=== PATIENT | female | born 1955 | race Caucasian/White ===

== ENCOUNTER 2017-08-02 16:38 | Inpatient (IN) | payer BC ==
[~2017-08-02] VITALS: Ht 162.6 cm; Wt 92.1 kg
[~2017-08-02 16:38] MED LIST: ATOR-24 PO; DOXY100C2 PO; EXEN1INJ4 SQ; HYDR25TA4 PO; METF850T PO; PIPERACILL/TAZOBAC IV 4.5 GM in DEXTROSE 5% 100ML IV SCH; RIVA1TAB4 PO; TRAM-10 PO
[2017-08-02] MEDS ORDERED: SODIUM CHLORIDE 0.9% 1000ML 1,000 ML IV STA (17:14)
[2017-08-02] MEDS ORDERED: ACETAMINOPHEN 500 MG TAB PO STA (17:14)
[2017-08-02] MEDS ORDERED: DIPHTHERIA/TETANUS/PERTUSSIS 0.5 ML SYR/VIAL IM. ONE (17:15)
[2017-08-02 18:08] LABS: BASO % 0.1 %; BASO ABS # 0.02 K/uL (0-0.2); COMPLETE YES; EOS % 0.1 %; IG% 0.3 %; LYMPH % 5.3 %; MEAN CELL VOLUME 83.3 fL (80-100); MEAN CORPUSCULAR HEMOGLOBIN 28.6 pg (25-34); MEAN CORPUSCULAR HGB CONC 34.4 g/dl (32-36); MEAN PLATELET VOLUME 11.2 fL (7.4-10.4); MONO % 5.3 %; NEUT % 88.9 %; PLATELET COUNT 218 K/uL (130-400); RED BLOOD COUNT 4.68 M/uL (4.2-5.4); WHITE BLOOD COUNT 18.84 K/uL (4.8-10.8)
[2017-08-02] MEDS ORDERED: VANCOMYCIN INJ 2,000 MG in SODIUM CHLORIDE 0.9% 500ML 500 ML IV STA (18:11)
[2017-08-02 18:17] LABS: PARTIAL THROMBOPLASTIN RATIO 1.2; PROTHROMBIN TIME (PATIENT) 11.2 SECONDS (9.0-12.0)
[2017-08-02 18:24] LABS: BUN/CREATININE RATIO 22.6 (10-20); CALCIUM 8.9 mg/dl (8.5-10.1); CREATININE 1.1 mg/dl (0.60-1.20); POTASSIUM 3.1 mmol/L (3.5-5.1)
[2017-08-02 18:27] LABS: ALB/GLOB RATIO 0.7 (0.9-2)
[2017-08-02 18:34] LABS: BETA-HYDROXYBUTYRATE 1.75 mg/dL (0.2-2.81)
--- NOTE | 2017-08-02 18:50 | DIAGNOSTIC IMAGING REPORT ---
R FOOT MIN 3 VIEWS ROUTINE HISTORY: 62 years-old Female right foot redness, swelling acute redness and swelling of the right foot without reported trauma. COMPARISON: None available. TECHNIQUE: 3 views of the right foot FINDINGS: Bones are mildly osteopenic. There is a subacute to chronic appearing fracture involving the proximal metaphysis fifth proximal phalanx. No acute fracture, dislocation identified. Mild first MTP joint osteoarthritis. There is spurring of the calcaneus. Moderate soft tissue swelling is noted about the foot, greatest at the level the forefoot. No definite erosive changes to suggest osteomyelitis. IMPRESSION: 1. Moderate soft tissue swelling about the foot, greatest within the forefoot. No acute bony abnormality identified. 2. Subacute to chronic nondisplaced fracture of the fifth proximal phalanx. 3. Degenerative changes as above. The above report was generated using voice recognition software. It may contain grammatical, syntax or spelling errors. Electronically signed by: Giles Lane M.D. 08/02/2017 6:49 PM Dictated Date/Time: 08/02/2017 6:47 PM
--- NOTE | 2017-08-02 19:11 | DIAGNOSTIC IMAGING REPORT ---
BILATERAL LOWER EXTREMITY VENOUS DOPPLER HISTORY: Acute right lower extremity swelling right foot redness, swelling COMPARISON STUDY: None. FINDINGS: There is normal compressibility, flow, and augmentation within the right lower extremity deep venous system. IMPRESSION: No sonographic evidence of deep venous thrombosis within the right lower extremity. Electronically signed by: Giles Lane M.D. 08/02/2017 7:09 PM Dictated Date/Time: 08/02/2017 7:08 PM
[2017-08-02] MEDS ORDERED: POTASSIUM CHLORIDE 10 MEQ TABCR PO STA (19:32)
[2017-08-02] MEDS ORDERED: GLUCOSE 10 TABS/TUBE PO PRN (20:30)
[2017-08-02] MEDS ORDERED: KETOROLAC TROMETHAMINE 30 MG/ML VIAL IV PRN (20:30)
[2017-08-02] MEDS ORDERED: GLUCOSE 40% GEL 15 GM TUBE PO PRN (20:30)
[2017-08-02] MEDS ORDERED: LANTUS PER UNIT CHARGE SC ONE (20:30)
[2017-08-02] MEDS ORDERED: DEXTROSE 50% 50 ML SYR IV PRN (20:30)
[2017-08-02] MEDS ORDERED: GLUCAGON FOR INJ 1 MG VIAL SQ PRN (20:30)
[2017-08-02] MEDS ORDERED: LORAZEPAM 0.5 MG TAB PO PRN (20:30)
[2017-08-02 20:34] LABS: MAGNESIUM 1.6 mg/dl (1.8-2.4); THYROID STIMULATING HORMONE 1.16 uIu/ml (0.300-4.500)
[2017-08-02] MEDS ORDERED: PIPERACILLIN/TAZOBACTAM 4.5 GM/100ML D5W IV STA (20:42)
[2017-08-02] MEDS ORDERED: VANCOMYCIN CONSULT ACTIVE PRN (21:00)
[2017-08-02] MEDS ORDERED: PIPERACILL/TAZOBAC CONSULT ACTIVE PRN (21:00)
--- NOTE | 2017-08-02 21:22 | EMERGENCY ROOM VISIT NOTE ---
History First contact with patient: 16:59 Chief Complaint: FOOT PAIN Stated Complaint: SWELLING - RED IN RIGHT FOOT History of Present Illness The patient is a 62 year old female who presents to the Emergency Room with complaints of right foot redness, swelling and pain. The patient states that she first noticed redness and swelling of the right foot 2 days ago when she woke up. She denies any recent injury to the foot. She was seen at her primary care's walk in clinic that day and had an injection of Rocephin and was placed on doxycycline for cellulitis. She returned yesterday for a recheck and was given an additional dose of Rocephin. She states that she felt better, but was told that she had increasing redness of the foot. She returned today for a third visit and was told to come here because her symptoms were worsening despite antibiotics. The patient has not noticed any fevers at home, but has been told that she had a fever at the clinic. She reports she had a "blood blister" on the great toe this morning which she popped with a sterile pin and cleaned with peroxide. The patient is a diabetic. She denies any history of infections. She denies any numbness or weakness of the leg or foot. Review of Systems A complete 10 point review of systems was reviewed with the patient with pertinent positives and negatives as per history of present illness. All else were negative. Past Medical/Surgical History Medical Problems: (1) Depression (2) Diabetes mellitus (3) DVT (deep venous thrombosis) (4) Dyslipidemia (5) HTN (hypertension) (6) Sepsis Surgical Problems: (1) S/P cholecystectomy (2) S/P tubal ligation Family History Depression Social History Smoking Status: Former Smoker Marital Status: Housing Status: lives with family Occupation Status: employed Current/Historical Medications Scheduled Atorvastatin (Lipitor), 1 TAB PO DAILY Doxycycline Hyclate (Vibramycin), 1 CAP PO BID Hydrochlorothiazide (Hctz), 25 MG PO DAILY Metformin Hcl (Glucophage), 850 MG PO BID Scheduled PRN Tramadol (Ultram), 25 MG PO Q4H PRN for Pain Physical Exam Vital Signs Date Time Temp Pulse Resp B/P (MAP) Pulse Ox O2 Delivery O2 Flow Rate FiO2 08/02/17 19:23 76 08/02/17 19:15 82 20 132/65 97 Room Air 08/02/17 16:49 38.9 101 17 143/83 100 Room Air Physical Exam VITALS: Vitals are noted on the nurse's note and reviewed by myself. Vital signs stable. GENERAL: This is a 62-year-old female, in no acute distress, nondiaphoretic, well-developed well-nourished. SKIN: Capillary reflex less than 2 seconds. HEART: Regular rate and rhythm without murmurs gallops or rubs. LUNGS: Clear to auscultation bilaterally without wheezes, rales or rhonchi. EXTREMITY: There is erythema and soft tissue swelling of the right foot which extends from the toes just past the ankle. There are no abrasions or lacerations. Pedal pulses intact. NEURO: Patient was alert and oriented to person place and time. Normal sensation to light and sharp touch. Medical Decision & Procedures ER Provider Diagnostic Interpretation: R FOOT MIN 3 VIEWS ROUTINE FINDINGS: Bones are mildly osteopenic. There is a subacute to chronic appearing fracture involving the proximal metaphysis fifth proximal phalanx. No acute fracture, dislocation identified. Mild first MTP joint osteoarthritis. There is spurring of the calcaneus. Moderate soft tissue swelling is noted about the foot, greatest at the level the forefoot. No definite erosive changes to suggest osteomyelitis. IMPRESSION: 1. Moderate soft tissue swelling about the foot, greatest within the forefoot. No acute bony abnormality identified. 2. Subacute to chronic nondisplaced fracture of the fifth proximal phalanx. 3. Degenerative changes as above. UNILATERAL LOWER EXTREMITY VENOUS DOPPLER HISTORY: Acute right lower extremity swelling right foot redness, swelling COMPARISON STUDY: None. FINDINGS: There is normal compressibility, flow, and augmentation within the right lower extremity deep venous system. IMPRESSION: No sonographic evidence of deep venous thrombosis within the right lower extremity. Laboratory Results 08/02/17 17:50 Red Blood Count 4.68, Mean Corpuscular Volume 83.3, Mean Corpuscular Hemoglobin 28.6, Mean Corpuscular Hemoglobin Concent 34.4, Mean Platelet Volume 11.2, Neutrophils (%) (Auto) 88.9, Lymphocytes (%) (Auto) 5.3, Monocytes (%) (Auto) 5.3, Eosinophils (%) (Auto) 0.1, Basophils (%) (Auto) 0.1, Neutrophils # (Auto) 16.76, Lymphocytes # (Auto) 1.00, Monocytes # (Auto) 1.00, Eosinophils # (Auto) 0.01, Basophils # (Auto) 0.02 08/02/17 17:50 Test 08/02/17 17:50 White Blood Count 18.84 K/uL (4.8-10.8) Red Blood Count 4.68 M/uL (4.2-5.4) Hemoglobin 13.4 g/dL (12.0-16.0) Hematocrit 39.0 % (37-47) Mean Corpuscular Volume 83.3 fL (80-100) Mean Corpuscular Hemoglobin 28.6 pg (25-34) Mean Corpuscular Hemoglobin Concent 34.4 g/dl (32-36) Platelet Count 218 K/uL (130-400) Mean Platelet Volume 11.2 fL (7.4-10.4) Neutrophils (%) (Auto) 88.9 % Lymphocytes (%) (Auto) 5.3 % Monocytes (%) (Auto) 5.3 % Eosinophils (%) (Auto) 0.1 % Basophils (%) (Auto) 0.1 % Neutrophils # (Auto) 16.76 K/uL (1.4-6.5) Lymphocytes # (Auto) 1.00 K/uL (1.2-3.4) Monocytes # (Auto) 1.00 K/uL (0.11-0.59) Eosinophils # (Auto) 0.01 K/uL (0-0.5) Basophils # (Auto) 0.02 K/uL (0-0.2) RDW Standard Deviation 36.6 fL (36.4-46.3) RDW Coefficient of Variation 12.1 % (11.5-14.5) Immature Granulocyte % (Auto) 0.3 % Immature Granulocyte # (Auto) 0.05 K/uL (0.00-0.02) Prothrombin Time 11.2 SECONDS (9.0-12.0) Prothromb Time International Ratio 1.0 (0.9-1.1) Activated Partial Thromboplast Time 30.9 SECONDS (21.0-31.0) Partial Thromboplastin Ratio 1.2 Anion Gap 8.0 mmol/L (3-11) Est Creatinine Clear Calc Drug Dose 59.1 ml/min Estimated GFR () 62.8 Estimated GFR (Non- 54.1 BUN/Creatinine Ratio 22.6 (10-20) Lactic Acid Level 1.7 mmol/L (0.4-2.0) Calcium Level 8.9 mg/dl (8.5-10.1) Magnesium Level 1.6 mg/dl (1.8-2.4) Total Bilirubin 0.7 mg/dl (0.2-1) Aspartate Amino Transf (AST/SGOT) 5 U/L (15-37) Alanine Aminotransferase (ALT/SGPT) 10 U/L (12-78) Alkaline Phosphatase 136 U/L (45-117) Total Creatine Kinase 39 U/L (26-192) Total Protein 7.1 gm/dl (6.4-8.2) Albumin 2.9 gm/dl (3.4-5.0) Globulin 4.2 gm/dl (2.5-4.0) Albumin/Globulin Ratio 0.7 (0.9-2) Beta-Hydroxybutyric Acid 1.75 mg/dL (0.2-2.81) Thyroid Stimulating Hormone (TSH) 1.160 uIu/ml (0.300-4.500) Medications Administered Medications (Trade) Dose Ordered Sig/Donald Route Start Time Stop Time Status Last Admin Dose Admin Diphtheria/ Pertussis/Tetanus Vacc (Adacel Inj) 0.5 ml ONCE ONCE IM. 08/02/17 17:15 08/02/17 17:17 DC 08/02/17 17:46 0.5 ML Sodium Chloride 1,000 ml @ 999 mls/hr Q1H1M STAT IV 08/02/17 17:14 08/02/17 18:14 DC 08/02/17 19:12 999 MLS/HR Acetaminophen (Tylenol Tab) 1,000 mg NOW STAT PO 08/02/17 17:14 08/02/17 17:17 DC 08/02/17 17:45 1,000 MG Vancomycin HCl 2000 mg/Sodium Chloride 540 ml @ 200 mls/hr ONE STAT IV 08/02/17 18:11 08/02/17 20:52 DC 08/02/17 19:12 200 MLS/HR Potassium Chloride (Klor-Con M10) 40 meq NOW STAT PO 08/02/17 19:32 08/02/17 19:35 DC 08/02/17 20:56 40 MEQ ED Course The patient was evaluated as above. Labs were drawn and IV access was obtained. Patient was medicated with 1 L normal saline solution and a dose of vancomycin. Ultrasound and x-ray were performed and read by radiology as above. Patient was reevaluated and findings were discussed. She is agreeable to admission. [facility] They agreed to evaluate the patient for admission. Medical Decision Differential diagnosis includes cellulitis, abscess, DVT, superficial thrombosis , sepsis, among others. The patient is a 62-year-old female who presents today complaining of right foot cellulitis. Labs revealed leukocytosis of 18,000. Patient was febrile on presentation. Blood cultures were drawn and are pending. Labs were otherwise unremarkable. Lactic acid is not elevated. Ultrasound and x-ray showed no acute findings. Patient has a significant cellulitis of the right foot with no improvement after 48 hours of outpatient therapy. She has a fever. I feel she will need admission for IV antibiotics. She was given an initial dose of vancomycin and admitted to the [facility] service for further evaluation and treatment. Medication Reconcilliation Current Medication List: was personally reviewed by me Blood Pressure Screening Patient's blood pressure: Elevated blood pressure Blood pressure disposition: Elevated BP felt to be situational Impression Primary Impression: Cellulitis of right foot Additional Impression: Failure of outpatient treatment Departure Information Referrals Winston Awad M.D. (PCP) Patient Instructions My [facility] Problem Qualifiers
[2017-08-02 21:45] VITALS: BP 113/80; PULSE 81; TEMP 36.7; O2SAT 97
[2017-08-02 22:30] VITALS: BP 113/80; PULSE 81; TEMP 36.7; O2SAT 97; BMI 34.9
[2017-08-02] MEDS ORDERED: NSS + 20MEQ KCL 1000ML 1,000 ML IV ONE (22:45)
[2017-08-02] MEDS ORDERED: MAGNESIUM SULFATE 1GM / D5W 1 GM in PREMIXED IN D5W 100 ML IV ONE (22:45)
[2017-08-02] MEDS: INSULIN ASPART 100 UNITS/ML 3 ML PEN SC SCH (23:02)
[2017-08-03 00:23] VITALS: BP 103/69; PULSE 84; TEMP 37.2; O2SAT 100
[2017-08-03] MEDS: ACETAMINOPHEN 325 MG TAB PO PRN ×3 (00:38→23:21)
--- NOTE | 2017-08-03 00:45 | HISTORY & PHYSICAL EXAMINATION ---
DATE OF ADMISSION: 08/02/2017 PRIMARY CARE DOCTOR: Dr. Awad. CHIEF COMPLAINT: Right foot swelling worsening. HISTORY OF PRESENT ILLNESS: History obtained from patient and records. Medical history significant for hypertension, diabetes type 2, on oral meds, history of embolic CVA, DVT sp anticoagulation status post IVC filter placement/removal , past tobacco abuse. Recent confinement 01/2016 for cerebellar infarct. Transferred to [facility] for further evaluation. Few nights ago, the patient noted chills, felt cold. She noted swelling on the left big toe spreading to the other toes, progressive foot swelling fever and chills morning after. She was seen at an urgent care center on 07/31/2017, noted to be febrile at 38.9. Px given IM Ceftriaxone at the facility and prescribed doxycycline for R foot infection. Fever and chills improved. R foot swelling worsening on followup visit at urgent care center yesterday. Patient given additional IM ceftriaxone. This morning the patient noted a blister on left great toe, which she burst yielding serosanguineous fluid. Upon return for recheck at facility, progressive right right foot swelling noted with some pain. Patient is compliant with medications over the last few days. She was told to go to the Emergency Room. At the Emergency Room, the patient received IV vancomycin for R foot infection. Patient upset that contemplated right shoulder surgery for next week canceled because of issues. MEDICAL HISTORY: As above. SURGICAL HISTORY: She has had cholecystectomy, tubal ligation, IVC filter placement and removal. HOME MEDICATIONS: Include atorvastatin, tramadol, metformin, HCTZ, aspirin. ALLERGIES: TO SULFA, BACTRIM. FAMILY HISTORY: Diabetes. PERSONAL AND SOCIAL HISTORY: Past tobacco use. No chronic intake of alcoholic beverages. [employer] graduate school employee. REVIEW OF SYSTEMS: As per HPI, all other ROS negative. PHYSICAL EXAMINATION: VITAL SIGNS: Blood pressure noted to be 140/80, later 130/65; pulse rate 101, later 82; RR 17; temperature 38.9; sats 100 on room air. GENERAL: Noted to be comfortable, obese, in no respiratory distress. Looks younger for stated age. SKIN: Normal color, warm. HEENT: [place] palpebral conjunctivae, dry mucosa. NECK: Short, midline trachea, nontender. CHEST: Clear to auscultation. No chest wall tenderness. CV: Regular rate and rhythm. Lower extremity pulses palpable. ABDOMEN: Soft, no distention EXTREMITIES: Swelling in the right foot, tender (left great toe markedly swollen with crusty wound) NEUROLOGIC: No gross focality, coherent. LABORATORY DATA: Hemoglobin was noted to be 13.4, hematocrit 39, white cell count 18.8, platelets noted to be 218. Sodium 133, potassium 3.1, chloride 108, CO2 of 24, BUN 25, creatinine 1, glucose 340. Foot x-ray, soft tissue swelling on the left forefoot, subacute to chronic nondisplaced fracture, fifth digit R Lower extremity ultrasound, no DVT of lower extremity. Hemoglobin A1c from 05/2017 was 9.7. ASSESSMENT AND PLAN: 1. Sepsis secondary to diabetic foot infection, right failed outpatient treatment. 2. Diabetes mellitus type 2, on oral medications suboptimal control as of recent outpatient hemoglobin A1c. 3. Hypertension, stable. 4. History of cerebrovascular accident. 5. hx DVT sp anticoagulation status post IVC filter placement/removal 6. Past tobacco abuse. 7. Hypokalemia secondary to diuretic therapy GMF CS. Vancomycin and Zosyn for now. Offload right lower extremity. Podiatry consult. Diabetic foot infection right May need ID consult pending CS results availability Replace potassium. Hold home diuretics for now. Check magnesium. Basal insulin ISS BG goal 140-180. Carb count indicated for suboptimal blood sugar control. Recheck hemoglobin A1c. May need diabetic education. DVT prophylaxis, Lovenox subcu. Full code. MTDD
[2017-08-03] MEDS: PIPERACILL/TAZOBAC IV 4.5 GM in DEXTROSE 5% 100ML IV SCH ×3 (02:13→17:27)
[2017-08-03 06:10] LABS: BASO % 0.1 %; BASO ABS # 0.02 K/uL (0-0.2); COMPLETE YES; EOS % 0.4 %; HEMATOCRIT 37.4 % (37-47); IG% 0.4 %; LYMPH % 12.8 %; LYMPH ABS # 1.98 K/uL (1.2-3.4); MEAN CELL VOLUME 83.3 fL (80-100); MEAN CORPUSCULAR HEMOGLOBIN 28.7 pg (25-34); MEAN CORPUSCULAR HGB CONC 34.5 g/dl (32-36); MEAN PLATELET VOLUME 11.2 fL (7.4-10.4); MONO % 4.6 %; NEUT % 81.7 %; PLATELET COUNT 205 K/uL (130-400); RED BLOOD COUNT 4.49 M/uL (4.2-5.4); WHITE BLOOD COUNT 15.46 K/uL (4.8-10.8)
[2017-08-03 06:43] LABS: BUN/CREATININE RATIO 20.5 (10-20); CALCIUM 8.9 mg/dl (8.5-10.1); POTASSIUM 3.3 mmol/L (3.5-5.1)
[2017-08-03 07:20] LABS: ESTIMATED AVERAGE GLUCOSE 275 mg/dl; HA1C FLAG Normal (Normal)
[2017-08-03] MEDS ORDERED: INSULIN GLARGINE SOLOSTAR 100 UNITS/ML 3 ML PEN SC SCH (08:00)
[2017-08-03] MEDS ORDERED: CONSULT PHARMACY SCH (08:00)
[2017-08-03] MEDS: ASPIRIN 81 MG ECTAB PO SCH (08:24)
[2017-08-03] MEDS: ATORVASTATIN 40 MG TAB PO SCH (08:24)
[2017-08-03] MEDS: TRAMADOL HCL 50 MG TAB PO PRN (08:25)
[2017-08-03] MEDS: ENOXAPARIN 40 MG/0.4 ML SYR SQ SCH (08:26)
[2017-08-03] MEDS: INSULIN ASPART 100 UNITS/ML 3 ML PEN SC SCH ×4 (08:30→21:05)
[2017-08-03 09:00] VITALS: BP 122/80; PULSE 84; TEMP 38; O2SAT 94
[2017-08-03] MEDS: INSULIN GLARGINE SOLOSTAR 100 UNITS/ML 3 ML PEN SC SCH ×2 (09:09→21:04)
[2017-08-03 10:57] VITALS: TEMP 39.4
[2017-08-03] MEDS: IBUPROFEN 200 MG TAB PO PRN (11:23)
[2017-08-03] MEDS: VANCOMYCIN INJ 1,250 MG in SODIUM CHLORIDE 0.9% 250ML 250 ML IV SCH (11:52)
[2017-08-03 12:00] VITALS: TEMP 36.9
[2017-08-03] MEDS ORDERED: POTASSIUM CHLORIDE 10 MEQ TABCR PO STA (12:04)
[2017-08-03 17:32] VITALS: BP 117/75; PULSE 62; TEMP 36.3; O2SAT 100
--- NOTE | 2017-08-03 18:04 | Progress Note ---
Internal Med Progress Note Date of Service: Aug 03, 2017. Provider Documentation: SUBJECTIVE: had episodes of fever intermittently no complain of SOB or cough OBJECTIVE: Vital Signs-as noted below Exam: General-no sign of distress, very pleasant Eyes-sclera non icteric ENT-NAD Neck-no JVD Lungs-CTA , no wheeze or rales Heart-regular S1/s2 Abdomen-soft, non tender Extremities-rt foot + erythema and swelling on dorsum area , significant swelling of rt great toe , purulent area with serosanguineous drainage from inter digit space between ist and 2nd toe , small area of purulent lesion with drainage on dorsum of the rt foot Neuro-no focal deficit , AAO x3 Lab data as noted below. ASSESSMENT & PLAN: SEPSIS DUE TO DIABETIC FOOT INFECTION ON RT SIDE presented with fever , chills , leukocytosis source of infection -infected rt great toe with extension to 5 toes as well started empirically with IV Zosyn and Vancomycin blood and wound culture ordered TYPE 2 DM : insulin SSI and Lantus ordered hold oral hypoglycemic while in hospital with acute illness and ongoing infection HTN : BP stable HX OF CVA : hx of occipital CVA uses walker occasionally at home cont Aspirin , statin fall precaution HX OF PRIOR LEFT LOWER EXT DVT S/P IVC FILTER PLACEMENT was on Xarelto ,which was discontinued after acute CVA had retrievable IVC filter placed , was removed after 7-8 months of anticoagulation lower ext Doppler negative for DVT HYPOKALEMIA /LOW MG : corrected follow labs DVT PROPHYLAXIS moderate risk lower ext Doppler negative for DVT sub q Lovenox DISPOSITION expected to be discharged home when medically stable may need [facility] antibiotics Vital Signs: Date Time Temp Pulse Resp B/P (MAP) Pulse Ox O2 Delivery O2 Flow Rate FiO2 08/04/17 16:33 39.1 70 18 112/67 (82) 98 Room Air 08/04/17 15:09 Room Air 08/04/17 08:40 Room Air 08/04/17 08:29 37.1 67 18 135/77 (96) 99 Room Air 08/04/17 00:58 36.7 08/04/17 00:00 Room Air 08/03/17 23:41 38.2 75 18 110/70 (83) 96 Room Air 08/03/17 20:00 Room Air Lab Results: Results Past 24 Hours Test 08/03/17 20:28 08/04/17 07:58 08/04/17 09:37 08/04/17 12:03 Range/Units Bedside Glucose 217 116 139 70-90 mg/dl Sodium Level 137 136-145 mmol/L Potassium Level 3.6 3.5-5.1 mmol/L Chloride Level 104 98-107 mmol/L Carbon Dioxide Level 23 21-32 mmol/L Anion Gap 10.0 3-11 mmol/L Blood Urea Nitrogen 14 7-18 mg/dl Creatinine 0.97 0.60-1.20 mg/dl Est Creatinine Clear Calc Drug Dose 67.0 ml/min Estimated GFR () 73.1 Estimated GFR (Non- 63.0 BUN/Creatinine Ratio 14.7 10-20 Random Glucose 143 70-99 mg/dl Calcium Level 8.8 8.5-10.1 mg/dl Magnesium Level 1.6 1.8-2.4 mg/dl Test 08/04/17 16:54 Range/Units Bedside Glucose 162 70-90 mg/dl
[2017-08-03 23:41] VITALS: BP 110/70; PULSE 75; TEMP 38.2; O2SAT 96
[2017-08-04 00:58] VITALS: TEMP 36.7
[2017-08-04] MEDS: PIPERACILL/TAZOBAC IV 4.5 GM in DEXTROSE 5% 100ML IV SCH ×2 (02:13→08:41)
[2017-08-04] MEDS: VANCOMYCIN INJ 1,250 MG in SODIUM CHLORIDE 0.9% 250ML 250 ML IV SCH ×2 (06:02→23:56)
[2017-08-04] MEDS: TRAMADOL HCL 50 MG TAB PO PRN ×2 (07:49→22:00)
[2017-08-04] MEDS: ASPIRIN 81 MG ECTAB PO SCH (07:49)
[2017-08-04] MEDS: ATORVASTATIN 40 MG TAB PO SCH (07:50)
[2017-08-04] MEDS: ENOXAPARIN 40 MG/0.4 ML SYR SQ SCH (07:51)
[2017-08-04 08:29] VITALS: BP 135/77; PULSE 67; TEMP 37.1; O2SAT 99
[2017-08-04] MEDS: INSULIN ASPART 100 UNITS/ML 3 ML PEN SC SCH ×4 (08:36→20:33)
[2017-08-04] MEDS: INSULIN GLARGINE SOLOSTAR 100 UNITS/ML 3 ML PEN SC SCH ×2 (08:37→21:36)
--- NOTE | 2017-08-04 09:51 | Progress Note ---
Progress Note Date of Service Aug 04, 2017. Progress Note ID Consult Dictated #[id number] A/P: 1. Diabetic foot wound - MRSA -Continue vanco, stop zosyn -follow blood cultures -consider wound vs surgery consults -Will follow, thank you
[2017-08-04 10:39] LABS: BUN/CREATININE RATIO 14.7 (10-20); CALCIUM 8.8 mg/dl (8.5-10.1); CREATININE 0.97 mg/dl (0.60-1.20); MAGNESIUM 1.6 mg/dl (1.8-2.4); POTASSIUM 3.6 mmol/L (3.5-5.1)
[2017-08-04] MEDS ORDERED: PHARMACY GLYCEMIC MGMT CONSULT SCH (10:41)
--- NOTE | 2017-08-04 12:02 | Pharmacy Progress Note ---
Glycemic Control Intl Consult Date of Service Aug 04, 2017. Scope Glycemic Pharmacist consulted by Dr Haddad on 08/04/17 for glycemic control and to write orders per [facility] inpatient glycemic control protocol Objective Weight (Kilograms): 92.100 Accuchecks BSG (last 24hrs): Test 08/03/17 17:16 08/03/17 20:28 08/04/17 07:58 08/04/17 09:37 Bedside Glucose 97 mg/dl (70-90) 217 mg/dl (70-90) 116 mg/dl (70-90) Random Glucose 143 mg/dl (70-99) Laboratory Data (last 24hrs) Test 08/04/17 09:37 Anion Gap 10.0 mmol/L BUN/Creatinine Ratio 14.7 Blood Urea Nitrogen 14 mg/dl Creatinine 0.97 mg/dl Potassium Level 3.6 mmol/L Sodium Level 137 mmol/L HbA1c Test 08/02/17 17:50 Hemoglobin A1c 11.2 % (4.5-5.6) H Recent Pertinent Medications Outpatient Anti-diabetic Regimen: * Metformin 850mg PO BID * A1c = 11.2 % 08/02/17 The patient is currently receiving: * Basal insulin: Lantus 20 units every 12 hours * Correctional Insulin: Novolog Correction per scale ACHS Goal Range: Low 140 mg/dL - High 180 mg/dL Correction Factor: 25 mg/dL/unit * Prandial insulin: Per carb ratio of 1 unit per 15 grams CHO consumed * Oral Agents: None currently Risk Factors for Insulin Resistance: * Infection: sepsis felt to be secondary to diabetic foot wound; receiving vancomycin IV * Diet: ordered T2DM diet and tolerating per carb counts Assessment & Plan ASSESSMENT: 08/04/17 * Type 2 diabetic admitted on 08/02 for sepsis secondary to diabetic foot wound * Patient appears to be poorly controlled with metformin monotherapy as an outpatient given recent A1c result of 11.2%. She will likely need the addition of insulin or possibly 2 more antidiabetic agents on discharge. * Over the last 24 hrs, glycemic control has been acceptable. BSGs have ranged 97-217, only 1 of which was above 180. * Fasting BSG 116 this AM w/ 40 units of basal insulin on board. I will reduce the basal insulin dose a the current regimen is weighted heavily in favor of basal (80% of total daily dose is basal insulin). * Will adjust the Novolog dosing parameters as well to allow for more Novolog w / meals given reduced basal dose * New regimen will be based upon anticipated total daily insulin requirement of 50-60 units/day when tolerating a diet (~0.6 units/kg/day) PLAN FOR INPATIENT GLYCEMIC CONTROL: * Decreasing Lantus to 14 units SQ BID * Continuing correction factor of 25 mg/dl/unit * Changing carb ratio to 1 unit per 9 grams CHO consumed * Changing goal range to Low 120 mg/dL - High 150 mg/dL * Please note that the plan above was derived based on current level of insulin resistance and hospital stress. These recommendations are appropriate for inpatient admission only. Plan of care upon discharge will need to be reassessed to avoid potential outpatient hypo/hyperglycemia. Thank you.
[2017-08-04] MEDS ORDERED: LORAZEPAM 0.5 MG TAB PO PRN (12:30)
[2017-08-04] MEDS ORDERED: MAGNESIUM SULFATE 1GM / D5W 1 GM in PREMIXED IN D5W 100 ML IV ONE (12:30)
[2017-08-04 16:33] VITALS: BP 112/67; PULSE 70; TEMP 39.1; O2SAT 98
[2017-08-04] MEDS ORDERED: GADAVIST IV PRN (16:45)
--- NOTE | 2017-08-04 17:40 | Progress Note ---
Internal Med Progress Note Date of Service: Aug 04, 2017. Provider Documentation: SUBJECTIVE: was afebrile this AM rt foot continues to have swelling and drainage has minimum pain OBJECTIVE: Vital Signs-as noted below Exam: General-no sign of distress, very pleasant Eyes-sclera non icteric ENT-NAD Neck-no JVD Lungs-CTA , no wheeze or rales Heart-regular S1/s2 Abdomen-soft, non tender Extremities-rt foot + erythema and swelling on dorsum area , significant swelling of rt great toe , purulent area with serosanguineous drainage from inter digit space between ist and 2nd toe , small area of purulent lesion with drainage on dorsum of the rt foot Neuro-no focal deficit , AAO x3 Lab data as noted below. ASSESSMENT & PLAN: SEPSIS DUE TO DIABETIC FOOT INFECTION ON RT SIDE presented with fever , chills , leukocytosis WBC improving 18K --> 15 K source of infection -infected rt great toe with extension to 5 toes as well started empirically with IV Zosyn and Vancomycin wound culture -MRSA appreciate input form ID D/c Zosyn Cont on Vancomycin Ortho consulted for further eval MRI of rt foot ordered to R/O osteomyelitis TYPE 2 DM : insulin SSI and Lantus ordered HB A1c 11.2 ( poorly controlled ) certified lactation educator consulted hold oral hypoglycemic ( was on Metformin 850 mg BID ) while in hospital with acute illness and ongoing infection pharmacy consulted for glycemic management HTN : BP stable HX OF CVA : hx of occipital CVA uses walker occasionally at home cont Aspirin , statin fall precaution HX OF PRIOR LEFT LOWER EXT DVT S/P IVC FILTER PLACEMENT was on Xarelto ,which was discontinued after acute CVA had retrievable IVC filter placed , was removed after 7-8 months of anticoagulation lower ext Doppler negative for DVT HYPOKALEMIA /LOW MG : corrected follow labs DVT PROPHYLAXIS moderate risk lower ext Doppler negative for DVT sub q Lovenox DISPOSITION expected to be discharged home when medically stable may need long term care social worker antibiotics Vital Signs: Date Time Temp Pulse Resp B/P (MAP) Pulse Ox O2 Delivery O2 Flow Rate FiO2 08/04/17 16:33 39.1 70 18 112/67 (82) 98 Room Air 08/04/17 15:09 Room Air 08/04/17 08:40 Room Air 08/04/17 08:29 37.1 67 18 135/77 (96) 99 Room Air 08/04/17 00:58 36.7 08/04/17 00:00 Room Air 08/03/17 23:41 38.2 75 18 110/70 (83) 96 Room Air 08/03/17 20:00 Room Air Lab Results: Results Past 24 Hours Test 08/03/17 20:28 08/04/17 07:58 08/04/17 09:37 08/04/17 12:03 Range/Units Bedside Glucose 217 116 139 70-90 mg/dl Sodium Level 137 136-145 mmol/L Potassium Level 3.6 3.5-5.1 mmol/L Chloride Level 104 98-107 mmol/L Carbon Dioxide Level 23 21-32 mmol/L Anion Gap 10.0 3-11 mmol/L Blood Urea Nitrogen 14 7-18 mg/dl Creatinine 0.97 0.60-1.20 mg/dl Est Creatinine Clear Calc Drug Dose 67.0 ml/min Estimated GFR () 73.1 Estimated GFR (Non- 63.0 BUN/Creatinine Ratio 14.7 10-20 Random Glucose 143 70-99 mg/dl Calcium Level 8.8 8.5-10.1 mg/dl Magnesium Level 1.6 1.8-2.4 mg/dl Test 08/04/17 16:54 Range/Units Bedside Glucose 162 70-90 mg/dl
[2017-08-04] MEDS: ACETAMINOPHEN 325 MG TAB PO PRN (17:50)
--- NOTE | 2017-08-04 20:28 | Progress Note ---
Progress Note Date of Service Aug 04, 2017. Progress Note pt is ordered NPO past midnight for possible I&D of rt foot /interdigital cleft of rt foot tomorrow by Ortho hold Sub lei Tsex
--- NOTE | 2017-08-04 20:38 | INFECT. DISEASE CONSULTATION ---
DATE OF CONSULTATION: 08/04/2017 REQUESTING PHYSICIAN: Dr. Haddad. HISTORY OF PRESENT ILLNESS: This is a 62-year-old female who was admitted for infection of her right toe. She was recently seen at an urgent care center on the . At that time she did have fever, she was given a 1 time dose of IM Rocephin and then she was given doxycycline prescription. She did have improvement with her fevers and chills but continued to have pain in the foot and a blister of her great toe on the left side. She returned back to the urgent care center and then was subsequently told to go to the Emergency Room. In the ER, she was started on IV vancomycin and appeared to be tolerating that well. She did have a culture of the foot which is growing MRSA. She remains on intravenous antibiotics. She is currently on vancomycin and Zosyn. Infectious disease is consulted for a toe infection. She did have a foot x-ray done in the ER which shows a soft tissue swelling, degenerative disease but no definitive changes to suggest osteomyelitis. She is tolerating antibiotics well. She states her pain is better. Her fevers have resolved. She has not been seen by the wound care center or surgical team as of yet. She denies chest pain, cough, shortness of breath, nausea, vomiting or diarrhea. All remaining review of systems is reviewed and unremarkable. 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 PAST SURGICAL HISTORY: Significant for IVC filter, cholecystectomy, tubal ligation and IVC filter removal. ALLERGIES: SHE HAS ALLERGIES TO BACTRIM. FAMILY HISTORY: Noncontributory. SOCIAL HISTORY: Significant for history of tobacco use. She denies alcohol or drug use. CURRENT MEDICATIONS: Include vancomycin, Lovenox aspirin, Lantus, Zosyn, Tylenol, tramadol, Advil, Toradol, morphine and Ativan. PHYSICAL EXAMINATION: VITAL SIGNS: Her T-max is 38.2, current temperature is 37.1, pulse 67, respiratory rate 18, blood pressure 135/77, and oxygen saturation is 99% on room air. GENERAL: She is awake, alert and oriented x3. She is in no acute distress. HEENT: Mucous membranes are moist. Extraocular muscles are intact. HEART: Regular. LUNGS: Clear. ABDOMEN: Soft, nontender, and nondistended. Lower extremities: There is trace left and right lower extremity edema. Examination of the reveals significant warmth, tenderness or erythema into the mid foot to ankle area. She states this has improved. There is no purulent drainage on the dressing. She is undergoing phlebotomy and dressing was not removed. LABORATORY STUDIES: CBC today reveals a white blood cell count of 15.4, hemoglobin 12.9 and platelets of 205. Chemistry panel for today is pending. Creatinine yesterday was 1 and a urinalysis has been obtained. Blood cultures from the are no growth to date x2 sets and a surface wound culture of the right great foot shows MRSA with resistance to erythromycin. IMAGING DATA: X-ray again is without osteomyelitis. ASSESSMENT AND PLAN: Diabetic foot ulceration with methicillin-resistant staphylococcus aureus. I would suggest either surgical or wound care evaluation. She will remain on vancomycin and her Zosyn can be discontinued. Blood cultures are negative. She will likely need outpatient wound center management post discharge from the hospital. AMANDA
[2017-08-04] MEDS ORDERED: VANCOMYCIN TROUGH SCH (23:30)
--- NOTE | 2017-08-04 23:59 | DIAGNOSTIC IMAGING REPORT ---
R LOWER EXT NONJOINT COMBO HISTORY: 62 years-old Female rt diabetic foot infection chronic diabetic right foot infection with concern for osteomyelitis COMPARISON: Right foot radiographs 08/02/2017 TECHNIQUE: Multiplanar multisequence MRI of the right foot were obtained both with and without the use of 9 mL Gadavist FINDINGS: Study is mildly limited secondary to patient motion. No significant focal bone marrow edema identified. No focal significant loss of T1 signal identified to suggest focal osteomyelitis. Subacute appearing nondisplaced fracture involves the base of the fifth proximal phalanx with mild sclerosis and minimal edema within this distribution as seen on image 8 of series 13 and image 8 of series 6. Mild first metatarsal phalangeal and mid foot osteoarthritis is noted. 5 mm subcortical cyst is noted within the calcaneus near the angle of gissane. With additional subcortical cystic changes noted at the talonavicular joint with mild to moderate chondral thinning. There is extensive soft tissue swelling and subcutaneous edema about the forefoot and to a lesser extent within the midfoot and hindfoot. Moderate atrophy of the intrinsic musculature of the foot is seen. There is a loculated peripherally enhancing collection of the dorsal forefoot and midfoot measuring up to 3.2 x 1.2 x 5.3 cm as seen on image 26 of series 11 and image 12 of series 13. The collection extends and surrounds the first digit as seen on image 12 of series 11. There is a small fluid filled tract extending along the dorsal surface of this collection to the skin surface, 0.5 x 2.0 cm as seen on image 25 series 11. Moderate skin thickening seen within this distribution as well. Additional moderate fluid tracks along the extensor tendons of the first through third digits suggesting associated tenosynovitis. IMPRESSION: 1. Extensive soft tissue swelling and subcutaneous edema about the foot suggests cellulitis with loculated peripherally enhancing collection of the dorsal forefoot measuring 3.2 x 1.2 x 5.3 cm with associated small fluid filled tract extending to the skin surface as above suggesting draining abscess. 2. No evidence of osteomyelitis or acute fracture. 3. Fluid tracking along the extensor tendons of the first through third digits suggests associated tenosynovitis, likely reactive or infectious. 4. Mild degenerative changes as above. Subacute to chronic nondisplaced fracture involves the base of the fifth metatarsal. 5. Moderate atrophy of the intrinsic musculature of the foot likely secondary to long-standing denervation changes with diabetes mellitus. The above report was generated using voice recognition software. It may contain grammatical, syntax or spelling errors. Electronically signed by: Giles Lane M.D. 08/04/2017 11:57 PM Dictated Date/Time: 08/04/2017 11:16 PM
[2017-08-05] VITALS (10 sets, daily range): BP systolic 79–142; BP diastolic 66–81; PULSE 59–78; TEMP 36.2–36.9; O2SAT 93–97; BMI 34.9
--- NOTE | 2017-08-05 00:55 | ORTHOPEDIC CONSULTATION ---
DATE OF CONSULTATION: 08/04/2017 HISTORY OF PRESENT ILLNESS: This is a 62-year-old female seen at the request of Dr. Arana and Dr. Haddad for right foot pain and swelling. The patient is patient of Dr. Awad and a few nights ago, the patient noted chills and felt cold. She noted swelling of the left great toe, which spread to her other toes and progressive foot swelling and fevers and chills the day after. She was seen in urgent care center on July 31 and noted to be slightly febrile at 38.9 degrees Celsius. The patient was given intramuscular ceftriaxone at the facility and prescribed doxycycline for right foot infection. Her fever and chills improved; however, right foot pain and swelling worsened. She was seen at urgent care center on August 01 and given additional intermuscular ceftriaxone. Earlier in the morning on August 02, the patient began having blistering on the dorsum of her right foot and right great toe. She burst the blister on her right great toe with a pin which is sterilized and had some serosanguineous fluid. She was then rechecked at the facility, had progressive right pain and swelling and was then instructed to follow up at [facility]. In the ER at [facility], she was given IV vancomycin and she was then admitted to the hospital for further care and management. PAST MEDICAL HISTORY: Hypertension, type 2 diabetes mellitus, on diet and medication control, embolic CVA affecting the cerebellum, DVT with anticoagulation and recent inferior vena cava filter placement and removal, tobacco abuse. PAST SURGICAL HISTORY: IVC filter placement and removal, cholecystectomy, tubal ligation. ALLERGIES: SULFA AND BACTRIM. MEDICATIONS: Atorvastatin, tramadol, metformin, hydrochlorothiazide and aspirin. SOCIAL HISTORY: Intermittent past tobacco use, occasional alcoholic beverages. No drug use. 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 PHYSICAL EXAMINATION: GENERAL: This is a 62-year-old female who is lying supine in her hospital room bed. She is alert and oriented x3. Speech clear and fluent. Affect is appropriate. LOWER EXTREMITIES: Examination of the right foot demonstrates dorsalis pedis pulses are difficult to palpate due to swelling of the dorsum of foot, posterior tibial pulses are 2/4. She has obvious skin abnormality in dorsum of the foot with fluctuance as well as fluctuance in the first interdigital space, dorsal aspect of the right foot. There is skin slough noted both in the dorsum of the foot and the first interdigital space with foul odor and serosanguineous discharge. Upon palpation, there is some extruded serosanguineous fluid from the 1st interdigital space with palpation. She has tenderness to palpation. She has erythema and dorsal cellulitis of the foot. Foot is swollen in a fusiform fashion as well as fusiform swelling of the first, second and third toes. She has normal motion at the ankle, limited motion to the hindfoot, midfoot and forefoot due to pain and swelling. IMAGING DATA: Radiographs review demonstrating soft tissue swelling and an age indeterminate fracture of the proximal phalanx of her fifth toe with apparent nonunion. No obvious appearance of osteomyelitis. MRI ordered and unofficial image review was performed noting obvious fluid collection in the distal forefoot between the first and second toes extending into the dorsum of the foot and extending to the mid foot with abscess formation. No obvious involvement of the bones. No obvious osteomyelitis. LABORATORY DATA: Review demonstrating a white cell count 18.8. Ultrasound reviewed demonstrating no obvious DVT. Hemoglobin A1c from May 2017 was 9.7. IMPRESSION: 1. Right great toe abscess. 2. Dorsal forefoot and mid foot abscess. 3. Cellulitis of the right foot. RECOMMENDATIONS: The patient should be made n.p.o. after midnight and I will schedule with my partner to perform I&D abscess of the foot and then continue IV antibiotics. AMANDA
[2017-08-05 07:10] LABS: HEMATOCRIT 32.8 % (37-47); MEAN CORPUSCULAR HEMOGLOBIN 28.8 pg (25-34); MEAN CORPUSCULAR HGB CONC 33.8 g/dl (32-36); MEAN PLATELET VOLUME 11.1 fL (7.4-10.4); PLATELET COUNT 221 K/uL (130-400); RED BLOOD COUNT 3.86 M/uL (4.2-5.4); WHITE BLOOD COUNT 10.87 K/uL (4.8-10.8)
[2017-08-05 07:42] LABS: BUN/CREATININE RATIO 15.5 (10-20); CALCIUM 8.3 mg/dl (8.5-10.1); CREATININE 0.71 mg/dl (0.60-1.20); MAGNESIUM 1.9 mg/dl (1.8-2.4); POTASSIUM 3.4 mmol/L (3.5-5.1)
[2017-08-05] MEDS: INSULIN ASPART 100 UNITS/ML 3 ML PEN SC SCH ×4 (08:13→20:58)
[2017-08-05] MEDS ORDERED: NURSING VERBAL MED ORDER ONE ×2 (08:15→11:45)
--- NOTE | 2017-08-05 08:27 | Pharmacy Progress Note ---
Pharmacy Abx Dose Progress Nt Date of Service Aug 05, 2017. Pharmacy Dosing Scope The patient is currently receiving the following antimicrobial agents per Pharmacy consult: vancomycin mg IV every 18 hours Objective Height (Feet): 5 Height (Inches): 4.00 Weight (Kilograms): 92.100 Vital Signs (Past 12Hrs) Vital Signs Past 12 Hours Date Time Temp Pulse Resp B/P (MAP) Pulse Ox O2 Delivery O2 Flow Rate FiO2 08/05/17 08:17 36.9 69 18 126/76 (93) 96 Room Air 08/05/17 00:50 Room Air 08/05/17 00:04 36.7 59 18 102/66 (78) 97 Room Air 08/04/17 22:00 Room Air Lab Results (24Hrs) Laboratory Tests (24 Hours) Test 08/05/17 06:23 White Blood Count 10.87 K/uL (4.8-10.8) H Micro Results Date/Time Source Procedure Growth Status 08/02/17 18:51 Blood Blood Culture - Preliminary NO GROWTH TO DATE. Resulted 08/02/17 17:50 Blood Blood Culture - Preliminary NO GROWTH TO DATE. Resulted 08/02/17 00:00 Drainage - Surface Foot Right Gram Stain - Final Resulted 08/02/17 00:00 Wound Culture - Preliminary Staphylococcus Aureus Resulted Risk Factors for Resistance * History of infection with a multidrug-resistant organism: MRSA Assessment & Plan Assessment 62 year old female receiving vancomycin for treatment of diabetic foot infection with MRSA Day # 4 of antimicrobial therapy Plan Vancomycin IV * Trough level of 13.1 mcg/mL is subtherapeutic * Change to 1000 mg IV every 12 hours * More frequent dosing interval, SCr has decreased from 1.1 on admission to 0.71 * Goal trough level for diabetic foot infection : 15 to 20 mcg/mL * Trough ordered for 08/06@ 2330 * Less than traditional dose selected due to likelihood of drug accumulation in obese patient/CKD. Pharmacy will continue to follow and will adjust dose/frequency as necessary. Thank you.
[2017-08-05] MEDS: INSULIN GLARGINE SOLOSTAR 100 UNITS/ML 3 ML PEN SC SCH ×2 (08:36→21:15)
[2017-08-05] MEDS ORDERED: INSULIN GLARGINE SOLOSTAR 100 UNITS/ML 3 ML PEN SQ ONE (09:00)
--- NOTE | 2017-08-05 10:39 | Progress Note ---
Subjective Date of Service: Aug 05, 2017. Subjective Pt evaluation today including: conversation w/ patient, physical exam, chart review, lab review for OR today, mri with abscess foot - cultures growing mrsa. remains on abx, tolerating well. had fever overnight, txam 39.1, foot now open and draining pus. blood cultures remain negative. still with pain in foot, less erythema. all remaining ros reviewed and are negative. Problem List Medical Problems: (1) Abnormal brain CT Status: Acute (2) Cellulitis of right foot Status: Acute (3) Dizziness Status: Acute (4) Failure of outpatient treatment Status: Acute (5) Vomiting Status: Acute Objective Vital Signs Date Time Temp Pulse Resp B/P (MAP) Pulse Ox O2 Delivery O2 Flow Rate FiO2 08/05/17 08:17 36.9 69 18 126/76 (93) 96 Room Air 08/05/17 00:50 Room Air 08/05/17 00:04 36.7 59 18 102/66 (78) 97 Room Air 08/04/17 22:00 Room Air 08/04/17 16:33 39.1 70 18 112/67 (82) 98 Room Air 08/04/17 15:09 Room Air Physical Exam General Appearance: WD/WN, no apparent distress Eyes: normal inspection, PERRL, EOMI Neck: supple Respiratory/Chest: lungs clear, normal breath sounds, no respiratory distress Cardiovascular: regular rate, rhythm, no edema Abdomen: non tender, soft Extremities: no pedal edema Neurologic/Psychiatric: alert, oriented x 3 Skin: normal color, no rash Comments: foot with less erythema and warmth today but significant drainage of purulent fluid from dorsal foot. Laboratory Results Item Value Date Time Blood Culture - Preliminary Resulted 08/02/17 1851 Blood NO GROWTH TO DATE. Blood Culture - Preliminary Resulted 08/02/17 1750 Blood NO GROWTH TO DATE. Gram Stain - Final Resulted 08/02/17 0000 Drainage - Surface Foot Right Last 24 Hours Test 08/04/17 12:03 08/04/17 16:54 08/04/17 20:19 08/04/17 21:25 Bedside Glucose 139 mg/dl 162 mg/dl 83 mg/dl 149 mg/dl Test 08/04/17 23:21 08/05/17 06:23 08/05/17 07:58 Vancomycin Level Trough 13.1 mcg/ml White Blood Count 10.87 K/uL Red Blood Count 3.86 M/uL Hemoglobin 11.1 g/dL Hematocrit 32.8 % Mean Corpuscular Volume 85.0 fL Mean Corpuscular Hemoglobin 28.8 pg Mean Corpuscular Hemoglobin Concent 33.8 g/dl RDW Standard Deviation 38.8 fL RDW Coefficient of Variation 12.6 % Platelet Count 221 K/uL Mean Platelet Volume 11.1 fL Sodium Level 139 mmol/L Potassium Level 3.4 mmol/L Chloride Level 106 mmol/L Carbon Dioxide Level 24 mmol/L Anion Gap 9.0 mmol/L Blood Urea Nitrogen 11 mg/dl Creatinine 0.71 mg/dl Est Creatinine Clear Calc Drug Dose 91.5 ml/min Estimated GFR () 106.5 Estimated GFR (Non- 91.9 BUN/Creatinine Ratio 15.5 Random Glucose 66 mg/dl Calcium Level 8.3 mg/dl Magnesium Level 1.9 mg/dl Bedside Glucose 88 mg/dl Assessment and Plan (1) Cellulitis of right foot Assessment & Plan: continue IV abx, follow OR findings.
[2017-08-05] MEDS ORDERED: FENTANYL CITRATE INJ 50 MCG/1 ML 2 ML VIAL ONE ×2 (10:50→14:02)
[2017-08-05] MEDS ORDERED: MIDAZOLAM HCL 1 MG/ML 2ML VIAL ONE (10:51)
[2017-08-05] MEDS ORDERED: PROPOFOL IV EMULSION 10 MG/ML 20 ML VIAL IV ONE (10:56)
[2017-08-05] MEDS ORDERED: PHENYLEPHRINE 100MCG/ML 5ML SYR ONE (10:56)
[2017-08-05] MEDS ORDERED: EpHEDrine SULFATE 50MG/5ML SYR ONE (10:56)
[2017-08-05] MEDS ORDERED: ONDANSETRON INJ 2 MG/ML 2 ML VIAL ONE (10:56)
[2017-08-05] MEDS ORDERED: LIDOCAINE HCL 2% 2 ML VIAL (20MG/ML) ONE (10:56)
[2017-08-05] MEDS: VANCOMYCIN INJ 1,000 MG in SODIUM CHLORIDE 0.9% 250ML 250 ML IV SCH ×2 (11:33→23:52)
--- NOTE | 2017-08-05 11:35 | History & Physical Bridge Note ---
H&P Re-Evaluation Bridge Note: I have examined the patient, reviewed the History & Physical and in the interval since the performance of the History & Physical I have noted the following changes of clinical significance: No changes noted
--- NOTE | 2017-08-05 11:44 | Pharmacy Progress Note ---
Glycemic Control Progress Note Date of Service Aug 05, 2017. Scope Glycemic Pharmacist consulted for glycemic control to write orders per [facility] inpatient glycemic control protocol. Objective Accuchecks BSG (last 24hrs): Test 08/04/17 12:03 08/04/17 16:54 08/04/17 20:19 08/04/17 21:25 Bedside Glucose 139 mg/dl (70-90) 162 mg/dl (70-90) 83 mg/dl (70-90) 149 mg/dl (70-90) Test 08/05/17 06:23 08/05/17 07:58 Random Glucose 66 mg/dl (70-99) Bedside Glucose 88 mg/dl (70-90) HbA1c: Test 08/02/17 17:50 Hemoglobin A1c 11.2 % (4.5-5.6) H Recent Pertinent Medications The patient is currently receiving: * Basal insulin: Lantus 14 units every 12 hours * Correctional Insulin: Novolog Correction per scale ACHS Goal Range: Low 120 mg/dL - High 150 mg/dL Correction Factor: 25 mg/dL/unit * Prandial insulin: Per carb ratio of 1 unit per 9 grams CHO consumed Outpatient Anti-Diabetic Meds Oral Agents Assessment & Plan ASSESSMENT: * See progress note from 08/05/17 for more background info, in short: Pt receiving SQ basal bolus insulin regimen for hyperglycemia secondary to baseline DM (outpatient regimen on hold) and stress/infection * Changes needed to insulin regimen: * Pt made NPO at midnight for I/D this AM * Reduced dose of Lantus given X 1 * Resume Lantus 14 units BID starting tonight and continue current Novolog as I do not have enough data to make changes at this time * Prior to I/D- pt initiated on D5/LR @ 200 cc/hr - this will effects BSGs into the evening so hopefully this is discontinued when diet advanced PLAN FOR INPATIENT GLYCEMIC CONTROL: * Oral Agents * Continue to hold outpatient oral diabetes medications. * Basal insulin * Lantus 14 units SQ BID * 7 units for NPO status * Bolus insulin * NovoLog per scale ACHS or Q6hrs while NPO * Goal Range: Low 120 mg/dL - High 150 mg/dL * Correction Factor: 25 mg/dL/unit * Nutritional / Prandial insulin per carb ratio of 1 unit per 9 grams CHO consumed * Please note that the plan above was derived based on current level of insulin resistance and hospital stress. These recommendations are appropriate for inpatient admission only. Plan of care upon discharge will need to be reassessed to avoid potential outpatient hypo/hyperglycemia. Thank you.
[2017-08-05] MEDS: D5W AND LACTATED RINGERS 1,000 ML IV SCH ×2 (11:45→16:45)
[2017-08-05] MEDS ORDERED: BACITRACIN 50000 UNIT VIAL ONE (12:23)
[2017-08-05] MEDS ORDERED: PHENYLEPHRINE 100MCG/ML 5ML SYR IV PRN ×2 (12:30→13:30)
[2017-08-05] MEDS ORDERED: ONDANSETRON INJ 2 MG/ML 2 ML VIAL IV PRN ×2 (12:30→13:30)
[2017-08-05] MEDS ORDERED: HYDROmorphone INJ 2 MG/ML SYR/VIAL IV PRN ×2 (12:30→13:30)
[2017-08-05] MEDS ORDERED: EpHEDrine SULFATE INJ 50 MG/ML AMP IV PRN ×2 (12:30→13:30)
[2017-08-05] MEDS ORDERED: ATROPINE SULFATE 0.1 MG/ML 5ML SYR IV PRN ×2 (12:30→13:30)
--- NOTE | 2017-08-05 14:50 | Anesthesiology Progress Note ---
Anesthesia Post Op Note Date & Time Aug 05, 2017 at 14:50 Vital Signs Pain Intensity: 0 Vital Signs Past 12 Hours Date Time Temp Pulse Resp B/P (MAP) Pulse Ox O2 Delivery O2 Flow Rate FiO2 08/05/17 14:45 68 17 124/74 99 Oxymask 10 08/05/17 14:35 66 13 132/69 95 Oxymask 15 08/05/17 14:25 36.8 65 12 128/76 97 Oxymask 15 08/05/17 11:07 Room Air 08/05/17 08:17 36.9 69 18 126/76 (93) 96 Room Air Notes Mental Status: alert / awake / arousable, participated in evaluation Pt Amnestic to Procedure: Yes Nausea / Vomiting: adequately controlled Pain: adequately controlled Airway Patency, RR, SpO2: stable & adequate BP & HR: stable & adequate Hydration State: stable & adequate Anesthetic Complications: no major complications apparent
--- NOTE | 2017-08-05 14:53 | Anesthesiology Progress Note ---
Anesthesia Post Op Note Date & Time Aug 05, 2017 at 14:52 Vital Signs Pain Intensity: 0 Vital Signs Past 12 Hours Date Time Temp Pulse Resp B/P (MAP) Pulse Ox O2 Delivery O2 Flow Rate FiO2 08/05/17 14:45 68 17 124/74 99 Oxymask 10 08/05/17 14:35 66 13 132/69 95 Oxymask 15 08/05/17 14:25 36.8 65 12 128/76 97 Oxymask 15 08/05/17 11:07 Room Air 08/05/17 08:17 36.9 69 18 126/76 (93) 96 Room Air Notes Mental Status: alert / awake / arousable, participated in evaluation Pt Amnestic to Procedure: Yes Nausea / Vomiting: adequately controlled Pain: adequately controlled Airway Patency, RR, SpO2: stable & adequate BP & HR: stable & adequate Hydration State: stable & adequate Anesthetic Complications: no major complications apparent
[2017-08-05] MEDS: ATORVASTATIN 40 MG TAB PO SCH (16:11)
[2017-08-05] MEDS: MoRPHine SULFATE 2 MG/ML CARP IV PRN (17:06)
--- NOTE | 2017-08-05 21:45 | Progress Note ---
Internal Med Progress Note Date of Service: Aug 05, 2017. Provider Documentation: SUBJECTIVE: s/p Incision and drainage and packing of abscess, right foot. tolerated the procedure well no fever or chills OBJECTIVE: Vital Signs-as noted below Exam: General-no sign of distress, very pleasant Eyes-sclera non icteric ENT-NAD Neck-no JVD Lungs-CTA , no wheeze or rales Heart-regular S1/s2 Abdomen-soft, non tender Extremities-rt foot in bandage Neuro-no focal deficit , AAO x3 Lab data as noted below. ASSESSMENT & PLAN: SEPSIS DUE TO DIABETIC FOOT INFECTION ON RT SIDE presented with fever , chills , leukocytosis WBC improving 18K --> 15 K -> 10 K source of infection -infected rt great toe with extension to 5 toes as well started empirically with IV Zosyn and Vancomycin wound culture -MRSA appreciate input form ID D/c Zosyn Cont on Vancomycin Ortho consulted s/p Incision and drainage and packing of abscess, right foot. TYPE 2 DM : insulin SSI and Lantus ordered HB A1c 11.2 ( poorly controlled ) certified adaptive physical educator consulted hold oral hypoglycemic ( was on Metformin 850 mg BID ) while in hospital with acute illness and ongoing infection pharmacy consulted for glycemic management HTN : BP stable HX OF CVA : hx of occipital CVA uses walker occasionally at home cont Aspirin , statin fall precaution HX OF PRIOR LEFT LOWER EXT DVT S/P IVC FILTER PLACEMENT was on Xarelto ,which was discontinued after acute CVA had retrievable IVC filter placed , was removed after 7-8 months of anticoagulation lower ext Doppler negative for DVT HYPOKALEMIA /LOW MG : corrected follow labs DVT PROPHYLAXIS moderate risk lower ext Doppler negative for DVT sub q Lovenox DISPOSITION expected to be discharged home when medically stable may need longterm antibiotics Vital Signs: Date Time Temp Pulse Resp B/P (MAP) Pulse Ox O2 Delivery O2 Flow Rate FiO2 08/06/17 15:29 37.0 60 18 132/74 (93) 98 Room Air 08/06/17 09:12 Room Air 98 08/06/17 09:00 Room Air 08/06/17 08:22 36.5 51 18 108/67 (81) 98 Room Air 08/06/17 00:40 37.6 66 16 136/75 (95) 92 Room Air 08/06/17 00:10 Room Air 08/05/17 20:00 96 Room Air 08/05/17 19:47 73 18 127/77 (94) 96 08/05/17 18:35 36.4 68 18 128/76 (93) 95 Room Air 08/05/17 17:45 36.2 64 20 130/72 (91) 95 Room Air 08/05/17 16:44 36.8 78 16 140/79 (99) 94 Room Air 08/05/17 16:13 36.8 66 18 127/80 (96) 93 Room Air 08/05/17 16:10 36.7 64 20 140/72 (94) 97 Room Air Lab Results: Results Past 24 Hours Test 08/05/17 16:51 08/05/17 20:23 08/06/17 05:31 08/06/17 07:43 Range/Units Bedside Glucose 140 112 73 70-90 mg/dl White Blood Count 9.57 4.8-10.8 K/uL Red Blood Count 3.97 4.2-5.4 M/uL Hemoglobin 11.4 12.0-16.0 g/dL Hematocrit 34.1 37-47 % Mean Corpuscular Volume 85.9 80-100 fL Mean Corpuscular Hemoglobin 28.7 25-34 pg Mean Corpuscular Hemoglobin Concent 33.4 32-36 g/dl Platelet Count 240 130-400 K/uL Mean Platelet Volume 10.9 7.4-10.4 fL Neutrophils (%) (Auto) 61.7 % Lymphocytes (%) (Auto) 25.5 % Monocytes (%) (Auto) 10.4 % Eosinophils (%) (Auto) 1.1 % Basophils (%) (Auto) 0.6 % Neutrophils # (Auto) 5.89 1.4-6.5 K/uL Lymphocytes # (Auto) 2.44 1.2-3.4 K/uL Monocytes # (Auto) 1.00 0.11-0.59 K/uL Eosinophils # (Auto) 0.11 0-0.5 K/uL Basophils # (Auto) 0.06 0-0.2 K/uL RDW Standard Deviation 39.7 36.4-46.3 fL RDW Coefficient of Variation 12.5 11.5-14.5 % Immature Granulocyte % (Auto) 0.7 % Immature Granulocyte # (Auto) 0.07 0.00-0.02 K/uL Sodium Level 139 136-145 mmol/L Potassium Level 3.6 3.5-5.1 mmol/L Chloride Level 106 98-107 mmol/L Carbon Dioxide Level 24 21-32 mmol/L Anion Gap 9.0 3-11 mmol/L Blood Urea Nitrogen 10 7-18 mg/dl Creatinine 0.87 0.60-1.20 mg/dl Est Creatinine Clear Calc Drug Dose 74.7 ml/min Estimated GFR () 83.3 Estimated GFR (Non- 71.9 BUN/Creatinine Ratio 11.4 10-20 Random Glucose 61 70-99 mg/dl Calcium Level 8.7 8.5-10.1 mg/dl Magnesium Level 1.9 1.8-2.4 mg/dl Test 08/06/17 11:39 Range/Units Bedside Glucose 113 70-90 mg/dl
--- NOTE | 2017-08-05 22:56 | OPERATIVE REPORT ---
DATE OF OPERATION: 08/05/2017 PREOPERATIVE DIAGNOSIS: Abscess, right foot. PROCEDURE: Incision and drainage and packing of abscess, right foot. SURGEON: Dr. Plummer. ANESTHESIA: General. COMPLICATIONS: None. DESCRIPTION OF PROCEDURE: Following induction of adequate general anesthesia, the patient's right foot and lower leg were prepped and draped in usual sterile manner. Limb was exsanguinated with elevation only and a tourniquet was inflated to 300 mmHg. An oblique incision was made from proximally laterally to distally medially in line with the first webspace. Blunt dissection exposed gross purulence about the level of the extensor tendons. The cultures were originally taken 2 sets and pulsatile irrigation a total of 6000 mL with bacitracin was carried out. The wound was packed with iodoform gauze. A single 3-0 nylon suture was loosely placed in the mid portion of the wound and a sterile dressing of Xeroform, ____ fluffs, 4 x 4's, and a Kerlix was applied. The patient tolerated the procedure well. I attest to the content of the Intraoperative Record and any orders documented therein. Any exception s are noted below.
[2017-08-06 00:40] VITALS: BP 136/75; PULSE 66; TEMP 37.6; O2SAT 92
[2017-08-06 06:02] LABS: BASO % 0.6 %; BASO ABS # 0.06 K/uL (0-0.2); COMPLETE YES; EOS % 1.1 %; HEMATOCRIT 34.1 % (37-47); IG% 0.7 %; LYMPH % 25.5 %; LYMPH ABS # 2.44 K/uL (1.2-3.4); MEAN CELL VOLUME 85.9 fL (80-100); MEAN CORPUSCULAR HEMOGLOBIN 28.7 pg (25-34); MEAN CORPUSCULAR HGB CONC 33.4 g/dl (32-36); MEAN PLATELET VOLUME 10.9 fL (7.4-10.4); MONO % 10.4 %; NEUT % 61.7 %; PLATELET COUNT 240 K/uL (130-400); RED BLOOD COUNT 3.97 M/uL (4.2-5.4); WHITE BLOOD COUNT 9.57 K/uL (4.8-10.8)
[2017-08-06 06:30] LABS: BUN/CREATININE RATIO 11.4 (10-20); CALCIUM 8.7 mg/dl (8.5-10.1); CREATININE 0.87 mg/dl (0.60-1.20); MAGNESIUM 1.9 mg/dl (1.8-2.4); POTASSIUM 3.6 mmol/L (3.5-5.1)
[2017-08-06] MEDS: INSULIN GLARGINE SOLOSTAR 100 UNITS/ML 3 ML PEN SC SCH ×2 (08:00→21:14)
[2017-08-06 08:22] VITALS: BP 108/67; PULSE 51; TEMP 36.5; O2SAT 98
[2017-08-06] MEDS: ATORVASTATIN 40 MG TAB PO SCH (08:48)
[2017-08-06] MEDS: INSULIN ASPART 100 UNITS/ML 3 ML PEN SC SCH ×4 (08:53→21:15)
--- NOTE | 2017-08-06 11:15 | Pharmacy Progress Note ---
Glycemic Control Progress Note Date of Service Aug 06, 2017. Scope Glycemic Pharmacist consulted for glycemic control to write orders per [facility] inpatient glycemic control protocol. Objective Accuchecks BSG (last 24hrs): Test 08/05/17 11:19 08/05/17 12:05 08/05/17 14:39 08/05/17 16:51 Bedside Glucose 69 mg/dl (70-90) 70 mg/dl (70-90) 190 mg/dl (70-90) 140 mg/dl (70-90) Test 08/05/17 20:23 08/06/17 05:31 08/06/17 07:43 Bedside Glucose 112 mg/dl (70-90) 73 mg/dl (70-90) Random Glucose 61 mg/dl (70-99) HbA1c: Test 08/02/17 17:50 Hemoglobin A1c 11.2 % (4.5-5.6) H Recent Pertinent Medications The patient is currently receiving: * Basal insulin: Lantus 7-14 units every 12 hours * Correctional Insulin: Novolog Correction per scale ACHS Goal Range: Low 120 mg/dL - High 150 mg/dL Correction Factor: 25 mg/dL/unit * Prandial insulin: Per carb ratio of 1 unit per 9 grams CHO consumed Outpatient Anti-Diabetic Meds metformin 850 mg BIDM Assessment & Plan ASSESSMENT: * See progress note from 08/05/17 for more background info, in short: Pt receiving SQ basal bolus insulin regimen for hyperglycemia secondary to baseline DM (outpatient regimen on hold) and stress/infection * Changes needed to insulin regimen: * Fasting BSG 73 mg/dL this AM - below goal range * Hold Lantus this AM and only give Lantus at bedtime if BSG >140 mg/dL * Continue current Novolog coverage as this still seems to be appropriate * Hopefully Fasting BSG will be between 100-140 tomorrow with further reduction PLAN FOR INPATIENT GLYCEMIC CONTROL: * Oral Agents * Continue to hold outpatient oral diabetes medications. * Basal insulin * Lantus 14 units HS only if BSG >140 * Bolus insulin * NovoLog per scale ACHS or Q6hrs while NPO * Goal Range: Low 120 mg/dL - High 150 mg/dL * Correction Factor: 25 mg/dL/unit * Nutritional / Prandial insulin per carb ratio of 1 unit per 9 grams CHO consumed * Please note that the plan above was derived based on current level of insulin resistance and hospital stress. These recommendations are appropriate for inpatient admission only. Plan of care upon discharge will need to be reassessed to avoid potential outpatient hypo/hyperglycemia. Thank you.
[2017-08-06] MEDS: VANCOMYCIN INJ 1,000 MG in SODIUM CHLORIDE 0.9% 250ML 250 ML IV SCH ×3 (12:25→17:18)
[2017-08-06] MEDS: TRAMADOL HCL 50 MG TAB PO PRN (12:44)
--- NOTE | 2017-08-06 12:57 | Orthopedic Progress Note ---
Orthopedic Progress Note Date of Service Aug 06, 2017. Subjective Post OP Day: 1 Reports: feeling well, Denies: chest pain, SOB, nausea / vomiting, light headedness, calf pain Objective calves soft nontender, N/V intact, capillary refill less than 2 sec., dressing C /D/I, A&O x3, toes mobile Date Time Temp Pulse Resp B/P (MAP) Pulse Ox O2 Delivery O2 Flow Rate FiO2 08/06/17 09:12 Room Air 98 08/06/17 09:00 Room Air 08/06/17 08:22 36.5 51 18 108/67 (81) 98 Room Air 08/06/17 00:40 37.6 66 16 136/75 (95) 92 Room Air 08/06/17 00:10 Room Air 08/05/17 20:00 96 Room Air 08/05/17 19:47 73 18 127/77 (94) 96 08/05/17 18:35 36.4 68 18 128/76 (93) 95 Room Air 08/05/17 17:45 36.2 64 20 130/72 (91) 95 Room Air 08/05/17 16:44 36.8 78 16 140/79 (99) 94 Room Air 08/05/17 16:13 36.8 66 18 127/80 (96) 93 Room Air 08/05/17 16:10 36.7 64 20 140/72 (94) 97 Room Air 08/05/17 15:35 97 Room Air 08/05/17 15:35 36.8 64 20 142/81 (101) 97 Room Air 08/05/17 15:15 66 16 138/67 99 Oxymask 3 08/05/17 15:05 69 15 144/68 96 Oxymask 3 08/05/17 14:55 36.1 67 18 135/78 99 Oxymask 3 08/05/17 14:45 68 17 124/74 99 Oxymask 10 08/05/17 14:35 66 13 132/69 95 Oxymask 15 08/05/17 14:25 36.8 65 12 128/76 97 Oxymask 15 Laboratory Results 24 Hours: Test 08/06/17 05:31 White Blood Count 9.57 K/uL Red Blood Count 3.97 M/uL Hemoglobin 11.4 g/dL Hematocrit 34.1 % Mean Corpuscular Volume 85.9 fL Mean Corpuscular Hemoglobin 28.7 pg Mean Corpuscular Hemoglobin Concent 33.4 g/dl Platelet Count 240 K/uL Mean Platelet Volume 10.9 fL Neutrophils (%) (Auto) 61.7 % Lymphocytes (%) (Auto) 25.5 % Monocytes (%) (Auto) 10.4 % Eosinophils (%) (Auto) 1.1 % Basophils (%) (Auto) 0.6 % Neutrophils # (Auto) 5.89 K/uL Lymphocytes # (Auto) 2.44 K/uL Monocytes # (Auto) 1.00 K/uL Eosinophils # (Auto) 0.11 K/uL Basophils # (Auto) 0.06 K/uL Additional Notes: GRAM STAIN Final 08/06/17-15 RESULT MANY WBCs SEEN RARE GRAM POSITIVE COCCI OR AER/LEA CULT Preliminary 08/06/17-1000 Organism 1 STAPHYLOCOCCUS AUREUS QUANITY FEW SENS SENSITIVITY TO FOLLOW Assessment & Plan Assessment: POD#1 SP I&D LEFT TOE/DORSUM FOOT Plan: PT/OT- NWB PAIN MANAGEMENT FOLLOW CULTURES- GROWING STAPH SPECIES, SENS PENDING, CONT IV VANCO DC PLANNING- LIKELY HOME PENDING FINAL CULTURE RESULTS DRESSING CHANGE IN AM.
[2017-08-06 14:41] VITALS: Ht 162.6 cm; Wt 92.1 kg
--- NOTE | 2017-08-06 14:56 | Progress Note ---
Subjective Date of Service: Aug 06, 2017. Subjective Pt evaluation today including: conversation w/ patient, physical exam, chart review, lab review feeling tired today, s/p debridement of foot, all culture with S. aureus, blood cultures negative, for picc line. no f/c. tolerating abx. pain controlled. all remaining ros reviewed and are negative. Problem List Medical Problems: (1) Abnormal brain CT Status: Acute (2) Cellulitis of right foot Status: Acute (3) Dizziness Status: Acute (4) Failure of outpatient treatment Status: Acute (5) Vomiting Status: Acute Objective Vital Signs Date Time Temp Pulse Resp B/P (MAP) Pulse Ox O2 Delivery O2 Flow Rate FiO2 08/06/17 09:12 Room Air 98 08/06/17 09:00 Room Air 08/06/17 08:22 36.5 51 18 108/67 (81) 98 Room Air 08/06/17 00:40 37.6 66 16 136/75 (95) 92 Room Air 08/06/17 00:10 Room Air 08/05/17 20:00 96 Room Air 08/05/17 19:47 73 18 127/77 (94) 96 08/05/17 18:35 36.4 68 18 128/76 (93) 95 Room Air 08/05/17 17:45 36.2 64 20 130/72 (91) 95 Room Air 08/05/17 16:44 36.8 78 16 140/79 (99) 94 Room Air 08/05/17 16:13 36.8 66 18 127/80 (96) 93 Room Air 08/05/17 16:10 36.7 64 20 140/72 (94) 97 Room Air 08/05/17 15:35 97 Room Air 08/05/17 15:35 36.8 64 20 142/81 (101) 97 Room Air 08/05/17 15:15 66 16 138/67 99 Oxymask 3 08/05/17 15:05 69 15 144/68 96 Oxymask 3 08/05/17 14:55 36.1 67 18 135/78 99 Oxymask 3 Laboratory Results Item Value Date Time Gram Stain - Final Complete 08/02/17 0000 Drainage - Surface Foot Right Blood Culture - Preliminary Resulted 08/02/17 1750 Blood NO GROWTH TO DATE. Blood Culture - Preliminary Resulted 08/02/17 1851 Blood NO GROWTH TO DATE. Gram Stain - Final Resulted 08/05/17 1405 Abscess Foot Right Gram Stain - Final Resulted 08/05/17 1405 Abscess Foot Right Last 24 Hours Test 08/05/17 16:51 08/05/17 20:23 08/06/17 05:31 08/06/17 07:43 Bedside Glucose 140 mg/dl 112 mg/dl 73 mg/dl White Blood Count 9.57 K/uL Red Blood Count 3.97 M/uL Hemoglobin 11.4 g/dL Hematocrit 34.1 % Mean Corpuscular Volume 85.9 fL Mean Corpuscular Hemoglobin 28.7 pg Mean Corpuscular Hemoglobin Concent 33.4 g/dl Platelet Count 240 K/uL Mean Platelet Volume 10.9 fL Neutrophils (%) (Auto) 61.7 % Lymphocytes (%) (Auto) 25.5 % Monocytes (%) (Auto) 10.4 % Eosinophils (%) (Auto) 1.1 % Basophils (%) (Auto) 0.6 % Neutrophils # (Auto) 5.89 K/uL Lymphocytes # (Auto) 2.44 K/uL Monocytes # (Auto) 1.00 K/uL Eosinophils # (Auto) 0.11 K/uL Basophils # (Auto) 0.06 K/uL RDW Standard Deviation 39.7 fL RDW Coefficient of Variation 12.5 % Immature Granulocyte % (Auto) 0.7 % Immature Granulocyte # (Auto) 0.07 K/uL Sodium Level 139 mmol/L Potassium Level 3.6 mmol/L Chloride Level 106 mmol/L Carbon Dioxide Level 24 mmol/L Anion Gap 9.0 mmol/L Blood Urea Nitrogen 10 mg/dl Creatinine 0.87 mg/dl Est Creatinine Clear Calc Drug Dose 74.7 ml/min Estimated GFR () 83.3 Estimated GFR (Non- 71.9 BUN/Creatinine Ratio 11.4 Random Glucose 61 mg/dl Calcium Level 8.7 mg/dl Magnesium Level 1.9 mg/dl Test 08/06/17 11:39 Bedside Glucose 113 mg/dl Assessment and Plan (1) Cellulitis of right foot Assessment & Plan: continue IV abx, follow OR findings. will likely require prolonged course of IV abx.
[2017-08-06 15:29] VITALS: BP 132/74; PULSE 60; TEMP 37; O2SAT 98
--- NOTE | 2017-08-06 16:21 | Progress Note ---
Internal Med Progress Note Date of Service: Aug 06, 2017. 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 ASSESSMENT & PLAN: SEPSIS DUE TO DIABETIC FOOT INFECTION ON RT SIDE presented with fever , chills , leukocytosis Ortho consulted s/p Incision and drainage and packing of abscess, right foot. afebrile white count normalized after I&D wound culture -MRSA ; surgical drainage culture + MRSA appreciate input form ID pt will Cont on IV Vancomycin PICC line ordered for termite exterminator IV ABx TYPE 2 DM : insulin SSI and Lantus ordered HB A1c 11.2 ( poorly controlled ) chemical inspector consulted hold oral hypoglycemic ( was on Metformin 850 mg BID ) while in hospital with acute illness and ongoing infection pharmacy consulted for glycemic management HTN : BP stable HX OF CVA : hx of occipital CVA uses walker occasionally at home cont Aspirin , statin fall precaution HX OF PRIOR LEFT LOWER EXT DVT S/P IVC FILTER PLACEMENT was on Xarelto ,which was discontinued after acute CVA had retrievable IVC filter placed , was removed after 7-8 months of anticoagulation lower ext Doppler negative for DVT HYPOKALEMIA /LOW MG : corrected follow labs DVT PROPHYLAXIS moderate risk lower ext Doppler negative for DVT sub q Lovenox DISPOSITION expected to be discharged home when medically stable will need usp antibiotics via pICC and home health nursing social service consulted for discharge planning Vital Signs: Date Time Temp Pulse Resp B/P (MAP) Pulse Ox O2 Delivery O2 Flow Rate FiO2 08/06/17 17:31 Room Air 08/06/17 15:29 37.0 60 18 132/74 (93) 98 Room Air 08/06/17 09:12 Room Air 98 08/06/17 09:00 Room Air 08/06/17 08:22 36.5 51 18 108/67 (81) 98 Room Air 08/06/17 00:40 37.6 66 16 136/75 (95) 92 Room Air 08/06/17 00:10 Room Air 08/05/17 20:00 96 Room Air 08/05/17 19:47 73 18 127/77 (94) 96 08/05/17 18:35 36.4 68 18 128/76 (93) 95 Room Air Lab Results: Results Past 24 Hours Test 08/05/17 20:23 08/06/17 05:31 08/06/17 07:43 08/06/17 11:39 Range/Units Bedside Glucose 112 73 113 70-90 mg/dl White Blood Count 9.57 4.8-10.8 K/uL Red Blood Count 3.97 4.2-5.4 M/uL Hemoglobin 11.4 12.0-16.0 g/dL Hematocrit 34.1 37-47 % Mean Corpuscular Volume 85.9 80-100 fL Mean Corpuscular Hemoglobin 28.7 25-34 pg Mean Corpuscular Hemoglobin Concent 33.4 32-36 g/dl Platelet Count 240 130-400 K/uL Mean Platelet Volume 10.9 7.4-10.4 fL Neutrophils (%) (Auto) 61.7 % Lymphocytes (%) (Auto) 25.5 % Monocytes (%) (Auto) 10.4 % Eosinophils (%) (Auto) 1.1 % Basophils (%) (Auto) 0.6 % Neutrophils # (Auto) 5.89 1.4-6.5 K/uL Lymphocytes # (Auto) 2.44 1.2-3.4 K/uL Monocytes # (Auto) 1.00 0.11-0.59 K/uL Eosinophils # (Auto) 0.11 0-0.5 K/uL Basophils # (Auto) 0.06 0-0.2 K/uL RDW Standard Deviation 39.7 36.4-46.3 fL RDW Coefficient of Variation 12.5 11.5-14.5 % Immature Granulocyte % (Auto) 0.7 % Immature Granulocyte # (Auto) 0.07 0.00-0.02 K/uL Sodium Level 139 136-145 mmol/L Potassium Level 3.6 3.5-5.1 mmol/L Chloride Level 106 98-107 mmol/L Carbon Dioxide Level 24 21-32 mmol/L Anion Gap 9.0 3-11 mmol/L Blood Urea Nitrogen 10 7-18 mg/dl Creatinine 0.87 0.60-1.20 mg/dl Est Creatinine Clear Calc Drug Dose 74.7 ml/min Estimated GFR () 83.3 Estimated GFR (Non- 71.9 BUN/Creatinine Ratio 11.4 10-20 Random Glucose 61 70-99 mg/dl Calcium Level 8.7 8.5-10.1 mg/dl Magnesium Level 1.9 1.8-2.4 mg/dl Test 08/06/17 16:52 Range/Units Bedside Glucose 114 70-90 mg/dl
[2017-08-06] MEDS ORDERED: VANCOMYCIN TROUGH ONE (23:30)
[2017-08-07] MEDS ORDERED: VANCOMYCIN INJ 1,000 MG in SODIUM CHLORIDE 0.9% 250ML 250 ML IV SCH (04:00)
[2017-08-07] MEDS: ATORVASTATIN 40 MG TAB PO SCH (07:38)
[2017-08-07 08:10] VITALS: BP 125/80; PULSE 56; TEMP 36.9; O2SAT 96
[2017-08-07 08:37] LABS: BUN/CREATININE RATIO 14.4 (10-20); CALCIUM 8.9 mg/dl (8.5-10.1); CREATININE 0.94 mg/dl (0.60-1.20); MAGNESIUM 1.9 mg/dl (1.8-2.4); POTASSIUM 4.1 mmol/L (3.5-5.1)
[2017-08-07] MEDS: INSULIN ASPART 100 UNITS/ML 3 ML PEN SC SCH ×4 (09:36→21:28)
[2017-08-07] MEDS: TRAMADOL HCL 50 MG TAB PO PRN ×2 (09:39→13:56)
[2017-08-07] MEDS ORDERED: EMPA1TAB PO (11:47)
[2017-08-07 12:11] VITALS: BP 117/71; PULSE 58; TEMP 37.5; O2SAT 97
[2017-08-07] MEDS ORDERED: VANCOMYCIN IV ×4 (13:19→14:47)
--- NOTE | 2017-08-07 13:22 | Discharge Instructions ---
Discharge Instructions Date of Service Aug 07, 2017. Admission Reason for Admission: Sepsis Discharge Discharge Diagnosis / Problem: INFECTED WOUND IN RT FOOT /MRSA Discharge Goals Goal(s): Decrease discomfort, Improve disease control, Diagnostic testing, Therapeutic intervention Activity Recommendations Activity Limitations: as noted below (NON WT BEARING ON RT FOOT ) Weightbearing Status: Right non-weightbearing . Instructions / Follow-Up Instructions / Follow-Up HOSPITAL FOLLOW UP : 08/13/2017 11:00 AM Winston Awad MD [facility] INFECTIOUS DISEASE FOLLOW UP DR WILKERSON IN 2 WEEKS, PLEASE CALL OFFICE FOR APPOINTMENT ORTHOPEDICS FOLLOW UP DR HENAO IN 1-2 WEEKS LAB : COMPLETE BLOOD COUNT , BASIC METABOLIC PANEL, CPK LEVEL , ESR EVERY WEEK WHILE ON IV DAPTOMYCIN DO NOT TAKE LIPITOR WHILE ON IV DAPTOMYCIN CONTINUE IV DAPTOMYCIN FOR 6 WEEKS PLEASE FAX ALL THE LAB REPORT TO [facility] FAX # [phone] YOUR ARE STARTED ON A NEW DIABETIC MEDICATION : JARDIANCE 10 MG DAILY PLEASE CHECK BLOOD SUGAR DAILY -BEFORE BREAKFAST /FASTING NEED TO HAVE A REPEAT HB A1 CHECK IN NEXT 2-3 MONTHS Current Hospital Diet Patient's current hospital diet: Diabetes Type 2 Diet Discharge Diet Recommended Diet: Diabetes Type 2 Diet Procedures Procedures Performed: Irrigation and debridement of right foot abscesses Pending Studies Studies pending at discharge: yes List of pending studies: LAB : COMPLETE BLOOD COUNT , BASIC METABOLIC PANEL, CPK LEVEL , ESR EVERY WEEK WHILE ON IV DAPTOMYCIN Laboratory Results Hemoglobin A1c Test 08/02/17 17:50 Range/Units Estimated Average Glucose 275 mg/dl Hemoglobin A1c 11.2 H 4.5-5.6 % Medical Emergencies . Who to Call and When: Medical Emergencies: If at any time you feel your situation is an emergency, please call 911 immediately. . Non-Emergent Contact Non-Emergency issues call your: Primary Care Provider . . "Provider Documentation" section prepared by Michelle Haddad. . VTE Core Measure Inpt VTE Proph given/why not?: Unfractionated heparin SQ
--- NOTE | 2017-08-07 14:12 | Progress Note ---
Subjective Date of Service: Aug 07, 2017. Subjective Pt evaluation today including: conversation w/ patient, physical exam, chart review, lab review pt feeling better. pain controlled. denies f/c. no drainage from wound, not changed yet today. tolerating abx. blood cutlures remain negative, s/p picc line. All remaining ros reviewed and are negative. requesting probiotic. Problem List Medical Problems: (1) Abnormal brain CT Status: Acute (2) Cellulitis of right foot Status: Acute (3) Dizziness Status: Acute (4) Failure of outpatient treatment Status: Acute (5) Vomiting Status: Acute Objective Vital Signs Date Time Temp Pulse Resp B/P (MAP) Pulse Ox O2 Delivery O2 Flow Rate FiO2 08/07/17 12:11 37.5 58 18 117/71 (86) 97 Room Air 08/07/17 09:00 Room Air 08/07/17 08:10 36.9 56 18 125/80 (95) 96 Room Air 08/07/17 08:00 Room Air 08/07/17 00:15 Room Air 08/06/17 17:31 Room Air 08/06/17 15:29 37.0 60 18 132/74 (93) 98 Room Air Physical Exam General Appearance: WD/WN, no apparent distress Eyes: normal inspection, EOMI Respiratory/Chest: lungs clear, normal breath sounds, no respiratory distress Cardiovascular: regular rate, rhythm, no edema Abdomen: soft Extremities: non-tender, no pedal edema Neurologic/Psychiatric: alert, oriented x 3 Skin: normal color Comments: dressing c/d/i Laboratory Results Item Value Date Time Gram Stain - Final Resulted 08/05/17 1405 Abscess Foot Right Gram Stain - Final Resulted 08/05/17 1405 Abscess Foot Right Blood Culture - Preliminary Resulted 08/02/17 1851 Blood NO GROWTH TO DATE. Blood Culture - Preliminary Resulted 08/02/17 1750 Blood NO GROWTH TO DATE. Gram Stain - Final Complete 08/02/17 0000 Drainage - Surface Foot Right Last 24 Hours Test 08/06/17 16:52 08/06/17 20:13 08/07/17 07:42 08/07/17 08:11 Bedside Glucose 114 mg/dl 196 mg/dl 124 mg/dl Sodium Level 139 mmol/L Potassium Level 4.1 mmol/L Chloride Level 106 mmol/L Carbon Dioxide Level 25 mmol/L Anion Gap 8.0 mmol/L Blood Urea Nitrogen 14 mg/dl Creatinine 0.94 mg/dl Est Creatinine Clear Calc Drug Dose 69.1 ml/min Estimated GFR () 75.9 Estimated GFR (Non- 65.5 BUN/Creatinine Ratio 14.4 Random Glucose 119 mg/dl Calcium Level 8.9 mg/dl Magnesium Level 1.9 mg/dl Test 08/07/17 11:53 Bedside Glucose 155 mg/dl Assessment and Plan (1) Cellulitis of right foot Assessment & Plan: will continue vanco for now. If she has insurance coverage for Dapto, would suggest Dapto 6mg/kg Iv daily. will need weekly cbc,cmp, esr while on abx. would give 6 weeks IV abx tentative stop 09/16. If no coverage for Dapto, could continue with IV vanco. will need ID followup post d/c, can follow in wound center if plans to undergo care at wound center post d/c. no contraindication to d/c from ID standpoint.
[2017-08-07] MEDS ORDERED: DAPT500I IV (15:06)
--- NOTE | 2017-08-07 15:07 | Orthopedic Progress Note ---
Orthopedic Progress Note Date of Service Aug 07, 2017. Subjective Post OP Day: 2 Reports: feeling well, pain controlled w PO medications, Denies: complaints, chest pain, SOB, nausea / vomiting, light headedness, calf pain Objective calves soft nontender, N/V intact, A&O x3, toes mobile approximately 4 inches of packing removed, erythema noted around wound edges but not extending any further than midfoot, no streaking noted. Date Time Temp Pulse Resp B/P (MAP) Pulse Ox O2 Delivery O2 Flow Rate FiO2 08/07/17 12:11 37.5 58 18 117/71 (86) 97 Room Air 08/07/17 09:00 Room Air 08/07/17 08:10 36.9 56 18 125/80 (95) 96 Room Air 08/07/17 08:00 Room Air 08/07/17 00:15 Room Air 08/06/17 17:31 Room Air 08/06/17 15:29 37.0 60 18 132/74 (93) 98 Room Air Assessment & Plan Assessment: POD#2 SP I&D LEFT TOE/DORSUM FOOT Plan: PT/OT- NWB- may put slight pressure on heel for balance PAIN MANAGEMENT FOLLOW CULTURES- GROWING STAPH SPECIES, SENS PENDING, CONT IV VANCO DC PLANNING- LIKELY HOME PENDING FINAL CULTURE RESULTS 08-07-17: dressing changed today, 4 inches of packing removed today. continue with Vanco per ID, would switch to Dapto if she has insurance coverage 6mg/kg IV daily with weekly CBC, CMP, ESR for 6 weeks. (1) Cellulitis of right foot Acute
[2017-08-07 15:39] VITALS: BP 123/80; PULSE 55; TEMP 37.6; O2SAT 98
--- NOTE | 2017-08-07 16:25 | Progress Note ---
Internal Med Progress Note Date of Service: Aug 07, 2017. Provider Documentation: SUBJECTIVE: had dressing changed on Rt foot has minimum pain no fever or chills OBJECTIVE: Vital Signs-as noted below Exam: General-no sign of distress, very pleasant Eyes-sclera non icteric ENT-NAD Neck-no JVD Lungs-CTA , no wheeze or rales Heart-regular S1/s2 Abdomen-soft, non tender Extremities-rt foot in bandage Neuro-no focal deficit , AAO x3 Lab data as noted below. ASSESSMENT & PLAN: SEPSIS DUE TO DIABETIC FOOT INFECTION ON RT SIDE resolved after I&D presented with fever , chills , leukocytosis Ortho consulted s/p Incision and drainage and packing of abscess, right foot. afebrile white count normalized after I&D wound culture -MRSA ; surgical drainage culture + MRSA appreciate input form ID will need 6 weeks of IV ABx tx Abx changed to IV Daptomycin will need weekly CBC, BMP , ESR and CPK level checked referral made for home health visiting nurse PICC line ordered for shelter IV ABx pt non wt bearing on rt foot till evaluated by ORtho in office pt will need to follow up with ID in 2 weeks willing to follow up at wound clinic follow up with Orthopedics in 2-3 weeks TYPE 2 DM : insulin SSI and Lantus ordered HB A1c 11.2 ( poorly controlled ) telehealth nurse educator consulted hold oral hypoglycemic ( was on Metformin 850 mg BID ) while in hospital with acute illness and ongoing infection pharmacy consulted for glycemic management -appreciate input pt can be started on Lantus 14 U HS and titrate oral hypoglycemics started on Jardiance 10 mg daily scheduled with family physician visit in a week will need Hb A1c check in 2-3 months d/w Pt , does not want to start on Basal insulin now , wants to try with oral agents if BSG remains persistently high and no improvement of Hb 1 C , pt is willing to start on Lantus after d/w family physician HTN : BP stable HX OF CVA : hx of occipital CVA uses walker occasionally at home cont Aspirin , asked not to take statin /Lipitor for 6 weeks while taking Daptomycin , increased risk of Rhabdomyolysis fall precaution HX OF PRIOR LEFT LOWER EXT DVT S/P IVC FILTER PLACEMENT was on Xarelto ,which was discontinued after acute CVA had retrievable IVC filter placed , was removed after 7-8 months of anticoagulation lower ext Doppler negative for DVT DVT PROPHYLAXIS moderate risk lower ext Doppler negative for DVT sub q Lovenox DISPOSITION possible discharge home tomorrow Medicine follow up with Dr viramontes Ortho follow up with Dr Plummer ID follow up with Dr Peñaloza Vital Signs: Date Time Temp Pulse Resp B/P (MAP) Pulse Ox O2 Delivery O2 Flow Rate FiO2 08/07/17 16:17 Room Air 08/07/17 15:39 37.6 55 20 123/80 (94) 98 Room Air 08/07/17 12:11 37.5 58 18 117/71 (86) 97 Room Air 08/07/17 09:00 Room Air 08/07/17 08:10 36.9 56 18 125/80 (95) 96 Room Air 08/07/17 08:00 Room Air 08/07/17 00:15 Room Air 08/06/17 17:31 Room Air Lab Results: Results Past 24 Hours Test 08/06/17 16:52 08/06/17 20:13 08/07/17 07:42 08/07/17 08:11 Range/Units Bedside Glucose 114 196 124 70-90 mg/dl Sodium Level 139 136-145 mmol/L Potassium Level 4.1 3.5-5.1 mmol/L Chloride Level 106 98-107 mmol/L Carbon Dioxide Level 25 21-32 mmol/L Anion Gap 8.0 3-11 mmol/L Blood Urea Nitrogen 14 7-18 mg/dl Creatinine 0.94 0.60-1.20 mg/dl Est Creatinine Clear Calc Drug Dose 69.1 ml/min Estimated GFR () 75.9 Estimated GFR (Non- 65.5 BUN/Creatinine Ratio 14.4 10-20 Random Glucose 119 70-99 mg/dl Calcium Level 8.9 8.5-10.1 mg/dl Magnesium Level 1.9 1.8-2.4 mg/dl Test 08/07/17 11:53 Range/Units Bedside Glucose 155 70-90 mg/dl
[2017-08-07] MEDS ORDERED: TRAM-10 PO (16:43)
[2017-08-07] MEDS: DAPTOmycin IV 550 MG in SODIUM CHLORIDE 0.9% 50ML 50 ML IV SCH (16:44)
[2017-08-07] MEDS: LACTOBACILLUS ACIDOPHILUS (FLORANEX) TAB PO SCH (17:57)
[2017-08-07] MEDS: INSULIN GLARGINE SOLOSTAR 100 UNITS/ML 3 ML PEN SC SCH (21:27)
[2017-08-08] MEDS ORDERED: VANCOMYCIN TROUGH ONE (03:30)
[2017-08-08 07:28] VITALS: BP 107/61; PULSE 59; TEMP 36.8; O2SAT 96
[2017-08-08 07:33] VITALS: BP 124/80
[2017-08-08] MEDS: LACTOBACILLUS ACIDOPHILUS (FLORANEX) TAB PO SCH ×3 (07:46→17:47)
[2017-08-08 07:59] LABS: BUN/CREATININE RATIO 15.3 (10-20); CALCIUM 8.4 mg/dl (8.5-10.1); CREATININE 0.98 mg/dl (0.60-1.20); MAGNESIUM 1.9 mg/dl (1.8-2.4)
[2017-08-08] MEDS: INSULIN ASPART 100 UNITS/ML 3 ML PEN SC SCH ×4 (09:14→21:17)
--- NOTE | 2017-08-08 09:51 | Orthopedic Progress Note ---
Orthopedic Progress Note Date of Service Aug 08, 2017. Subjective Post OP Day: 3 Reports: feeling well, Denies: chest pain, SOB, nausea / vomiting, light headedness, calf pain Objective calves soft nontender, N/V intact, capillary refill less than 2 sec., A&O x3, toes mobile DRESSING REMOVED, MODERATE DRAINING THROUGH KERLEX TO JONATHAN WRAP. FOUL ODOR NOTED. REMAINING PACKING (1") WAS REMOVED TODAY. SHE DOES HAVE SOME PURULENT DRAINAGE, MORE SO AROUND THE GREAT TOE AREA. ERYTHEMA AT WOUND EDGES BUT NOT EXTENDING BEYOND THAT. NO STREAKING. EDEMA MINIMAL. Date Time Temp Pulse Resp B/P (MAP) Pulse Ox O2 Delivery O2 Flow Rate FiO2 08/08/17 07:33 124/80 (95) 08/08/17 07:28 36.8 59 14 107/61 (76) 96 Room Air 08/08/17 00:30 Room Air 08/07/17 16:17 Room Air 08/07/17 16:00 Room Air 08/07/17 15:39 37.6 55 20 123/80 (94) 98 Room Air 08/07/17 12:11 37.5 58 18 117/71 (86) 97 Room Air Assessment & Plan Assessment: POD#2 SP I&D LEFT TOE/DORSUM FOOT Plan: PT/OT- NWB- may put slight pressure on heel for balance PAIN MANAGEMENT FOLLOW CULTURES- GROWING STAPH SPECIES, SENS FINAL. CONTINUE VANCO FOR NOW. WILL AWAIT FINAL ID RECOMMENDATIONS DC PLANNING- LIKELY HOME PENDING FINAL CULTURE RESULTS 08-07-17: dressing changed today, 4 inches of packing removed today. continue with Vanco per ID, would switch to Dapto if she has insurance coverage 6mg/kg IV daily with weekly CBC, CMP, ESR for 6 weeks. 08/08/17- Dressing changed, continued drainage. Discussed possible need for repeat I&D. Patient already ate breakfast this am and does not want surgery today. She prefers to go home. Agreeable to monitoring another 24 hours with early am re-eval. Will make her NPO for tomorrow just in case. (1) Cellulitis of right foot
[2017-08-08] MEDS: TRAMADOL HCL 50 MG TAB PO PRN ×3 (10:24→23:47)
[2017-08-08 11:32] VITALS: BP 114/70; PULSE 56; TEMP 36.6; O2SAT 96
[2017-08-08 11:56] VITALS: O2SAT 96
[2017-08-08] MEDS: ASPIRIN 81 MG ECTAB PO SCH (12:53)
[2017-08-08] MEDS: DAPTOmycin IV 550 MG in SODIUM CHLORIDE 0.9% 50ML 50 ML IV SCH (15:52)
[2017-08-08 16:03] VITALS: BP 122/71; PULSE 59; TEMP 37.2; O2SAT 98
--- NOTE | 2017-08-08 18:17 | Progress Note ---
Internal Med Progress Note Date of Service: Aug 08, 2017. Provider Documentation: SUBJECTIVE: no fever or chills rt foot surgical wound shows persistent swelling and redness with increased drainage evaluated by Ortho this AM will need repeat I& D in am ordered for NPO past midnight OBJECTIVE: Vital Signs-as noted below Exam: General-no sign of distress, very pleasant Eyes-sclera non icteric ENT-NAD Neck-no JVD Lungs-CTA , no wheeze or rales Heart-regular S1/s2 Abdomen-soft, non tender Extremities-rt foot infected wound evaluated -wound dehiscence noted with purulent drainage Neuro-no focal deficit , AAO x3 Lab data as noted below. ASSESSMENT & PLAN: SEPSIS DUE TO DIABETIC FOOT INFECTION ON RT SIDE resolved after I&D presented with fever , chills , leukocytosis Ortho consulted s/p Incision and drainage and packing of abscess, right foot. 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 ( was on Metformin 850 mg BID ) while in hospital with acute illness and ongoing infection pharmacy consulted for glycemic management -appreciate input pt can be started on Lantus 14 U HS and titrate oral hypoglycemics started on Jardiance 10 mg daily scheduled with family physician visit in a week will need Hb A1c check in 2-3 months d/w Pt , does not want to start on Basal insulin now , wants to try with oral agents if BSG remains persistently high and no improvement of Hb 1 C , pt is willing to start on Lantus after d/w family physician HTN : BP stable HX OF CVA : hx of occipital CVA uses walker occasionally at home hold Aspirin for ortho procedure tomorrow , asked not to take statin /Lipitor for 6 weeks while taking Daptomycin , increased risk of Rhabdomyolysis fall precaution HX OF PRIOR LEFT LOWER EXT DVT S/P IVC FILTER PLACEMENT was on Xarelto ,which was discontinued after acute CVA had retrievable IVC filter placed , was removed after 7-8 months of anticoagulation lower ext Doppler negative for DVT DVT PROPHYLAXIS moderate risk lower ext Doppler negative for DVT hold sub q Lovenox for ortho procedure tomorrow DISPOSITION expected to be discharged home with home health visiting nurse when medically stable Medicine follow up with Dr viramontes Ortho follow up with Dr Plummer ID follow up with Dr Peñaloza Vital Signs: Date Time Temp Pulse Resp B/P (MAP) Pulse Ox O2 Delivery O2 Flow Rate FiO2 08/08/17 16:03 37.2 59 20 122/71 (88) 98 Room Air 08/08/17 11:56 96 Room Air 08/08/17 11:32 36.6 56 15 114/70 (85) 96 Room Air 08/08/17 08:56 Room Air 08/08/17 07:33 124/80 (95) 08/08/17 07:28 36.8 59 14 107/61 (76) 96 Room Air 08/08/17 00:30 Room Air Lab Results: Results Past 24 Hours Test 08/07/17 20:05 08/08/17 07:16 08/08/17 07:38 08/08/17 11:27 Range/Units Bedside Glucose 178 93 124 70-90 mg/dl Sodium Level 138 136-145 mmol/L Potassium Level 4.0 3.5-5.1 mmol/L Chloride Level 104 98-107 mmol/L Carbon Dioxide Level 29 21-32 mmol/L Anion Gap 5.0 3-11 mmol/L Blood Urea Nitrogen 15 7-18 mg/dl Creatinine 0.98 0.60-1.20 mg/dl Est Creatinine Clear Calc Drug Dose 66.3 ml/min Estimated GFR () 72.2 Estimated GFR (Non- 62.3 BUN/Creatinine Ratio 15.3 10-20 Random Glucose 85 70-99 mg/dl Calcium Level 8.4 8.5-10.1 mg/dl Magnesium Level 1.9 1.8-2.4 mg/dl Test 08/08/17 16:34 Range/Units Bedside Glucose 179 70-90 mg/dl
[2017-08-08] MEDS: INSULIN GLARGINE SOLOSTAR 100 UNITS/ML 3 ML PEN SC SCH (21:18)
[2017-08-08 23:46] VITALS: BP 124/80; PULSE 59; TEMP 36.9; O2SAT 96
[2017-08-09] VITALS: O2SAT 96
[2017-08-09 07:33] VITALS: BP 116/75; PULSE 63; TEMP 37; O2SAT 94
[2017-08-09] MEDS: LACTOBACILLUS ACIDOPHILUS (FLORANEX) TAB PO SCH ×3 (07:34→16:35)
[2017-08-09] MEDS ORDERED: LIDOCAINE HCL 1% 20 ML VIAL ONE (07:40)
[2017-08-09 08:46] LABS: BASO % 0.2 %; BASO ABS # 0.03 K/uL (0-0.2); COMPLETE YES; EOS % 1.1 %; HEMATOCRIT 30.7 % (37-47); IG% 0.9 %; LYMPH % 15.8 %; LYMPH ABS # 2.03 K/uL (1.2-3.4); MEAN CELL VOLUME 86.7 fL (80-100); MEAN CORPUSCULAR HEMOGLOBIN 28.2 pg (25-34); MEAN CORPUSCULAR HGB CONC 32.6 g/dl (32-36); MEAN PLATELET VOLUME 10.1 fL (7.4-10.4); MONO % 6.7 %; NEUT % 75.3 %; PLATELET COUNT 283 K/uL (130-400); RED BLOOD COUNT 3.54 M/uL (4.2-5.4); WHITE BLOOD COUNT 12.84 K/uL (4.8-10.8)
[2017-08-09] MEDS: INSULIN ASPART 100 UNITS/ML 3 ML PEN SC SCH ×4 (09:22→21:00)
[2017-08-09 10:55] VITALS: BP 127/83; PULSE 63; TEMP 36.4
--- NOTE | 2017-08-09 14:26 | Progress Note ---
Subjective Date of Service: Aug 09, 2017. Subjective pt for likely repeat I&D, remains on dapto, tolerating well. afebrile. no overnight events. Problem List Medical Problems: (1) Abnormal brain CT Status: Acute (2) Cellulitis of right foot Status: Acute (3) Dizziness Status: Acute (4) Failure of outpatient treatment Status: Acute (5) Vomiting Status: Acute Objective Vital Signs Date Time Temp Pulse Resp B/P (MAP) Pulse Ox O2 Delivery O2 Flow Rate FiO2 08/09/17 10:55 36.4 63 127/83 (98) 08/09/17 07:33 37.0 63 16 116/75 (89) 94 Room Air 08/09/17 00:00 96 Room Air 08/08/17 23:46 36.9 59 18 124/80 (95) 96 Room Air 08/08/17 16:03 37.2 59 20 122/71 (88) 98 Room Air 08/08/17 16:00 Room Air Laboratory Results Item Value Date Time Gram Stain - Final Resulted 08/05/17 1405 Abscess Foot Right Gram Stain - Final Resulted 08/05/17 1405 Abscess Foot Right Gram Stain - Final Complete 08/02/17 0000 Drainage - Surface Foot Right Last 24 Hours Test 08/08/17 16:34 08/08/17 19:51 08/09/17 07:42 08/09/17 08:11 Bedside Glucose 179 mg/dl 221 mg/dl 107 mg/dl White Blood Count 12.84 K/uL Red Blood Count 3.54 M/uL Hemoglobin 10.0 g/dL Hematocrit 30.7 % Mean Corpuscular Volume 86.7 fL Mean Corpuscular Hemoglobin 28.2 pg Mean Corpuscular Hemoglobin Concent 32.6 g/dl Platelet Count 283 K/uL Mean Platelet Volume 10.1 fL Neutrophils (%) (Auto) 75.3 % Lymphocytes (%) (Auto) 15.8 % Monocytes (%) (Auto) 6.7 % Eosinophils (%) (Auto) 1.1 % Basophils (%) (Auto) 0.2 % Neutrophils # (Auto) 9.67 K/uL Lymphocytes # (Auto) 2.03 K/uL Monocytes # (Auto) 0.86 K/uL Eosinophils # (Auto) 0.14 K/uL Basophils # (Auto) 0.03 K/uL RDW Standard Deviation 40.5 fL RDW Coefficient of Variation 12.6 % Immature Granulocyte % (Auto) 0.9 % Immature Granulocyte # (Auto) 0.11 K/uL Test 08/09/17 11:18 Bedside Glucose 85 mg/dl Assessment and Plan (1) Cellulitis of right foot Assessment & Plan: continue with dapto, would give 6 weeks from time of OR, will plan to follow post d/c in wound center.
[2017-08-09 15:09] VITALS: BP 127/78; PULSE 61; TEMP 37.6; O2SAT 99
[2017-08-09] MEDS: DAPTOmycin IV 550 MG in SODIUM CHLORIDE 0.9% 50ML 50 ML IV SCH (16:35)
[2017-08-09] MEDS ORDERED: BUPIVACAINE 0.5 % 5 MG/1 ML MPF 30ML VIAL ONE (17:37)
[2017-08-09] MEDS ORDERED: BACITRACIN 50000 UNIT VIAL ONE (17:37)
[2017-08-09] MEDS ORDERED: MIDAZOLAM HCL 1 MG/ML 2ML VIAL ONE (17:41)
[2017-08-09] MEDS ORDERED: FENTANYL CITRATE INJ 50 MCG/1 ML 2 ML VIAL ONE ×2 (17:41→18:59)
[2017-08-09] MEDS ORDERED: PROPOFOL IV EMULSION 10 MG/ML 20 ML VIAL IV ONE (17:43)
[2017-08-09] MEDS ORDERED: LIDOCAINE HCL 2% 2 ML VIAL (20MG/ML) ONE (17:43)
[2017-08-09] MEDS ORDERED: ATROPINE SULFATE 0.1 MG/ML 5ML SYR IV PRN (18:30)
[2017-08-09] MEDS ORDERED: ONDANSETRON INJ 2 MG/ML 2 ML VIAL IV PRN (18:30)
[2017-08-09] MEDS ORDERED: LABETALOL HCL IV 5 MG/ML 20ML IV PRN (18:30)
[2017-08-09] MEDS ORDERED: HYDROmorphone INJ 2 MG/ML SYR/VIAL IV PRN (18:30)
[2017-08-09] MEDS ORDERED: HYDROmorphone INJ 1 MG/ML SYR ONE (19:23)
--- NOTE | 2017-08-09 19:47 | [facility] Post Operative Brief Note ---
Immediate Operative Summary Operative Date Aug 09, 2017. Pre-Operative Diagnosis Right foot abscess; Necrosis foot skin, fascia and tendon; Great toe abscess; Open incision right foot Post-Operative Diagnosis Right foot abscess; Necrosis foot skin, fascia and tendon; Great toe abscess; Open incision right foot Procedure(s) Performed 1. Irrigation and Debridement Right Great Toe; 2. Irrigation and Debridement Right Foot; 3. Delayed Primary Closure Right Foot 10cm incision; 4. Debridement Right Foot Skin, Fascia and Extensor Digitorum Tendon; Surgeon Dr. Pascual Pro Manager Laundry Surgeon(s) none Estimated Blood Loss 5ML Findings See Dict Specimens none, Per Surgeon; Prior procedure specimens noted Drains 1/2" iodoform gauze Anesthesia GLMA Complication(s) None Disposition Recovery Room / PACU
--- NOTE | 2017-08-09 19:55 | Progress Note ---
Internal Med Progress Note Date of Service: Aug 09, 2017. Provider Documentation: SUBJECTIVE: waiting of repeat I&D of rt foot afebrile denies of any pain or discomfort OBJECTIVE: Vital Signs-as noted below Exam: General-no sign of distress, very pleasant Eyes-sclera non icteric ENT-NAD Neck-no JVD Lungs-CTA , no wheeze or rales Heart-regular S1/s2 Abdomen-soft, non tender Extremities-rt foot infected wound evaluated -wound dehiscence noted with purulent drainage Neuro-no focal deficit , AAO x3 Lab data as noted below. ASSESSMENT & PLAN: SEPSIS DUE TO DIABETIC FOOT INFECTION ON RT SIDE resolved after I&D presented with fever , chills , leukocytosis Ortho consulted s/p Incision and drainage and packing of abscess, right foot on 08/05/17 wound culture -MRSA ; surgical drainage culture + MRSA pt wounds shows persistent swelling and purulent drainage scheduled for repeat I&D today appreciate input form ID will need 6 weeks of IV ABx tx Abx changed to IV Daptomycin has PICC line placed TYPE 2 DM : insulin SSI and Lantus ordered HB A1c 11.2 ( poorly controlled ) extension educator consulted hold oral hypoglycemic ( was on Metformin 850 mg BID ) while in hospital with acute illness and ongoing infection pharmacy consulted for glycemic management -appreciate input pt can be started on Lantus 14 U HS and titrate oral hypoglycemics started on Jardiance 10 mg daily scheduled with family physician visit in a week will need Hb A1c check in 2-3 months d/w Pt , does not want to start on Basal insulin now , wants to try with oral agents if BSG remains persistently high and no improvement of Hb 1 C , pt is willing to start on Lantus after d/w family physician HTN : BP stable HX OF CVA : hx of occipital CVA uses walker occasionally at home hold Aspirin for ortho procedure tomorrow , asked not to take statin /Lipitor for 6 weeks while taking Daptomycin , increased risk of Rhabdomyolysis fall precaution HX OF PRIOR LEFT LOWER EXT DVT S/P IVC FILTER PLACEMENT was on Xarelto ,which was discontinued after acute CVA had retrievable IVC filter placed , was removed after 7-8 months of anticoagulation lower ext Doppler negative for DVT DVT PROPHYLAXIS moderate risk lower ext Doppler negative for DVT hold sub q Lovenox for ortho procedure tomorrow DISPOSITION expected to be discharged home with home health visiting nurse when medically stable Medicine follow up with Dr viramontes Ortho follow up with Dr Plummer ID follow up with Dr Peñaloza Vital Signs: Date Time Temp Pulse Resp B/P (MAP) Pulse Ox O2 Delivery O2 Flow Rate FiO2 08/09/17 19:45 37 62 16 129/65 94 Room Air 08/09/17 19:35 65 16 139/69 97 Room Air 08/09/17 19:25 64 16 141/66 100 Oxymask 10 08/09/17 19:15 64 16 127/68 100 Oxymask 10 08/09/17 19:07 37 62 16 126/67 99 Oxymask 10 08/09/17 17:53 37.8 65 18 134/70 (91) 96 Room Air 08/09/17 16:00 Room Air 08/09/17 15:09 37.6 61 16 127/78 (94) 99 Room Air 08/09/17 10:55 36.4 63 127/83 (98) 08/09/17 08:00 Room Air 08/09/17 07:33 37.0 63 16 116/75 (89) 94 Room Air 08/09/17 00:00 96 Room Air 08/08/17 23:46 36.9 59 18 124/80 (95) 96 Room Air Lab Results: Results Past 24 Hours Test 08/09/17 07:42 08/09/17 08:11 08/09/17 11:18 08/09/17 14:54 Range/Units Bedside Glucose 107 85 77 70-90 mg/dl White Blood Count 12.84 4.8-10.8 K/uL Red Blood Count 3.54 4.2-5.4 M/uL Hemoglobin 10.0 12.0-16.0 g/dL Hematocrit 30.7 37-47 % Mean Corpuscular Volume 86.7 80-100 fL Mean Corpuscular Hemoglobin 28.2 25-34 pg Mean Corpuscular Hemoglobin Concent 32.6 32-36 g/dl Platelet Count 283 130-400 K/uL Mean Platelet Volume 10.1 7.4-10.4 fL Neutrophils (%) (Auto) 75.3 % Lymphocytes (%) (Auto) 15.8 % Monocytes (%) (Auto) 6.7 % Eosinophils (%) (Auto) 1.1 % Basophils (%) (Auto) 0.2 % Neutrophils # (Auto) 9.67 1.4-6.5 K/uL Lymphocytes # (Auto) 2.03 1.2-3.4 K/uL Monocytes # (Auto) 0.86 0.11-0.59 K/uL Eosinophils # (Auto) 0.14 0-0.5 K/uL Basophils # (Auto) 0.03 0-0.2 K/uL RDW Standard Deviation 40.5 36.4-46.3 fL RDW Coefficient of Variation 12.6 11.5-14.5 % Immature Granulocyte % (Auto) 0.9 % Immature Granulocyte # (Auto) 0.11 0.00-0.02 K/uL Test 08/09/17 16:01 08/09/17 17:13 08/09/17 17:42 08/09/17 19:20 Range/Units Bedside Glucose 78 121 101 98 70-90 mg/dl
--- NOTE | 2017-08-09 20:01 | Anesthesiology Progress Note ---
Anesthesia Post Op Note Date & Time Aug 09, 2017 at 20:01 Vital Signs Pain Intensity: 3 Vital Signs Past 12 Hours Date Time Temp Pulse Resp B/P (MAP) Pulse Ox O2 Delivery O2 Flow Rate FiO2 08/09/17 19:45 37 62 16 129/65 94 Room Air 08/09/17 19:35 65 16 139/69 97 Room Air 08/09/17 19:25 64 16 141/66 100 Oxymask 10 08/09/17 19:15 64 16 127/68 100 Oxymask 10 08/09/17 19:07 37 62 16 126/67 99 Oxymask 10 08/09/17 17:53 37.8 65 18 134/70 (91) 96 Room Air 08/09/17 16:00 Room Air 08/09/17 15:09 37.6 61 16 127/78 (94) 99 Room Air 08/09/17 10:55 36.4 63 127/83 (98) Notes Mental Status: alert / awake / arousable, participated in evaluation Pt Amnestic to Procedure: Yes Nausea / Vomiting: adequately controlled Pain: adequately controlled Airway Patency, RR, SpO2: stable & adequate BP & HR: stable & adequate Hydration State: stable & adequate Anesthetic Complications: no major complications apparent
[2017-08-09 20:07] VITALS: BP 124/74; PULSE 68; TEMP 37; O2SAT 93
[2017-08-09] MEDS: INSULIN GLARGINE SOLOSTAR 100 UNITS/ML 3 ML PEN SC SCH (21:00)
[2017-08-09 21:11] VITALS: BP 124/67; PULSE 80; TEMP 37.2; O2SAT 95
[2017-08-09] MEDS: ACETAMINOPHEN 325 MG TAB PO PRN (21:15)
--- NOTE | 2017-08-10 00:44 | OPERATIVE REPORT ---
DATE OF OPERATION: 08/09/2017 PREOPERATIVE DIAGNOSES: 1. Right foot abscess. 2. Necrosis of the right foot including skin, fascia and extensor digitorum tendon. 3. Great toe abscess. 4. Open 10 cm incision of the right foot. POSTOPERATIVE DIAGNOSES: Same as above. PROCEDURE: 1. Irrigation and debridement, right great toe. 2. Irrigation and debridement, right foot. 3. Delayed primary closure of right foot 10 cm incision. 4. Debridement of the right foot including skin, fascia and extensor digitorum tendon. SURGEON: Dr. Pro. WEB COMMUNICATIONS SPECIALIST: None. ANESTHESIA: General LMA. SPECIMENS: None; however, prior procedure specimens were noted. DRAINS: Half-inch iodoform gauze. COMPLICATIONS: None. BLOOD LOSS: 5 mL PERTINENT HISTORY: This is a 62-year-old female who has been hospitalized since 08/02/2017 for a severe right foot abscess and great toe abscess. She had been placed on IV antibiotics and then had a previous incision and drainage of her foot and great toe performed by Dr. Plummer on 08/05/2017. She had initial improvement of the right foot and great toe; however, over the last 24-48 hours proceeding, still had some worsening of symptoms and an open incision on the dorsum of the right foot. She had continued purulent discharge and drainage from the foot and the great toe and she was then scheduled for surgery as indicated. All potential risks, benefits, complications, alternatives, rehab, potential for incomplete relief of symptoms, need for further surgery, DVT, PE, , persistent pain, swelling, scarring, weakness, neurovascular injury, wound complications and potential for future amputation were discussed with the patient. The patient decided to proceed with the procedure as indicated. PROCEDURE IN DETAIL: The patient was taken to operative suite, placed supine on the operating room table. After reviewing consent and identification of proper operative site, the patient was anesthetized, LMA was placed. Tourniquet was placed high on the right thigh over cast padding; however, it was not used during the case. Next, the right lower extremity was then sterilely prepped and draped in usual fashion, elevated, and 6-inch Esmarch tourniquet applied over sterile surgical towel at the level of the ankle. There was no exsanguination performed due to the nature of the infection. Next, suture placed in the mid pole of the dorsal incision of the right foot was then removed with a hemostat and an iris scissor. The wound was opened and noted to have 10 cm open incision on the right dorsum of the foot. Significant purulent abscess material was noted within this wound. Next, this was evacuated with a rongeur and pulsatile lavage with bacitracin and sterile normal saline. Also noted in the dorsum of the foot was necrotic skin dorsal fascia as well as the extensor digitorum tendon, particularly of the 2nd and 3rd toes. A 15 blade scalpel was used to sharply debride the extensor digitorum tendons of the second and third toes to healthy appearing tendon with approximately 80-90% of the tendon left intact. Next, the debris was then irrigated with pulsatile lavage and bacitracin. Next, attention was then directed toward the great toe dorsal lateral aspect. Dorsal incision was then carried slightly distally, noting another abscess pocket which was then debrided with a rongeur and a 15 blade scalpel and forceps. Once the grossly infected abscess material was removed, rongeur was then used to debride the fascia to more healthy-appearing tissue. Once completed, pulsatile lavage with 3 liters saline with bacitracin was then used to cleanse the dorsum of the foot and the great toe until clear. Next, the top gloves and top sheet were then changed, followed by packing of the long dorsal 10 cm incision with half-inch iodoform gauze packing, followed by loose delayed primary closure of the right foot with interrupted 3-0 nylon sutures. A sterile compressive dressing was applied consisting of Xeroform gauze, sterile 4 x 4's, ABD pads, 4-inch cast roll and a 4-inch Lincoln wrap was applied. The tourniquet was released. The patient was awakened and taken to recovery in stable condition. I attest to the content of the Intraoperative Record and any orders documented therein. Any exception s are noted below.
[2017-08-10] MEDS: MoRPHine SULFATE 2 MG/ML CARP IV PRN (00:57)
[2017-08-10 01:03] VITALS: BP 120/74; PULSE 86; TEMP 39; O2SAT 93
[2017-08-10] MEDS: ACETAMINOPHEN 325 MG TAB PO PRN (01:08)
[2017-08-10 03:00] VITALS: TEMP 37
[2017-08-10 08:00] VITALS: BP 124/82; PULSE 54; TEMP 36.8; O2SAT 97
[2017-08-10] MEDS: LACTOBACILLUS ACIDOPHILUS (FLORANEX) TAB PO SCH ×3 (08:58→16:59)
[2017-08-10] MEDS: INSULIN ASPART 100 UNITS/ML 3 ML PEN SC SCH ×4 (09:04→20:50)
[2017-08-10] MEDS: TRAMADOL HCL 50 MG TAB PO PRN ×3 (09:13→20:42)
--- NOTE | 2017-08-10 09:57 | Orthopedic Progress Note ---
Orthopedic Progress Note Date of Service Aug 10, 2017. Subjective Post OP Day: 1 (2nd I&D this admission) Objective dressing C/D/I, toes mobile Date Time Temp Pulse Resp B/P (MAP) Pulse Ox O2 Delivery O2 Flow Rate FiO2 08/10/17 08:00 36.8 54 17 124/82 (96) 97 Room Air 08/10/17 03:00 Room Air 08/10/17 03:00 37.0 08/10/17 01:03 39.0 86 120/74 (89) 93 Room Air 08/09/17 22:00 Room Air 08/09/17 21:11 37.2 80 18 124/67 (86) 95 Room Air 08/09/17 20:07 37.0 68 18 124/74 (91) 93 Room Air 08/09/17 19:45 37 62 16 129/65 94 Room Air 08/09/17 19:35 65 16 139/69 97 Room Air 08/09/17 19:25 64 16 141/66 100 Oxymask 10 08/09/17 19:15 64 16 127/68 100 Oxymask 10 08/09/17 19:07 37 62 16 126/67 99 Oxymask 10 08/09/17 17:53 37.8 65 18 134/70 (91) 96 Room Air 08/09/17 16:00 Room Air 08/09/17 15:09 37.6 61 16 127/78 (94) 99 Room Air 08/09/17 10:55 36.4 63 127/83 (98) Assessment & Plan Assessment: POD#1 SP 2nd I&D right great toe/foot Plan: 1. Med management cont IV abx, MRSA on culture 2. DVT prophylaxis 3. D/C planning (1) Cellulitis of right foot
[2017-08-10 12:00] VITALS: O2SAT 97
[2017-08-10 16:10] VITALS: BP 119/73; PULSE 58; TEMP 36.9; O2SAT 95
[2017-08-10] MEDS: DAPTOmycin IV 550 MG in SODIUM CHLORIDE 0.9% 50ML 50 ML IV SCH (16:57)
[2017-08-10 18:00] VITALS: O2SAT 97
--- NOTE | 2017-08-10 20:31 | Progress Note ---
Internal Med Progress Note Date of Service: Aug 10, 2017. Provider Documentation: SUBJECTIVE: s/p repeat I&D of rt foot no pain or discomfort no fever or chills OBJECTIVE: Vital Signs-as noted below Exam: General-no sign of distress, very pleasant Eyes-sclera non icteric ENT-NAD Neck-no JVD Lungs-CTA , no wheeze or rales Heart-regular S1/s2 Abdomen-soft, non tender Extremities-rt foot infected wound evaluated -wound dehiscence noted with purulent drainage Neuro-no focal deficit , AAO x3 Lab data as noted below. ASSESSMENT & PLAN: SEPSIS DUE TO DIABETIC FOOT INFECTION ON RT SIDE resolved after I&D presented with fever , chills , leukocytosis Ortho consulted s/p Incision and drainage and packing of abscess, right foot on 08/05/17 wound culture -MRSA ; surgical drainage culture + MRSA pt wounds shows persistent swelling and purulent drainage s/p repeat I&D on appreciate input form ID will need 6 weeks of IV ABx tx Abx changed to IV Daptomycin has PICC line placed TYPE 2 DM : insulin SSI and Lantus ordered HB A1c 11.2 ( poorly controlled ) educator senior clinical consulted hold oral hypoglycemic ( was on Metformin 850 mg BID ) while in hospital with acute illness and ongoing infection pharmacy consulted for glycemic management -appreciate input pt can be started on Lantus 14 U HS and titrate oral hypoglycemics started on Jardiance 10 mg daily scheduled with family physician visit in a week will need Hb A1c check in 2-3 months d/w Pt , does not want to start on Basal insulin now , wants to try with oral agents if BSG remains persistently high and no improvement of Hb 1 C , pt is willing to start on Lantus after d/w family physician HTN : BP stable HX OF CVA : hx of occipital CVA uses walker occasionally at home hold Aspirin for ortho procedure tomorrow , asked not to take statin /Lipitor for 6 weeks while taking Daptomycin , increased risk of Rhabdomyolysis fall precaution HX OF PRIOR LEFT LOWER EXT DVT S/P IVC FILTER PLACEMENT was on Xarelto ,which was discontinued after acute CVA had retrievable IVC filter placed , was removed after 7-8 months of anticoagulation lower ext Doppler negative for DVT DVT PROPHYLAXIS moderate risk lower ext Doppler negative for DVT hold sub q Lovenox for ortho procedure tomorrow DISPOSITION expected to be discharged home with home health visiting nurse when medically stable Medicine follow up with Dr viramontes Ortho follow up with Dr Plummer ID follow up with Dr Peñaloza Vital Signs: Date Time Temp Pulse Resp B/P (MAP) Pulse Ox O2 Delivery O2 Flow Rate FiO2 08/10/17 18:00 97 Room Air 08/10/17 16:10 36.9 58 18 119/73 (88) 95 Room Air 08/10/17 12:00 97 Room Air 08/10/17 08:00 36.8 54 17 124/82 (96) 97 Room Air 08/10/17 03:00 Room Air 08/10/17 03:00 37.0 08/10/17 01:03 39.0 86 120/74 (89) 93 Room Air 08/09/17 22:00 Room Air 08/09/17 21:11 37.2 80 18 124/67 (86) 95 Room Air Lab Results: Results Past 24 Hours Test 08/09/17 21:10 08/10/17 07:40 08/10/17 11:32 08/10/17 16:50 Range/Units Bedside Glucose 136 139 166 120 70-90 mg/dl Test 08/10/17 19:55 Range/Units Bedside Glucose 162 70-90 mg/dl
[2017-08-10] MEDS: INSULIN GLARGINE SOLOSTAR 100 UNITS/ML 3 ML PEN SC SCH (20:51)
[2017-08-11] MEDS: TRAMADOL HCL 50 MG TAB PO PRN ×2 (06:17→16:12)
[2017-08-11 08:11] VITALS: BP 121/71; PULSE 60; TEMP 36.8; O2SAT 95
--- NOTE | 2017-08-11 09:33 | Orthopedic Progress Note ---
Orthopedic Progress Note Date of Service Aug 11, 2017. Subjective Post OP Day: 2 (2nd I&D) Objective incision C/D/I (Dressing changed, wound still a little wet) Date Time Temp Pulse Resp B/P (MAP) Pulse Ox O2 Delivery O2 Flow Rate FiO2 08/11/17 08:11 36.8 60 16 121/71 (88) 95 Room Air 08/11/17 00:15 Room Air 08/10/17 18:00 97 Room Air 08/10/17 16:10 36.9 58 18 119/73 (88) 95 Room Air 08/10/17 12:00 97 Room Air Assessment & Plan Assessment: POD#2 SP 2nd I&D right great toe/foot, MRSA on culture Plan: 1. Med management cont IV abx, MRSA on culture 2. DVT prophylaxis 3. D/C planning (1) Cellulitis of right foot
[2017-08-11] MEDS: LACTOBACILLUS ACIDOPHILUS (FLORANEX) TAB PO SCH ×3 (09:37→18:19)
[2017-08-11] MEDS: INSULIN ASPART 100 UNITS/ML 3 ML PEN SC SCH ×4 (09:37→20:58)
[2017-08-11 15:36] VITALS: BP 122/80; PULSE 64; TEMP 37.3; O2SAT 95
[2017-08-11] MEDS: DAPTOmycin IV 550 MG in SODIUM CHLORIDE 0.9% 50ML 50 ML IV SCH (15:58)
--- NOTE | 2017-08-11 19:56 | Progress Note ---
Medicine Progress Note Date & Time of Visit: Aug 11, 2017 at 19:56. Subjective Pt was seen and examined Lying in bed with no distress Pt said that she feels fine denies any chest pain, palpitation, dizziness and sob Objective Last 8 Hrs Date Time Temp Pulse Resp B/P (MAP) Pulse Ox O2 Delivery O2 Flow Rate FiO2 08/11/17 15:45 Room Air 08/11/17 15:36 37.3 64 17 122/80 (94) 95 Room Air Physical Exam: General-No acute distress Head- atraumatic Eyes- PERRL, EOMI ENT- oropharynx clear Neck- supple, no JVD Lungs- no wheezing Heart- regular rhythm Abdomen- normal bowel sounds, soft Extremities- no calf tenderness, right foot wrapped with dressing Neuro- alert, oriented x 3; PERRL, EOMI; no facial palsy Skin- warm & dry Laboratory Results: Last 24 Hours Test 08/11/17 07:59 08/11/17 11:48 08/11/17 17:19 Bedside Glucose 137 mg/dl 213 mg/dl Assessment & Plan SEPSIS DUE TO DIABETIC FOOT INFECTION ON RT SIDE presented with fever, chills, leukocytosis Doppler LE done showed no sonographic evidence of deep venous thrombosis within the right lower extremity. MRI of RLE done Extensive soft tissue swelling and subcutaneous edema about the foot suggests cellulitis with loculated peripherally enhancing collection of the dorsal forefoot measuring 3.2 x 1.2 x 5.3 cm with associated small fluid filled tract extending to the skin surface as above suggesting draining abscess. No evidence of osteomyelitis or acute fracture. Ortho on board s/p Incision and drainage and packing of abscess, right foot on 08/05/17 and on 08/09/17 wound culture -MRSA ; surgical drainage culture + MRSA Continue to have swelling and purulent drainage ID on board will need 6 weeks of IV daptomycin has PICC line placed continue monitor CBC TYPE 2 DM : insulin SSI and Lantus ordered HB A1c 11.2 ( poorly controlled ) educator senior clinical consulted oral med on hold pharmacy consulted for glycemic management Started on Lantus HTN BP stable HX OF CVA : hx of occipital CVA uses walker occasionally at home asked not to take statin /Lipitor for 6 weeks while taking Daptomycin , increased risk of Rhabdomyolysis fall precaution HX OF PRIOR LEFT LOWER EXT DVT S/P IVC FILTER PLACEMENT was on Xarelto ,which was discontinued after acute CVA had retrievable IVC filter placed , was removed after 7-8 months of anticoagulation lower ext Doppler negative for DVT DVT PROPHYLAXIS On lovenox subq DISPOSITION expected to be discharged home with home health visiting nurse when medically stable Medicine follow up with Dr viramontes Ortho follow up with Dr Plummer ID follow up with Dr Peñaloza Consultants: [facility] Current Inpatient Medications: Current Inpatient Medications Medications (Trade) Dose Ordered Sig/Odnald Route Start Time Stop Time Status Last Admin Dose Admin Enoxaparin Sodium (Lovenox Inj) 40 mg Q24H SQ 08/03/17 09:00 09/02/17 08:59 Future Hold 08/04/17 07:51 40 MG Acetaminophen (Tylenol Tab) 650 mg Q4H PRN PO 08/02/17 20:30 09/01/17 20:29 08/10/17 01:08 650 MG Insulin Aspart (novoLOG ASPART) SLIDING SCALE If C... ACHS SC 08/02/17 22:45 09/01/17 22:44 08/11/17 18:22 7 UNITS Glucose (Glucose 40% Gel) 15-30 GRAMS 15 GRAMS... UD PRN PO 08/02/17 20:30 09/01/17 20:29 Glucose (Glucose Chew Tab) 4-8 Tablets 4 Tabl... UD PRN PO 08/02/17 20:30 09/01/17 20:29 Dextrose (Dextrose 50% 50ML Syringe) 25-50ML OF 50% DW IV FOR... UD PRN IV 08/02/17 20:30 09/01/17 20:29 08/09/17 16:35 25 ML Glucagon (Glucagon Inj) 1 mg UD PRN SQ 08/02/17 20:30 09/01/17 20:29 Tramadol HCl (Ultram Tab) pain not relieved by ot... Q4H PRN PO 08/02/17 20:30 09/01/17 20:29 08/11/17 16:12 50 MG Ibuprofen (Advil Tab) 400 mg Q6H PRN PO 08/02/17 20:30 09/01/17 20:29 08/03/17 11:23 400 MG Morphine Sulfate (MoRPHine SULFATE INJ) 4 mg Q6H PRN IV 08/02/17 20:30 08/16/17 20:29 08/10/17 00:57 4 MG Lorazepam (Ativan Tab) 0.25 mg HS PRN PO 08/02/17 20:30 09/01/17 20:29 Aspirin (Ecotrin Tab) 81 mg QAM PO 08/03/17 08:00 09/02/17 08:59 Future Hold 08/04/17 07:49 81 MG Miscellaneous Information (Consult Glycemic Management Pharmacy) 1 ea UD N/A 08/04/17 10:41 09/03/17 10:40 Lorazepam (Ativan Tab) 0.5 mg Q12 PRN PO 08/04/17 12:30 09/03/17 12:29 Insulin Glargine (Lantus Solostar Pen) SEE PROTOCOL HS SC 08/06/17 21:00 09/05/17 20:59 08/10/17 20:51 14 UNITS Heparin Sodium (Porcine) (Heparin 10 Unit/ ml 5 ml Flush) 5 ml PRN PRN FLUSH 08/07/17 09:45 09/06/17 09:44 08/11/17 16:53 5 ML Daptomycin 550 mg/ Sodium Chloride 61 ml @ 120 mls/hr Q24H IV 08/07/17 16:00 09/18/17 15:59 08/11/17 15:58 120 MLS/HR Lactobacillus Acidophilus (Floranex Tab) 4 tab TIDM PO 08/07/17 17:00 09/06/17 16:59 08/11/17 18:19 4 TAB
[2017-08-11] MEDS: INSULIN GLARGINE SOLOSTAR 100 UNITS/ML 3 ML PEN SC SCH (20:58)
[2017-08-11 23:39] VITALS: BP 114/74; PULSE 64; TEMP 37.3; O2SAT 95
[2017-08-12] MEDS: ACETAMINOPHEN 325 MG TAB PO PRN (07:35)
[2017-08-12] MEDS: LACTOBACILLUS ACIDOPHILUS (FLORANEX) TAB PO SCH ×3 (07:35→17:37)
[2017-08-12 07:54] LABS: BASO % 0.2 %; BASO ABS # 0.03 K/uL (0-0.2); COMPLETE YES; EOS % 1.1 %; HEMATOCRIT 28.3 % (37-47); IG% 0.6 %; LYMPH % 12.6 %; LYMPH ABS # 2.02 K/uL (1.2-3.4); MEAN CELL VOLUME 86.5 fL (80-100); MEAN CORPUSCULAR HEMOGLOBIN 29.1 pg (25-34); MEAN CORPUSCULAR HGB CONC 33.6 g/dl (32-36); MEAN PLATELET VOLUME 9.8 fL (7.4-10.4); MONO % 5.4 %; NEUT % 80.1 %; PLATELET COUNT 309 K/uL (130-400); RED BLOOD COUNT 3.27 M/uL (4.2-5.4); WHITE BLOOD COUNT 16.05 K/uL (4.8-10.8)
[2017-08-12 08:04] VITALS: BP 139/80; PULSE 65; TEMP 37; O2SAT 98
--- NOTE | 2017-08-12 08:48 | Anesthesiology Progress Note ---
Anesthesia Post Op Note Date & Time Aug 12, 2017 at 08:48 Vital Signs Pain Intensity: 5.0 Vital Signs Past 12 Hours Date Time Temp Pulse Resp B/P (MAP) Pulse Ox O2 Delivery O2 Flow Rate FiO2 08/12/17 08:04 37.0 65 20 139/80 (99) 98 Room Air 08/12/17 00:44 Room Air 08/11/17 23:39 37.3 64 20 114/74 (87) 95 Room Air Notes Mental Status: alert / awake / arousable, participated in evaluation Pt Amnestic to Procedure: Yes Nausea / Vomiting: adequately controlled Pain: adequately controlled Airway Patency, RR, SpO2: stable & adequate BP & HR: stable & adequate Hydration State: stable & adequate Anesthetic Complications: no major complications apparent
[2017-08-12] MEDS: INSULIN ASPART 100 UNITS/ML 3 ML PEN SC SCH ×4 (08:52→20:54)
--- NOTE | 2017-08-12 10:05 | Orthopedic Progress Note ---
Orthopedic Progress Note Date of Service Aug 12, 2017. Subjective Post OP Day: 3 Reports: feeling well Additional Notes: States the foot is feeling better than it had been. Sitting up in chair currently. Objective Dressing removed. Mild to moderate drainage noted on dressing/neel. Dusky erythema noted of dorsum of foot to great toe. All packing removed. No major drainage came out with it. Mottling of skin between great toe and second toe with mild purulence on the Great toe side. Redressed with adaptic, 4x4's, Kelix, and neel. Date Time Temp Pulse Resp B/P (MAP) Pulse Ox O2 Delivery O2 Flow Rate FiO2 08/12/17 08:04 37.0 65 20 139/80 (99) 98 Room Air 08/12/17 00:44 Room Air 08/11/17 23:39 37.3 64 20 114/74 (87) 95 Room Air 08/11/17 20:15 Room Air 08/11/17 15:45 Room Air 08/11/17 15:36 37.3 64 17 122/80 (94) 95 Room Air Laboratory Results 24 Hours: Test 08/12/17 07:28 White Blood Count 16.05 K/uL Red Blood Count 3.27 M/uL Hemoglobin 9.5 g/dL Hematocrit 28.3 % Mean Corpuscular Volume 86.5 fL Mean Corpuscular Hemoglobin 29.1 pg Mean Corpuscular Hemoglobin Concent 33.6 g/dl Platelet Count 309 K/uL Mean Platelet Volume 9.8 fL Neutrophils (%) (Auto) 80.1 % Lymphocytes (%) (Auto) 12.6 % Monocytes (%) (Auto) 5.4 % Eosinophils (%) (Auto) 1.1 % Basophils (%) (Auto) 0.2 % Neutrophils # (Auto) 12.86 K/uL Lymphocytes # (Auto) 2.02 K/uL Monocytes # (Auto) 0.87 K/uL Eosinophils # (Auto) 0.18 K/uL Basophils # (Auto) 0.03 K/uL Assessment & Plan Assessment: POD#3 SP 2nd I&D right great toe/foot, MRSA on culture Increased purulent discharge between 1st/2nd toes Plan: 1. Med management cont IV abx, MRSA on culture 2. DVT prophylaxis 3. Plan for repeat I&D Right foot today. Maintain NPO. (1) Cellulitis of right foot
--- NOTE | 2017-08-12 10:16 | Progress Note ---
Subjective Date of Service: Aug 12, 2017. Subjective pt tolerating abx, ? repeat OR for additional I&D. All previous culture with MRSA, placed on dapto for once daily dosing, tolerating well. no fevers. no overnight events. Problem List Medical Problems: (1) Abnormal brain CT Status: Acute (2) Cellulitis of right foot Status: Acute (3) Dizziness Status: Acute (4) Failure of outpatient treatment Status: Acute (5) Vomiting Status: Acute Objective Vital Signs Date Time Temp Pulse Resp B/P (MAP) Pulse Ox O2 Delivery O2 Flow Rate FiO2 08/12/17 09:58 Room Air 08/12/17 08:04 37.0 65 20 139/80 (99) 98 Room Air 08/12/17 00:44 Room Air 08/11/17 23:39 37.3 64 20 114/74 (87) 95 Room Air 08/11/17 20:15 Room Air 08/11/17 15:45 Room Air 08/11/17 15:36 37.3 64 17 122/80 (94) 95 Room Air Laboratory Results Item Value Date Time Gram Stain - Final Complete 08/05/17 1405 Abscess Foot Right Gram Stain - Final Complete 08/05/17 1405 Abscess Foot Right Gram Stain - Final Complete 08/02/17 0000 Drainage - Surface Foot Right Last 24 Hours Test 08/11/17 11:48 08/11/17 17:19 08/11/17 20:34 08/12/17 07:28 Bedside Glucose 213 mg/dl 184 mg/dl White Blood Count 16.05 K/uL Red Blood Count 3.27 M/uL Hemoglobin 9.5 g/dL Hematocrit 28.3 % Mean Corpuscular Volume 86.5 fL Mean Corpuscular Hemoglobin 29.1 pg Mean Corpuscular Hemoglobin Concent 33.6 g/dl Platelet Count 309 K/uL Mean Platelet Volume 9.8 fL Neutrophils (%) (Auto) 80.1 % Lymphocytes (%) (Auto) 12.6 % Monocytes (%) (Auto) 5.4 % Eosinophils (%) (Auto) 1.1 % Basophils (%) (Auto) 0.2 % Neutrophils # (Auto) 12.86 K/uL Lymphocytes # (Auto) 2.02 K/uL Monocytes # (Auto) 0.87 K/uL Eosinophils # (Auto) 0.18 K/uL Basophils # (Auto) 0.03 K/uL RDW Standard Deviation 40.1 fL RDW Coefficient of Variation 12.6 % Immature Granulocyte % (Auto) 0.6 % Immature Granulocyte # (Auto) 0.09 K/uL Test 08/12/17 07:36 Bedside Glucose 125 mg/dl Assessment and Plan (1) Cellulitis of right foot Assessment & Plan: continue with dapto, would give 6 weeks from time of OR, will plan to follow post d/c in wound center.
--- NOTE | 2017-08-12 12:44 | Progress Note ---
Medicine Progress Note Date & Time of Visit: Aug 12, 2017 at 12:38. Subjective Pt was seen and examined resting comfortable on the recliner chair pt said that she feels fine she said that she has a rash in her back Wound continue to drain alot denies any chest pain, palpitation and sob Objective Last 8 Hrs Date Time Temp Pulse Resp B/P (MAP) Pulse Ox O2 Delivery O2 Flow Rate FiO2 08/12/17 09:58 Room Air 08/12/17 08:04 37.0 65 20 139/80 (99) 98 Room Air Physical Exam: General-No acute distress Head- atraumatic Eyes- PERRL, EOMI ENT- oropharynx clear Neck- supple, no JVD Lungs- no wheezing Heart- regular rhythm Abdomen- normal bowel sounds, soft Extremities- no calf tenderness, right foot wrapped with dressing Neuro- alert, oriented x 3; PERRL, EOMI; no facial palsy Skin- warm & dry Laboratory Results: Last 24 Hours Test 08/11/17 17:19 08/11/17 20:34 08/12/17 07:28 08/12/17 07:36 Bedside Glucose 184 mg/dl 125 mg/dl White Blood Count 16.05 K/uL Red Blood Count 3.27 M/uL Hemoglobin 9.5 g/dL Hematocrit 28.3 % Mean Corpuscular Volume 86.5 fL Mean Corpuscular Hemoglobin 29.1 pg Mean Corpuscular Hemoglobin Concent 33.6 g/dl Platelet Count 309 K/uL Mean Platelet Volume 9.8 fL Neutrophils (%) (Auto) 80.1 % Lymphocytes (%) (Auto) 12.6 % Monocytes (%) (Auto) 5.4 % Eosinophils (%) (Auto) 1.1 % Basophils (%) (Auto) 0.2 % Neutrophils # (Auto) 12.86 K/uL Lymphocytes # (Auto) 2.02 K/uL Monocytes # (Auto) 0.87 K/uL Eosinophils # (Auto) 0.18 K/uL Basophils # (Auto) 0.03 K/uL RDW Standard Deviation 40.1 fL RDW Coefficient of Variation 12.6 % Immature Granulocyte % (Auto) 0.6 % Immature Granulocyte # (Auto) 0.09 K/uL Test 08/12/17 11:45 Bedside Glucose 183 mg/dl Assessment & Plan SEPSIS DUE TO DIABETIC FOOT INFECTION ON RT SIDE presented with fever, chills, leukocytosis Doppler LE done showed no sonographic evidence of deep venous thrombosis within the right lower extremity. MRI of RLE done Extensive soft tissue swelling and subcutaneous edema about the foot suggests cellulitis with loculated peripherally enhancing collection of the dorsal forefoot measuring 3.2 x 1.2 x 5.3 cm with associated small fluid filled tract extending to the skin surface as above suggesting draining abscess. No evidence of osteomyelitis or acute fracture. Ortho on board s/p Incision and drainage and packing of abscess, right foot on 08/05/17 and on 08/09/17 wound culture -MRSA ; surgical drainage culture + MRSA Continue to have swelling and purulent drainage ID on board will need 6 weeks of IV daptomycin has PICC line placed continue monitor CBC 08/12 S/P I&D on 08/05 and 08/09 WBC elevated this morning to 16K Afebrile Wound continue to drain Ortho plan to go back to OR today for I&D Continue Dapto IV ID on board Continue monitor cbc TYPE 2 DM insulin SSI and Lantus ordered HB A1c 11.2 ( poorly controlled ) family educator consulted oral med on hold pharmacy consulted for glycemic management Started on Lantus HTN BP stable HX OF CVA : hx of occipital CVA uses walker occasionally at home asked not to take statin /Lipitor for 6 weeks while taking Daptomycin , increased risk of Rhabdomyolysis fall precaution HX OF PRIOR LEFT LOWER EXT DVT S/P IVC FILTER PLACEMENT was on Xarelto ,which was discontinued after acute CVA had retrievable IVC filter placed , was removed after 7-8 months of anticoagulation lower ext Doppler negative for DVT Rash no new med adding starting on Benadryl prn DVT PROPHYLAXIS On lovenox subq DISPOSITION expected to be discharged home with home health visiting nurse when medically stable Medicine follow up with Dr viramontes Ortho follow up with Dr Elian JERRY follow up with Dr Peñaloza Consultants: [facility] Current Inpatient Medications: Current Inpatient Medications Medications (Trade) Dose Ordered Sig/Donald Route Start Time Stop Time Status Last Admin Dose Admin Enoxaparin Sodium (Lovenox Inj) 40 mg Q24H SQ 08/03/17 09:00 09/02/17 08:59 Future Hold 08/04/17 07:51 40 MG Acetaminophen (Tylenol Tab) 650 mg Q4H PRN PO 08/02/17 20:30 09/01/17 20:29 08/12/17 07:35 650 MG Insulin Aspart (novoLOG ASPART) SLIDING SCALE If C... ACHS SC 08/02/17 22:45 09/01/17 22:44 08/12/17 08:52 6 UNITS Glucose (Glucose 40% Gel) 15-30 GRAMS 15 GRAMS... UD PRN PO 08/02/17 20:30 09/01/17 20:29 Glucose (Glucose Chew Tab) 4-8 Tablets 4 Tabl... UD PRN PO 08/02/17 20:30 09/01/17 20:29 Dextrose (Dextrose 50% 50ML Syringe) 25-50ML OF 50% DW IV FOR... UD PRN IV 08/02/17 20:30 09/01/17 20:29 08/09/17 16:35 25 ML Glucagon (Glucagon Inj) 1 mg UD PRN SQ 08/02/17 20:30 09/01/17 20:29 Tramadol HCl (Ultram Tab) pain not relieved by ot... Q4H PRN PO 08/02/17 20:30 09/01/17 20:29 08/11/17 16:12 50 MG Ibuprofen (Advil Tab) 400 mg Q6H PRN PO 08/02/17 20:30 09/01/17 20:29 08/03/17 11:23 400 MG Morphine Sulfate (MoRPHine SULFATE INJ) 4 mg Q6H PRN IV 08/02/17 20:30 08/16/17 20:29 08/10/17 00:57 4 MG Lorazepam (Ativan Tab) 0.25 mg HS PRN PO 08/02/17 20:30 09/01/17 20:29 Aspirin (Ecotrin Tab) 81 mg QAM PO 08/03/17 08:00 09/02/17 08:59 Future Hold 08/04/17 07:49 81 MG Miscellaneous Information (Consult Glycemic Management Pharmacy) 1 ea UD N/A 08/04/17 10:41 09/03/17 10:40 Lorazepam (Ativan Tab) 0.5 mg Q12 PRN PO 08/04/17 12:30 09/03/17 12:29 Insulin Glargine (Lantus Solostar Pen) SEE PROTOCOL HS SC 08/06/17 21:00 09/05/17 20:59 08/11/17 20:58 14 UNITS Heparin Sodium (Porcine) (Heparin 10 Unit/ ml 5 ml Flush) 5 ml PRN PRN FLUSH 08/07/17 09:45 09/06/17 09:44 08/12/17 07:33 5 ML Daptomycin 550 mg/ Sodium Chloride 61 ml @ 120 mls/hr Q24H IV 08/07/17 16:00 09/18/17 15:59 08/11/17 15:58 120 MLS/HR Lactobacillus Acidophilus (Floranex Tab) 4 tab TIDM PO 08/07/17 17:00 09/06/17 16:59 08/12/17 07:35 4 TAB
--- NOTE | 2017-08-12 14:30 | History & Physical Bridge Note ---
H&P Re-Evaluation Bridge Note: I have examined the patient, reviewed the History & Physical and in the interval since the performance of the History & Physical I have noted the following changes of clinical significance: Recurrent continued erythema and purulent d/c between 1/2 toes right foot. Return to OR today for repeat I and Right foot.
[2017-08-12] MEDS ORDERED: BACITRACIN 50000 UNIT VIAL ONE (14:54)
[2017-08-12] MEDS ORDERED: BUPIVACAINE 0.5 % 5 MG/1 ML MPF 30ML VIAL ONE ×2 (14:54→17:57)
[2017-08-12 15:00] VITALS: BP 147/71; PULSE 65; TEMP 37; O2SAT 96
[2017-08-12] MEDS ORDERED: MIDAZOLAM HCL 1 MG/ML 2ML VIAL ONE (15:01)
[2017-08-12] MEDS ORDERED: FENTANYL CITRATE INJ 50 MCG/1 ML 2 ML VIAL ONE (15:01)
[2017-08-12] MEDS ORDERED: ATROPINE SULFATE 0.1 MG/ML 5ML SYR IV PRN (15:45)
[2017-08-12] MEDS ORDERED: EpHEDrine SULFATE INJ 50 MG/ML AMP IV PRN (15:45)
[2017-08-12] MEDS ORDERED: ONDANSETRON INJ 2 MG/ML 2 ML VIAL IV PRN (15:45)
[2017-08-12] MEDS: DAPTOmycin IV 550 MG in SODIUM CHLORIDE 0.9% 50ML 50 ML IV SCH (16:13)
[2017-08-12] MEDS ORDERED: LIDOCAINE HCL 2% 2 ML VIAL (20MG/ML) ONE (17:06)
[2017-08-12] MEDS ORDERED: PROPOFOL IV EMULSION 10 MG/ML 20 ML VIAL IV ONE (17:06)
[2017-08-12] MEDS: FENTANYL CITRATE INJ 50 MCG/1 ML 2 ML VIAL IV PRN ×2 (19:05→19:10)
--- NOTE | 2017-08-12 19:05 | [facility] Post Operative Brief Note ---
Immediate Operative Summary Operative Date Aug 12, 2017. Pre-Operative Diagnosis Recurrent Abscess right foot; Recurrent Abscess great toe Post-Operative Diagnosis Recurrent Abscess right foot; Recurrent Abscess great toe Local infected fascia right dorsal foot Necrosis extensor digitorum tendon right foot Procedure(s) Performed 1. Irrigation and debridement Right foot; 2. Irrigation and debridement great toe; 3. Debridement of dorsal foot fascia; 4. Debridement extensor digitorum tendon foot Surgeon Dr Pro Cooler Servicer Surgeon(s) none Estimated Blood Loss 4 ml Findings See Dict Specimens None Drains 1/2" Iodoform gauze x4 Anesthesia GLMA w/ local Complication(s) None Disposition Recovery Room / PACU
--- NOTE | 2017-08-12 19:07 | Anesthesiology Progress Note ---
Anesthesia Post Op Note Date & Time Aug 12, 2017 at 19:07 Vital Signs Pain Intensity: 3 Vital Signs Past 12 Hours Date Time Temp Pulse Resp B/P (MAP) Pulse Ox O2 Delivery O2 Flow Rate FiO2 08/12/17 16:13 Room Air 08/12/17 15:00 37.0 65 20 147/71 (96) 96 Room Air 08/12/17 09:58 Room Air 08/12/17 08:04 37.0 65 20 139/80 (99) 98 Room Air Notes Mental Status: alert / awake / arousable, participated in evaluation Pt Amnestic to Procedure: Yes Nausea / Vomiting: adequately controlled Pain: adequately controlled Airway Patency, RR, SpO2: stable & adequate BP & HR: stable & adequate Hydration State: stable & adequate Anesthetic Complications: no major complications apparent
--- NOTE | 2017-08-12 19:32 | OPERATIVE REPORT ---
DATE OF OPERATION: 08/12/2017 PREOPERATIVE DIAGNOSES: 1. Right foot recurrent abscess. 2. Right great toe recurrent abscess. POSTOPERATIVE DIAGNOSES: 1. Right foot recurrent abscess. 2. Right great toe recurrences. 3. Local necrotic fascia, dorsal foot. 4. Necrosis of the extensor digitorum tendon of the foot. PROCEDURE: 1. Right foot irrigation and debridement. 2. Right great toe irrigation and debridement. 3. Debridement of dorsal foot fascia. 4. Debridement of extensor digitorum tendon of the foot. SURGEON: Dr. Pro. MANAGER PSYCHOLOGY: None. ANESTHESIA: General LMA with local. SPECIMENS: None. DRAINS: One-half inch iodoform gauze x4. COMPLICATIONS: None. BLOOD LOSS: 3 mL. PERTINENT HISTORY: This is a 62-year-old female who had a serious abscess spontaneously formed in her right foot and great toe. She has had 2 prior procedures to eradicate this infection and this is the third successive surgery. She continued to have abscess and purulent discharge and drainage, despite 2 prior surgeries. She was scheduled for surgery today as indicated. All potential risks, benefits, complications, alternatives, rehab, potential for incomplete relief of symptoms, need for further surgery, DVT, PE, , persistent pain, swelling, scarring, weakness, neurovascular injury, wound complications and potential for further surgical intervention including amputation were discussed. The patient decided to proceed with the procedure as indicated. DESCRIPTION OF PROCEDURE: The patient was taken to the operative suite, placed supine on the operating table. After reviewing consent and identification of operative site, the patient was anesthetized, LMA was placed. Tourniquet was placed high on the right thigh over cast padding; however, the pneumatic tourniquet was not used during the case. The right lower extremity was then sterilely prepped and draped in usual fashion, elevated and Esmarch tourniquet applied over sterile surgical towel at the level of the ankle. There was no exsanguination performed due to the nature of the foot and great toe infection. Hemostat and iris scissors were used to remove previously placed sutures in the dorsum of the foot and between the first and second toes. Purulent abscess fluid was then noted in the dorsum of the foot and also within the great toe lateral aspect. Next, the large curette was then used to curettage any fibrinous exudate and also a rongeur was then used to resect grossly necrotic tissue including dorsal fascia of the foot as well as a small area of necrosis on the extensor digitorum tendon of the second toe. Once this was completed and more healthy appearing tissue was noted with small punctate bleeding then pulsatile lavage with 3 liters of sterile normal saline with bacitracin was then used to lavage the foot and great toe until clear. New type gloves and top sheet was applied to the field and 1/2 inch iodoform gauze packing was then placed in 4 separate places, 3 in the dorsum of the foot and 1 between the great toe and the second toe. The skin incision was then loosely closed with interrupted 3-0 nylon sutures along the lateral aspect of the great toe and along the dorsum of the foot. Next, 0.5% Marcaine plain was injected approximately 10 mL just proximal to the incision site and then a sterile compressive dressing was applied consisting of Xeroform gauze, sterile 4 x 4's, ABD pads x2, cast padding and a 4 inch Lincoln wrap. The tourniquet was released, the patient was awakened and taken to recovery in stable condition. I attest to the content of the Intraoperative Record and any orders documented therein. Any exception s are noted below.
[2017-08-12] MEDS: INSULIN GLARGINE SOLOSTAR 100 UNITS/ML 3 ML PEN SC SCH (20:54)
[2017-08-12 21:00] VITALS: BP 122/70; PULSE 72; TEMP 36.7; O2SAT 97
[2017-08-12 22:45] VITALS: BP 120/75; PULSE 73; TEMP 37.6; O2SAT 93
[2017-08-13] MEDS: ACETAMINOPHEN 325 MG TAB PO PRN (00:10)
[2017-08-13] MEDS: TRAMADOL HCL 50 MG TAB PO PRN (01:36)
[2017-08-13 07:42] VITALS: BP 112/72; PULSE 59; TEMP 36.8; O2SAT 96
[2017-08-13 08:07] VITALS: BP 105/69; PULSE 52; TEMP 36.9; O2SAT 97
[2017-08-13 08:16] LABS: HEMATOCRIT 28.6 % (37-47); MEAN CELL VOLUME 87.2 fL (80-100); MEAN CORPUSCULAR HEMOGLOBIN 27.4 pg (25-34); MEAN CORPUSCULAR HGB CONC 31.5 g/dl (32-36); MEAN PLATELET VOLUME 9.7 fL (7.4-10.4); PLATELET COUNT 334 K/uL (130-400); RED BLOOD COUNT 3.28 M/uL (4.2-5.4)
[2017-08-13] MEDS: INSULIN ASPART 100 UNITS/ML 3 ML PEN SC SCH ×4 (08:25→20:45)
[2017-08-13] MEDS: LACTOBACILLUS ACIDOPHILUS (FLORANEX) TAB PO SCH ×3 (08:26→17:36)
--- NOTE | 2017-08-13 08:36 | Orthopedic Progress Note ---
Orthopedic Progress Note Date of Service Aug 13, 2017. Subjective Post OP Day: 1 Reports: feeling well, Denies: chest pain, SOB, nausea / vomiting, light headedness, calf pain Objective calves soft nontender, N/V intact, capillary refill less than 2 sec., dressing C /D/I, A&O x3, toes mobile Date Time Temp Pulse Resp B/P (MAP) Pulse Ox O2 Delivery O2 Flow Rate FiO2 08/13/17 08:07 36.9 52 18 105/69 (81) 97 Room Air 08/13/17 07:42 36.8 59 16 112/72 (85) 96 Room Air 08/13/17 00:36 Room Air 08/12/17 22:45 37.6 73 18 120/75 (90) 93 Room Air 08/12/17 21:00 36.7 72 18 122/70 (87) 97 Room Air 08/12/17 20:56 Room Air 08/12/17 19:30 37.2 74 16 120/72 94 Room Air 08/12/17 19:20 67 16 124/74 95 Room Air 08/12/17 19:10 66 16 125/86 98 Oxymask 7 08/12/17 19:00 37.4 62 16 115/57 98 Oxymask 7 08/12/17 18:53 37.4 65 14 102/66 98 Oxymask 7 08/12/17 16:13 Room Air 08/12/17 15:00 37.0 65 20 147/71 (96) 96 Room Air 08/12/17 09:58 Room Air Laboratory Results 24 Hours: Test 08/13/17 07:56 Hematocrit 28.6 % Hemoglobin 9.0 g/dL Assessment & Plan Assessment: POD#3 SP 2nd I&D right great toe/foot, MRSA on culture POD#1 SP 3RD I&D RIGHT GREAT TOE/FOOT. CONTINUE IV DAPTO DRESSING CHANGE AND PACKING TOMORROW. Plan: 1. Med management cont IV abx, MRSA on culture 2. DVT prophylaxis- OK TO RESUME (1) Cellulitis of right foot
[2017-08-13 15:41] VITALS: BP 124/77; PULSE 60; TEMP 37.3; O2SAT 98
[2017-08-13] MEDS: DAPTOmycin IV 550 MG in SODIUM CHLORIDE 0.9% 50ML 50 ML IV SCH (17:35)
--- NOTE | 2017-08-13 20:00 | Progress Note ---
Medicine Progress Note Date & Time of Visit: Aug 13, 2017 at 15:56. Subjective Pt was seen and examined Resting comfortable in bed denies any chest pain, palpitation, dizziness and sob Objective Last 8 Hrs Date Time Temp Pulse Resp B/P (MAP) Pulse Ox O2 Delivery O2 Flow Rate FiO2 08/13/17 15:41 37.3 60 16 124/77 (93) 98 Room Air Physical Exam: General-No acute distress Head- atraumatic Eyes- PERRL, EOMI ENT- oropharynx clear Neck- supple, no JVD Lungs- no wheezing Heart- regular rhythm Abdomen- normal bowel sounds, soft Extremities- no calf tenderness, right foot wrapped with dressing Neuro- alert, oriented x 3; PERRL, EOMI; no facial palsy Skin- warm & dry Laboratory Results: Last 24 Hours Test 08/12/17 19:59 08/13/17 07:56 08/13/17 08:00 08/13/17 12:02 Bedside Glucose 103 mg/dl 120 mg/dl 157 mg/dl White Blood Count 15.00 K/uL Red Blood Count 3.28 M/uL Hemoglobin 9.0 g/dL Hematocrit 28.6 % Mean Corpuscular Volume 87.2 fL Mean Corpuscular Hemoglobin 27.4 pg Mean Corpuscular Hemoglobin Concent 31.5 g/dl RDW Standard Deviation 40.6 fL RDW Coefficient of Variation 12.6 % Platelet Count 334 K/uL Mean Platelet Volume 9.7 fL Test 08/13/17 17:00 Bedside Glucose 130 mg/dl Assessment & Plan SEPSIS DUE TO DIABETIC FOOT INFECTION ON RT SIDE presented with fever, chills, leukocytosis Doppler LE done showed no sonographic evidence of deep venous thrombosis within the right lower extremity. MRI of RLE done Extensive soft tissue swelling and subcutaneous edema about the foot suggests cellulitis with loculated peripherally enhancing collection of the dorsal forefoot measuring 3.2 x 1.2 x 5.3 cm with associated small fluid filled tract extending to the skin surface as above suggesting draining abscess. No evidence of osteomyelitis or acute fracture. Ortho on board s/p Incision and drainage and packing of abscess, right foot on 08/05/17 and on 08/09/17 wound culture -MRSA ; surgical drainage culture + MRSA Continue to have swelling and purulent drainage ID on board will need 6 weeks of IV daptomycin has PICC line placed continue monitor CBC 08/12 S/P I&D on 08/05 and 08/09 WBC elevated this morning to 16K Afebrile Wound continue to drain Ortho plan to go back to OR today for I&D Continue Dapto IV ID on board Continue monitor cbc 08/13 S/P day 1 of 3rd I&D of right great toe/foot Continue IV dapto Daily dressing change Stable TYPE 2 DM insulin SSI and Lantus ordered HB A1c 11.2 ( poorly controlled ) community nutrition educator consulted oral med on hold pharmacy consulted for glycemic management on Lantus HTN BP stable HX OF CVA : hx of occipital CVA uses walker occasionally at home asked not to take statin /Lipitor for 6 weeks while taking Daptomycin , increased risk of Rhabdomyolysis fall precaution HX OF PRIOR LEFT LOWER EXT DVT S/P IVC FILTER PLACEMENT was on Xarelto ,which was discontinued after acute CVA had retrievable IVC filter placed , was removed after 7-8 months of anticoagulation lower ext Doppler negative for DVT Rash no new med adding starting on Benadryl prn Stable DVT PROPHYLAXIS On lovenox subq DISPOSITION expected to be discharged home with home health visiting nurse when medically stable Medicine follow up with Dr viramontes Ortho follow up with Dr Plummer ID follow up with Dr Peñaloza Consultants: ID Ortho Current Inpatient Medications: Current Inpatient Medications Medications (Trade) Dose Ordered Sig/Donald Route Start Time Stop Time Status Last Admin Dose Admin Enoxaparin Sodium (Lovenox Inj) 40 mg Q24H SQ 08/03/17 09:00 09/02/17 08:59 Future hold 08/04/17 07:51 40 MG Acetaminophen (Tylenol Tab) 650 mg Q4H PRN PO 08/02/17 20:30 09/01/17 20:29 08/13/17 00:10 650 MG Insulin Aspart (novoLOG ASPART) SLIDING SCALE If C... ACHS SC 08/02/17 22:45 09/01/17 22:44 08/13/17 18:18 7 UNITS Glucose (Glucose 40% Gel) 15-30 GRAMS 15 GRAMS... UD PRN PO 08/02/17 20:30 09/01/17 20:29 Glucose (Glucose Chew Tab) 4-8 Tablets 4 Tabl... UD PRN PO 08/02/17 20:30 09/01/17 20:29 Dextrose (Dextrose 50% 50ML Syringe) 25-50ML OF 50% DW IV FOR... UD PRN IV 08/02/17 20:30 09/01/17 20:29 08/09/17 16:35 25 ML Glucagon (Glucagon Inj) 1 mg UD PRN SQ 08/02/17 20:30 09/01/17 20:29 Tramadol HCl (Ultram Tab) pain not relieved by ot... Q4H PRN PO 08/02/17 20:30 09/01/17 20:29 08/13/17 01:36 50 MG Ibuprofen (Advil Tab) 400 mg Q6H PRN PO 08/02/17 20:30 09/01/17 20:29 08/03/17 11:23 400 MG Morphine Sulfate (MoRPHine SULFATE INJ) 4 mg Q6H PRN IV 08/02/17 20:30 08/16/17 20:29 08/10/17 00:57 4 MG Lorazepam (Ativan Tab) 0.25 mg HS PRN PO 08/02/17 20:30 09/01/17 20:29 Aspirin (Ecotrin Tab) 81 mg QAM PO 08/03/17 08:00 09/02/17 08:59 Future Hold 08/04/17 07:49 81 MG Miscellaneous Information (Consult Glycemic Management Pharmacy) 1 ea UD N/A 08/04/17 10:41 09/03/17 10:40 Lorazepam (Ativan Tab) 0.5 mg Q12 PRN PO 08/04/17 12:30 09/03/17 12:29 Insulin Glargine (Lantus Solostar Pen) SEE PROTOCOL HS SC 08/06/17 21:00 09/05/17 20:59 08/11/17 20:58 14 UNITS Heparin Sodium (Porcine) (Heparin 10 Unit/ ml 5 ml Flush) 5 ml PRN PRN FLUSH 08/07/17 09:45 09/06/17 09:44 08/13/17 08:01 5 ML Daptomycin 550 mg/ Sodium Chloride 61 ml @ 120 mls/hr Q24H IV 08/07/17 16:00 09/18/17 15:59 08/13/17 17:35 120 MLS/HR Lactobacillus Acidophilus (Floranex Tab) 4 tab TIDM PO 08/07/17 17:00 09/06/17 16:59 08/13/17 17:36 4 TAB Diphenhydramine HCl (Benadryl Cap) 25 mg Q6 PRN PO 08/12/17 12:45 09/11/17 12:44 08/13/17 13:34 25 MG
[2017-08-13] MEDS: INSULIN GLARGINE SOLOSTAR 100 UNITS/ML 3 ML PEN SC SCH (20:44)
[2017-08-14 00:11] VITALS: BP 114/56; PULSE 66; TEMP 37.3; O2SAT 95
--- NOTE | 2017-08-14 07:19 | Orthopedic Progress Note ---
Orthopedic Progress Note Date of Service Aug 14, 2017. Subjective Post OP Day: 2 Reports: feeling well Additional Notes: No new complaints. Pain controlled. Objective Dressings removed. All packing taken out. Foot looks much better since I last saw it. Much less dusky erythema over the dorsum of the foot. Erythema over the great toe. No overt purulent drainage noted with packing removal. Redressed with light dressing. Date Time Temp Pulse Resp B/P (MAP) Pulse Ox O2 Delivery O2 Flow Rate FiO2 08/14/17 00:11 37.3 66 18 114/56 (75) 95 Room Air 08/14/17 00:00 Room Air 08/13/17 20:00 Room Air 08/13/17 15:41 37.3 60 16 124/77 (93) 98 Room Air 08/13/17 09:08 Room Air 08/13/17 08:07 36.9 52 18 105/69 (81) 97 Room Air 08/13/17 07:42 36.8 59 16 112/72 (85) 96 Room Air Laboratory Results 24 Hours: Test 08/13/17 07:56 08/14/17 04:44 Hematocrit 28.6 % Hemoglobin 9.0 g/dL Assessment & Plan Assessment: POD 2 from latest I&D done 08/12/17 Plan: Will consult Wound Care nursing. May need wound vac? Antibx as per Med/ID team No current need for further surgery. Will follow. (1) Cellulitis of right foot
[2017-08-14] MEDS ORDERED: ALTEPLASE, RECOMBINANT 1 MG/ML 2 ML VIAL IV ONE (07:45)
[2017-08-14] MEDS ORDERED: NURSING VERBAL MED ORDER ONE (07:45)
[2017-08-14 07:55] VITALS: BP 99/64; PULSE 66; TEMP 36.8; O2SAT 93
[2017-08-14] MEDS: INSULIN ASPART 100 UNITS/ML 3 ML PEN SC SCH ×4 (08:57→21:08)
[2017-08-14] MEDS: ENOXAPARIN 40 MG/0.4 ML SYR SQ SCH (08:58)
[2017-08-14] MEDS: LACTOBACILLUS ACIDOPHILUS (FLORANEX) TAB PO SCH ×3 (09:01→16:51)
[2017-08-14] MEDS: TRAMADOL HCL 50 MG TAB PO PRN ×3 (09:05→22:26)
[2017-08-14 09:59] LABS: HEMATOCRIT 28.8 % (37-47); MEAN CORPUSCULAR HEMOGLOBIN 27.5 pg (25-34); MEAN CORPUSCULAR HGB CONC 31.6 g/dl (32-36); MEAN PLATELET VOLUME 9.8 fL (7.4-10.4); PLATELET COUNT 325 K/uL (130-400); RED BLOOD COUNT 3.31 M/uL (4.2-5.4); WHITE BLOOD COUNT 12.94 K/uL (4.8-10.8)
[2017-08-14 10:28] LABS: CALCIUM 8.1 mg/dl (8.5-10.1); CREATININE 1.1 mg/dl (0.60-1.20); POTASSIUM 3.7 mmol/L (3.5-5.1)
--- NOTE | 2017-08-14 11:32 | Pharmacy Progress Note ---
Glycemic: Assessment & Plan Date of Service Aug 14, 2017. Assessment & Plan The patient is currently receiving ~30 units of insulin per day. BSGs ranging 97 - 205 mg/dl over the past 24hrs, however, majority of BSGs have been w/in goal range. * Basal insulin: Lantus 14 units every 24 hours (hold if BSG less than 140) * Correctional Insulin: Novolog Correction per scale ACHS Goal Range: Low 120 mg/dL - High 150 mg/dL Correction Factor: 25 mg/dL/unit * Prandial insulin: Per carb ratio of 1 unit per 9 grams CHO consumed BSGs are well controlled. No change to inpatient regimen. Pharmacy will continue to monitor patient daily and write orders per [facility] inpatient glycemic control protocol. Thanks. DISCHARGE RECOMMENDATIONS: * Resume metformin * Patient was supposed to start Jardiance prior to admission but did not secondary to this admission - would recommend patient to start this upon discharge, as planned
[2017-08-14] MEDS: DAPTOmycin IV 550 MG in SODIUM CHLORIDE 0.9% 50ML 50 ML IV SCH (16:05)
[2017-08-14 16:07] VITALS: BP 135/82; PULSE 67; TEMP 37.5; O2SAT 98
--- NOTE | 2017-08-14 17:25 | Progress Note ---
Medicine Progress Note Date & Time of Visit: Aug 14, 2017 at 17:21. Subjective Pt was seen and examined Lying in bed with no distress Pt said that she feels fine Denies any fever, palpitation, dizziness and sob Objective Last 8 Hrs Date Time Temp Pulse Resp B/P (MAP) Pulse Ox O2 Delivery O2 Flow Rate FiO2 08/14/17 16:07 37.5 67 18 135/82 (99) 98 Room Air Physical Exam: General-No acute distress Head- atraumatic Eyes- PERRL, EOMI ENT- oropharynx clear Neck- supple, no JVD Lungs- no wheezing Heart- regular rhythm Abdomen- normal bowel sounds, soft Extremities- no calf tenderness, right foot wrapped with dressing Neuro- alert, oriented x 3; PERRL, EOMI; no facial palsy Skin- warm & dry Laboratory Results: Last 24 Hours Test 08/13/17 19:54 08/14/17 07:46 08/14/17 09:42 08/14/17 11:44 Bedside Glucose 205 mg/dl 97 mg/dl 153 mg/dl White Blood Count 12.94 K/uL Red Blood Count 3.31 M/uL Hemoglobin 9.1 g/dL Hematocrit 28.8 % Mean Corpuscular Volume 87.0 fL Mean Corpuscular Hemoglobin 27.5 pg Mean Corpuscular Hemoglobin Concent 31.6 g/dl RDW Standard Deviation 40.5 fL RDW Coefficient of Variation 12.6 % Platelet Count 325 K/uL Mean Platelet Volume 9.8 fL Sodium Level 137 mmol/L Potassium Level 3.7 mmol/L Chloride Level 103 mmol/L Carbon Dioxide Level 29 mmol/L Anion Gap 6.0 mmol/L Blood Urea Nitrogen 13 mg/dl Creatinine 1.10 mg/dl Est Creatinine Clear Calc Drug Dose 59.1 ml/min Estimated GFR () 62.8 Estimated GFR (Non- 54.1 BUN/Creatinine Ratio 12.0 Random Glucose 168 mg/dl Calcium Level 8.1 mg/dl Test 08/14/17 16:45 Bedside Glucose 103 mg/dl Assessment & Plan SEPSIS DUE TO DIABETIC FOOT INFECTION ON RT SIDE presented with fever, chills, leukocytosis Doppler LE done showed no sonographic evidence of deep venous thrombosis within the right lower extremity. MRI of RLE done Extensive soft tissue swelling and subcutaneous edema about the foot suggests cellulitis with loculated peripherally enhancing collection of the dorsal forefoot measuring 3.2 x 1.2 x 5.3 cm with associated small fluid filled tract extending to the skin surface as above suggesting draining abscess. No evidence of osteomyelitis or acute fracture. Ortho on board s/p Incision and drainage and packing of abscess, right foot on 08/05/17 and on 08/09/17 wound culture -MRSA ; surgical drainage culture + MRSA Continue to have swelling and purulent drainage ID on board will need 6 weeks of IV daptomycin has PICC line placed continue monitor CBC 08/12 S/P I&D on 08/05 and 08/09 WBC elevated this morning to 16K Afebrile Wound continue to drain Ortho plan to go back to OR today for I&D Continue Dapto IV ID on board Continue monitor cbc 08/14 S/P day 2 of 3rd I&D of right great toe/foot Continue IV dapto Daily dressing change WBC trending down wound care consult, may need wound vac ortho on board Stable TYPE 2 DM insulin SSI and Lantus ordered HB A1c 11.2 ( poorly controlled ) transit mix operator consulted oral med on hold pharmacy consulted for glycemic management on Lantus subq HTN BP stable HX OF CVA : hx of occipital CVA uses walker occasionally at home asked not to take statin /Lipitor for 6 weeks while taking Daptomycin , increased risk of Rhabdomyolysis fall precaution HX OF PRIOR LEFT LOWER EXT DVT S/P IVC FILTER PLACEMENT was on Xarelto ,which was discontinued after acute CVA had retrievable IVC filter placed , was removed after 7-8 months of anticoagulation lower ext Doppler negative for DVT Rash no new med adding starting on Benadryl prn Stable DVT PROPHYLAXIS On lovenox subq DISPOSITION expected to be discharged home with home health visiting nurse when medically stable Medicine follow up with Dr viramontes Ortho follow up with Dr Plummer ID follow up with Dr Peñaloza Consultants: ID Ortho Current Inpatient Medications: Current Inpatient Medications Medications (Trade) Dose Ordered Sig/Donald Route Start Time Stop Time Status Last Admin Dose Admin Enoxaparin Sodium (Lovenox Inj) 40 mg Q24H SQ 08/03/17 09:00 09/02/17 08:59 Future hold 08/14/17 08:58 40 MG Acetaminophen (Tylenol Tab) 650 mg Q4H PRN PO 08/02/17 20:30 09/01/17 20:29 08/13/17 00:10 650 MG Insulin Aspart (novoLOG ASPART) SLIDING SCALE If C... ACHS SC 08/02/17 22:45 09/01/17 22:44 08/14/17 13:05 8 UNITS Glucose (Glucose 40% Gel) 15-30 GRAMS 15 GRAMS... UD PRN PO 08/02/17 20:30 09/01/17 20:29 Glucose (Glucose Chew Tab) 4-8 Tablets 4 Tabl... UD PRN PO 08/02/17 20:30 09/01/17 20:29 Dextrose (Dextrose 50% 50ML Syringe) 25-50ML OF 50% DW IV FOR... UD PRN IV 08/02/17 20:30 09/01/17 20:29 08/09/17 16:35 25 ML Glucagon (Glucagon Inj) 1 mg UD PRN SQ 08/02/17 20:30 09/01/17 20:29 Tramadol HCl (Ultram Tab) pain not relieved by ot... Q4H PRN PO 08/02/17 20:30 09/01/17 20:29 08/14/17 16:08 50 MG Ibuprofen (Advil Tab) 400 mg Q6H PRN PO 08/02/17 20:30 09/01/17 20:29 08/03/17 11:23 400 MG Morphine Sulfate (MoRPHine SULFATE INJ) 4 mg Q6H PRN IV 08/02/17 20:30 08/16/17 20:29 08/10/17 00:57 4 MG Lorazepam (Ativan Tab) 0.25 mg HS PRN PO 08/02/17 20:30 09/01/17 20:29 Aspirin (Ecotrin Tab) 81 mg QAM PO 08/03/17 08:00 09/02/17 08:59 Future Hold 08/04/17 07:49 81 MG Miscellaneous Information (Consult Glycemic Management Pharmacy) 1 ea UD N/A 08/04/17 10:41 09/03/17 10:40 Lorazepam (Ativan Tab) 0.5 mg Q12 PRN PO 08/04/17 12:30 09/03/17 12:29 Insulin Glargine (Lantus Solostar Pen) SEE PROTOCOL HS SC 08/06/17 21:00 09/05/17 20:59 10/10/17 20:44 14 UNITS Heparin Sodium (Porcine) (Heparin 10 Unit/ ml 5 ml Flush) 5 ml PRN PRN FLUSH 08/07/17 09:45 09/06/17 09:44 08/14/17 16:49 5 ML Daptomycin 550 mg/ Sodium Chloride 61 ml @ 120 mls/hr Q24H IV 08/07/17 16:00 09/18/17 15:59 08/14/17 16:05 120 MLS/HR Lactobacillus Acidophilus (Floranex Tab) 4 tab TIDM PO 08/07/17 17:00 09/06/17 16:59 08/14/17 16:51 4 TAB Diphenhydramine HCl (Benadryl Cap) 25 mg Q6 PRN PO 08/12/17 12:45 09/11/17 12:44 08/14/17 09:01 25 MG
[2017-08-14] MEDS: INSULIN GLARGINE SOLOSTAR 100 UNITS/ML 3 ML PEN SC SCH (21:09)
[2017-08-15 08:00] VITALS: O2SAT 98
[2017-08-15] MEDS: LACTOBACILLUS ACIDOPHILUS (FLORANEX) TAB PO SCH ×3 (08:38→15:29)
[2017-08-15] MEDS: INSULIN ASPART 100 UNITS/ML 3 ML PEN SC SCH ×4 (08:48→21:19)
[2017-08-15] MEDS: ENOXAPARIN 40 MG/0.4 ML SYR SQ SCH (08:49)
[2017-08-15 09:47] LABS: BASO % 0.4 %; BASO ABS # 0.05 K/uL (0-0.2); COMPLETE YES; EOS % 1.9 %; HEMATOCRIT 27.5 % (37-47); IG% 0.5 %; LYMPH % 14.1 %; LYMPH ABS # 1.76 K/uL (1.2-3.4); MEAN CELL VOLUME 86.8 fL (80-100); MEAN CORPUSCULAR HEMOGLOBIN 28.4 pg (25-34); MEAN CORPUSCULAR HGB CONC 32.7 g/dl (32-36); MEAN PLATELET VOLUME 9.6 fL (7.4-10.4); MONO % 6.2 %; NEUT % 76.9 %; PLATELET COUNT 321 K/uL (130-400); RED BLOOD COUNT 3.17 M/uL (4.2-5.4)
[2017-08-15 11:18] VITALS: O2SAT 98
[2017-08-15] MEDS: TRAMADOL HCL 50 MG TAB PO PRN (11:38)
--- NOTE | 2017-08-15 11:43 | Orthopedic Progress Note ---
Orthopedic Progress Note Date of Service Aug 15, 2017. Subjective Post OP Day: 3 Reports: feeling well, complaints, pain controlled w PO medications, Denies: chest pain, SOB, nausea / vomiting, light headedness, calf pain Objective calves soft nontender, capillary refill less than 2 sec., incision C/D/I, A&O x3 , toes mobile Right foot: the dorsal foot incisions are well approximated and healing well. Some swelling noted but no erythema. The great toe is erythematous with swelling. The 1st interspace has a moderate amount of maceration. No drainage at the great toe. Date Time Temp Pulse Resp B/P (MAP) Pulse Ox O2 Delivery O2 Flow Rate FiO2 08/15/17 11:18 98 08/15/17 08:00 98 Room Air 98 08/15/17 00:00 Room Air 08/14/17 16:07 37.5 67 18 135/82 (99) 98 Room Air 08/14/17 16:00 Room Air Laboratory Results 24 Hours: Test 08/15/17 09:31 White Blood Count 12.50 K/uL Red Blood Count 3.17 M/uL Hemoglobin 9.0 g/dL Hematocrit 27.5 % Mean Corpuscular Volume 86.8 fL Mean Corpuscular Hemoglobin 28.4 pg Mean Corpuscular Hemoglobin Concent 32.7 g/dl Platelet Count 321 K/uL Mean Platelet Volume 9.6 fL Neutrophils (%) (Auto) 76.9 % Lymphocytes (%) (Auto) 14.1 % Monocytes (%) (Auto) 6.2 % Eosinophils (%) (Auto) 1.9 % Basophils (%) (Auto) 0.4 % Neutrophils # (Auto) 9.61 K/uL Lymphocytes # (Auto) 1.76 K/uL Monocytes # (Auto) 0.78 K/uL Eosinophils # (Auto) 0.24 K/uL Basophils # (Auto) 0.05 K/uL Assessment & Plan Assessment: POD 3 from latest I&D done 08/12/17 Plan: Will consult Wound Care nursing. May need wound vac? Antibx as per Med/ID team At this time no further surgical tx but will discuss the exam with Dr. Pro for re-evaluation. NWMarcell RLE. Dressing change done with adaptic on the dorsal incision but dry gauze on the other incisions and the interspace. Kerlix wrap over the gauze. (1) Cellulitis of right foot Discharge Planning Discharge Planning: uncertain
[2017-08-15 11:57] VITALS: BP 136/70; PULSE 72; TEMP 37.3; O2SAT 97
[2017-08-15 15:28] VITALS: BP 122/78; PULSE 70; TEMP 37.6; O2SAT 99
[2017-08-15] MEDS: DAPTOmycin IV 550 MG in SODIUM CHLORIDE 0.9% 50ML 50 ML IV SCH (15:29)
--- NOTE | 2017-08-15 19:48 | Progress Note ---
Medicine Progress Note Date & Time of Visit: Aug 15, 2017 at 11:38. Subjective Pt was seen and examined Sitting in bed with no distress with son at bedside She said that her rash seems to get worst she started to get frustrated because she wants to be discharged home denies any chest pain, palpitation, dizziness and sob Objective Last 8 Hrs Date Time Temp Pulse Resp B/P (MAP) Pulse Ox O2 Delivery O2 Flow Rate FiO2 08/15/17 15:28 37.6 70 20 122/78 (93) 99 Room Air 08/15/17 11:57 37.3 72 16 136/70 (92) 97 Physical Exam: General-No acute distress Head- atraumatic Eyes- PERRL, EOMI ENT- oropharynx clear Neck- supple, no JVD Lungs- no wheezing Heart- regular rhythm Abdomen- normal bowel sounds, soft Extremities- no calf tenderness, right foot wrapped with dressing Neuro- alert, oriented x 3; PERRL, EOMI; no facial palsy Skin- +rash Laboratory Results: Last 24 Hours Test 08/14/17 19:59 08/14/17 21:04 08/15/17 07:15 08/15/17 09:31 Bedside Glucose 156 mg/dl 167 mg/dl 96 mg/dl White Blood Count 12.50 K/uL Red Blood Count 3.17 M/uL Hemoglobin 9.0 g/dL Hematocrit 27.5 % Mean Corpuscular Volume 86.8 fL Mean Corpuscular Hemoglobin 28.4 pg Mean Corpuscular Hemoglobin Concent 32.7 g/dl Platelet Count 321 K/uL Mean Platelet Volume 9.6 fL Neutrophils (%) (Auto) 76.9 % Lymphocytes (%) (Auto) 14.1 % Monocytes (%) (Auto) 6.2 % Eosinophils (%) (Auto) 1.9 % Basophils (%) (Auto) 0.4 % Neutrophils # (Auto) 9.61 K/uL Lymphocytes # (Auto) 1.76 K/uL Monocytes # (Auto) 0.78 K/uL Eosinophils # (Auto) 0.24 K/uL Basophils # (Auto) 0.05 K/uL RDW Standard Deviation 40.5 fL RDW Coefficient of Variation 12.5 % Immature Granulocyte % (Auto) 0.5 % Immature Granulocyte # (Auto) 0.06 K/uL Test 08/15/17 11:48 08/15/17 16:47 Bedside Glucose 134 mg/dl 119 mg/dl Assessment & Plan SEPSIS DUE TO DIABETIC FOOT INFECTION ON RT SIDE presented with fever, chills, leukocytosis Doppler LE done showed no sonographic evidence of deep venous thrombosis within the right lower extremity. MRI of RLE done Extensive soft tissue swelling and subcutaneous edema about the foot suggests cellulitis with loculated peripherally enhancing collection of the dorsal forefoot measuring 3.2 x 1.2 x 5.3 cm with associated small fluid filled tract extending to the skin surface as above suggesting draining abscess. No evidence of osteomyelitis or acute fracture. Ortho on board s/p Incision and drainage and packing of abscess, right foot on 08/05/17 and on 08/09/17 wound culture -MRSA ; surgical drainage culture + MRSA Continue to have swelling and purulent drainage ID on board will need 6 weeks of IV daptomycin has PICC line placed continue monitor CBC 08/12 S/P I&D on 08/05 and 08/09 WBC elevated this morning to 16K Afebrile Wound continue to drain Ortho plan to go back to OR today for I&D Continue Dapto IV ID on board Continue monitor cbc 08/15 S/P day 3 of 3rd I&D of right great toe/foot Continue IV dapto Daily dressing change WBC trending down wound care consult daily wound care As per wound care nurse no wound vac for now until the skin dry ortho on board Stable TYPE 2 DM insulin SSI and Lantus ordered HB A1c 11.2 ( poorly controlled ) breastfeeding educator consulted oral med on hold pharmacy consulted for glycemic management on Lantus subq HTN BP stable HX OF CVA : hx of occipital CVA uses walker occasionally at home asked not to take statin /Lipitor for 6 weeks while taking Daptomycin , increased risk of Rhabdomyolysis fall precaution HX OF PRIOR LEFT LOWER EXT DVT S/P IVC FILTER PLACEMENT was on Xarelto ,which was discontinued after acute CVA had retrievable IVC filter placed , was removed after 7-8 months of anticoagulation lower ext Doppler negative for DVT Rash Possible related to abx diffuse rash Increase Benadryl to 50mg prn if not improved, will talk to ID for possible to consider to change abx No steroid given due to ongoing wound infection continue monitor DVT PROPHYLAXIS On lovenox subq DISPOSITION expected to be discharged home with home health visiting nurse when medically stable Medicine follow up with Dr viramontes Ortho follow up with Dr Elian JERRY follow up with Dr Peñaloza Consultants: [facility] Current Inpatient Medications: Current Inpatient Medications Medications (Trade) Dose Ordered Sig/Donald Route Start Time Stop Time Status Last Admin Dose Admin Enoxaparin Sodium (Lovenox Inj) 40 mg Q24H SQ 08/03/17 09:00 09/02/17 08:59 Future hold 08/15/17 08:49 40 MG Acetaminophen (Tylenol Tab) 650 mg Q4H PRN PO 08/02/17 20:30 09/01/17 20:29 08/13/17 00:10 650 MG Insulin Aspart (novoLOG ASPART) SLIDING SCALE If C... ACHS SC 08/02/17 22:45 09/01/17 22:44 08/15/17 18:25 5 UNITS Glucose (Glucose 40% Gel) 15-30 GRAMS 15 GRAMS... UD PRN PO 08/02/17 20:30 09/01/17 20:29 Glucose (Glucose Chew Tab) 4-8 Tablets 4 Tabl... UD PRN PO 08/02/17 20:30 09/01/17 20:29 Dextrose (Dextrose 50% 50ML Syringe) 25-50ML OF 50% DW IV FOR... UD PRN IV 08/02/17 20:30 09/01/17 20:29 08/09/17 16:35 25 ML Glucagon (Glucagon Inj) 1 mg UD PRN SQ 08/02/17 20:30 09/01/17 20:29 Tramadol HCl (Ultram Tab) pain not relieved by ot... Q4H PRN PO 08/02/17 20:30 09/01/17 20:29 08/15/17 11:38 50 MG Ibuprofen (Advil Tab) 400 mg Q6H PRN PO 08/02/17 20:30 09/01/17 20:29 08/03/17 11:23 400 MG Morphine Sulfate (MoRPHine SULFATE INJ) 4 mg Q6H PRN IV 08/02/17 20:30 08/16/17 20:29 08/10/17 00:57 4 MG Lorazepam (Ativan Tab) 0.25 mg HS PRN PO 08/02/17 20:30 09/01/17 20:29 Aspirin (Ecotrin Tab) 81 mg QAM PO 08/03/17 08:00 09/02/17 08:59 Future Hold 08/04/17 07:49 81 MG Miscellaneous Information (Consult Glycemic Management Pharmacy) 1 ea UD N/A 08/04/17 10:41 09/03/17 10:40 Lorazepam (Ativan Tab) 0.5 mg Q12 PRN PO 08/04/17 12:30 09/03/17 12:29 Insulin Glargine (Lantus Solostar Pen) SEE PROTOCOL HS SC 08/06/17 21:00 09/05/17 20:59 08/14/17 21:09 14 UNITS Heparin Sodium (Porcine) (Heparin 10 Unit/ ml 5 ml Flush) 5 ml PRN PRN FLUSH 08/07/17 09:45 09/06/17 09:44 08/15/17 09:35 5 ML Daptomycin 550 mg/ Sodium Chloride 61 ml @ 120 mls/hr Q24H IV 08/07/17 16:00 09/18/17 15:59 08/15/17 15:29 120 MLS/HR Lactobacillus Acidophilus (Floranex Tab) 4 tab TIDM PO 08/07/17 17:00 09/06/17 16:59 08/15/17 15:29 4 TAB Diphenhydramine HCl (Benadryl Cap) 25 mg Q6H PO 08/15/17 16:00 09/14/17 15:59 08/15/17 15:30 25 MG
[2017-08-15] MEDS: INSULIN GLARGINE SOLOSTAR 100 UNITS/ML 3 ML PEN SC SCH (21:19)
[2017-08-15] MEDS: ACETAMINOPHEN 325 MG TAB PO PRN (23:37)
[2017-08-15] MEDS: IBUPROFEN 200 MG TAB PO PRN (23:41)
[2017-08-15 23:48] VITALS: TEMP 39.5
[2017-08-15 23:58] VITALS: BP 114/67; PULSE 76; TEMP 39.5; O2SAT 92
[2017-08-16] VITALS (7 sets, daily range): BP systolic 86–109; BP diastolic 51–68; PULSE 55–80; TEMP 36.5–38.6; O2SAT 95–99
[2017-08-16 08:20] LABS: HEMATOCRIT 28.9 % (37-47); MEAN CELL VOLUME 85.5 fL (80-100); MEAN CORPUSCULAR HEMOGLOBIN 27.2 pg (25-34); MEAN CORPUSCULAR HGB CONC 31.8 g/dl (32-36); MEAN PLATELET VOLUME 9.6 fL (7.4-10.4); PLATELET COUNT 332 K/uL (130-400); RED BLOOD COUNT 3.38 M/uL (4.2-5.4); WHITE BLOOD COUNT 23.73 K/uL (4.8-10.8)
[2017-08-16] MEDS: LACTOBACILLUS ACIDOPHILUS (FLORANEX) TAB PO SCH ×3 (08:23→17:20)
[2017-08-16] MEDS: ENOXAPARIN 40 MG/0.4 ML SYR SQ SCH (08:23)
[2017-08-16] MEDS: INSULIN ASPART 100 UNITS/ML 3 ML PEN SC SCH ×4 (08:27→21:44)
[2017-08-16 08:39] LABS: BUN/CREATININE RATIO 16.6 (10-20); CALCIUM 7.8 mg/dl (8.5-10.1); CREATININE 1.2 mg/dl (0.60-1.20); POTASSIUM 4.3 mmol/L (3.5-5.1)
--- NOTE | 2017-08-16 12:51 | Progress Note ---
Subjective Date of Service: Aug 16, 2017. Subjective events noted, pt with fever and rash overnight. wbc increased today. abx changed to vanco again, ? dapto releated. repeat blood cultures ordered, pending. No additional OR planned at this time. All wound cultures with MRSA. Previous blood cultures negative and final. Problem List Medical Problems: (1) Abnormal brain CT Status: Acute (2) Cellulitis of right foot Status: Acute (3) Dizziness Status: Acute (4) Failure of outpatient treatment Status: Acute (5) Vomiting Status: Acute Objective Vital Signs Date Time Temp Pulse Resp B/P (MAP) Pulse Ox O2 Delivery O2 Flow Rate FiO2 08/16/17 12:26 106/66 (79) 08/16/17 08:33 36.5 55 18 86/51 (63) 99 08/16/17 08:30 Room Air 08/16/17 08:20 92/52 (65) 08/16/17 04:12 36.7 08/16/17 01:00 38.2 08/16/17 00:40 Room Air 08/15/17 23:58 39.5 76 19 114/67 (83) 92 Room Air 08/15/17 23:48 39.5 08/15/17 16:00 Room Air 08/15/17 15:28 37.6 70 20 122/78 (93) 99 Room Air Laboratory Results Last 24 Hours Test 08/15/17 16:47 08/15/17 19:48 08/16/17 07:46 08/16/17 07:54 Bedside Glucose 119 mg/dl 184 mg/dl 145 mg/dl White Blood Count 23.73 K/uL Red Blood Count 3.38 M/uL Hemoglobin 9.2 g/dL Hematocrit 28.9 % Mean Corpuscular Volume 85.5 fL Mean Corpuscular Hemoglobin 27.2 pg Mean Corpuscular Hemoglobin Concent 31.8 g/dl RDW Standard Deviation 39.3 fL RDW Coefficient of Variation 12.6 % Platelet Count 332 K/uL Mean Platelet Volume 9.6 fL Sodium Level 137 mmol/L Potassium Level 4.3 mmol/L Chloride Level 103 mmol/L Carbon Dioxide Level 28 mmol/L Anion Gap 7.0 mmol/L Blood Urea Nitrogen 20 mg/dl Creatinine 1.20 mg/dl Est Creatinine Clear Calc Drug Dose 54.1 ml/min Estimated GFR () 56.5 Estimated GFR (Non- 48.7 BUN/Creatinine Ratio 16.6 Random Glucose 139 mg/dl Calcium Level 7.8 mg/dl Test 08/16/17 11:39 Bedside Glucose 195 mg/dl Assessment and Plan (1) Cellulitis of right foot Assessment & Plan: spoke with primary, will change to vanco as ? dapto related , will check cpk as well as lfts. O2 sats 99% on RA so doubt pneumonitis but if increased sob or decreased O2 sat would check cxr. Primary treating for rash. If diarrhea would check c diff but less likely with Dapto. Wound care continues. (2) Fever
[2017-08-16] MEDS ORDERED: VANCOMYCIN CONSULT ACTIVE PRN (13:30)
--- NOTE | 2017-08-16 13:33 | Orthopedic Progress Note ---
Orthopedic Progress Note Date of Service Aug 16, 2017. Subjective Post OP Day: 4 Reports: feeling well, pain controlled w PO medications, Denies: complaints, chest pain, SOB, nausea / vomiting, light headedness, calf pain Additional Notes: Patient states she is having some right foot pain from time to time and that she has been getting on and off fevers since last night into today. Objective calves soft nontender, N/V intact, A&O x3, toes mobile Right foot: dorsal incision is clean, dry and intact. There is one area of the proximal incision where it is slightly open and nearly visible to the tendon. The rest of the dorsal incision looks good. The lower incision is very well macerated. There is skin that is hanging on by the plantar aspect of the big toe. Big Toe is erythematous and swollen. Tender to palpation. Dressing change was performed today with adaptic on the dorsal incision and dry sterile gauze over the dorsal incision and between the 1st interspace. It was then wrapped with Kerlix. Date Time Temp Pulse Resp B/P (MAP) Pulse Ox O2 Delivery O2 Flow Rate FiO2 08/16/17 12:26 106/66 (79) 08/16/17 08:33 36.5 55 18 86/51 (63) 99 08/16/17 08:30 Room Air 08/16/17 08:20 92/52 (65) 08/16/17 04:12 36.7 08/16/17 01:00 38.2 08/16/17 00:40 Room Air 08/15/17 23:58 39.5 76 19 114/67 (83) 92 Room Air 08/15/17 23:48 39.5 08/15/17 16:00 Room Air 08/15/17 15:28 37.6 70 20 122/78 (93) 99 Room Air Laboratory Results 24 Hours: Test 08/16/17 07:46 Hematocrit 28.9 % Hemoglobin 9.2 g/dL Assessment & Plan Assessment: POD 3 from latest I&D done 08/12/17 Plan: Will consult Wound Care nursing. May need wound vac? Antibx as per Med/ID team At this time no further surgical tx but will discuss the exam with Dr. Pro for re-evaluation. JASON RLE. Dressing change done with adaptic on the dorsal incision but dry gauze on the other incisions and the interspace. Kerlix wrap over the gauze. (1) Cellulitis of right foot Discharge Planning Discharge Planning: uncertain
[2017-08-16] MEDS ORDERED: VANCOMYCIN INJ 2,250 MG in SODIUM CHLORIDE 0.9% 500ML 500 ML IV SCH (14:00)
--- NOTE | 2017-08-16 14:42 | Pharmacy Progress Note ---
Pharmacy Antibiotic Consult Date of Service: Aug 16, 2017. Pharmacy Dosing Scope Pharmacy is consulted to resume vancomycin IV dosing therapy, order appropriate labs and adjust drug dose/frequency. Subjective The patient is a 62 year old female admitted on Aug 02, 2017 at 19:38. Objective Height (Feet): 5 Height (Inches): 4.00 Weight (Kilograms): 92.100 Lab Results (24hrs): Test 08/16/17 07:46 08/16/17 07:54 08/16/17 11:39 08/16/17 13:09 White Blood Count 23.73 K/uL (4.8-10.8) Red Blood Count 3.38 M/uL (4.2-5.4) Hemoglobin 9.2 g/dL (12.0-16.0) Hematocrit 28.9 % (37-47) Mean Corpuscular Volume 85.5 fL (80-100) Mean Corpuscular Hemoglobin 27.2 pg (25-34) Mean Corpuscular Hemoglobin Concent 31.8 g/dl (32-36) RDW Standard Deviation 39.3 fL (36.4-46.3) RDW Coefficient of Variation 12.6 % (11.5-14.5) Platelet Count 332 K/uL (130-400) Mean Platelet Volume 9.6 fL (7.4-10.4) Sodium Level 137 mmol/L (136-145) Potassium Level 4.3 mmol/L (3.5-5.1) Chloride Level 103 mmol/L (98-107) Carbon Dioxide Level 28 mmol/L (21-32) Anion Gap 7.0 mmol/L (3-11) Blood Urea Nitrogen 20 mg/dl (7-18) Creatinine 1.20 mg/dl (0.60-1.20) Est Creatinine Clear Calc Drug Dose 54.1 ml/min Estimated GFR () 56.5 Estimated GFR (Non- 48.7 BUN/Creatinine Ratio 16.6 (10-20) Random Glucose 139 mg/dl (70-99) Calcium Level 7.8 mg/dl (8.5-10.1) Bedside Glucose 145 mg/dl (70-90) 195 mg/dl (70-90) Total Bilirubin 0.3 mg/dl (0.2-1) Direct Bilirubin 0.1 mg/dl (0-0.2) Aspartate Amino Transf (AST/SGOT) 21 U/L (15-37) Alanine Aminotransferase (ALT/SGPT) 13 U/L (12-78) Alkaline Phosphatase 60 U/L (45-117) Total Creatine Kinase 335 U/L (26-192) Total Protein 5.9 gm/dl (6.4-8.2) Albumin 1.7 gm/dl (3.4-5.0) Assessment & Plan Assessment * 62 yo F admitted 08/02 with diabetic foot infection. * All foot cultures with MRSA. All blood cultures negative. * MRI on 08/04 without evidence of osteomyelitis * ID consulted - recommended 6 weeks IV antibiotics * Was on vancomycin 08/02-08/07 but was switched to daptomycin on 08/07 2nd easier outpatient administration (q24h dosing). * Switching back from daptomycin to vancomycin today (08/16) 2nd questionable reaction to daptomycin * Goal vancomycin trough 15-20 mcg/mL * Usually can target 10-15 mcg/mL for cellulitis, however higher target selected 2nd MRSA as pathogen and ? penetration issues with diabetic foot infection * Patient with ? acutely worsening renal function. OK to give vancomycin x1 now at full 25 mg/kg loading dose. However, will assess random in AM prior to further vancomycin administration * Will try to dose maintenance vancomycin at q24h interval for ease of outpatient administration Plan * Vancomycin 2250 mg IV x1 now * Random level in AM Pharmacy will continue to follow and will adjust dose/frequency as necessary. Thank you
--- NOTE | 2017-08-16 20:02 | Progress Note ---
Medicine Progress Note Date & Time of Visit: Aug 16, 2017 at 11:50. Subjective Pt was seen and examined Lying in bed with no distress Pt said that she having some pain in the right big toe She developed a fever last night Rash seems to improve slightly denies any chest pain, palpitation, dizziness and SOB Objective Last 8 Hrs Date Time Temp Pulse Resp B/P (MAP) Pulse Ox O2 Delivery O2 Flow Rate FiO2 08/16/17 19:32 Room Air 08/16/17 15:55 Room Air 08/16/17 15:37 37.6 70 20 109/68 (82) 95 Room Air 08/16/17 12:26 106/66 (79) Physical Exam: General-No acute distress Head- atraumatic Eyes- PERRL, EOMI ENT- oropharynx clear Neck- supple, no JVD Lungs- no wheezing Heart- regular rhythm Abdomen- normal bowel sounds, soft Extremities- no calf tenderness, right foot wrapped with dressing, right big toe erythema/tender and swelling Neuro- alert, oriented x 3; PERRL, EOMI; no facial palsy Skin- +rash Laboratory Results: Last 24 Hours Test 08/16/17 07:46 08/16/17 07:54 08/16/17 11:39 08/16/17 13:09 White Blood Count 23.73 K/uL Red Blood Count 3.38 M/uL Hemoglobin 9.2 g/dL Hematocrit 28.9 % Mean Corpuscular Volume 85.5 fL Mean Corpuscular Hemoglobin 27.2 pg Mean Corpuscular Hemoglobin Concent 31.8 g/dl RDW Standard Deviation 39.3 fL RDW Coefficient of Variation 12.6 % Platelet Count 332 K/uL Mean Platelet Volume 9.6 fL Sodium Level 137 mmol/L Potassium Level 4.3 mmol/L Chloride Level 103 mmol/L Carbon Dioxide Level 28 mmol/L Anion Gap 7.0 mmol/L Blood Urea Nitrogen 20 mg/dl Creatinine 1.20 mg/dl Est Creatinine Clear Calc Drug Dose 54.1 ml/min Estimated GFR () 56.5 Estimated GFR (Non- 48.7 BUN/Creatinine Ratio 16.6 Random Glucose 139 mg/dl Calcium Level 7.8 mg/dl Bedside Glucose 145 mg/dl 195 mg/dl Total Bilirubin 0.3 mg/dl Direct Bilirubin 0.1 mg/dl Aspartate Amino Transf (AST/SGOT) 21 U/L Alanine Aminotransferase (ALT/SGPT) 13 U/L Alkaline Phosphatase 60 U/L Total Creatine Kinase 335 U/L Total Protein 5.9 gm/dl Albumin 1.7 gm/dl Test 08/16/17 17:08 Bedside Glucose 93 mg/dl Date/Time Source Procedure Growth Status 08/16/17 00:36 Blood Blood Culture Pending Received 08/16/17 00:25 Blood Blood Culture Pending Received Assessment & Plan SEPSIS DUE TO DIABETIC FOOT INFECTION ON RT SIDE presented with fever, chills, leukocytosis Doppler LE done showed no sonographic evidence of deep venous thrombosis within the right lower extremity. MRI of RLE done Extensive soft tissue swelling and subcutaneous edema about the foot suggests cellulitis with loculated peripherally enhancing collection of the dorsal forefoot measuring 3.2 x 1.2 x 5.3 cm with associated small fluid filled tract extending to the skin surface as above suggesting draining abscess. No evidence of osteomyelitis or acute fracture. Ortho on board s/p Incision and drainage and packing of abscess, right foot on 08/05/17 and on 08/09/17 wound culture -MRSA ; surgical drainage culture + MRSA Continue to have swelling and purulent drainage ID on board will need 6 weeks of IV daptomycin has PICC line placed continue monitor CBC 9 S/P I&D on 08/05 and 08/09 WBC elevated this morning to 16K Afebrile Wound continue to drain Ortho plan to go back to OR today for I&D Continue Dapto IV ID on board Continue monitor cbc 08/15 S/P day 3 of 3rd I&D of right great toe/foot Continue IV dapto Daily dressing change WBC trending down wound care consult daily wound care As per wound care nurse no wound vac for now until the skin dry ortho on board 08/16 febrile with elevated WBC repeat blood cx collected last night- pending case discussed with ID ok to changed dapto to vanco for possible drug reaction rash No further surgical intervention as per ortho continue daily wound care continue monitor closely ELEVATED WBC febrile check stool for Cdiff if develops diarrhea get a cxr if complaint of SOB to r/o pna continue monitor CBC On IV Vanco TYPE 2 DM insulin SSI and Lantus ordered HB A1c 11.2 ( poorly controlled ) healthcare educator consulted oral med on hold pharmacy consulted for glycemic management on Lantus subq HTN BP stable HX OF CVA : hx of occipital CVA uses walker occasionally at home asked not to take statin /Lipitor for 6 weeks while taking Daptomycin , increased risk of Rhabdomyolysis fall precaution HX OF PRIOR LEFT LOWER EXT DVT S/P IVC FILTER PLACEMENT was on Xarelto ,which was discontinued after acute CVA had retrievable IVC filter placed , was removed after 7-8 months of anticoagulation lower ext Doppler negative for DVT Rash Possible related to abx diffuse rash Increase Benadryl to 50mg prn if not improved, will talk to ID for possible to consider to change abx No steroid given due to ongoing wound infection continue monitor slightly improved not sure if it is related to dapto Dapto changed to vanco continue benadryl 50mg DVT PROPHYLAXIS On lovenox subq DISPOSITION expected to be discharged home with home health visiting nurse when medically stable Medicine follow up with Dr viramontes Ortho follow up with Dr Elian JERRY follow up with Dr Peñaloza Consultants: ID Ortho Current Inpatient Medications: Current Inpatient Medications Medications (Trade) Dose Ordered Sig/Donald Route Start Time Stop Time Status Last Admin Dose Admin Enoxaparin Sodium (Lovenox Inj) 40 mg Q24H SQ 08/03/17 09:00 09/02/17 08:59 Future hold 08/16/17 08:23 40 MG Acetaminophen (Tylenol Tab) 650 mg Q4H PRN PO 08/02/17 20:30 09/01/17 20:29 08/15/17 23:37 650 MG Insulin Aspart (novoLOG ASPART) SLIDING SCALE If C... ACHS SC 08/02/17 22:45 09/01/17 22:44 08/16/17 17:23 3 UNITS Glucose (Glucose 40% Gel) 15-30 GRAMS 15 GRAMS... UD PRN PO 08/02/17 20:30 09/01/17 20:29 Glucose (Glucose Chew Tab) 4-8 Tablets 4 Tabl... UD PRN PO 08/02/17 20:30 09/01/17 20:29 Dextrose (Dextrose 50% 50ML Syringe) 25-50ML OF 50% DW IV FOR... UD PRN IV 08/02/17 20:30 09/01/17 20:29 08/09/17 16:35 25 ML Glucagon (Glucagon Inj) 1 mg UD PRN SQ 08/02/17 20:30 09/01/17 20:29 Tramadol HCl (Ultram Tab) pain not relieved by ot... Q4H PRN PO 08/02/17 20:30 09/01/17 20:29 08/15/17 11:38 50 MG Ibuprofen (Advil Tab) 400 mg Q6H PRN PO 08/02/17 20:30 09/01/17 20:29 08/15/17 23:41 400 MG Morphine Sulfate (MoRPHine SULFATE INJ) 4 mg Q6H PRN IV 08/02/17 20:30 08/16/17 20:29 08/10/17 00:57 4 MG Lorazepam (Ativan Tab) 0.25 mg HS PRN PO 08/02/17 20:30 09/01/17 20:29 Aspirin (Ecotrin Tab) 81 mg QAM PO 08/03/17 08:00 09/02/17 08:59 Future Hold 08/04/17 07:49 81 MG Miscellaneous Information (Consult Glycemic Management Pharmacy) 1 UD N/A 08/04/17 10:41 09/03/17 10:40 Lorazepam (Ativan Tab) 0.5 mg Q12 PRN PO 08/04/17 12:30 09/03/17 12:29 Heparin Sodium (Porcine) (Heparin 10 Unit/ ml 5 ml Flush) 5 ml PRN PRN FLUSH 08/07/17 09:45 09/06/17 09:44 08/16/17 18:09 5 ML Lactobacillus Acidophilus (Floranex Tab) 4 tab TIDM PO 08/07/17 17:00 09/06/17 16:59 08/16/17 17:20 4 TAB Diphenhydramine HCl (Benadryl Cap) 50 mg Q6H PO 08/15/17 22:00 09/14/17 15:59 08/16/17 17:20 50 MG Insulin Glargine (Lantus Solostar Pen) 14 units HS SC 08/16/17 21:00 09/15/17 20:59 Vancomycin HCl (Consult) 1 UD PRN N/A 08/16/17 13:30 09/15/17 13:29
[2017-08-16] MEDS ORDERED: VANCOMYCIN INJ 1,000 MG in SODIUM CHLORIDE 0.9% 250ML 250 ML IV SCH (21:00)
[2017-08-16] MEDS ORDERED: INSULIN GLARGINE SOLOSTAR 100 UNITS/ML 3 ML PEN SC SCH (21:00)
[2017-08-16] MEDS: ACETAMINOPHEN 325 MG TAB PO PRN (23:36)
[2017-08-17] VITALS (8 sets, daily range): BP systolic 106–133; BP diastolic 64–79; PULSE 64–106; TEMP 36.6–39.4; O2SAT 92–98
[2017-08-17] MEDS: ENOXAPARIN 40 MG/0.4 ML SYR SQ SCH (07:44)
[2017-08-17] MEDS: LACTOBACILLUS ACIDOPHILUS (FLORANEX) TAB PO SCH ×3 (07:44→16:53)
[2017-08-17] MEDS ORDERED: NURSING VERBAL MED ORDER ONE (08:00)
[2017-08-17] MEDS ORDERED: ALTEPLASE, RECOMBINANT 1 MG/ML 2 ML VIAL IV ONE (08:15)
[2017-08-17 08:29] LABS: HEMATOCRIT 28.3 % (37-47); MEAN CELL VOLUME 86.3 fL (80-100); MEAN CORPUSCULAR HEMOGLOBIN 28.4 pg (25-34); MEAN CORPUSCULAR HGB CONC 32.9 g/dl (32-36); MEAN PLATELET VOLUME 9.8 fL (7.4-10.4); PLATELET COUNT 346 K/uL (130-400); RED BLOOD COUNT 3.28 M/uL (4.2-5.4); WHITE BLOOD COUNT 16.97 K/uL (4.8-10.8)
[2017-08-17] MEDS: INSULIN ASPART 100 UNITS/ML 3 ML PEN SC SCH ×4 (08:36→20:55)
[2017-08-17] MEDS ORDERED: DEXTROSE 5% 500ML 500 ML IV SCH (08:45)
[2017-08-17 08:54] LABS: BUN/CREATININE RATIO 13.3 (10-20); CALCIUM 7.9 mg/dl (8.5-10.1); CREATININE 1.1 mg/dl (0.60-1.20)
[2017-08-17 08:57] LABS: ALB/GLOB RATIO 0.4 (0.9-2)
--- NOTE | 2017-08-17 09:16 | Orthopedic Progress Note ---
Orthopedic Progress Note Date of Service Aug 17, 2017. Subjective Denies: complaints, chest pain, SOB, nausea / vomiting Additional Notes: Minor discomfort from foot. No fevers or chills. Objective calves soft nontender, A&O x3 Continued fluctuance and moderate purulence with maceration distal foot and great toe. Pulses unchanged. Date Time Temp Pulse Resp B/P (MAP) Pulse Ox O2 Delivery O2 Flow Rate FiO2 08/17/17 08:24 37.5 68 18 119/75 (90) 98 Room Air 08/17/17 00:42 37.4 08/17/17 00:00 Room Air 08/16/17 23:44 38.6 80 18 109/65 (80) 95 Room Air 08/16/17 19:32 Room Air 08/16/17 15:55 Room Air 08/16/17 15:37 37.6 70 20 109/68 (82) 95 Room Air 08/16/17 12:26 106/66 (79) Laboratory Results 24 Hours: Test 08/17/17 08:16 Hematocrit 28.3 % Hemoglobin 9.3 g/dL Assessment & Plan Assessment: POD #5 from latest I&D done 08/12/17 Continued fluctuance and maceration foot and great toe Plan: To OR for repeat I and foot and great toe today Antibx as per Med/ID team NWB RLE. (1) Cellulitis of right foot Discharge Planning Discharge Planning: uncertain
--- NOTE | 2017-08-17 09:36 | Pharmacy Progress Note ---
Pharmacy Abx Dose Progress Nt Date of Service Aug 17, 2017. Pharmacy Dosing Scope The patient is currently receiving the following antimicrobial agents per Pharmacy consult: Vancomycin Objective Height (Feet): 5 Height (Inches): 4.00 Weight (Kilograms): 92.100 Vital Signs (Past 12Hrs) Vital Signs Past 12 Hours Date Time Temp Pulse Resp B/P (MAP) Pulse Ox O2 Delivery O2 Flow Rate FiO2 08/17/17 08:24 37.5 68 18 119/75 (90) 98 Room Air 08/17/17 00:42 37.4 08/17/17 00:00 Room Air 08/16/17 23:44 38.6 80 18 109/65 (80) 95 Room Air Lab Results (24Hrs) Laboratory Tests (24 Hours) Test 08/17/17 08:16 Total Creatine Kinase 166 U/L (26-192) White Blood Count 16.97 K/uL (4.8-10.8) H Micro Results Date/Time Source Procedure Growth Status 08/16/17 00:36 Blood Blood Culture Pending Received 08/16/17 00:25 Blood Blood Culture - Preliminary NO GROWTH TO DATE. Resulted 08/02/17 18:51 Blood Blood Culture - Final NO GROWTH Complete 08/02/17 17:50 Blood Blood Culture - Final NO GROWTH Complete 08/05/17 14:05 Abscess Foot Right Gram Stain - Final Complete 08/05/17 14:05 Bacterial Culture - Final Staphylococcus Aureus Complete 08/05/17 14:05 Abscess Foot Right Gram Stain - Final Complete 08/05/17 14:05 Bacterial Culture - Final Staphylococcus Aureus Complete 08/02/17 00:00 Drainage - Surface Foot Right Gram Stain - Final Complete 08/02/17 00:00 Wound Culture - Final Staphylococcus Aureus Complete Risk Factors for Resistance * Current hospitalization > 5 days * History of infection with a multidrug-resistant organism: MRSA Assessment & Plan Assessment 62 year old female receiving Vancomycin for treatment of diabetic foot ulcer ( MRSA), no evidence of osteomyelitis per MRI 08/04/17. Day # 2 of restarted Vancomycin therapy * Previously on Vancomycin, was switched to Daptomycin. However, is possibly having a reaction to Daptomycin therefore was switched back to Vancomycin on . * She was given a loading dose of Vancomycin 2250mg (~24mg/kg) IV x 1 on 08/16 @ ~1500 * Random level on 08/17 @ 0815 (~17 hours after last dose) was 14.7 mcg/mL. This level is slightly subtherapeutic (targeting a higher trough due to diabetic foot ulcer (unclear penetration into infection site)). Estimate patient-specific pharmacokinetics: Ke ~0.051/hr, T1/2 ~13.6 hrs * Early trough level was 13.1 mcg/mL on Vancomycin 1250mg IV q18 * Plan is to have patient on q24 dosing interval for ease of outpatient Vancomycin administration and timing of labs. Based on estimated Ke, unsure if q24 dosing feasible. However, it may be OK based on her trough level on q18 dosing. Plan Vancomycin IV * Trial Vancomycin 2000mg (~22mg/kg) IV q24 * Goal trough level for cellulitis (diabetic foot ulcer) : 15 to 20 mcg/mL * Trough level ordered for: 08/18/17 @ 0930 (early level only prior to 2nd dose , but would like to assess dosing regimen earlier) Pharmacy will continue to follow and will adjust dose/frequency as necessary. Thank you.
--- NOTE | 2017-08-17 10:18 | Progress Note ---
Medicine Progress Note Date & Time of Visit: Aug 17, 2017 at 10:03. Subjective Pt was seen and examined Lying in bed with no distress Pt said that she feels ok Plan to go OR this morning Pt said that she is ok to go for more I&D but if they decide to amputate her big toe, she would like to get a second opinion before proceeding She said that she said that the benadryl helps with the itchiness denied any chest pain, palpitation, dizziness and sob Objective Last 8 Hrs Date Time Temp Pulse Resp B/P (MAP) Pulse Ox O2 Delivery O2 Flow Rate FiO2 08/17/17 09:00 Room Air 08/17/17 08:24 37.5 68 18 119/75 (90) 98 Room Air Physical Exam: General-No acute distress Head- atraumatic Eyes- PERRL, EOMI ENT- oropharynx clear Neck- supple, no JVD Lungs- no wheezing Heart- regular rhythm Abdomen- normal bowel sounds, soft Extremities- no calf tenderness, right foot wrapped with dressing, right big toe erythema/tender and swelling Neuro- alert, oriented x 3; PERRL, EOMI; no facial palsy Skin- +rash Laboratory Results: Last 24 Hours Test 08/16/17 11:39 08/16/17 13:09 08/16/17 17:08 08/16/17 20:16 Bedside Glucose 195 mg/dl 93 mg/dl 159 mg/dl Total Bilirubin 0.3 mg/dl Direct Bilirubin 0.1 mg/dl Aspartate Amino Transf (AST/SGOT) 21 U/L Alanine Aminotransferase (ALT/SGPT) 13 U/L Alkaline Phosphatase 60 U/L Total Creatine Kinase 335 U/L Total Protein 5.9 gm/dl Albumin 1.7 gm/dl Test 08/17/17 07:58 08/17/17 08:15 08/17/17 08:16 Bedside Glucose 76 mg/dl Random Vancomycin Level 14.7 mcg/ml White Blood Count 16.97 K/uL Red Blood Count 3.28 M/uL Hemoglobin 9.3 g/dL Hematocrit 28.3 % Mean Corpuscular Volume 86.3 fL Mean Corpuscular Hemoglobin 28.4 pg Mean Corpuscular Hemoglobin Concent 32.9 g/dl RDW Standard Deviation 40.3 fL RDW Coefficient of Variation 12.7 % Platelet Count 346 K/uL Mean Platelet Volume 9.8 fL Sodium Level 138 mmol/L Potassium Level 4.0 mmol/L Chloride Level 104 mmol/L Carbon Dioxide Level 28 mmol/L Anion Gap 7.0 mmol/L Blood Urea Nitrogen 15 mg/dl Creatinine 1.10 mg/dl Est Creatinine Clear Calc Drug Dose 59.1 ml/min Estimated GFR () 62.8 Estimated GFR (Non- 54.1 BUN/Creatinine Ratio 13.3 Random Glucose 78 mg/dl Calcium Level 7.9 mg/dl Total Bilirubin 0.3 mg/dl Aspartate Amino Transf (AST/SGOT) 18 U/L Alanine Aminotransferase (ALT/SGPT) 12 U/L Alkaline Phosphatase 69 U/L Total Creatine Kinase 166 U/L Total Protein 6.0 gm/dl Albumin 1.6 gm/dl Globulin 4.4 gm/dl Albumin/Globulin Ratio 0.4 Assessment & Plan SEPSIS DUE TO DIABETIC FOOT INFECTION ON RT SIDE presented with fever, chills, leukocytosis Doppler LE done showed no sonographic evidence of deep venous thrombosis within the right lower extremity. MRI of RLE done Extensive soft tissue swelling and subcutaneous edema about the foot suggests cellulitis with loculated peripherally enhancing collection of the dorsal forefoot measuring 3.2 x 1.2 x 5.3 cm with associated small fluid filled tract extending to the skin surface as above suggesting draining abscess. No evidence of osteomyelitis or acute fracture. Ortho on board s/p Incision and drainage and packing of abscess, right foot on 08/05/17 and on 08/09/17 wound culture -MRSA ; surgical drainage culture + MRSA Continue to have swelling and purulent drainage ID on board will need 6 weeks of IV daptomycin has PICC line placed continue monitor CBC 08/12 S/P I&D on 08/05 and 08/09 WBC elevated this morning to 16K Afebrile Wound continue to drain Ortho plan to go back to OR today for I&D Continue Dapto IV ID on board Continue monitor cbc 08/15 S/P day 3 of 3rd I&D of right great toe/foot Continue IV dapto Daily dressing change WBC trending down wound care consult daily wound care As per wound care nurse no wound vac for now until the skin dry ortho on board 08/16 febrile with elevated WBC repeat blood cx collected last night- pending case discussed with IDeugene to changed dapto to vanco for possible drug reaction rash No further surgical intervention as per ortho continue daily wound care continue monitor closely 08/17 WBC trending down Afebrile Plan to go to OR today for more I&D of the big toe and foot Will not sign any consent yet for if decide to amputate her big toe until she gets a second opinion Continue Vanco IV repeat blood cx preliminary report showed 1 bottle no growth ID on board NPO for the procedure ELEVATED WBC febrile check stool for Cdiff if develops diarrhea get a cxr if complaint of SOB to r/o pna continue monitor CBC On IV Vanco 08/17 Afebrile WBC trending down 22K--->16K continue monitor cbc TYPE 2 DM insulin SSI and Lantus ordered HB A1c 11.2 ( poorly controlled ) environmental educator consulted oral med on hold pharmacy consulted for glycemic management on Lantus subq BS was 76 today NPO for the procedure Will start on D5W at 60 continue monitor BS HTN BP stable HX OF CVA : hx of occipital CVA uses walker occasionally at home asked not to take statin /Lipitor for 6 weeks while taking Daptomycin , increased risk of Rhabdomyolysis fall precaution HX OF PRIOR LEFT LOWER EXT DVT S/P IVC FILTER PLACEMENT was on Xarelto ,which was discontinued after acute CVA had retrievable IVC filter placed , was removed after 7-8 months of anticoagulation lower ext Doppler negative for DVT Rash Possible related to abx diffuse rash Increase Benadryl to 50mg prn if not improved, will talk to ID for possible to consider to change abx No steroid given due to ongoing wound infection continue monitor slightly improved not sure if it is related to dapto Dapto changed to vanco continue benadryl 50mg Stable DVT PROPHYLAXIS hold lovenox subq for the OR today DISPOSITION expected to be discharged home with home health visiting nurse when medically stable Medicine follow up with Dr viramontes Ortho follow up with Dr Plummer ID follow up with Dr Peñaloza Consultants: ID Ortho Procedures: I&Dx3 Current Inpatient Medications: Current Inpatient Medications Medications (Trade) Dose Ordered Sig/Donald Route Start Time Stop Time Status Last Admin Dose Admin Enoxaparin Sodium (Lovenox Inj) 40 mg Q24H SQ 08/03/17 09:00 09/02/17 08:59 Future hold 08/16/17 08:23 40 MG Acetaminophen (Tylenol Tab) 650 mg Q4H PRN PO 08/02/17 20:30 09/01/17 20:29 08/16/17 23:36 650 MG Insulin Aspart (novoLOG ASPART) SLIDING SCALE If C... ACHS SC 08/02/17 22:45 09/01/17 22:44 08/16/17 21:44 2 UNITS Glucose (Glucose 40% Gel) 15-30 GRAMS 15 GRAMS... UD PRN PO 08/02/17 20:30 09/01/17 20:29 Glucose (Glucose Chew Tab) 4-8 Tablets 4 Tabl... UD PRN PO 08/02/17 20:30 09/01/17 20:29 Dextrose (Dextrose 50% 50ML Syringe) 25-50ML OF 50% DW IV FOR... UD PRN IV 08/02/17 20:30 09/01/17 20:29 08/09/17 16:35 25 ML Glucagon (Glucagon Inj) 1 mg UD PRN SQ 08/02/17 20:30 09/01/17 20:29 Tramadol HCl (Ultram Tab) pain not relieved by ot... Q4H PRN PO 08/02/17 20:30 09/01/17 20:29 08/15/17 11:38 50 MG Ibuprofen (Advil Tab) 400 mg Q6H PRN PO 08/02/17 20:30 09/01/17 20:29 08/15/17 23:41 400 MG Lorazepam (Ativan Tab) 0.25 mg HS PRN PO 08/02/17 20:30 09/01/17 20:29 Aspirin (Ecotrin Tab) 81 mg QAM PO 08/03/17 08:00 09/02/17 08:59 Future Hold 08/04/17 07:49 81 MG Miscellaneous Information (Consult Glycemic Management Pharmacy) 1 ea UD N/A 08/04/17 10:41 09/03/17 10:40 Lorazepam (Ativan Tab) 0.5 mg Q12 PRN PO 08/04/17 12:30 09/03/17 12:29 Heparin Sodium (Porcine) (Heparin 10 Unit/ ml 5 ml Flush) 5 ml PRN PRN FLUSH 08/07/17 09:45 09/06/17 09:44 08/17/17 09:42 5 ML Lactobacillus Acidophilus (Floranex Tab) 4 tab TIDM PO 08/07/17 17:00 09/06/17 16:59 08/16/17 17:20 4 TAB Diphenhydramine HCl (Benadryl Cap) 50 mg Q6H PO 08/15/17 22:00 09/14/17 15:59 08/17/17 04:00 50 MG Insulin Glargine (Lantus Solostar Pen) 14 units HS SC 08/16/17 21:00 09/15/17 20:59 08/16/17 21:43 14 UNITS Vancomycin HCl (Consult) 1 ea UD PRN N/A 08/16/17 13:30 09/15/17 13:29 Dextrose 500 ml @ 60 mls/hr Q8H20M IV 08/17/17 08:45 08/17/17 17:04 08/17/17 09:14 60 MLS/HR Vancomycin HCl 2000 mg/Sodium Chloride 540 ml @ 200 mls/hr DAILY@1000 IV 08/17/17 10:00 08/26/17 09:59
[2017-08-17] MEDS: VANCOMYCIN INJ 2,000 MG in SODIUM CHLORIDE 0.9% 500ML 500 ML IV SCH (10:25)
--- NOTE | 2017-08-17 11:20 | Pharmacy Progress Note ---
Glycemic Control Progress Note Date of Service Aug 17, 2017. Scope Glycemic Pharmacist consulted for glycemic control to write orders per [facility] inpatient glycemic control protocol. Objective Accuchecks BSG (last 24hrs): Test 08/16/17 11:39 08/16/17 17:08 08/16/17 20:16 08/17/17 07:58 Bedside Glucose 195 mg/dl (70-90) 93 mg/dl (70-90) 159 mg/dl (70-90) 76 mg/dl (70-90) Test 08/17/17 08:16 Random Glucose 78 mg/dl (70-99) HbA1c: Test 08/02/17 17:50 Hemoglobin A1c 11.2 % (4.5-5.6) H Recent Pertinent Medications The patient is currently receiving: * Basal insulin: Lantus 14 units every 24 hours * Correctional Insulin: Novolog Correction per scale ACHS Goal Range: Low 110 mg/dL - High 140 mg/dL Correction Factor: 25 mg/dL/unit * Prandial insulin: Per carb ratio of 1 unit per 9 grams CHO consumed Outpatient Anti-Diabetic Meds Metformin 850 mg BID Was supposed to be starting Jardiance in addition to this Assessment & Plan ASSESSMENT: * See progress note from 08/14 for more background info, in short: * Pt receiving SQ basal bolus insulin regimen for hyperglycemia secondary to baseline DM (outpatient regimen on hold),stress/infection, recent surgery * Patient is currently receiving an average of 30 units of insulin per day * 14 units of basal insulin * BSGs ranging 76 - 195 mg/dl over the past 24hrs * Patient is currently NPO for another I&D today. Fasting BSG is slightly reduced at 76 mg/dL so D5 @ 60 cc/hr x 500 mL has been initiated by the hospitalist. * I am surprised that this would be a little low today because current basal dose is < 1/2 of total daily dose and fasting BSGs have not been trending down. * However, due to the lower fasting today, will plan to reduce the Lantus dose for tonight PLAN FOR INPATIENT GLYCEMIC CONTROL: * Reduce Lantus to 12 units qHS since patient with lower fasting today and will be NPO for portion of today * Continue Novolog * Goal 110-140 * CF 25 * CR 9 RECOMMENDATIONS FOR DISCHARGE: * Please refer to 08/14 note Thank you.
[2017-08-17] MEDS ORDERED: BUPIVACAINE 0.5 % 5 MG/1 ML MPF 30ML VIAL ONE (14:05)
[2017-08-17] MEDS ORDERED: BACITRACIN 50000 UNIT VIAL ONE (14:07)
[2017-08-17] MEDS ORDERED: LIDOCAINE HCL 2% 2 ML VIAL (20MG/ML) ONE (14:13)
[2017-08-17] MEDS ORDERED: MIDAZOLAM HCL 1 MG/ML 2ML VIAL ONE (14:13)
[2017-08-17] MEDS ORDERED: PROPOFOL IV EMULSION 10 MG/ML 20 ML VIAL IV ONE (14:13)
[2017-08-17] MEDS ORDERED: FENTANYL CITRATE INJ 50 MCG/1 ML 2 ML VIAL ONE ×2 (14:14→14:54)
[2017-08-17] MEDS ORDERED: MEPERIDINE HCL 25 MG/ML CARP IV PRN (14:15)
[2017-08-17] MEDS ORDERED: FENTANYL CITRATE INJ 50 MCG/1 ML 2 ML VIAL IV PRN (14:15)
[2017-08-17] MEDS ORDERED: EpHEDrine SULFATE INJ 50 MG/ML AMP IV PRN (14:15)
[2017-08-17] MEDS ORDERED: HYDROmorphone INJ 1 MG/ML SYR IV PRN (14:15)
[2017-08-17] MEDS ORDERED: ATROPINE SULFATE 0.1 MG/ML 5ML SYR IV PRN (14:15)
[2017-08-17] MEDS ORDERED: ONDANSETRON INJ 2 MG/ML 2 ML VIAL IV PRN (14:15)
[2017-08-17] MEDS ORDERED: LABETALOL HCL IV 5 MG/ML 20ML IV PRN (14:15)
[2017-08-17] MEDS ORDERED: ONDANSETRON INJ 2 MG/ML 2 ML VIAL ONE (14:54)
--- NOTE | 2017-08-17 15:48 | [facility] Post Operative Brief Note ---
Immediate Operative Summary Operative Date Aug 17, 2017. Pre-Operative Diagnosis Right Foot Abscess; Right Great Toe Abscess; Necrotic Fascia Right Foot Post-Operative Diagnosis Right Foot Abscess; Right Great Toe Abscess; Necrotic Fascia Right Foot Procedure(s) Performed 1. Irrigation and Debridement Right Dorsal Foot; 2. Incision and Drainage Medial Great Toe Abscess; 3. Debridement Fascia Dorsal Foot Surgeon Dr. Pro Industrial Relations Manager Surgeon(s) none Estimated Blood Loss 2 ml Findings See Dict Specimens None Drains 1/2" iodoform x 6 Anesthesia GLMA w/ local Complication(s) None Disposition Recovery Room / PACU
[2017-08-17] MEDS: FENTANYL CITRATE INJ 50 MCG/1 ML 2 ML VIAL ONE (16:07)
--- NOTE | 2017-08-17 16:50 | Anesthesiology Progress Note ---
Anesthesia Post Op Note Date & Time Aug 17, 2017 at 16:50 Vital Signs Pain Intensity: 3 Vital Signs Past 12 Hours Date Time Temp Pulse Resp B/P (MAP) Pulse Ox O2 Delivery O2 Flow Rate FiO2 08/17/17 16:40 37.2 106 18 106/68 (81) 96 Room Air 08/17/17 16:30 37.5 63 16 124/57 100 Nasal Cannula 2 08/17/17 16:20 37.5 61 16 128/59 100 Nasal Cannula 2 08/17/17 16:10 59 16 117/58 100 Nasal Cannula 2 08/17/17 16:00 62 18 133/60 100 Nasal Cannula 2 08/17/17 15:50 62 18 118/58 100 Nasal Cannula 4 08/17/17 15:41 37.5 63 16 130/59 100 Nasal Cannula 4 08/17/17 09:00 Room Air 08/17/17 08:24 37.5 68 18 119/75 (90) 98 Room Air Notes Mental Status: alert / awake / arousable, participated in evaluation Pt Amnestic to Procedure: Yes Nausea / Vomiting: adequately controlled Pain: adequately controlled Airway Patency, RR, SpO2: stable & adequate BP & HR: stable & adequate Hydration State: stable & adequate Anesthetic Complications: no major complications apparent
[2017-08-17] MEDS: TRAMADOL HCL 50 MG TAB PO PRN (20:30)
[2017-08-17] MEDS: ACETAMINOPHEN 325 MG TAB PO PRN (20:59)
[2017-08-17] MEDS: INSULIN GLARGINE SOLOSTAR 100 UNITS/ML 3 ML PEN SC SCH (21:37)
--- NOTE | 2017-08-17 23:14 | OPERATIVE REPORT ---
DATE OF OPERATION: 08/17/2017 PREOPERATIVE DIAGNOSES: 1. Right foot dorsal abscess. 2. Right great toe abscess. 3. Necrotic fascia, right dorsal foot. POSTOPERATIVE DIAGNOSIS: 1. Right foot dorsal abscess. 2. Right great toe abscess. 3. Necrotic fascia, right dorsal foot. PROCEDURE: 1. Irrigation and debridement, right dorsal foot. 2. Incision and drainage abscess medial distal great toe. 3. Debridement dorsal fascia of the right foot. SURGEON: Pascual Pro DO. SIDE LASTER: None. ANESTHESIA: General LMA with local. SPECIMENS: None. DRAINS: One-half inch iodoform gauze drains x6. COMPLICATIONS: None. BLOOD LOSS: 4 mL PERTINENT HISTORY: This is a 62-year-old female who has had several washouts of her right foot after initial incision and drainage. She had severe infection of the foot and great toe. She had been continuously on IV antibiotics since admission to the hospital and overall has had improvement in her foot; however, continued to have recurrent abscess. She has had progressively worsening maceration and continued purulence of the dorsum of the foot and the first interdigital space in the great toe and second toe with continued swelling of the great toe. She was then scheduled for repeat surgery as indicated. All potential risks, benefits, complications, alternatives, rehab, potential for incomplete relief of symptoms, need for further surgery, DVT, PE, , persistent pain, swelling, scarring, weakness, neurovascular injury, wound complications, the possibility for further amputation were discussed with the patient. The patient decided to proceed with the procedure as indicated. DESCRIPTION OF PROCEDURE: The patient was taken to the operative suite, placed supine on the operating room table. After reviewing the consent and identification of proper operative site, the patient was anesthetized, LMA was placed. Right lower extremity was then sterilely prepped and the area draped in usual fashion. A sterile towel was applied over the ankle and then partial exsanguination was then performed with a 4-inch Esmarch bandage beginning at the hindfoot extending proximally due to the patient's infection distally. An Esmarch tourniquet was then applied over sterile surgical towel. Next, all sutures were removed from the dorsum of the foot and between the first and second toes with small iris scissor and a hemostat. Next, the dorsal foot incision was then opened with a tenotomy scissor and purulent discharge was noted. Next, there was also noted to be inflammation of the fascia with friability of the fascia. There was fibrinous exudate also present. Next, there was noted to be maceration and abscess material between the first and second toe and then there was also noted to be an area of fluctuance within the pad of the great toe. At this point, a midlateral incision was made over the medial aspect of the great toe with a 15 blade scalpel. There was noted to be purulent discharge and abscess fluid collection noted. Next, the curet was then used to curettage the dorsal fascia of the foot between the first and second toes and also in the deep space of pulp of the great toe. Next, pulsatile lavage with 3 liters of bacitracin was then used to cleanse and lavage the dorsum of the foot, the interspace between the first and second toes and also the midlateral incision on the medial aspect of the great toe until clear. Next, 1/2 inch iodoform gauze drains were placed throughout the incision and the dorsum of the foot between the first and second toes and also on the medial aspect of the great toe. Next, the tissue was then loosely closed over the drain with interrupted 3-0 nylon sutures. A sterile compressive dressing was applied followed by an injection of local anesthetic 0.5% Marcaine plain on the dorsum and dorsal medial and dorsal lateral aspect of the foot. Next, this was overwrapped with ABD pads, cast padding and a 4 inch Lincoln wrap. The tourniquet was released, the patient was awakened and taken to recovery in stable condition. I attest to the content of the Intraoperative Record and any orders documented therein. Any exception s are noted below.
[2017-08-18] VITALS (7 sets, daily range): BP systolic 101–126; BP diastolic 63–74; PULSE 64–76; TEMP 36.5–38.7; O2SAT 93–100
[2017-08-18] MEDS: ACETAMINOPHEN 325 MG TAB PO PRN ×2 (00:43→20:01)
--- NOTE | 2017-08-18 07:57 | Orthopedic Progress Note ---
Orthopedic Progress Note Date of Service Aug 18, 2017. Subjective Post OP Day: 1 (from repeat I&D right foot) Reports: feeling well, pain controlled w PO medications, Denies: complaints, chest pain, SOB, nausea / vomiting, light headedness, calf pain Objective calves soft nontender, dressing C/D/I Date Time Temp Pulse Resp B/P (MAP) Pulse Ox O2 Delivery O2 Flow Rate FiO2 08/18/17 04:18 36.5 76 20 126/74 (91) 95 Room Air 08/18/17 01:19 36.8 08/18/17 00:15 Room Air 08/18/17 00:15 38.7 08/17/17 23:53 39.4 92 20 110/64 (79) 92 Room Air 08/17/17 20:45 38.3 08/17/17 19:48 Room Air 08/17/17 19:20 37.5 75 18 129/76 (93) 95 Room Air 08/17/17 17:48 37.0 70 18 133/79 (97) 95 Room Air 08/17/17 17:09 36.6 64 18 127/78 (94) 96 Room Air 08/17/17 16:40 37.2 106 18 106/68 (81) 96 Room Air 08/17/17 16:30 37.5 63 16 124/57 100 Nasal Cannula 2 08/17/17 16:20 37.5 61 16 128/59 100 Nasal Cannula 2 08/17/17 16:10 59 16 117/58 100 Nasal Cannula 2 08/17/17 16:00 62 18 133/60 100 Nasal Cannula 2 08/17/17 15:50 62 18 118/58 100 Nasal Cannula 4 08/17/17 15:41 37.5 63 16 130/59 100 Nasal Cannula 4 08/17/17 09:00 Room Air 08/17/17 08:24 37.5 68 18 119/75 (90) 98 Room Air Laboratory Results 24 Hours: Test 08/17/17 08:16 08/18/17 04:44 Hematocrit 28.3 % Hemoglobin 9.3 g/dL Assessment & Plan Assessment: POD #1 s/p repeat I&D of right foot -will leave dressing in place until tomorrow, pull packing -cont ice/elevate -ID on board -cont IV Abx as per medicine/ID (1) Cellulitis of right foot Acute (2) Fever Discharge Planning Discharge Planning: uncertain
[2017-08-18] MEDS: LACTOBACILLUS ACIDOPHILUS (FLORANEX) TAB PO SCH ×3 (08:09→16:08)
[2017-08-18] MEDS: INSULIN ASPART 100 UNITS/ML 3 ML PEN SC SCH ×4 (09:01→20:02)
[2017-08-18] MEDS: TRAMADOL HCL 50 MG TAB PO PRN ×3 (09:08→20:01)
[2017-08-18] MEDS ORDERED: VANCOMYCIN TROUGH ONE (09:30)
[2017-08-18 09:43] LABS: BASO % 0.2 %; BASO ABS # 0.03 K/uL (0-0.2); EOS % 4.2 %; HEMATOCRIT 27.3 % (37-47); IG% 0.4 %; LYMPH % 11.6 %; LYMPH ABS # 1.51 K/uL (1.2-3.4); MEAN CELL VOLUME 86.9 fL (80-100); MEAN CORPUSCULAR HGB CONC 32.2 g/dl (32-36); MEAN PLATELET VOLUME 9.7 fL (7.4-10.4); MONO % 6.1 %; NEUT % 77.5 %; PLATELET COUNT 327 K/uL (130-400); RED BLOOD COUNT 3.14 M/uL (4.2-5.4); WHITE BLOOD COUNT 12.99 K/uL (4.8-10.8)
[2017-08-18 10:02] LABS: COMPLETE YES
[2017-08-18 10:06] LABS: CREATININE 1.2 mg/dl (0.60-1.20)
--- NOTE | 2017-08-18 10:12 | Pharmacy Progress Note ---
Glycemic Control Progress Note Date of Service Aug 18, 2017. Scope Glycemic Pharmacist consulted for glycemic control to write orders per [facility] inpatient glycemic control protocol. Objective Accuchecks BSG (last 24hrs): Test 08/17/17 11:38 08/17/17 16:41 08/17/17 20:01 08/18/17 07:55 Bedside Glucose 96 mg/dl (70-90) 124 mg/dl (70-90) 162 mg/dl (70-90) 76 mg/dl (70-90) HbA1c: Test 08/02/17 17:50 Hemoglobin A1c 11.2 % (4.5-5.6) H Recent Pertinent Medications The patient is currently receiving: * Basal insulin: Lantus 12 units every 24 hours (reduced on 08/17) * Correctional Insulin: Novolog Correction per scale ACHS Goal Range: Low 110 mg/dL - High 140 mg/dL Correction Factor: 25 mg/dL/unit * Prandial insulin: Per carb ratio of 1 unit per 9 grams CHO consumed Outpatient Anti-Diabetic Meds Metformin 850 mg BID Was supposed to be starting Jardiance in addition to this Assessment & Plan ASSESSMENT: * See progress note from 08/17 for more background info, in short: * Pt receiving SQ basal bolus insulin regimen for hyperglycemia secondary to baseline DM (outpatient regimen on hold), stress/infection, recent surgeries * Patient is currently receiving an average of 20 units of insulin per day (was NPO for majority of yesterday) * 12 units of basal insulin * BSGs ranging 76 - 162 mg/dl over the past 24hrs * Patient is POD #1 s/p repeat I&D of R foot * BSGs were stable yesterday with infusion of D5W while NPO * Fasting is slightly low today, however, Lantus was just reduced last evening and patient will have a normal diet today. Hesitant that if I decrease Lantus further, it will cause hyperglycemia. PLAN FOR INPATIENT GLYCEMIC CONTROL: * Continue reduced dose of Lantus 12 units qHS * Continue Novolog * Goal 110-140 * CF 25 * CR 9 RECOMMENDATIONS FOR DISCHARGE: * Please refer to 08/14 note Thank you.
[2017-08-18] MEDS: VANCOMYCIN INJ 2,000 MG in SODIUM CHLORIDE 0.9% 500ML 500 ML IV SCH (10:43)
[2017-08-18] MEDS ORDERED: VANCOMYCIN INJ 1,750 MG in SODIUM CHLORIDE 0.9% 500ML 500 ML IV SCH (12:00)
[2017-08-18] MEDS ORDERED: HYDROCORTISONE 1% CR 30 GM TUBE EXT ONE (13:15)
--- NOTE | 2017-08-18 13:16 | Pharmacy Progress Note ---
Pharmacy Abx Dose Progress Nt Date of Service Aug 18, 2017. Pharmacy Dosing Scope The patient is currently receiving the following antimicrobial agents per Pharmacy consult: Vancomycin 2000 mg IV every 24 hours Objective Height (Feet): 5 Height (Inches): 4.00 Weight (Kilograms): 92.100 Vital Signs (Past 12Hrs) Vital Signs Past 12 Hours Date Time Temp Pulse Resp B/P (MAP) Pulse Ox O2 Delivery O2 Flow Rate FiO2 08/18/17 08:00 Room Air 08/18/17 04:18 36.5 76 20 126/74 (91) 95 Room Air 08/18/17 01:19 36.8 Lab Results (24Hrs) Laboratory Tests (24 Hours) Test 08/18/17 09:26 White Blood Count 12.99 K/uL (4.8-10.8) H Red Blood Count 3.14 M/uL (4.2-5.4) L Hemoglobin 8.8 g/dL (12.0-16.0) L Hematocrit 27.3 % (37-47) L Mean Corpuscular Volume 86.9 fL (80-100) Mean Corpuscular Hemoglobin 28.0 pg (25-34) Mean Corpuscular Hemoglobin Concent 32.2 g/dl (32-36) Platelet Count 327 K/uL (130-400) Mean Platelet Volume 9.7 fL (7.4-10.4) Neutrophils (%) (Auto) 77.5 % Lymphocytes (%) (Auto) 11.6 % Monocytes (%) (Auto) 6.1 % Eosinophils (%) (Auto) 4.2 % Basophils (%) (Auto) 0.2 % Neutrophils # (Auto) 10.07 K/uL (1.4-6.5) H Lymphocytes # (Auto) 1.51 K/uL (1.2-3.4) Monocytes # (Auto) 0.79 K/uL (0.11-0.59) H Eosinophils # (Auto) 0.54 K/uL (0-0.5) H Basophils # (Auto) 0.03 K/uL (0-0.2) Micro Results Date/Time Source Procedure Growth Status 08/16/17 00:36 Blood Blood Culture - Preliminary NO GROWTH TO DATE. Resulted 08/16/17 00:25 Blood Blood Culture - Preliminary NO GROWTH TO DATE. Resulted 08/02/17 18:51 Blood Blood Culture - Final NO GROWTH Complete 08/02/17 17:50 Blood Blood Culture - Final NO GROWTH Complete 08/05/17 14:05 Abscess Foot Right Gram Stain - Final Complete 08/05/17 14:05 Bacterial Culture - Final Staphylococcus Aureus Complete 08/05/17 14:05 Abscess Foot Right Gram Stain - Final Complete 08/05/17 14:05 Bacterial Culture - Final Staphylococcus Aureus Complete 08/02/17 00:00 Drainage - Surface Foot Right Gram Stain - Final Complete 08/02/17 00:00 Wound Culture - Final Staphylococcus Aureus Complete Risk Factors for Resistance * Current hospitalization > 5 days * History of infection with a multidrug-resistant organism: MRSA Assessment & Plan Assessment 62 year old female receiving Vancomycin for treatment of diabetic foot ulcer ( MRSA), no evidence of osteomyelitis per MRI 08/04/17. Day # 3 of restarted Vancomycin therapy * Trial q24 dosing to facilitate outpatient dosing as patient needs at least 6 weeks of therapy Plan Vancomycin IV * Trough level of 20.8 mcg/mL (appropriately drawn) is slightly supratherapeutic. This level is not reflective of steady state. Css may be higher. * Change to 1750 mg (~19mg/kg) IV every 24 hours; this is a dose reduction of ~ 12.5% and should result in a lower trough. Next dose slightly delayed to allow time for Vancomycin concentration to decr'. * Goal trough level for cellulitis (diabetic foot ulcer) : 15 to 20 mcg/mL * Trough level ordered for: 08/19 @ 1130 (prior to next dose due) Pharmacy will continue to follow and will adjust dose/frequency as necessary. Thank you.
--- NOTE | 2017-08-18 15:59 | Progress Note ---
Medicine Progress Note Date & Time of Visit: Aug 18, 2017 at 11:42. Subjective Pt was seen and examined Sitting in chair with no distress Rash gets worst today The rash might be related to anesthetic agents because rash seems to get worst after coming from OR She went to OR yesterday for more I&D She said that last night she had a fever Denies any chest pain, palpitation, dizziness and SOB Objective Last 8 Hrs Date Time Temp Pulse Resp B/P (MAP) Pulse Ox O2 Delivery O2 Flow Rate FiO2 08/18/17 15:00 37.3 69 18 102/63 (76) 100 Room Air 08/18/17 08:00 Room Air Physical Exam: General-No acute distress Head- atraumatic Eyes- PERRL, EOMI ENT- oropharynx clear Neck- supple, no JVD Lungs- no wheezing Heart- regular rhythm Abdomen- normal bowel sounds, soft Extremities- no calf tenderness, right foot wrapped with dressing Neuro- alert, oriented x 3; PERRL, EOMI; no facial palsy Skin- +diffuse rash Laboratory Results: Last 24 Hours Test 08/17/17 16:41 08/17/17 20:01 08/18/17 07:55 08/18/17 09:26 Bedside Glucose 124 mg/dl 162 mg/dl 76 mg/dl White Blood Count 12.99 K/uL Red Blood Count 3.14 M/uL Hemoglobin 8.8 g/dL Hematocrit 27.3 % Mean Corpuscular Volume 86.9 fL Mean Corpuscular Hemoglobin 28.0 pg Mean Corpuscular Hemoglobin Concent 32.2 g/dl Platelet Count 327 K/uL Mean Platelet Volume 9.7 fL Neutrophils (%) (Auto) 77.5 % Lymphocytes (%) (Auto) 11.6 % Monocytes (%) (Auto) 6.1 % Eosinophils (%) (Auto) 4.2 % Basophils (%) (Auto) 0.2 % Neutrophils # (Auto) 10.07 K/uL Lymphocytes # (Auto) 1.51 K/uL Monocytes # (Auto) 0.79 K/uL Eosinophils # (Auto) 0.54 K/uL Basophils # (Auto) 0.03 K/uL RDW Standard Deviation 42.1 fL RDW Coefficient of Variation 13.0 % Immature Granulocyte % (Auto) 0.4 % Immature Granulocyte # (Auto) 0.05 K/uL Creatinine 1.20 mg/dl Est Creatinine Clear Calc Drug Dose 54.1 ml/min Estimated GFR () 56.5 Estimated GFR (Non- 48.7 Vancomycin Level Trough 20.8 mcg/ml Test 08/18/17 11:15 Bedside Glucose 112 mg/dl Assessment & Plan SEPSIS DUE TO DIABETIC FOOT INFECTION ON RT SIDE presented with fever, chills, leukocytosis Doppler LE done showed no sonographic evidence of deep venous thrombosis within the right lower extremity. MRI of RLE done Extensive soft tissue swelling and subcutaneous edema about the foot suggests cellulitis with loculated peripherally enhancing collection of the dorsal forefoot measuring 3.2 x 1.2 x 5.3 cm with associated small fluid filled tract extending to the skin surface as above suggesting draining abscess. No evidence of osteomyelitis or acute fracture. Ortho on board s/p Incision and drainage and packing of abscess, right foot on 08/05/17 and on 08/09/17 wound culture -MRSA ; surgical drainage culture + MRSA Continue to have swelling and purulent drainage ID on board will need 6 weeks of IV daptomycin has PICC line placed continue monitor CBC 08/12 S/P I&D on 08/05 and 08/09 WBC elevated this morning to 16K Afebrile Wound continue to drain Ortho plan to go back to OR today for I&D Continue Dapto IV ID on board Continue monitor cbc 08/15 S/P day 3 of I&D of right great toe/foot Continue IV dapto Daily dressing change WBC trending down wound care consult daily wound care As per wound care nurse no wound vac for now until the skin dry ortho on board 08/16 febrile with elevated WBC repeat blood cx collected last night- pending case discussed with eugene JERRY to changed dapto to vanco for possible drug reaction rash No further surgical intervention as per ortho continue daily wound care continue monitor closely 08/17 WBC trending down Afebrile Plan to go to OR today for more I&D of the big toe and foot Will not sign any consent yet for if decide to amputate her big toe until she gets a second opinion Continue Vanco IV repeat blood cx preliminary report showed 1 bottle no growth ID on board NPO for the procedure 08/18 S/P day#1 of 4th I&D and Irrigation and debridement dorsal right foot by Dr. Pro Pain controlled WBC trending down Continue IV Vanco Repeat blood cx no growth ID on board Continue monitor ELEVATED WBC febrile check stool for Cdiff if develops diarrhea get a cxr if complaint of SOB to r/o pna continue monitor CBC On IV Vanco 08/18 Afebrile WBC trending down 22K--->16K-->12K continue monitor cbc Blood cx on 08/16 no growth TYPE 2 DM insulin SSI and Lantus ordered HB A1c 11.2 ( poorly controlled ) software educator consulted oral med on hold pharmacy consulted for glycemic management on Lantus subq BS was 76 today NPO for the procedure Will start on D5W at 60 continue monitor BS HTN BP stable HX OF CVA : hx of occipital CVA uses walker occasionally at home asked not to take statin /Lipitor for 6 weeks while taking Daptomycin , increased risk of Rhabdomyolysis fall precaution HX OF PRIOR LEFT LOWER EXT DVT S/P IVC FILTER PLACEMENT was on Xarelto ,which was discontinued after acute CVA had retrievable IVC filter placed , was removed after 7-8 months of anticoagulation lower ext Doppler negative for DVT Rash Possible related to abx diffuse rash Increase Benadryl to 50mg prn if not improved, will talk to ID for possible to consider to change abx No steroid given due to ongoing wound infection continue monitor slightly improved not sure if it is related to dapto Dapto changed to vanco continue benadryl 50mg 08/18 Rash worsening Seems rash worsening after coming from OR Might be due to Anesthetic agents? Due to ongoing infection, continue to avoid oral steroid Will start on topical steroid and continue benadril If rash continue to get worst, will consult dermatology DVT PROPHYLAXIS will resume lovenox subq DISPOSITION expected to be discharged home with home health visiting nurse when medically stable Medicine follow up with Dr viramontes Ortho follow up with Dr Plummer ID follow up with Dr Peñaloza Consultants: [facility] Ortho Procedures: I&Dx3 Current Inpatient Medications: Current Inpatient Medications Medications (Trade) Dose Ordered Sig/Donald Route Start Time Stop Time Status Last Admin Dose Admin Enoxaparin Sodium (Lovenox Inj) 40 mg Q24H SQ 08/03/17 09:00 09/02/17 08:59 Future Hold 08/16/17 08:23 40 MG Acetaminophen (Tylenol Tab) 650 mg Q4H PRN PO 08/02/17 20:30 09/01/17 20:29 08/18/17 00:43 650 MG Insulin Aspart (novoLOG ASPART) SLIDING SCALE If C... ACHS SC 08/02/17 22:45 09/01/17 22:44 08/18/17 12:09 7 UNITS Glucose (Glucose 40% Gel) 15-30 GRAMS 15 GRAMS... UD PRN PO 08/02/17 20:30 09/01/17 20:29 Glucose (Glucose Chew Tab) 4-8 Tablets 4 Tabl... UD PRN PO 08/02/17 20:30 09/01/17 20:29 Dextrose (Dextrose 50% 50ML Syringe) 25-50ML OF 50% DW IV FOR... UD PRN IV 08/02/17 20:30 09/01/17 20:29 08/09/17 16:35 25 ML Glucagon (Glucagon Inj) 1 mg UD PRN SQ 08/02/17 20:30 09/01/17 20:29 Tramadol HCl (Ultram Tab) pain not relieved by ot... Q4H PRN PO 08/02/17 20:30 09/01/17 20:29 08/18/17 14:19 50 MG Ibuprofen (Advil Tab) 400 mg Q6H PRN PO 08/02/17 20:30 09/01/17 20:29 08/15/17 23:41 400 MG Lorazepam (Ativan Tab) 0.25 mg HS PRN PO 08/02/17 20:30 09/01/17 20:29 Aspirin (Ecotrin Tab) 81 mg QAM PO 08/03/17 08:00 09/02/17 08:59 Future Hold 08/04/17 07:49 81 MG Miscellaneous Information (Consult Glycemic Management Pharmacy) 1 ea UD N/A 08/04/17 10:41 09/03/17 10:40 Lorazepam (Ativan Tab) 0.5 mg Q12 PRN PO 08/04/17 12:30 09/03/17 12:29 Heparin Sodium (Porcine) (Heparin 10 Unit/ ml 5 ml Flush) 5 ml PRN PRN FLUSH 08/07/17 09:45 09/06/17 09:44 08/18/17 09:31 5 ML Lactobacillus Acidophilus (Floranex Tab) 4 tab TIDM PO 08/07/17 17:00 09/06/17 16:59 08/18/17 12:05 4 TAB Diphenhydramine HCl (Benadryl Cap) 50 mg Q6H PO 08/15/17 22:00 09/14/17 15:59 08/18/17 10:44 50 MG Vancomycin HCl (Consult) 1 ea UD PRN N/A 08/16/17 13:30 09/15/17 13:29 Insulin Glargine (Lantus Solostar Pen) 12 units HS SC 08/17/17 21:00 09/16/17 20:59 08/17/17 21:37 12 UNITS Vancomycin HCl 1750 mg/Sodium Chloride 535 ml @ 200 mls/hr DAILY@1200 IV 08/18/17 12:00 08/28/17 11:59 Future Hold 08/18/17 12:05 200 MLS/HR Hydrocortisone (Hydrocortisone 1% Crm) 1 appln BID PRN EXT 08/18/17 12:45 09/17/17 12:44
[2017-08-18] MEDS: HYDROCORTISONE 1% CR 30 GM TUBE EXT PRN (19:46)
[2017-08-18] MEDS: INSULIN GLARGINE SOLOSTAR 100 UNITS/ML 3 ML PEN SC SCH (20:05)
[2017-08-19 04:32] VITALS: TEMP 36.9
[2017-08-19 07:12] VITALS: BP 120/75; PULSE 70; TEMP 36.8; O2SAT 97
[2017-08-19 07:49] LABS: HEMATOCRIT 26.7 % (37-47); MEAN CELL VOLUME 87.3 fL (80-100); MEAN CORPUSCULAR HEMOGLOBIN 28.1 pg (25-34); MEAN CORPUSCULAR HGB CONC 32.2 g/dl (32-36); MEAN PLATELET VOLUME 9.3 fL (7.4-10.4); PLATELET COUNT 337 K/uL (130-400); RED BLOOD COUNT 3.06 M/uL (4.2-5.4); WHITE BLOOD COUNT 10.92 K/uL (4.8-10.8)
--- NOTE | 2017-08-19 07:52 | Anesthesiology Progress Note ---
Anesthesia Post Op Note Date & Time Aug 19, 2017 at 07:52 Vital Signs Pain Intensity: 4.0 Vital Signs Past 12 Hours Date Time Temp Pulse Resp B/P (MAP) Pulse Ox O2 Delivery O2 Flow Rate FiO2 08/19/17 07:12 36.8 70 16 120/75 (90) 97 Room Air 08/19/17 04:32 36.9 08/19/17 00:35 Room Air 08/18/17 23:34 36.8 64 20 101/64 (76) 93 Room Air 08/18/17 21:00 37.3 08/18/17 20:45 Room Air Notes Mental Status: alert / awake / arousable, participated in evaluation Pt Amnestic to Procedure: Yes Nausea / Vomiting: adequately controlled Pain: adequately controlled Airway Patency, RR, SpO2: stable & adequate BP & HR: stable & adequate Hydration State: stable & adequate Anesthetic Complications: no major complications apparent
[2017-08-19] MEDS: LACTOBACILLUS ACIDOPHILUS (FLORANEX) TAB PO SCH ×3 (07:59→17:21)
[2017-08-19 08:24] LABS: CREATININE 1.17 mg/dl (0.60-1.20)
--- NOTE | 2017-08-19 08:26 | Pharmacy Progress Note ---
Glycemic Control Progress Note Date of Service Aug 19, 2017. Scope Glycemic Pharmacist consulted for glycemic control to write orders per [facility] inpatient glycemic control protocol. Objective Accuchecks BSG (last 24hrs): Test 08/18/17 11:15 08/18/17 16:55 08/18/17 20:02 08/19/17 07:42 Bedside Glucose 112 mg/dl (70-90) 99 mg/dl (70-90) 133 mg/dl (70-90) 72 mg/dl (70-90) HbA1c: Test 08/02/17 17:50 Hemoglobin A1c 11.2 % (4.5-5.6) H Recent Pertinent Medications The patient is currently receiving: * Basal insulin: Lantus 12 units every 24 hours in the evening * Correctional Insulin: Novolog Correction per scale ACHS Goal Range: Low 110 mg/dL - High 140 mg/dL Correction Factor: 25 mg/dL/unit * Prandial insulin: Per carb ratio of 1 unit per 9 grams CHO consumed Outpatient Anti-Diabetic Meds metformin 850 mg BID plus Jardiance 10 mg PO daily (Jardiance not started yet) Assessment & Plan ASSESSMENT: * See progress note from 08/18/17 for more background info, in short: * Pt receiving SQ basal bolus insulin regimen for hyperglycemia secondary to baseline DM (outpatient regimen on hold),infection (diabetic foot infection with MRSA present), POD 2 for second I&D of foot. * Patient is currently receiving an average of 23 units of insulin per day * 12 units of basal insulin * 11 units of prandial/correctional insulin * BSGs ranging 76 - 133 mg/dl over the past 24hrs * Changes needed to insulin regimen: * AM Fasting BSG = 72 mg/dl. This is in slightly below goal range for patient based on inpatient targets and co-morbidities. This fasting blood sugar is slightly decreased from yesterday's fasting of 76 mg/dL. Concern for downwards trend therefore decrease by 10%. * Post-prandial BSGs are in range therefore no changes needed to CF/CR. Note that carbohydrate ratio may be too tight for patient....may loosen to 1 unit for every 10 grams of carbohydrates consumed. * Total daily dose = ~20 units.This dosing is yielding adequate glycemic control. PLAN FOR INPATIENT GLYCEMIC CONTROL: * DECREASE Lantus to 10 units SQ daily in evening * Continuing correction factor of 25 mg/dl/unit * Continuing carb ratio of 1 unit per 9 grams CHO consumed * Continuing goal range of Low 110 mg/dL - High 140 mg/dL RECOMMENDATIONS FOR DISCHARGE: * Please see note from 08/14/17 in which glycemic pharmacist recommended continuing oral agents. Patient may eventually require insulin if adequate glycemic control not achieved. Thank you.
[2017-08-19] MEDS: INSULIN ASPART 100 UNITS/ML 3 ML PEN SC SCH ×4 (09:55→20:40)
--- NOTE | 2017-08-19 10:24 | Orthopedic Progress Note ---
Orthopedic Progress Note Date of Service Aug 19, 2017. Subjective Post OP Day: 2 Reports: feeling well, pain controlled w PO medications, Denies: complaints, chest pain, SOB, nausea / vomiting, light headedness, calf pain Objective calves soft nontender, N/V intact, dressing C/D/I, incision C/D/I, A&O x3, toes mobile mild erythema great toe, no active drainage. Date Time Temp Pulse Resp B/P (MAP) Pulse Ox O2 Delivery O2 Flow Rate FiO2 08/19/17 07:12 36.8 70 16 120/75 (90) 97 Room Air 08/19/17 04:32 36.9 08/19/17 00:35 Room Air 08/18/17 23:34 36.8 64 20 101/64 (76) 93 Room Air 08/18/17 21:00 37.3 08/18/17 20:45 Room Air 08/18/17 19:45 37.6 08/18/17 15:00 37.3 69 18 102/63 (76) 100 Room Air Laboratory Results 24 Hours: Test 08/19/17 07:34 Hematocrit 26.7 % Hemoglobin 8.6 g/dL Assessment & Plan Assessment: POD #2 s/p repeat I&D of right foot -Dressing change and packing pulled today -cont ice/elevate -ID on board- MRSA on Vanco -cont IV Abx as per medicine/ID, PICC in place. (1) Cellulitis of right foot Discharge Planning Discharge Planning: uncertain
--- NOTE | 2017-08-19 10:30 | Progress Note ---
Subjective Date of Service: Aug 19, 2017. Subjective Pt evaluation today including: conversation w/ patient, physical exam, chart review, lab review, conversation w/ peoplesoft hcm consultant pt still with diffuse itchy rash, changed to vanco on Saturday but rash continued to worsen after OR on sat, ? OR meds as cause. cpk nml, LFTS nml. breathing nml , no sob. no f/c today. for dressing change today, tolerating vanco, pain controlled. all remaining ros reviewed and are negative. Problem List Medical Problems: (1) Abnormal brain CT Status: Acute (2) Cellulitis of right foot Status: Acute (3) Dizziness Status: Acute (4) Failure of outpatient treatment Status: Acute (5) Vomiting Status: Acute Objective Vital Signs Date Time Temp Pulse Resp B/P (MAP) Pulse Ox O2 Delivery O2 Flow Rate FiO2 08/19/17 07:12 36.8 70 16 120/75 (90) 97 Room Air 08/19/17 04:32 36.9 08/19/17 00:35 Room Air 08/18/17 23:34 36.8 64 20 101/64 (76) 93 Room Air 08/18/17 21:00 37.3 08/18/17 20:45 Room Air 08/18/17 19:45 37.6 08/18/17 15:00 37.3 69 18 102/63 (76) 100 Room Air Physical Exam General Appearance: WD/WN, no apparent distress Eyes: normal inspection, EOMI Neck: supple Respiratory/Chest: lungs clear, normal breath sounds, no respiratory distress Cardiovascular: regular rate, rhythm, no edema Abdomen: soft Extremities: non-tender, no pedal edema Neurologic/Psychiatric: alert, oriented x 3 Skin: normal color, + rash Comments: dressing c/d/i Laboratory Results Item Value Date Time Blood Culture - Preliminary Resulted 08/16/17 0036 Blood NO GROWTH TO DATE. Blood Culture - Preliminary Resulted 08/16/17 0025 Blood NO GROWTH TO DATE. Gram Stain - Final Complete 08/02/17 0000 Drainage - Surface Foot Right Last 24 Hours Test 08/18/17 11:15 08/18/17 16:55 08/18/17 20:02 08/19/17 07:34 Bedside Glucose 112 mg/dl 99 mg/dl 133 mg/dl White Blood Count 10.92 K/uL Red Blood Count 3.06 M/uL Hemoglobin 8.6 g/dL Hematocrit 26.7 % Mean Corpuscular Volume 87.3 fL Mean Corpuscular Hemoglobin 28.1 pg Mean Corpuscular Hemoglobin Concent 32.2 g/dl RDW Standard Deviation 43.1 fL RDW Coefficient of Variation 13.4 % Platelet Count 337 K/uL Mean Platelet Volume 9.3 fL Creatinine 1.17 mg/dl Est Creatinine Clear Calc Drug Dose 55.5 ml/min Estimated GFR () 58.2 Estimated GFR (Non- 50.3 Test 08/19/17 07:42 Bedside Glucose 72 mg/dl Assessment and Plan (1) Cellulitis of right foot Assessment & Plan: spoke with primary, will change to vanco as ? dapto related , will need 6 weeks IV abx post d/c. picc in place. (2) Fever (3) Drug eruption Assessment & Plan: suspect not related to dapto, will continue vanco for now.
[2017-08-19] MEDS: TRAMADOL HCL 50 MG TAB PO PRN (12:40)
--- NOTE | 2017-08-19 13:42 | Pharmacy Progress Note ---
Pharmacy Abx Dose Progress Nt Date of Service Aug 19, 2017. Pharmacy Dosing Scope The patient is currently receiving the following antimicrobial agents per Pharmacy consult: Vancomycin 1750 mg IV/PO every 24 hours Objective Height (Feet): 5 Height (Inches): 4.00 Weight (Kilograms): 92.100 Vital Signs (Past 12Hrs) Vital Signs Past 12 Hours Date Time Temp Pulse Resp B/P (MAP) Pulse Ox O2 Delivery O2 Flow Rate FiO2 08/19/17 08:00 Room Air 08/19/17 07:12 36.8 70 16 120/75 (90) 97 Room Air 08/19/17 04:32 36.9 Lab Results (24Hrs) Laboratory Tests (24 Hours) Test 08/19/17 07:34 White Blood Count 10.92 K/uL (4.8-10.8) H Micro Results Date/Time Source Procedure Growth Status 08/16/17 00:36 Blood Blood Culture - Preliminary NO GROWTH TO DATE. Resulted 08/16/17 00:25 Blood Blood Culture - Preliminary NO GROWTH TO DATE. Resulted 08/02/17 18:51 Blood Blood Culture - Final NO GROWTH Complete 08/02/17 17:50 Blood Blood Culture - Final NO GROWTH Complete 08/05/17 14:05 Abscess Foot Right Gram Stain - Final Complete 08/05/17 14:05 Bacterial Culture - Final Staphylococcus Aureus Complete 08/05/17 14:05 Abscess Foot Right Gram Stain - Final Complete 08/05/17 14:05 Bacterial Culture - Final Staphylococcus Aureus Complete 08/02/17 00:00 Drainage - Surface Foot Right Gram Stain - Final Complete 08/02/17 00:00 Wound Culture - Final Staphylococcus Aureus Complete Risk Factors for Resistance * Current hospitalization > 5 days * History of infection with a multidrug-resistant organism: MRSA Assessment & Plan Assessment 62 year old female receiving Vancomycin for treatment of diabetic foot ulcer ( MRSA), no evidence of osteomyelitis per MRI 08/04/17. Day # 4 of restarted Vancomycin therapy, Day #10 total therapy with vancomycin. * Trial q24 dosing to facilitate outpatient dosing as patient needs at least 6 weeks of therapy Plan Vancomycin IV * Trough level of 20.8 mcg/mL (appropriately drawn) is slightly supratherapeutic. This level is not reflective of steady state. Css may be higher. * Change to 1500 mg (~16mg/kg) IV every 24 hours; this is a dose reduction of ~ 14% and should result in a lower trough. Next dose slightly delayed to allow time for Vancomycin concentration to decr'. * Goal trough level for cellulitis (diabetic foot ulcer) : 15 to 20 mcg/mL * Trough level ordered for: 08/20 @ 1330 (prior to next dose due) Pharmacy will continue to follow and will adjust dose/frequency as necessary. Thank you.
[2017-08-19] MEDS ORDERED: VANCOMYCIN INJ 1,500 MG in SODIUM CHLORIDE 0.9% 500ML 500 ML IV SCH (14:00)
[2017-08-19] MEDS: ACETAMINOPHEN 325 MG TAB PO PRN (15:43)
[2017-08-19 16:22] VITALS: BP 127/75; PULSE 69; TEMP 37.9; O2SAT 97
--- NOTE | 2017-08-19 19:39 | Progress Note ---
Medicine Progress Note Date & Time of Visit: Aug 19, 2017 at 10:35. Subjective Pt was seen and examined Lying in bed with no distress Pt said that she does not feels itchy anymore Continue to have rash Continue to spike fever denies any fever, chest pain, palpitation and sob Objective Last 8 Hrs Date Time Temp Pulse Resp B/P (MAP) Pulse Ox O2 Delivery O2 Flow Rate FiO2 08/19/17 16:22 37.9 69 18 127/75 (92) 97 Room Air 08/19/17 16:10 Room Air Physical Exam: General-No acute distress Head- atraumatic Eyes- PERRL, EOMI ENT- oropharynx clear Neck- supple, no JVD Lungs- no wheezing Heart- regular rhythm Abdomen- normal bowel sounds, soft Extremities- no calf tenderness, right foot wrapped with dressing Neuro- alert, oriented x 3; PERRL, EOMI; no facial palsy Skin- +diffuse rash Laboratory Results: Last 24 Hours Test 08/18/17 20:02 08/19/17 07:34 08/19/17 07:42 08/19/17 11:45 Bedside Glucose 133 mg/dl 72 mg/dl 102 mg/dl White Blood Count 10.92 K/uL Red Blood Count 3.06 M/uL Hemoglobin 8.6 g/dL Hematocrit 26.7 % Mean Corpuscular Volume 87.3 fL Mean Corpuscular Hemoglobin 28.1 pg Mean Corpuscular Hemoglobin Concent 32.2 g/dl RDW Standard Deviation 43.1 fL RDW Coefficient of Variation 13.4 % Platelet Count 337 K/uL Mean Platelet Volume 9.3 fL Creatinine 1.17 mg/dl Est Creatinine Clear Calc Drug Dose 55.5 ml/min Estimated GFR () 58.2 Estimated GFR (Non- 50.3 Test 08/19/17 11:54 08/19/17 16:48 Vancomycin Level Trough 20.8 mcg/ml Bedside Glucose 141 mg/dl Assessment & Plan SEPSIS DUE TO DIABETIC FOOT INFECTION ON RT SIDE presented with fever, chills, leukocytosis Doppler LE done showed no sonographic evidence of deep venous thrombosis within the right lower extremity. MRI of RLE done Extensive soft tissue swelling and subcutaneous edema about the foot suggests cellulitis with loculated peripherally enhancing collection of the dorsal forefoot measuring 3.2 x 1.2 x 5.3 cm with associated small fluid filled tract extending to the skin surface as above suggesting draining abscess. No evidence of osteomyelitis or acute fracture. Ortho on board s/p Incision and drainage and packing of abscess, right foot on 08/05/17 and on 08/09/17 wound culture -MRSA ; surgical drainage culture + MRSA Continue to have swelling and purulent drainage ID on board will need 6 weeks of IV daptomycin has PICC line placed continue monitor CBC 08/12 S/P I&D on 08/05 and 08/09 WBC elevated this morning to 16K Afebrile Wound continue to drain Ortho plan to go back to OR today for I&D Continue Dapto IV ID on board Continue monitor cbc 08/15 S/P day 3 of 3rd I&D of right great toe/foot Continue IV dapto Daily dressing change WBC trending down wound care consult daily wound care As per wound care nurse no wound vac for now until the skin dry ortho on board 08/16 febrile with elevated WBC repeat blood cx collected last night- pending case discussed with eugene JERRY to changed dapto to vanco for possible drug reaction rash No further surgical intervention as per ortho continue daily wound care continue monitor closely 08/17 WBC trending down Afebrile Plan to go to OR today for more I&D of the big toe and foot Will not sign any consent yet for if decide to amputate her big toe until she gets a second opinion Continue Vanco IV repeat blood cx preliminary report showed 1 bottle no growth ID on board NPO for the procedure 08/19 S/P day#2 of 4th I&D and Irrigation and debridement dorsal right foot by Dr. Pro Pain controlled WBC trending down Continue to spike fever Continue IV Vanco Repeat blood cx no growth ID on board Continue monitor ELEVATED WBC febrile check stool for Cdiff if develops diarrhea get a cxr if complaint of SOB to r/o pna continue monitor CBC On IV Vanco 08/19 On/off febrile WBC trending down 22K--->16K-->12K-->10 continue monitor cbc Blood cx on 08/16 no growth TYPE 2 DM insulin SSI and Lantus ordered HB A1c 11.2 ( poorly controlled ) cosmetology educator consulted oral med on hold pharmacy consulted for glycemic management on Lantus subq BS was 76 today NPO for the procedure Will start on D5W at 60 continue monitor BS HTN BP stable HX OF CVA : hx of occipital CVA uses walker occasionally at home asked not to take statin /Lipitor for 6 weeks while taking Daptomycin , increased risk of Rhabdomyolysis fall precaution HX OF PRIOR LEFT LOWER EXT DVT S/P IVC FILTER PLACEMENT was on Xarelto ,which was discontinued after acute CVA had retrievable IVC filter placed , was removed after 7-8 months of anticoagulation lower ext Doppler negative for DVT Rash Possible related to abx diffuse rash Increase Benadryl to 50mg prn if not improved, will talk to ID for possible to consider to change abx No steroid given due to ongoing wound infection continue monitor slightly improved not sure if it is related to dapto Dapto changed to vanco continue benadryl 50mg 08/19 Rash stable Itchiness improves Seems rash worsening after coming from OR Might be due to Anesthetic agents? Due to ongoing infection, continue to avoid oral steroid continue topical steroid and continue Benadryl If rash continue to get worst, will consult dermatology DVT PROPHYLAXIS will resume lovenox subq DISPOSITION expected to be discharged home with home health visiting nurse when medically stable Medicine follow up with Dr viramontes Ortho follow up with Dr Plummer ID follow up with Dr Peñaloza Consultants: ID Ortho Procedures: I&Dx3 Current Inpatient Medications: Current Inpatient Medications Medications (Trade) Dose Ordered Sig/Donald Route Start Time Stop Time Status Last Admin Dose Admin Enoxaparin Sodium (Lovenox Inj) 40 mg Q24H SQ 08/03/17 09:00 09/02/17 08:59 Future Hold 08/16/17 08:23 40 MG Acetaminophen (Tylenol Tab) 650 mg Q4H PRN PO 08/02/17 20:30 09/01/17 20:29 08/19/17 15:43 650 MG Insulin Aspart (novoLOG ASPART) SLIDING SCALE If C... ACHS SC 08/02/17 22:45 09/01/17 22:44 08/19/17 17:23 5 UNITS Glucose (Glucose 40% Gel) 15-30 GRAMS 15 GRAMS... UD PRN PO 08/02/17 20:30 09/01/17 20:29 Glucose (Glucose Chew Tab) 4-8 Tablets 4 Tabl... UD PRN PO 08/02/17 20:30 09/01/17 20:29 Dextrose (Dextrose 50% 50ML Syringe) 25-50ML OF 50% DW IV FOR... UD PRN IV 08/02/17 20:30 09/01/17 20:29 08/09/17 16:35 25 ML Glucagon (Glucagon Inj) 1 mg UD PRN SQ 08/02/17 20:30 09/01/17 20:29 Tramadol HCl (Ultram Tab) pain not relieved by ot... Q4H PRN PO 08/02/17 20:30 09/01/17 20:29 08/19/17 12:40 50 MG Ibuprofen (Advil Tab) 400 mg Q6H PRN PO 08/02/17 20:30 09/01/17 20:29 08/15/17 23:41 400 MG Lorazepam (Ativan Tab) 0.25 mg HS PRN PO 08/02/17 20:30 09/01/17 20:29 Aspirin (Ecotrin Tab) 81 mg QAM PO 08/03/17 08:00 09/02/17 08:59 Future Hold 08/04/17 07:49 81 MG Miscellaneous Information (Consult Glycemic Management Pharmacy) 1 ea UD N/A 08/04/17 10:41 09/03/17 10:40 Lorazepam (Ativan Tab) 0.5 mg Q12 PRN PO 08/04/17 12:30 09/03/17 12:29 Heparin Sodium (Porcine) (Heparin 10 Unit/ ml 5 ml Flush) 5 ml PRN PRN FLUSH 08/07/17 09:45 09/06/17 09:44 08/19/17 18:07 5 ML Lactobacillus Acidophilus (Floranex Tab) 4 tab TIDM PO 08/07/17 17:00 09/06/17 16:59 08/19/17 17:21 4 TAB Diphenhydramine HCl (Benadryl Cap) 50 mg Q6H PO 08/15/17 22:00 09/14/17 15:59 08/19/17 15:44 50 MG Vancomycin HCl (Consult) 1 ea UD PRN N/A 08/16/17 13:30 09/15/17 13:29 Hydrocortisone (Hydrocortisone 1% Crm) 1 appln BID PRN EXT 08/18/17 12:45 09/17/17 12:44 08/18/17 19:46 1 APPLN Insulin Glargine (Lantus Solostar Pen) 10 units HS SC 08/19/17 21:00 09/18/17 20:59 Vancomycin HCl 1500 mg/Sodium Chloride 530 ml @ 200 mls/hr DAILY@1400 IV 08/19/17 14:00 09/14/17 13:59 Future Hold 08/19/17 14:47 200 MLS/HR
[2017-08-19] MEDS ORDERED: INSULIN GLARGINE SOLOSTAR 100 UNITS/ML 3 ML PEN SC SCH (21:00)
[2017-08-19 23:11] VITALS: BP 114/70; PULSE 68; TEMP 37.2; O2SAT 97
[2017-08-20 07:45] LABS: HEMATOCRIT 27.5 % (37-47); MEAN CELL VOLUME 86.2 fL (80-100); MEAN CORPUSCULAR HEMOGLOBIN 27.6 pg (25-34); MEAN PLATELET VOLUME 9.5 fL (7.4-10.4); PLATELET COUNT 394 K/uL (130-400); RED BLOOD COUNT 3.19 M/uL (4.2-5.4); WHITE BLOOD COUNT 12.42 K/uL (4.8-10.8)
[2017-08-20 08:16] LABS: BUN/CREATININE RATIO 11.1 (10-20); CALCIUM 8.1 mg/dl (8.5-10.1); CREATININE 1.31 mg/dl (0.60-1.20); POTASSIUM 4.4 mmol/L (3.5-5.1)
--- NOTE | 2017-08-20 08:33 | DIAGNOSTIC IMAGING REPORT ---
CHEST ONE VIEW PORTABLE CLINICAL HISTORY: PICC placement. COMPARISON STUDY: No previous studies for comparison. FINDINGS: The tip of the left PICC projects over the left brachiocephalic vein. The catheter could be advanced 6 cm. There is no pneumothorax or pleural effusion. There are cholecystectomy clips. There is no evidence of pulmonary edema. Cardiomediastinal silhouette is unremarkable. IMPRESSION: Tip of left PICC projects over the left brachiocephalic vein. The catheter could be advanced 6 cm. Electronically signed by: Tato Obrien M.D. 08/20/2017 8:31 AM Dictated Date/Time: 08/20/2017 8:29 AM
[2017-08-20 09:01] VITALS: BP 120/74; PULSE 76; TEMP 37.2; O2SAT 97
[2017-08-20] MEDS: LACTOBACILLUS ACIDOPHILUS (FLORANEX) TAB PO SCH ×3 (10:16→17:26)
[2017-08-20] MEDS: INSULIN ASPART 100 UNITS/ML 3 ML PEN SC SCH ×4 (10:27→20:35)
[2017-08-20 11:48] VITALS: BP 112/62; PULSE 64; TEMP 37.2; O2SAT 97
[2017-08-20] MEDS ORDERED: VANCOMYCIN TROUGH ONE (13:30)
--- NOTE | 2017-08-20 14:45 | Progress Note ---
Subjective Date of Service: Aug 20, 2017. Subjective repeat blood cultures negative, fever improved, tolerating vanco. Problem List Medical Problems: (1) Abnormal brain CT Status: Acute (2) Cellulitis of right foot Status: Acute (3) Dizziness Status: Acute (4) Failure of outpatient treatment Status: Acute (5) Vomiting Status: Acute Objective Vital Signs Date Time Temp Pulse Resp B/P (MAP) Pulse Ox O2 Delivery O2 Flow Rate FiO2 08/20/17 11:48 37.2 64 12 112/62 (79) 97 08/20/17 09:01 37.2 76 18 120/74 (89) 97 Room Air 08/20/17 08:00 Room Air 08/20/17 00:00 Room Air 08/19/17 23:11 37.2 68 18 114/70 (85) 97 Room Air 08/19/17 20:00 Room Air 08/19/17 16:22 37.9 69 18 127/75 (92) 97 Room Air 08/19/17 16:10 Room Air Laboratory Results Last 24 Hours Test 08/19/17 16:48 08/19/17 20:15 08/20/17 07:24 08/20/17 08:22 Bedside Glucose 141 mg/dl 104 mg/dl 103 mg/dl White Blood Count 12.42 K/uL Red Blood Count 3.19 M/uL Hemoglobin 8.8 g/dL Hematocrit 27.5 % Mean Corpuscular Volume 86.2 fL Mean Corpuscular Hemoglobin 27.6 pg Mean Corpuscular Hemoglobin Concent 32.0 g/dl RDW Standard Deviation 42.2 fL RDW Coefficient of Variation 13.3 % Platelet Count 394 K/uL Mean Platelet Volume 9.5 fL Sodium Level 137 mmol/L Potassium Level 4.4 mmol/L Chloride Level 103 mmol/L Carbon Dioxide Level 27 mmol/L Anion Gap 7.0 mmol/L Blood Urea Nitrogen 15 mg/dl Creatinine 1.31 mg/dl Est Creatinine Clear Calc Drug Dose 49.6 ml/min Estimated GFR () 50.8 Estimated GFR (Non- 43.8 BUN/Creatinine Ratio 11.1 Random Glucose 76 mg/dl Calcium Level 8.1 mg/dl Test 08/20/17 11:45 08/20/17 13:52 Bedside Glucose 126 mg/dl Assessment and Plan (1) Cellulitis of right foot Assessment & Plan: will need 6 weeks IV abx post d/c. picc in place. unclear if rash to vanco or OR medications. will continue with vanco, maintain trough 15 -20 (2) Fever (3) Drug eruption
[2017-08-20 15:10] VITALS: BP 113/63; PULSE 72; TEMP 37.7; O2SAT 100
--- NOTE | 2017-08-20 15:15 | Orthopedic Progress Note ---
Orthopedic Progress Note Date of Service Aug 20, 2017. Subjective Additional Notes: Patient is postop day 4 from her latest washout of the foot. She is sitting in her chair watching TV and has no new complaints. She states that the pain has been controlled quite well. She has noticed there has been some increased drainage on the dressing since yesterday when it was changed and the packing removed. Objective Dressings were removed and after seeing it several days since Saturday of her last irrigation debridement, the great toe does look better. There is much less erythema at the tip of the great toe but some dusky erythema remains from the DIP joint to the MP joint. Light erythema over the dorsum of the foot with the portion of the wound that still remains open but no. At discharge. Inspecting the plantar surface, she has some slight mottling of the skin between the first and second toes. No purulent drainage that I can see at this time. Spreading the toes apart to look at the wound causes her some slight discomfort. The wound was redressed with Xeroform gauze, 4 x 4's, and Kerlix. An Lincoln wrap was then placed around the whole dressing Date Time Temp Pulse Resp B/P (MAP) Pulse Ox O2 Delivery O2 Flow Rate FiO2 08/20/17 11:48 37.2 64 12 112/62 (79) 97 08/20/17 09:01 37.2 76 18 120/74 (89) 97 Room Air 08/20/17 08:00 Room Air 08/20/17 00:00 Room Air 08/19/17 23:11 37.2 68 18 114/70 (85) 97 Room Air 08/19/17 20:00 Room Air 08/19/17 16:22 37.9 69 18 127/75 (92) 97 Room Air 08/19/17 16:10 Room Air Laboratory Results 24 Hours: Test 08/20/17 07:24 Hematocrit 27.5 % Hemoglobin 8.8 g/dL Assessment & Plan Assessment: POD #4 s/p repeat I&D of right foot Plan: Continue IV antibx Continue elevation when at rest Will discuss with Dr Pro about the wound itself. Will need to continue to watch plantar surface and between the toes. Will have wound care check wound daily. (1) Cellulitis of right foot
--- NOTE | 2017-08-20 15:28 | Pharmacy Progress Note ---
Pharmacy Abx Dose Progress Nt Date of Service Aug 20, 2017. Pharmacy Dosing Scope The patient is currently receiving the following antimicrobial agents per Pharmacy consult: Vancomycin 1500 mg IV every 24 hours Objective Height (Feet): 5 Height (Inches): 4.00 Weight (Kilograms): 92.100 Vital Signs (Past 12Hrs) Vital Signs Past 12 Hours Date Time Temp Pulse Resp B/P (MAP) Pulse Ox O2 Delivery O2 Flow Rate FiO2 08/20/17 15:10 37.7 72 16 113/63 (80) 100 Room Air 08/20/17 11:48 37.2 64 12 112/62 (79) 97 08/20/17 09:01 37.2 76 18 120/74 (89) 97 Room Air 08/20/17 08:00 Room Air Lab Results (24Hrs) Laboratory Tests (24 Hours) Item Value Date Time Creatinine 1.31 mg/dl H 08/20/17 0724 Vancomycin Level Trough 21.9 mcg/ml 08/20/17 1352 Test 08/20/17 07:24 White Blood Count 12.42 K/uL (4.8-10.8) H Micro Results Date/Time Source Procedure Growth Status 08/16/17 00:36 Blood Blood Culture - Preliminary NO GROWTH TO DATE. Resulted 08/16/17 00:25 Blood Blood Culture - Preliminary NO GROWTH TO DATE. Resulted 08/02/17 18:51 Blood Blood Culture - Final NO GROWTH Complete 08/02/17 17:50 Blood Blood Culture - Final NO GROWTH Complete 08/05/17 14:05 Abscess Foot Right Gram Stain - Final Complete 08/05/17 14:05 Bacterial Culture - Final Staphylococcus Aureus Complete 08/05/17 14:05 Abscess Foot Right Gram Stain - Final Complete 08/05/17 14:05 Bacterial Culture - Final Staphylococcus Aureus Complete 08/02/17 00:00 Drainage - Surface Foot Right Gram Stain - Final Complete 08/02/17 00:00 Wound Culture - Final Staphylococcus Aureus Complete Risk Factors for Resistance * Current hospitalization > 5 days * History of infection with a multidrug-resistant organism: MRSA Assessment & Plan Assessment 62 year old female receiving Vancomycin for treatment of diabetic foot ulcer ( MRSA), no evidence of osteomyelitis per MRI 08/04/17. Day # 5 of restarted Vancomycin therapy, Day #11 total therapy with vancomycin. * Trial q24 dosing to facilitate outpatient dosing as patient needs at least 6 weeks of therapy Plan Vancomycin IV * Trough level of 21.9 mcg/mL (appropriately drawn) is slightly supratherapeutic. This level is not reflective of steady state. Css may be higher. * Change to 1250 mg (~13.6mg/kg) IV every 24 hours; this is a dose reduction of ~16% and should result in a lower trough. Next dose slightly delayed to allow time for Vancomycin concentration to decr'. * Goal trough level for cellulitis (diabetic foot ulcer) : 15 to 20 mcg/mL * Trough level ordered for: 08/21 @ 1530 (prior to next dose due) Pharmacy will continue to follow and will adjust dose/frequency as necessary. Thank you.
[2017-08-20] MEDS: VANCOMYCIN INJ 1,250 MG in SODIUM CHLORIDE 0.9% 250ML 250 ML IV SCH (15:50)
--- NOTE | 2017-08-20 18:42 | Progress Note ---
Medicine Progress Note Date & Time of Visit: Aug 20, 2017 at 18:34. Subjective Pt was seen and examined Lying in bed with no distress Rash slightly improved she has no fever last night denies any chest pain, palpitation, dizziness and sob Objective Last 8 Hrs Date Time Temp Pulse Resp B/P (MAP) Pulse Ox O2 Delivery O2 Flow Rate FiO2 08/20/17 15:10 37.7 72 16 113/63 (80) 100 Room Air 08/20/17 11:48 37.2 64 12 112/62 (79) 97 Physical Exam: General-No acute distress Head- atraumatic Eyes- PERRL, EOMI ENT- oropharynx clear Neck- supple, no JVD Lungs- no wheezing Heart- regular rhythm Abdomen- normal bowel sounds, soft Extremities- no calf tenderness, right foot wrapped with dressing Neuro- alert, oriented x 3; PERRL, EOMI; no facial palsy Skin- +diffuse rash Laboratory Results: Last 24 Hours Test 08/19/17 20:15 08/20/17 07:24 08/20/17 08:22 08/20/17 11:45 Bedside Glucose 104 mg/dl 103 mg/dl 126 mg/dl White Blood Count 12.42 K/uL Red Blood Count 3.19 M/uL Hemoglobin 8.8 g/dL Hematocrit 27.5 % Mean Corpuscular Volume 86.2 fL Mean Corpuscular Hemoglobin 27.6 pg Mean Corpuscular Hemoglobin Concent 32.0 g/dl RDW Standard Deviation 42.2 fL RDW Coefficient of Variation 13.3 % Platelet Count 394 K/uL Mean Platelet Volume 9.5 fL Sodium Level 137 mmol/L Potassium Level 4.4 mmol/L Chloride Level 103 mmol/L Carbon Dioxide Level 27 mmol/L Anion Gap 7.0 mmol/L Blood Urea Nitrogen 15 mg/dl Creatinine 1.31 mg/dl Est Creatinine Clear Calc Drug Dose 49.6 ml/min Estimated GFR () 50.8 Estimated GFR (Non- 43.8 BUN/Creatinine Ratio 11.1 Random Glucose 76 mg/dl Calcium Level 8.1 mg/dl Test 08/20/17 13:52 08/20/17 16:21 Vancomycin Level Trough 21.9 mcg/ml Bedside Glucose 145 mg/dl Assessment & Plan SEPSIS DUE TO DIABETIC FOOT INFECTION ON RT SIDE presented with fever, chills, leukocytosis Doppler LE done showed no sonographic evidence of deep venous thrombosis within the right lower extremity. MRI of RLE done Extensive soft tissue swelling and subcutaneous edema about the foot suggests cellulitis with loculated peripherally enhancing collection of the dorsal forefoot measuring 3.2 x 1.2 x 5.3 cm with associated small fluid filled tract extending to the skin surface as above suggesting draining abscess. No evidence of osteomyelitis or acute fracture. Ortho on board s/p Incision and drainage and packing of abscess, right foot on 08/05/17 and on 08/09/17 wound culture -MRSA ; surgical drainage culture + MRSA Continue to have swelling and purulent drainage ID on board will need 6 weeks of IV daptomycin has PICC line placed continue monitor CBC 08/12 S/P I&D on 08/05 and 08/09 WBC elevated this morning to 16K Afebrile Wound continue to drain Ortho plan to go back to OR today for I&D Continue Dapto IV ID on board Continue monitor cbc 08/15 S/P day 3 of I&D of right great toe/foot Continue IV dapto Daily dressing change WBC trending down wound care consult daily wound care As per wound care nurse no wound vac for now until the skin dry ortho on board 08/16 febrile with elevated WBC repeat blood cx collected last night- pending case discussed with eugene JERRY to changed dapto to vanco for possible drug reaction rash No further surgical intervention as per ortho continue daily wound care continue monitor closely 08/17 WBC trending down Afebrile Plan to go to OR today for more I&D of the big toe and foot Will not sign any consent yet for if decide to amputate her big toe until she gets a second opinion Continue Vanco IV repeat blood cx preliminary report showed 1 bottle no growth ID on board NPO for the procedure 08/20 S/P day#3 of 4th I&D and Irrigation and debridement dorsal right foot by Dr. Pro Pain controlled WBC 12K today febrile yesterday around 1600 Continue IV Vanco with vanco trough btw 15 to 20 Repeat blood cx no growth ID on board Continue monitor daily wound care wound care team on board ELEVATED WBC febrile check stool for Cdiff if develops diarrhea get a cxr if complaint of SOB to r/o pna continue monitor CBC On IV Vanco 08/20 On/off febrile WBC trending down 22K--->16K-->12K-->10K-->12K continue monitor cbc Blood cx on 08/16 no growth Continue IV vanco TYPE 2 DM insulin SSI and Lantus ordered HB A1c 11.2 ( poorly controlled ) clinical unit educator consulted oral med on hold pharmacy consulted for glycemic management on Lantus subq BS was 76 today NPO for the procedure Will start on D5W at 60 continue monitor BS HTN BP stable HX OF CVA : hx of occipital CVA uses walker occasionally at home asked not to take statin /Lipitor for 6 weeks while taking Daptomycin , increased risk of Rhabdomyolysis fall precaution HX OF PRIOR LEFT LOWER EXT DVT S/P IVC FILTER PLACEMENT was on Xarelto ,which was discontinued after acute CVA had retrievable IVC filter placed , was removed after 7-8 months of anticoagulation lower ext Doppler negative for DVT Rash Possible related to abx diffuse rash Increase Benadryl to 50mg prn if not improved, will talk to ID for possible to consider to change abx No steroid given due to ongoing wound infection continue monitor slightly improved not sure if it is related to dapto Dapto changed to vanco continue benadryl 50mg 08/20 Rash slightly improved Itchiness improves Seems rash worsening after coming from OR Might be due to Anesthetic agents? Due to ongoing infection, continue to avoid oral steroid continue topical steroid and continue Benadryl Continue monitor DVT PROPHYLAXIS Resume lovenox subq DISPOSITION expected to be discharged home with home health visiting nurse when medically stable Medicine follow up with Dr viramontes Ortho follow up with Dr Plummer ID follow up with Dr Peñaloza Consultants: ID Ortho Procedures: I&Dx3 Current Inpatient Medications: Current Inpatient Medications Medications (Trade) Dose Ordered Sig/Donald Route Start Time Stop Time Status Last Admin Dose Admin Enoxaparin Sodium (Lovenox Inj) 40 mg Q24H SQ 08/03/17 09:00 09/02/17 08:59 Future Hold 08/16/17 08:23 40 MG Acetaminophen (Tylenol Tab) 650 mg Q4H PRN PO 08/02/17 20:30 09/01/17 20:29 08/19/17 15:43 650 MG Insulin Aspart (novoLOG ASPART) SLIDING SCALE If C... ACHS SC 08/02/17 22:45 09/01/17 22:44 08/20/17 17:25 9 UNITS Glucose (Glucose 40% Gel) 15-30 GRAMS 15 GRAMS... UD PRN PO 08/02/17 20:30 09/01/17 20:29 Glucose (Glucose Chew Tab) 4-8 Tablets 4 Tabl... UD PRN PO 08/02/17 20:30 09/01/17 20:29 Dextrose (Dextrose 50% 50ML Syringe) 25-50ML OF 50% DW IV FOR... UD PRN IV 08/02/17 20:30 09/01/17 20:29 08/09/17 16:35 25 ML Glucagon (Glucagon Inj) 1 mg UD PRN SQ 08/02/17 20:30 09/01/17 20:29 Tramadol HCl (Ultram Tab) pain not relieved by ot... Q4H PRN PO 08/02/17 20:30 09/01/17 20:29 08/19/17 12:40 50 MG Ibuprofen (Advil Tab) 400 mg Q6H PRN PO 08/02/17 20:30 09/01/17 20:29 08/15/17 23:41 400 MG Lorazepam (Ativan Tab) 0.25 mg HS PRN PO 08/02/17 20:30 09/01/17 20:29 Aspirin (Ecotrin Tab) 81 mg QAM PO 08/03/17 08:00 09/02/17 08:59 Future Hold 08/04/17 07:49 81 MG Miscellaneous Information (Consult Glycemic Management Pharmacy) 1 ea UD N/A 08/04/17 10:41 09/03/17 10:40 Lorazepam (Ativan Tab) 0.5 mg Q12 PRN PO 08/04/17 12:30 09/03/17 12:29 Heparin Sodium (Porcine) (Heparin 10 Unit/ ml 5 ml Flush) 5 ml PRN PRN FLUSH 08/07/17 09:45 09/06/17 09:44 08/20/17 13:56 5 ML Lactobacillus Acidophilus (Floranex Tab) 4 tab TIDM PO 08/07/17 17:00 09/06/17 16:59 08/20/17 17:26 4 TAB Diphenhydramine HCl (Benadryl Cap) 50 mg Q6H PO 08/15/17 22:00 09/14/17 15:59 08/20/17 15:54 50 MG Vancomycin HCl (Consult) 1 ea UD PRN N/A 08/16/17 13:30 09/15/17 13:29 Hydrocortisone (Hydrocortisone 1% Crm) 1 appln BID PRN EXT 08/18/17 12:45 09/17/17 12:44 08/18/17 19:46 1 APPLN Insulin Glargine (Lantus Solostar Pen) 10 units HS SC 08/20/17 21:00 09/19/17 20:59 Vancomycin HCl 1250 mg/Sodium Chloride 275 ml @ 125 mls/hr DAILY@1600 IV 08/20/17 16:00 09/14/17 15:59 08/20/17 15:50 125 MLS/HR
[2017-08-20] MEDS: HYDROCORTISONE 1% CR 30 GM TUBE EXT PRN (18:47)
[2017-08-20] MEDS: HEPARIN SOD 5000 UNIT/0.5 ML CARP SQ SCH (20:39)
[2017-08-20] MEDS: INSULIN GLARGINE SOLOSTAR 100 UNITS/ML 3 ML PEN SC SCH (20:39)
[2017-08-20] MEDS ORDERED: INSULIN GLARGINE SOLOSTAR 100 UNITS/ML 3 ML PEN SC SCH (21:00)
[2017-08-20 23:07] VITALS: BP 140/69; PULSE 74; TEMP 37.3; O2SAT 97
[2017-08-21] MEDS: HEPARIN SOD 5000 UNIT/0.5 ML CARP SQ SCH ×3 (05:57→22:10)
[2017-08-21 07:37] VITALS: BP 140/83; PULSE 67; TEMP 36.8; O2SAT 97
[2017-08-21 08:16] LABS: BASO % 0.3 %; BASO ABS # 0.03 K/uL (0-0.2); EOS % 8.9 %; HEMATOCRIT 24.6 % (37-47); IG% 0.7 %; LYMPH % 21.6 %; LYMPH ABS # 2.43 K/uL (1.2-3.4); MEAN CELL VOLUME 87.2 fL (80-100); MEAN CORPUSCULAR HEMOGLOBIN 27.7 pg (25-34); MEAN CORPUSCULAR HGB CONC 31.7 g/dl (32-36); MEAN PLATELET VOLUME 9.6 fL (7.4-10.4); MONO % 7.6 %; NEUT % 60.9 %; PLATELET COUNT 342 K/uL (130-400); RED BLOOD COUNT 2.82 M/uL (4.2-5.4); WHITE BLOOD COUNT 11.26 K/uL (4.8-10.8)
[2017-08-21] MEDS: TRAMADOL HCL 50 MG TAB PO PRN ×2 (08:34→22:11)
[2017-08-21] MEDS: LACTOBACILLUS ACIDOPHILUS (FLORANEX) TAB PO SCH ×3 (08:34→16:21)
[2017-08-21 08:36] LABS: COMPLETE YES; HYPOCHROMIA PRESENT
[2017-08-21] MEDS: INSULIN ASPART 100 UNITS/ML 3 ML PEN SC SCH ×4 (08:37→20:31)
[2017-08-21 08:39] LABS: CREATININE 1.19 mg/dl (0.60-1.20)
[2017-08-21 08:40] LABS: BUN/CREATININE RATIO 11.7 (10-20); CALCIUM 7.6 mg/dl (8.5-10.1); POTASSIUM 4.3 mmol/L (3.5-5.1)
[2017-08-21] MEDS: HYDROCORTISONE 1% CR 30 GM TUBE EXT PRN (08:50)
--- NOTE | 2017-08-21 13:07 | Pharmacy Progress Note ---
Pharmacy Glycemic Sign Off Nt Date of Service Aug 21, 2017. Assessment & Plan ASSESSMENT: * Pharmacy was consulted by Dr Haddad on 08/04/17 for glycemic control and to write orders per [facility] inpatient glycemic control protocol. * Major changes made by pharmacy to antidiabetic regimen include: * titration of Lantus from 14 units daily to 10 units daily * Patient has been receiving/requiring 25 units of insulin per day for adequate glycemic control * BSGs ranging 76 - 145 mg/dl * Regimen has only required minor adjustments over the past 48hrs to achieve this level of control * Do not anticipate further changes in patient status that would quickly deteriorate glycemic control (i.e. patient to be NPO for upcoming procedure, steroids tapering, starting tube feedings, etc). * Please see recommendations for outpatient antidiabetic regimen below. PLAN FOR INPATIENT GLYCEMIC CONTROL: No changes needed to current regimen. * Continue basal insulin with Lantus 10 units SQ HS * Continue NovoLog per scale ACHS/Q6hrs while NPO * Goal range = 110- 140 mg/dl * CF = 25 mg/dl/unit * CR = 1 unit for ever 9 g CHO consumed * A1c added to discharge instructions to be communicated to PCP. * Pharmacy is signing off of glycemic consult and will no longer be making adjustments to inpatient regimen. Please feel free to re-consult if needed. Thank you. DISCHARGE RECOMMENDATIONS: * A1c 11.2 % on 08/02/17 * Please see note from 08/14/17 regarding discharge recommendations
[2017-08-21 14:45] VITALS: BP 142/64; PULSE 68; TEMP 36.9; O2SAT 100
--- NOTE | 2017-08-21 15:14 | Orthopedic Progress Note ---
Orthopedic Progress Note Date of Service Aug 21, 2017. Subjective Additional Notes: Patient is sitting in her chair watching TV upon entering the room. She is awake and alert and oriented 3. Victoria Boss is present to look at the wound during the dressing change. Patient has no new complaints Objective Dressing from the right foot is removed. There seems to be a bit less drainage on the dressing compared to the previous days dressing. I feel there is a little bit less erythema over the great toe. The dorsum of the foot continues to look improved. She continues to have some maceration between the first and second toes. Aquacel AG was placed between the first and second toes. This was then covered with 4 x 4's and a Kerlix wrap. Date Time Temp Pulse Resp B/P (MAP) Pulse Ox O2 Delivery O2 Flow Rate FiO2 08/21/17 14:45 36.9 68 18 142/64 (90) 100 Room Air 08/21/17 08:07 Room Air 08/21/17 08:00 Room Air 08/21/17 07:37 36.8 67 18 140/83 (102) 97 Room Air 08/21/17 00:00 Room Air 08/20/17 23:07 37.3 74 18 140/69 (92) 97 Room Air 08/20/17 16:00 Room Air Laboratory Results 24 Hours: Test 08/21/17 07:21 White Blood Count 11.26 K/uL Red Blood Count 2.82 M/uL Hemoglobin 7.8 g/dL Hematocrit 24.6 % Mean Corpuscular Volume 87.2 fL Mean Corpuscular Hemoglobin 27.7 pg Mean Corpuscular Hemoglobin Concent 31.7 g/dl Platelet Count 342 K/uL Mean Platelet Volume 9.6 fL Neutrophils (%) (Auto) 60.9 % Lymphocytes (%) (Auto) 21.6 % Monocytes (%) (Auto) 7.6 % Eosinophils (%) (Auto) 8.9 % Basophils (%) (Auto) 0.3 % Neutrophils # (Auto) 6.86 K/uL Lymphocytes # (Auto) 2.43 K/uL Monocytes # (Auto) 0.86 K/uL Eosinophils # (Auto) 1.00 K/uL Basophils # (Auto) 0.03 K/uL Assessment & Plan Assessment: POD #5 s/p repeat I&D of right foot Plan: Seeing slight improvement in the cellulitis portion. We would like to see a little bit less drainage and less maceration of the tissues between the toes. Continue IV antibx Continue elevation when at rest Plan for dressing change tomorrow. I don't believe she will need another irrigation and debridement but will make final decision tomorrow after her dressing change. (1) Cellulitis of right foot
[2017-08-21] MEDS ORDERED: VANCOMYCIN TROUGH ONE (15:30)
[2017-08-21 16:00] VITALS: O2SAT 100
[2017-08-21] MEDS: VANCOMYCIN INJ 1,250 MG in SODIUM CHLORIDE 0.9% 250ML 250 ML IV SCH (16:19)
--- NOTE | 2017-08-21 16:24 | Pharmacy Progress Note ---
Pharmacy Abx Dose Short Note Date of Service Aug 21, 2017. Assessment & Plan Assessment 62 year old female receiving Vancomycin for treatment of diabetic foot ulcer ( MRSA), no evidence of osteomyelitis per MRI 08/04/17. Day # 6 of restarted Vancomycin therapy, Day #11 total therapy with vancomycin. * Trial q24 dosing to facilitate outpatient dosing as patient needs at least 6 weeks of therapy SCr slightly improved today Plan Vancomycin * Trough level of 18.3 mcg/mL is therapeutic * Continue dose of 1250 mg IV every 24 hours * Goal trough level for MRSA diabetic foot ulcer : 15 to 20 mcg/mL * If SCr remains the same or improved further tomorrow, will consider increasing back to 1500 mg q24h since level may continue to fall on this dose * Will plan to f/u tomorrow Pharmacy will continue to follow and will adjust dose/frequency as necessary. Thank you.
--- NOTE | 2017-08-21 18:36 | Progress Note ---
Internal Med Progress Note Date of Service: Aug 21, 2017. Provider Documentation: SUBJECTIVE: broke out it generalized hives and rash after IV Vancomycin having itching on extremities no SOB very disappointed with repeat drug reaction OBJECTIVE: Vital Signs-as noted below Exam: General-anxious Eyes-sclera non icteric ENT-NAD Neck-no JVD Lungs-CTA , no wheeze or rales Heart-regular S1/s2 Abdomen-soft, non tender Extremities-generalized rash involving face , shoulder , back , extremities and torso rt foot in bandage to drainage Neuro-no focal deficit , AAO x3 Lab data as noted below. ASSESSMENT & PLAN: DRUG REACTION: developed diffuse rash after IV Vancomycin has similar symptom with IV daptomycin as well pt is continued with Benadryl added H1 randal -Pepcid Vancomycin D/melina will D/w ID regarding alternate Abx -Delvance ? SEPSIS DUE TO DIABETIC FOOT INFECTION ON RT SIDE presented with fever, chills, leukocytosis Doppler LE done showed no sonographic evidence of deep venous thrombosis within the right lower extremity. MRI of RLE done Extensive soft tissue swelling and subcutaneous edema about the foot suggests cellulitis with loculated peripherally enhancing collection of the dorsal forefoot measuring 3.2 x 1.2 x 5.3 cm with associated small fluid filled tract extending to the skin surface as above suggesting draining abscess. No evidence of osteomyelitis or acute fracture. Ortho on board s/p multiple Incision and drainage and packing of abscess, right foot wound culture -MRSA ; surgical drainage culture + MRSA Continue to have swelling and purulent drainage ID on board will need 6 weeks of IV Abx has PICC line placed S/P day#4 of 4th I&D and Irrigation and debridement dorsal right foot by Dr. Pro pt developed drug rash while on Daptomycin ABx changed to IV Vancomycin developed diffuse rash today after IV Vancomycin infusion Vancomycin D/melina will D/w ID for abx regimen TYPE 2 DM insulin SSI and Lantus ordered HB A1c 11.2 ( poorly controlled ) yard jacker consulted oral med on hold pharmacy consulted for glycemic management on Lantus subq HTN BP stable HX OF CVA : hx of occipital CVA uses walker occasionally at home asked not to take statin /Lipitor for 6 weeks while taking Daptomycin , increased risk of Rhabdomyolysis fall precaution HX OF PRIOR LEFT LOWER EXT DVT S/P IVC FILTER PLACEMENT was on Xarelto ,which was discontinued after acute CVA had retrievable IVC filter placed , was removed after 7-8 months of anticoagulation lower ext Doppler negative for DVT DVT PROPHYLAXIS Resume Lovenox subq DISPOSITION expected to be discharged home with home health visiting nurse Medicine follow up with Dr viramontes Ortho follow up with Dr Plummer ID follow up with Dr Peñaloza Consultants: [facility] Ortho Procedures: I&Dx3 Vital Signs: Date Time Temp Pulse Resp B/P (MAP) Pulse Ox O2 Delivery O2 Flow Rate FiO2 08/21/17 20:25 37.3 08/21/17 19:42 Room Air 08/21/17 16:00 100 Room Air 08/21/17 14:45 36.9 68 18 142/64 (90) 100 Room Air 08/21/17 08:07 Room Air 08/21/17 08:00 Room Air 08/21/17 07:37 36.8 67 18 140/83 (102) 97 Room Air 08/21/17 00:00 Room Air 08/20/17 23:07 37.3 74 18 140/69 (92) 97 Room Air Lab Results: Results Past 24 Hours Test 08/21/17 07:21 08/21/17 07:54 08/21/17 11:33 08/21/17 15:35 Range/Units White Blood Count 11.26 4.8-10.8 K/uL Red Blood Count 2.82 4.2-5.4 M/uL Hemoglobin 7.8 12.0-16.0 g/dL Hematocrit 24.6 37-47 % Mean Corpuscular Volume 87.2 80-100 fL Mean Corpuscular Hemoglobin 27.7 25-34 pg Mean Corpuscular Hemoglobin Concent 31.7 32-36 g/dl Platelet Count 342 130-400 K/uL Mean Platelet Volume 9.6 7.4-10.4 fL Neutrophils (%) (Auto) 60.9 % Lymphocytes (%) (Auto) 21.6 % Monocytes (%) (Auto) 7.6 % Eosinophils (%) (Auto) 8.9 % Basophils (%) (Auto) 0.3 % Neutrophils # (Auto) 6.86 1.4-6.5 K/uL Lymphocytes # (Auto) 2.43 1.2-3.4 K/uL Monocytes # (Auto) 0.86 0.11-0.59 K/uL Eosinophils # (Auto) 1.00 0-0.5 K/uL Basophils # (Auto) 0.03 0-0.2 K/uL RDW Standard Deviation 43.1 36.4-46.3 fL RDW Coefficient of Variation 13.4 11.5-14.5 % Immature Granulocyte % (Auto) 0.7 % Immature Granulocyte # (Auto) 0.08 0.00-0.02 K/uL Hypochromasia PRESENT Sodium Level 139 136-145 mmol/L Potassium Level 4.3 3.5-5.1 mmol/L Chloride Level 106 98-107 mmol/L Carbon Dioxide Level 29 21-32 mmol/L Anion Gap 5.0 3-11 mmol/L Blood Urea Nitrogen 14 7-18 mg/dl Creatinine 1.19 0.60-1.20 mg/dl Est Creatinine Clear Calc Drug Dose 54.6 ml/min Estimated GFR () 57.1 Estimated GFR (Non- 49.2 BUN/Creatinine Ratio 11.7 10-20 Random Glucose 75 70-99 mg/dl Calcium Level 7.6 8.5-10.1 mg/dl Bedside Glucose 92 107 70-90 mg/dl Vancomycin Level Trough 18.3 SEE COMMENT mcg/ml
[2017-08-21] MEDS ORDERED: DiphenhydrAMINE HCL 50 MG/ML VIAL IV STA (18:56)
[2017-08-21] MEDS ORDERED: DiphenhydrAMINE HCL 50 MG/ML VIAL ONE (19:00)
[2017-08-21] MEDS: FAMOTIDINE IV INJ 20 MG in DEXTROSE 5% 100ML 100 ML IV SCH (19:32)
[2017-08-21 20:25] VITALS: TEMP 37.3
[2017-08-21] MEDS: INSULIN GLARGINE SOLOSTAR 100 UNITS/ML 3 ML PEN SC SCH (20:30)
[2017-08-21] MEDS: ACETAMINOPHEN 325 MG TAB PO PRN (20:34)
[2017-08-21] MEDS: DiphenhydrAMINE 2%/ZINC 0.1% CREAM 28GM TUBE EXT PRN (20:35)
[2017-08-22] VITALS (8 sets, daily range): BP systolic 131–179; BP diastolic 71–95; PULSE 62–68; TEMP 36.6–37.2; O2SAT 98–100
[2017-08-22] MEDS: HEPARIN SOD 5000 UNIT/0.5 ML CARP SQ SCH ×3 (05:56→21:29)
[2017-08-22 08:12] LABS: CREATININE 1.13 mg/dl (0.60-1.20)
[2017-08-22 08:35] LABS: HEMATOCRIT 26.5 % (37-47); MEAN CELL VOLUME 87.2 fL (80-100); MEAN CORPUSCULAR HEMOGLOBIN 27.6 pg (25-34); MEAN CORPUSCULAR HGB CONC 31.7 g/dl (32-36); MEAN PLATELET VOLUME 9.5 fL (7.4-10.4); PLATELET COUNT 363 K/uL (130-400); RED BLOOD COUNT 3.04 M/uL (4.2-5.4); WHITE BLOOD COUNT 10.14 K/uL (4.8-10.8)
[2017-08-22] MEDS: LACTOBACILLUS ACIDOPHILUS (FLORANEX) TAB PO SCH ×3 (08:36→16:49)
[2017-08-22] MEDS: FAMOTIDINE IV INJ 20 MG in DEXTROSE 5% 100ML 100 ML IV SCH ×2 (08:36→19:42)
[2017-08-22] MEDS: DiphenhydrAMINE 2%/ZINC 0.1% CREAM 28GM TUBE EXT PRN ×2 (08:37→19:42)
[2017-08-22] MEDS: HYDROCORTISONE 1% CR 30 GM TUBE EXT PRN (08:37)
[2017-08-22] MEDS: INSULIN ASPART 100 UNITS/ML 3 ML PEN SC SCH ×4 (08:40→21:06)
--- NOTE | 2017-08-22 10:28 | Orthopedic Progress Note ---
Orthopedic Progress Note Date of Service Aug 22, 2017. Subjective Additional Notes: Pt feels about the same, diffuse rash noted upper and lower extremities, Vanco d /c'd per medicine Objective Dressing changed with Yenni Healy and Victoria Boss, less drainage overall, continued drainage plantar base of 1st toe/1st webspace, significant tenderness plantar 2nd MTP region, new dressing with Aquacell, xeroform applied Date Time Temp Pulse Resp B/P (MAP) Pulse Ox O2 Delivery O2 Flow Rate FiO2 08/22/17 07:47 37.0 62 16 131/80 (97) 98 Room Air 08/22/17 00:15 Room Air 08/22/17 00:02 36.6 08/21/17 20:25 37.3 08/21/17 19:42 Room Air 08/21/17 16:00 100 Room Air 08/21/17 14:45 36.9 68 18 142/64 (90) 100 Room Air Laboratory Results 24 Hours: Test 08/22/17 07:14 Hematocrit 26.5 % Hemoglobin 8.4 g/dL Assessment & Plan Assessment: POD #6 s/p repeat I&D of right foot Plan: Seeing slight improvement in the cellulitis portion. We would like to see a little bit less drainage and less maceration of the tissues between the toes. Continue IV antibx Continue elevation when at rest Will d/w Dr Pro and make NPO after MN for possible repeat I&D tomorrow (1) Cellulitis of right foot
[2017-08-22] MEDS: LINEZOLID / D5W 600 MG in PREMIXED IN D5W 300 ML IV SCH (16:49)
--- NOTE | 2017-08-22 18:02 | Progress Note ---
Internal Med Progress Note Date of Service: Aug 22, 2017. Provider Documentation: SUBJECTIVE: very disappointed with the prospect that she may need another I&D Ortho changed her dressing today , mentioned to her that her wound was healing well does not understand why she is made NPO past mid night as per Nursing and Ortho note -pt will be evaluated by Dr Pro and then decide if another I&D needed generalized rash has improved pt started on Zyvox today OBJECTIVE: Vital Signs-as noted below Exam: General-anxious Eyes-sclera non icteric ENT-NAD Neck-no JVD Lungs-CTA , no wheeze or rales Heart-regular S1/s2 Abdomen-soft, non tender Extremities-generalized rash involving face , shoulder , back , extremities and torso -improved rt foot in bandage Neuro-no focal deficit , AAO x3 Lab data as noted below. ASSESSMENT & PLAN: DRUG REACTION/GENERALIZED RASH : improved IV Vancomycin D/melina started on Zyvox after discussing with ID Dr Peñaloza can be changed to PO on discharge SEPSIS DUE TO DIABETIC FOOT INFECTION ON RT SIDE presented with fever, chills, leukocytosis Doppler LE done showed no sonographic evidence of deep venous thrombosis within the right lower extremity. MRI of RLE done Extensive soft tissue swelling and subcutaneous edema about the foot suggests cellulitis with loculated peripherally enhancing collection of the dorsal forefoot measuring 3.2 x 1.2 x 5.3 cm with associated small fluid filled tract extending to the skin surface as above suggesting draining abscess. No evidence of osteomyelitis or acute fracture. Ortho on board s/p multiple Incision and drainage and packing of abscess, right foot wound culture -MRSA ; surgical drainage culture + MRSA Continue to have swelling and purulent drainage ID on board will need 6 weeks of Abx on Zyvox now ( had allergic reaction to Daptomycin and vanco ) Rt foot dressing changed by ortho worried about still having discharge and pain /swelling need to be evaluated by Dr Pro in AM NPO past mid night as per Ortho TYPE 2 DM insulin SSI and Lantus ordered HB A1c 11.2 ( poorly controlled ) parent educator consulted oral med on hold pharmacy consulted for glycemic management on Lantus subq HTN BP stable HX OF CVA : hx of occipital CVA uses walker occasionally at home asked not to take statin /Lipitor for 6 weeks while taking Daptomycin , increased risk of Rhabdomyolysis fall precaution HX OF PRIOR LEFT LOWER EXT DVT S/P IVC FILTER PLACEMENT was on Xarelto ,which was discontinued after acute CVA had retrievable IVC filter placed , was removed after 7-8 months of anticoagulation lower ext Doppler negative for DVT DVT PROPHYLAXIS Lovenox subq DISPOSITION expected to be discharged home with home health visiting nurse Medicine follow up with Dr viramontes Ortho follow up with Dr Plummer ID follow up with Dr Peñaloza Consultants: ID Ortho Vital Signs: Date Time Temp Pulse Resp B/P (MAP) Pulse Ox O2 Delivery O2 Flow Rate FiO2 08/22/17 15:47 37.2 66 20 144/71 (95) 99 Room Air 08/22/17 11:12 36.9 62 16 133/81 (98) 98 Room Air 08/22/17 11:06 98 Room Air 08/22/17 08:30 98 Room Air 08/22/17 07:47 37.0 62 16 131/80 (97) 98 Room Air 08/22/17 00:15 Room Air 08/22/17 00:02 36.6 08/21/17 20:25 37.3 08/21/17 19:42 Room Air Lab Results: Results Past 24 Hours Test 08/21/17 20:27 08/22/17 07:14 08/22/17 07:42 08/22/17 11:48 Range/Units Bedside Glucose 123 70 120 70-90 mg/dl White Blood Count 10.14 4.8-10.8 K/uL Red Blood Count 3.04 4.2-5.4 M/uL Hemoglobin 8.4 12.0-16.0 g/dL Hematocrit 26.5 37-47 % Mean Corpuscular Volume 87.2 80-100 fL Mean Corpuscular Hemoglobin 27.6 25-34 pg Mean Corpuscular Hemoglobin Concent 31.7 32-36 g/dl RDW Standard Deviation 43.0 36.4-46.3 fL RDW Coefficient of Variation 13.4 11.5-14.5 % Platelet Count 363 130-400 K/uL Mean Platelet Volume 9.5 7.4-10.4 fL Creatinine 1.13 0.60-1.20 mg/dl Est Creatinine Clear Calc Drug Dose 57.5 ml/min Estimated GFR () 60.7 Estimated GFR (Non- 52.4 Test 10/19/17 16:21 Range/Units Bedside Glucose 118 70-90 mg/dl
[2017-08-22] MEDS: INSULIN GLARGINE SOLOSTAR 100 UNITS/ML 3 ML PEN SC SCH (21:05)
[2017-08-23 00:16] VITALS: BP 118/70; PULSE 89; TEMP 37.1; O2SAT 97
[2017-08-23] MEDS: LINEZOLID / D5W 600 MG in PREMIXED IN D5W 300 ML IV SCH (04:44)
[2017-08-23] MEDS: HEPARIN SOD 5000 UNIT/0.5 ML CARP SQ SCH ×2 (06:00→12:44)
[2017-08-23 07:33] VITALS: BP 120/75; PULSE 65; TEMP 36.6; O2SAT 96
[2017-08-23] MEDS: LACTOBACILLUS ACIDOPHILUS (FLORANEX) TAB PO SCH ×3 (08:00→15:47)
[2017-08-23] MEDS: FAMOTIDINE IV INJ 20 MG in DEXTROSE 5% 100ML 100 ML IV SCH (08:05)
[2017-08-23] MEDS: INSULIN ASPART 100 UNITS/ML 3 ML PEN SC SCH ×4 (08:06→20:45)
--- NOTE | 2017-08-23 09:49 | Orthopedic Progress Note ---
Orthopedic Progress Note Date of Service Aug 23, 2017. Subjective Post OP Day: 7 Reports: feeling well, pain controlled w PO medications, Denies: complaints, chest pain, SOB Objective calves soft nontender, N/V intact, capillary refill less than 2 sec., A&O x3, toes mobile Right foot: The great toe is mildly erythematous. Incisions area well approximated. No fluctuance or drainage noted today. The 1st webspace has some maceration but no purulent drainage noted. Some serous drainage from the site. Mild to moderate plantar 2nd MTP erythema. No fluctuance noted. Tender to palpation at the plantar aspect of the 2nd MTP and 2nd metatarsal head. The dorsal foot incision is well approximated with an open area at the proximal incision. Unchanged from previous exams with good granulation and mild serosanguinous drainage. Date Time Temp Pulse Resp B/P (MAP) Pulse Ox O2 Delivery O2 Flow Rate FiO2 08/23/17 09:08 Room Air 08/23/17 07:33 36.6 65 22 120/75 (90) 96 Room Air 08/23/17 00:35 Room Air 08/23/17 00:16 37.1 89 20 118/70 (86) 97 Room Air 08/22/17 16:15 99 Room Air 08/22/17 15:47 37.2 66 20 144/71 (95) 99 Room Air 08/22/17 11:12 36.9 62 16 133/81 (98) 98 Room Air 08/22/17 11:06 98 Room Air Assessment & Plan Assessment: POD #7 s/p repeat I&D of right foot Plan: Seeing slight improvement in the cellulitis portion. We would like to see a little bit less drainage and less maceration of the tissues between the toes. Continue IV antibx Continue elevation when at rest No surgical tx today. Will have her start her diet back today but NPO after midnight tonight for evaluation tomorrow. (1) Cellulitis of right foot
--- NOTE | 2017-08-23 10:24 | Progress Note ---
Internal Med Progress Note Date of Service: Aug 23, 2017. Provider Documentation: SUBJECTIVE: OBJECTIVE: Vital Signs-as noted below Exam: General-anxious Eyes-sclera non icteric ENT-NAD Neck-no JVD Lungs-CTA , no wheeze or rales Heart-regular S1/s2 Abdomen-soft, non tender Extremities-generalized rash involving face , shoulder , back , extremities and torso -improved rt foot in bandage Neuro-no focal deficit , AAO x3 Lab data as noted below. ASSESSMENT & PLAN: DRUG REACTION/GENERALIZED RASH : improved IV Vancomycin D/melina started on Zyvox after discussing with ID Dr Peñaloza can be changed to PO on discharge SEPSIS DUE TO DIABETIC FOOT INFECTION ON RT SIDE presented with fever, chills, leukocytosis Doppler LE done showed no sonographic evidence of deep venous thrombosis within the right lower extremity. MRI of RLE done Extensive soft tissue swelling and subcutaneous edema about the foot suggests cellulitis with loculated peripherally enhancing collection of the dorsal forefoot measuring 3.2 x 1.2 x 5.3 cm with associated small fluid filled tract extending to the skin surface as above suggesting draining abscess. No evidence of osteomyelitis or acute fracture. Ortho on board s/p multiple Incision and drainage and packing of abscess, right foot wound culture -MRSA ; surgical drainage culture + MRSA Continue to have swelling and purulent drainage ID on board will need 6 weeks of Abx on Zyvox now ( had allergic reaction to Daptomycin and vanco ) Rt foot dressing changed by ortho worried about still having discharge and pain /swelling need to be evaluated by Dr Pro in AM NPO past mid night as per Ortho TYPE 2 DM insulin SSI and Lantus ordered HB A1c 11.2 ( poorly controlled ) parent educator consulted oral med on hold pharmacy consulted for glycemic management on Lantus subq HTN BP stable HX OF CVA : hx of occipital CVA uses walker occasionally at home asked not to take statin /Lipitor for 6 weeks while taking Daptomycin , increased risk of Rhabdomyolysis fall precaution HX OF PRIOR LEFT LOWER EXT DVT S/P IVC FILTER PLACEMENT was on Xarelto ,which was discontinued after acute CVA had retrievable IVC filter placed , was removed after 7-8 months of anticoagulation lower ext Doppler negative for DVT DVT PROPHYLAXIS Lovenox subq DISPOSITION expected to be discharged home with home health visiting nurse Medicine follow up with Dr viramontes Ortho follow up with Dr Plummer ID follow up with Dr Peñaloza Consultants: ID Ortho Vital Signs: Date Time Temp Pulse Resp B/P (MAP) Pulse Ox O2 Delivery O2 Flow Rate FiO2 08/23/17 16:36 Room Air 08/23/17 15:03 36.6 64 18 112/68 (83) 96 Room Air 08/23/17 09:08 Room Air 08/23/17 07:33 36.6 65 22 120/75 (90) 96 Room Air 08/23/17 00:35 Room Air 08/23/17 00:16 37.1 89 20 118/70 (86) 97 Room Air Lab Results: Results Past 24 Hours Test 08/22/17 20:13 08/23/17 07:56 08/23/17 11:26 08/23/17 17:09 Range/Units Bedside Glucose 191 104 107 130 70-90 mg/dl
[2017-08-23] MEDS: DiphenhydrAMINE 2%/ZINC 0.1% CREAM 28GM TUBE EXT PRN ×2 (10:32→20:47)
--- NOTE | 2017-08-23 10:58 | Progress Note ---
Subjective Date of Service: Aug 23, 2017. Subjective afebrile, for potential I&D tomorrow. changed to zyvox secondary to reaction to vanco. tolerating. Blood cultures remain negative. Problem List Medical Problems: (1) Abnormal brain CT Status: Acute (2) Cellulitis of right foot Status: Acute (3) Dizziness Status: Acute (4) Failure of outpatient treatment Status: Acute (5) Vomiting Status: Acute Objective Vital Signs Date Time Temp Pulse Resp B/P (MAP) Pulse Ox O2 Delivery O2 Flow Rate FiO2 08/23/17 09:08 Room Air 08/23/17 07:33 36.6 65 22 120/75 (90) 96 Room Air 08/23/17 00:35 Room Air 08/23/17 00:16 37.1 89 20 118/70 (86) 97 Room Air 08/22/17 16:15 99 Room Air 08/22/17 15:47 37.2 66 20 144/71 (95) 99 Room Air 08/22/17 11:12 36.9 62 16 133/81 (98) 98 Room Air 08/22/17 11:06 98 Room Air Laboratory Results Item Value Date Time Gram Stain - Final Complete 08/05/17 1405 Abscess Foot Right Blood Culture - Final Complete 08/16/17 0025 Blood NO GROWTH Blood Culture - Final Complete 08/16/17 0036 Blood NO GROWTH Last 24 Hours Test 08/22/17 11:48 08/22/17 16:21 08/22/17 20:13 08/23/17 07:56 Bedside Glucose 120 mg/dl 118 mg/dl 191 mg/dl 104 mg/dl Assessment and Plan (1) Cellulitis of right foot Assessment & Plan: will need 6 weeks abx post d/c. picc in place. now on zyvox , will continue with this, can be po. await decision regarding additional OR (2) Fever (3) Drug eruption
[2017-08-23] MEDS: IBUPROFEN 200 MG TAB PO PRN ×2 (11:47→23:02)
[2017-08-23] MEDS: ACETAMINOPHEN 325 MG TAB PO PRN ×2 (12:50→21:45)
[2017-08-23] MEDS ORDERED: NURSING VERBAL MED ORDER ONE (13:30)
[2017-08-23 15:03] VITALS: BP 112/68; PULSE 64; TEMP 36.6; O2SAT 96
--- NOTE | 2017-08-23 17:31 | Progress Note ---
Internal Med Progress Note Date of Service: Aug 23, 2017. Provider Documentation: SUBJECTIVE: offers no new complain no reaction to Zyvox , changed to PO rash form previous drug reaction -almost gone rt foot dressing changed done by Ortho today wants to see more improvement on wound healing recommend continue hospital admission with Abx OBJECTIVE: Vital Signs-as noted below Exam: General-anxious Eyes-sclera non icteric ENT-NAD Neck-no JVD Lungs-CTA , no wheeze or rales Heart-regular S1/s2 Abdomen-soft, non tender Extremities-improved /resolution of rash on face and extremities rt foot in bandage Neuro-no focal deficit , AAO x3 Lab data as noted below. ASSESSMENT & PLAN: DRUG REACTION/GENERALIZED RASH : improved IV Vancomycin D/melina started on Zyvox after discussing with ID Dr Peñaloza tolerating well changed to PO can be discharged on Oral Zyvox will need total 6 weeks of therapy pt is not on any SSRI Tramadol D/melina for possible drug interaction pt at present does not have any complain of pain will recommend different pain meds on discharge PICC line will be discontinued prior to discharge SEPSIS DUE TO DIABETIC FOOT INFECTION ON RT SIDE presented with fever, chills, leukocytosis Doppler LE done showed no sonographic evidence of deep venous thrombosis within the right lower extremity. MRI of RLE done Extensive soft tissue swelling and subcutaneous edema about the foot suggests cellulitis with loculated peripherally enhancing collection of the dorsal forefoot measuring 3.2 x 1.2 x 5.3 cm with associated small fluid filled tract extending to the skin surface as above suggesting draining abscess. No evidence of osteomyelitis or acute fracture. Ortho on board s/p multiple Incision and drainage and packing of abscess, right foot wound culture -MRSA ; surgical drainage culture + MRSA Continue to have swelling and purulent drainage ID on board will need 6 weeks of Abx on Zyvox now ( had allergic reaction to Daptomycin and vanco ) -tolerating well Rt foot dressing changed by ortho want to see more improvement on wound healing ordered for NPO past mid night , repeat eval by Ortho in AM to decide if pt needs further I&D TYPE 2 DM insulin SSI and Lantus ordered HB A1c 11.2 ( poorly controlled ) urinalysis technician consulted oral med on hold on Lantus subq HTN BP stable HX OF CVA : hx of occipital CVA uses walker occasionally at home statin resumed as pt is off Daptomycin fall precaution HX OF PRIOR LEFT LOWER EXT DVT S/P IVC FILTER PLACEMENT was on Xarelto ,which was discontinued after acute CVA had retrievable IVC filter placed , was removed after 7-8 months of anticoagulation lower ext Doppler negative for DVT DVT PROPHYLAXIS Lovenox subq DISPOSITION expected to be discharged home with home health visiting nurse Medicine follow up with Dr viramontes Ortho follow up with Dr Plummer ID follow up with Dr Peñaloza pt will need follow up with Wound clinic on discharge for continued wound care Consultants: ID Ortho Vital Signs: Date Time Temp Pulse Resp B/P (MAP) Pulse Ox O2 Delivery O2 Flow Rate FiO2 08/23/17 16:36 Room Air 08/23/17 15:03 36.6 64 18 112/68 (83) 96 Room Air 08/23/17 09:08 Room Air 08/23/17 07:33 36.6 65 22 120/75 (90) 96 Room Air 08/23/17 00:35 Room Air 08/23/17 00:16 37.1 89 20 118/70 (86) 97 Room Air Lab Results: Results Past 24 Hours Test 08/22/17 20:13 08/23/17 07:56 08/23/17 11:26 08/23/17 17:09 Range/Units Bedside Glucose 191 104 107 130 70-90 mg/dl
[2017-08-23] MEDS: LINEZOLID 600 MG TAB PO SCH (18:03)
[2017-08-23] MEDS: INSULIN GLARGINE SOLOSTAR 100 UNITS/ML 3 ML PEN SC SCH (20:46)
[2017-08-23] MEDS: FAMOTIDINE 20 MG TAB PO SCH (20:51)
[2017-08-23 23:43] VITALS: BP 130/74; PULSE 61; TEMP 36.5; O2SAT 95
[2017-08-24 07:43] VITALS: BP 150/80; PULSE 59; TEMP 36.6; O2SAT 97
[2017-08-24 08:30] VITALS: O2SAT 97
[2017-08-24] MEDS: INSULIN ASPART 100 UNITS/ML 3 ML PEN SC SCH ×4 (08:41→20:20)
[2017-08-24] MEDS: LACTOBACILLUS ACIDOPHILUS (FLORANEX) TAB PO SCH ×3 (08:41→17:51)
[2017-08-24] MEDS: DiphenhydrAMINE 2%/ZINC 0.1% CREAM 28GM TUBE EXT PRN ×2 (08:42→21:22)
[2017-08-24 09:35] LABS: CREATININE 1.32 mg/dl (0.60-1.20)
[2017-08-24 11:46] VITALS: BP 171/95; PULSE 61; TEMP 36.5; O2SAT 98
[2017-08-24] MEDS: FAMOTIDINE 20 MG TAB PO SCH ×2 (12:58→19:55)
[2017-08-24] MEDS: LINEZOLID 600 MG TAB PO SCH ×2 (12:59→19:55)
--- NOTE | 2017-08-24 13:44 | Orthopedic Progress Note ---
Orthopedic Progress Note Date of Service Aug 24, 2017. Objective Right foot: The great toe is mildly erythematous. Incisions area well approximated. No fluctuance or drainage noted today. The 1st webspace has some maceration but no purulent drainage noted. Some serous drainage from the site. Mild to moderate plantar 2nd MTP erythema. No fluctuance noted. Tender to palpation at the plantar aspect of the 2nd MTP and 2nd metatarsal head. The dorsal foot incision is well approximated with an open area at the proximal incision. Unchanged from previous exams with good granulation and mild serosanguinous drainage. Date Time Temp Pulse Resp B/P (MAP) Pulse Ox O2 Delivery O2 Flow Rate FiO2 08/24/17 11:46 36.5 61 18 171/95 (120) 98 08/24/17 08:30 97 Room Air 08/24/17 07:43 36.6 59 18 150/80 (103) 97 Room Air 08/24/17 00:00 Room Air 08/23/17 23:43 36.5 61 16 130/74 (92) 95 Room Air 08/23/17 16:36 Room Air 08/23/17 15:03 36.6 64 18 112/68 (83) 96 Room Air Assessment & Plan Assessment: POD #7 s/p repeat I&D of right foot Plan: Wounds appear stable compared to yesterday Still would like to see a little bit less drainage and less maceration of the tissues between the toes. Continue IV antibx Continue elevation when at rest No surgical tx today. Plan to keep her today and check her again tomorrow. If she is still stable then, would be ok for d/c to home but would need very close monitoring at wound clinic with f/u within a day or 2. (1) Cellulitis of right foot
[2017-08-24 15:36] VITALS: BP 148/81; PULSE 70; TEMP 36.8; O2SAT 97
[2017-08-24 16:00] VITALS: O2SAT 97
--- NOTE | 2017-08-24 18:33 | Progress Note ---
Internal Med Progress Note Date of Service: Aug 24, 2017. Provider Documentation: SUBJECTIVE: evaluated by Ortho rt foot wound appears to be healing no plan for I&D today pt denies of any pain or discomfort no fever or chills OBJECTIVE: Vital Signs-as noted below Exam: General-anxious Eyes-sclera non icteric ENT-NAD Neck-no JVD Lungs-CTA , no wheeze or rales Heart-regular S1/s2 Abdomen-soft, non tender Extremities-improved /resolution of rash on face and extremities rt foot in bandage Neuro-no focal deficit , AAO x3 Lab data as noted below. ASSESSMENT & PLAN: DRUG REACTION/GENERALIZED RASH : resolved IV Vancomycin D/melina on Zyvox -tolerating well changed to PO can be discharged on Oral Zyvox will need total 6 weeks of therapy pt is not on any SSRI Tramadol D/melina for possible drug interaction pt at present does not have any complain of pain will recommend different pain meds on discharge PICC line will be discontinued prior to discharge SEPSIS DUE TO DIABETIC FOOT INFECTION ON RT SIDE presented with fever, chills, leukocytosis Doppler LE done showed no sonographic evidence of deep venous thrombosis within the right lower extremity. MRI of RLE done Extensive soft tissue swelling and subcutaneous edema about the foot suggests cellulitis with loculated peripherally enhancing collection of the dorsal forefoot measuring 3.2 x 1.2 x 5.3 cm with associated small fluid filled tract extending to the skin surface as above suggesting draining abscess. No evidence of osteomyelitis or acute fracture. Ortho on board s/p multiple Incision and drainage and packing of abscess, right foot wound culture -MRSA ; surgical drainage culture + MRSA Continue to have swelling and purulent drainage ID on board will need 6 weeks of Abx on Zyvox now ( had allergic reaction to Daptomycin and vanco ) -tolerating well Rt foot dressing changed by ortho want to see more improvement on wound healing cont IV Abx for now TYPE 2 DM insulin SSI and Lantus ordered HB A1c 11.2 ( poorly controlled ) virologist consulted oral med on hold on Lantus subq HTN BP stable HX OF CVA : hx of occipital CVA uses walker occasionally at home statin resumed as pt is off Daptomycin fall precaution HX OF PRIOR LEFT LOWER EXT DVT S/P IVC FILTER PLACEMENT was on Xarelto ,which was discontinued after acute CVA had retrievable IVC filter placed , was removed after 7-8 months of anticoagulation lower ext Doppler negative for DVT DVT PROPHYLAXIS Lovenox subq DISPOSITION expected to be discharged home with home health visiting nurse Medicine follow up with Dr viramontes Ortho follow up with Dr Plummer ID follow up with Dr Peñaloza pt will need follow up with Wound clinic on discharge for continued wound care Consultants: ID Ortho Vital Signs: Date Time Temp Pulse Resp B/P (MAP) Pulse Ox O2 Delivery O2 Flow Rate FiO2 08/25/17 15:56 36.7 62 16 147/80 (102) 96 Room Air 08/25/17 08:30 98 Room Air 08/25/17 07:34 36.6 59 18 152/77 (102) 98 Room Air 08/25/17 00:00 97 Room Air 98 Lab Results: Results Past 24 Hours Test 08/24/17 19:38 08/25/17 07:34 08/25/17 08:02 08/25/17 11:28 Range/Units Bedside Glucose 159 99 97 70-90 mg/dl Sodium Level 142 136-145 mmol/L Potassium Level 4.0 3.5-5.1 mmol/L Chloride Level 106 98-107 mmol/L Carbon Dioxide Level 29 21-32 mmol/L Anion Gap 8.0 3-11 mmol/L Blood Urea Nitrogen 15 7-18 mg/dl Creatinine 1.27 0.60-1.20 mg/dl Est Creatinine Clear Calc Drug Dose 51.2 ml/min Estimated GFR () 52.7 Estimated GFR (Non- 45.5 BUN/Creatinine Ratio 11.7 10-20 Random Glucose 86 70-99 mg/dl Calcium Level 7.8 8.5-10.1 mg/dl
[2017-08-24] MEDS: INSULIN GLARGINE SOLOSTAR 100 UNITS/ML 3 ML PEN SC SCH (20:20)
[2017-08-24] MEDS: HYDROCORTISONE 1% CR 30 GM TUBE EXT PRN (21:18)
[2017-08-24] MEDS: ACETAMINOPHEN 325 MG TAB PO PRN (22:15)
[2017-08-25] VITALS (10 sets, daily range): BP systolic 131–166; BP diastolic 65–84; PULSE 59–78; TEMP 36.6–36.8; O2SAT 94–98
[2017-08-25] MEDS ORDERED: TRAMADOL HCL 50 MG TAB PO PRN (01:15)
[2017-08-25] MEDS ORDERED: TRAMADOL HCL 50 MG TAB ONE (01:19)
[2017-08-25] MEDS: INSULIN ASPART 100 UNITS/ML 3 ML PEN SC SCH ×4 (08:31→20:52)
[2017-08-25] MEDS: LACTOBACILLUS ACIDOPHILUS (FLORANEX) TAB PO SCH ×4 (08:32→20:45)
[2017-08-25 09:08] LABS: BUN/CREATININE RATIO 11.7 (10-20); CALCIUM 7.8 mg/dl (8.5-10.1); CREATININE 1.27 mg/dl (0.60-1.20)
--- NOTE | 2017-08-25 10:29 | Orthopedic Progress Note ---
Orthopedic Progress Note Date of Service Aug 25, 2017. Objective webspace between the first and second toes look worse today. She is starting to roll some purulent drainage from the most distal aspect starting to get into the plantar surface of the foot. The dorsal incision looks good the incision on the medial side of the great toe looks good her there is some erythema on the more lateral side of the great toe. The skin within the first and second webspace is macerated. Date Time Temp Pulse Resp B/P (MAP) Pulse Ox O2 Delivery O2 Flow Rate FiO2 08/25/17 08:30 98 Room Air 08/25/17 07:34 36.6 59 18 152/77 (102) 98 Room Air 08/25/17 00:00 97 Room Air 98 08/24/17 16:00 97 Room Air 98 08/24/17 15:36 36.8 70 16 148/81 (103) 97 Room Air 08/24/17 11:46 36.5 61 18 171/95 (120) 98 Assessment & Plan Assessment: s/p repeat I&D of right foot Plan: Her wound on the webspace between the first and second toes look worse today. She is starting to roll some purulent drainage from the most distal aspect starting to get into the plantar surface of the foot. The dorsal incision looks good the incision on the medial side of the great toe looks good her there is some erythema on the more lateral side of the great toe. The skin within the first and second webspace is macerated. But given the worsening appearance of the wound and the development purulent drainage undergo irrigation and debridement of this region. The prognosis is something we'll be able primarily closed likely need to pack it open. Risks benefits alternatives to procedure were discussed the patient and she wished to proceed. We'll plan for this later today. (1) Cellulitis of right foot
[2017-08-25] MEDS ORDERED: SODIUM CHLORIDE 0.9% 1000ML 1,000 ML IV SCH (11:15)
[2017-08-25] MEDS: FAMOTIDINE 20 MG TAB PO SCH ×2 (12:47→20:40)
[2017-08-25] MEDS: LINEZOLID 600 MG TAB PO SCH ×2 (12:48→20:40)
[2017-08-25] MEDS ORDERED: PROPOFOL IV EMULSION 10 MG/ML 20 ML VIAL IV ONE (16:17)
[2017-08-25] MEDS ORDERED: FENTANYL CITRATE INJ 50 MCG/1 ML 2 ML VIAL ONE (16:19)
[2017-08-25] MEDS ORDERED: MIDAZOLAM HCL 1 MG/ML 2ML VIAL ONE (16:21)
[2017-08-25] MEDS ORDERED: BACITRACIN 50000 UNIT VIAL ONE (16:22)
[2017-08-25] MEDS ORDERED: BUPIVACAINE/EPINEPHRINE 0.5% MPF 1:200,000 30 ML VIAL ONE (17:02)
[2017-08-25] MEDS ORDERED: BUPIVACAINE/EPINEPHRINE 0.5% MPF 1:200,000 30 ML VIAL INJ ONE (17:36)
[2017-08-25] MEDS ORDERED: EpHEDrine SULFATE INJ 50 MG/ML AMP IV PRN (18:00)
[2017-08-25] MEDS ORDERED: ATROPINE SULFATE 0.1 MG/ML 5ML SYR IV PRN (18:00)
--- NOTE | 2017-08-25 18:01 | [facility] Operative Report ---
Operative Report Operative Date Aug 25, 2017. Pre-Operative Diagnosis Infection Right Foot Post-Operative Diagnosis Same as preoperative Procedure(s) Performed Irrigation and Debridement Right Foot Surgeon Dr. Kade Harrell Traveling Nurse Surgeon(s) None per surgeon Estimated Blood Loss 25ml Findings Purulent drainage from the first webspace Specimens CULTURE: 1.) Right Foot Wound Drains 1/2" iodoform x 6 Anesthesia GLMA w/ local Complication(s) None Disposition Recovery Room / PACU Indications 62-year-old female who has a long history with this right foot infection. She is had 4 previous irrigation and debridements. Recently she had been looking better but over the last several days the wound started becoming more macerated and started developing purulent drainage again from the plantar aspect of the wound in the first webspace. She is willing to consent to irrigation and debridement but is adamant about not having an amputation of the toe. Description of Procedure Risks benefits and alternatives of surgery including but not limited to infection DVT pain stiffness need for surgery damage to blood vessels damage to nerves or risks of anesthesia were discussed with the patient and she wished to proceed. Patient was identified in the laterality was confirmed and marked. A well-padded tourniquet was applied and then the limb was prepped and draped in standard manner with ChloraPrep. The limb was exsanguinated and the tourniquet was inflated. The dorsal incision from one of her previous irrigation and debridements looked relatively good there was a region proximally that was open. This really region was lightly debrided one the extensor tendons was visible. The region of more concern was over the first webspace. Her previous sutures were removed. There was purulent drainage and infected tissue within the first webspace. This was sharply debrided down to level of fascia. FCU as well as a rongeur to debride any infected tissue. I then thoroughly irrigated the wound with bacitracin fluid through the Pulsavac. The more proximal wound had a lot of extensor tendons exposed was closed with interrupted 3-0 nylon. The wound in the region of the first web space was packed with Xeroform packing. Sterile dressings applied and the tourniquet was released. All needle and sponge counts were correct at the end of the procedure patient was transferred to the PACU in stable condition without apparent complication. I attest to the content of the Intraoperative Record and any orders documented therein. Any exceptions are noted below.
--- NOTE | 2017-08-25 18:14 | Anesthesiology Progress Note ---
Anesthesia Post Op Note Date & Time Aug 25, 2017 at 18:14 Vital Signs Pain Intensity: 0 Vital Signs Past 12 Hours Date Time Temp Pulse Resp B/P (MAP) Pulse Ox O2 Delivery O2 Flow Rate FiO2 08/25/17 18:06 36.3 64 16 155/50 99 Room Air 08/25/17 17:56 63 14 146/69 99 Room Air 08/25/17 17:49 36.5 70 16 150/71 97 Room Air 08/25/17 15:56 36.7 62 16 147/80 (102) 96 Room Air 08/25/17 15:45 98 Room Air 98 08/25/17 08:30 98 Room Air 08/25/17 07:34 36.6 59 18 152/77 (102) 98 Room Air Notes Mental Status: alert / awake / arousable, participated in evaluation Pt Amnestic to Procedure: Yes Nausea / Vomiting: adequately controlled Pain: adequately controlled Airway Patency, RR, SpO2: stable & adequate BP & HR: stable & adequate Hydration State: stable & adequate Anesthetic Complications: no major complications apparent
--- NOTE | 2017-08-25 18:40 | Progress Note ---
Internal Med Progress Note Date of Service: Aug 25, 2017. Provider Documentation: SUBJECTIVE: pt is taken to OR for repeat I&D today as wound appeared to be worse with purulent drainage OBJECTIVE: Vital Signs-as noted below Exam: General-anxious Eyes-sclera non icteric ENT-NAD Neck-no JVD Lungs-CTA , no wheeze or rales Heart-regular S1/s2 Abdomen-soft, non tender Extremities-improved /resolution of rash on face and extremities rt foot in bandage Neuro-no focal deficit , AAO x3 Lab data as noted below. ASSESSMENT & PLAN: SEPSIS DUE TO DIABETIC FOOT INFECTION ON RT SIDE presented with fever, chills, leukocytosis Doppler LE done showed no sonographic evidence of deep venous thrombosis within the right lower extremity. MRI of RLE done Extensive soft tissue swelling and subcutaneous edema about the foot suggests cellulitis with loculated peripherally enhancing collection of the dorsal forefoot measuring 3.2 x 1.2 x 5.3 cm with associated small fluid filled tract extending to the skin surface as above suggesting draining abscess. No evidence of osteomyelitis or acute fracture. Ortho on board s/p multiple Incision and drainage and packing of abscess, right foot wound culture -MRSA ; surgical drainage culture + MRSA Continue to have swelling and purulent drainage ID on board will need 6 weeks of Abx on Zyvox now ( had allergic reaction to Daptomycin and vanco ) -tolerating well Rt foot wound evaluated by Dr Harrell today appeared to have more drainage scheduled for repeat I&D today TYPE 2 DM insulin SSI and Lantus ordered HB A1c 11.2 ( poorly controlled ) paraeducator consulted oral med on hold on Lantus subq DRUG REACTION/GENERALIZED RASH : resolved IV Vancomycin D/melina on Zyvox -tolerating well changed to PO can be discharged on Oral Zyvox will need total 6 weeks of therapy pt is not on any SSRI Tramadol D/melina for possible drug interaction pt at present does not have any complain of pain will recommend different pain meds on discharge PICC line will be discontinued prior to discharge HTN BP stable HX OF CVA : hx of occipital CVA uses walker occasionally at home statin resumed as pt is off Daptomycin fall precaution HX OF PRIOR LEFT LOWER EXT DVT S/P IVC FILTER PLACEMENT was on Xarelto ,which was discontinued after acute CVA had retrievable IVC filter placed , was removed after 7-8 months of anticoagulation lower ext Doppler negative for DVT DVT PROPHYLAXIS Lovenox subq DISPOSITION expected to be discharged home with home health visiting nurse Medicine follow up with Dr viramontes Ortho follow up with Dr Plumemr ID follow up with Dr Peñaloza pt will need follow up with Wound clinic on discharge for continued wound care Consultants: ID Ortho Vital Signs: Date Time Temp Pulse Resp B/P (MAP) Pulse Ox O2 Delivery O2 Flow Rate FiO2 08/25/17 18:27 36.6 64 15 166/84 (111) 97 Room Air 08/25/17 18:06 36.3 64 16 155/50 99 Room Air 08/25/17 17:56 63 14 146/69 99 Room Air 08/25/17 17:49 36.5 70 16 150/71 97 Room Air 08/25/17 15:56 36.7 62 16 147/80 (102) 96 Room Air 08/25/17 15:45 98 Room Air 98 08/25/17 08:30 98 Room Air 08/25/17 07:34 36.6 59 18 152/77 (102) 98 Room Air 08/25/17 00:00 97 Room Air 98 Lab Results: Results Past 24 Hours Test 08/24/17 19:38 08/25/17 07:34 08/25/17 08:02 08/25/17 11:28 Range/Units Bedside Glucose 159 99 97 70-90 mg/dl Sodium Level 142 136-145 mmol/L Potassium Level 4.0 3.5-5.1 mmol/L Chloride Level 106 98-107 mmol/L Carbon Dioxide Level 29 21-32 mmol/L Anion Gap 8.0 3-11 mmol/L Blood Urea Nitrogen 15 7-18 mg/dl Creatinine 1.27 0.60-1.20 mg/dl Est Creatinine Clear Calc Drug Dose 51.2 ml/min Estimated GFR () 52.7 Estimated GFR (Non- 45.5 BUN/Creatinine Ratio 11.7 10-20 Random Glucose 86 70-99 mg/dl Calcium Level 7.8 8.5-10.1 mg/dl Test 08/25/17 17:57 Range/Units Bedside Glucose 90 70-90 mg/dl
[2017-08-25] MEDS: POTASSIUM CHLORIDE INJ 10 MEQ in SODIUM CHLORIDE 0.9% 1000ML 1,000 ML IV SCH (19:15)
[2017-08-25] MEDS ORDERED: NURSING VERBAL MED ORDER ONE (19:45)
[2017-08-25] MEDS: INSULIN GLARGINE SOLOSTAR 100 UNITS/ML 3 ML PEN SC SCH (20:51)
[2017-08-25] MEDS: OXYCODONE/ACETAMINOPHEN 5-325 TAB PO PRN (21:00)
[2017-08-26] MEDS: POTASSIUM CHLORIDE INJ 10 MEQ in SODIUM CHLORIDE 0.9% 1000ML 1,000 ML IV SCH ×2 (03:46→14:46)
[2017-08-26 07:34] VITALS: BP 158/77; PULSE 69; TEMP 36.8; O2SAT 96
[2017-08-26 07:36] LABS: HEMATOCRIT 25.9 % (37-47); MEAN CELL VOLUME 87.2 fL (80-100); MEAN CORPUSCULAR HEMOGLOBIN 26.9 pg (25-34); MEAN CORPUSCULAR HGB CONC 30.9 g/dl (32-36); PLATELET COUNT 371 K/uL (130-400); RED BLOOD COUNT 2.97 M/uL (4.2-5.4); WHITE BLOOD COUNT 9.35 K/uL (4.8-10.8)
[2017-08-26 08:03] LABS: BUN/CREATININE RATIO 10.1 (10-20); CALCIUM 7.8 mg/dl (8.5-10.1); CREATININE 1.15 mg/dl (0.60-1.20); POTASSIUM 4.2 mmol/L (3.5-5.1)
[2017-08-26] MEDS: LINEZOLID 600 MG TAB PO SCH ×2 (08:28→20:45)
[2017-08-26] MEDS: FAMOTIDINE 20 MG TAB PO SCH ×2 (08:28→20:45)
[2017-08-26] MEDS: LACTOBACILLUS ACIDOPHILUS (FLORANEX) TAB PO SCH ×3 (08:29→16:17)
[2017-08-26] MEDS: DiphenhydrAMINE 2%/ZINC 0.1% CREAM 28GM TUBE EXT PRN (08:29)
[2017-08-26 08:30] VITALS: O2SAT 98
[2017-08-26] MEDS: INSULIN ASPART 100 UNITS/ML 3 ML PEN SC SCH ×4 (08:35→20:49)
[2017-08-26] MEDS: OXYCODONE/ACETAMINOPHEN 5-325 TAB PO PRN ×2 (12:28→23:36)
--- NOTE | 2017-08-26 14:53 | Orthopedic Progress Note ---
Orthopedic Progress Note Date of Service Aug 26, 2017. Subjective Reports: feeling well, calf pain, Denies: chest pain, SOB, nausea / vomiting, light headedness Objective calves soft nontender, N/V intact, capillary refill less than 2 sec., dressing C /D/I, A&O x3, toes mobile Date Time Temp Pulse Resp B/P (MAP) Pulse Ox O2 Delivery O2 Flow Rate FiO2 08/26/17 08:30 98 Room Air 08/26/17 07:34 36.8 69 18 158/77 (104) 96 08/25/17 23:15 Room Air 08/25/17 22:56 36.7 66 16 131/74 (93) 94 Room Air 08/25/17 21:01 36.6 66 16 151/80 (103) 97 Room Air 08/25/17 20:06 36.8 78 18 134/75 (94) 98 Room Air 08/25/17 19:05 36.6 69 18 149/65 (93) 97 Room Air 08/25/17 18:27 36.6 64 15 166/84 (111) 97 Room Air 08/25/17 18:06 36.3 64 16 155/50 99 Room Air 08/25/17 17:56 63 14 146/69 99 Room Air 08/25/17 17:49 36.5 70 16 150/71 97 Room Air 08/25/17 15:56 36.7 62 16 147/80 (102) 96 Room Air 08/25/17 15:45 98 Room Air 98 Laboratory Results 24 Hours: Test 08/26/17 07:22 Hematocrit 25.9 % Hemoglobin 8.0 g/dL Assessment & Plan Assessment: s/p repeat I&D of right foot Plan: PATIENT IS DOING EVERY OTHER DAY DRESSING CHANGES. SHE WILL BE DUE FOR A CHANGE TOMORROW. DISCUSSED WITH DR. ARANDA. HE RECOMMENDS AN MRI WITH CONTRAST TO RULE OUT FURTHER FLUID COLLECTION DUE TO HER LACK OF RESPONSE TO MULTIPLE SURGICAL ATTEMPTS. MAY CONSIDER TRANSFER PENDING RESULTS. (1) Cellulitis of right foot
[2017-08-26 15:25] VITALS: BP 137/68; PULSE 63; TEMP 36.7; O2SAT 94
[2017-08-26 16:15] VITALS: O2SAT 94
--- NOTE | 2017-08-26 17:49 | Progress Note ---
Internal Med Progress Note Date of Service: Aug 26, 2017. Provider Documentation: SUBJECTIVE: frustrated for being in hospital for so long MRI of rt foot ordered by Ortho to assess for abscess collection /osteomyelitis prior MRI of foot this admission was negative for Osteo no fever or chills has minimum pain in rt foot OBJECTIVE: Vital Signs-as noted below Exam: General-anxious Eyes-sclera non icteric ENT-NAD Neck-no JVD Lungs-CTA , no wheeze or rales Heart-regular S1/s2 Abdomen-soft, non tender Extremities-improved /resolution of rash on face and extremities rt foot in bandage Neuro-no focal deficit , AAO x3 Lab data as noted below. ASSESSMENT & PLAN: SEPSIS DUE TO DIABETIC FOOT INFECTION ON RT SIDE presented with fever, chills, leukocytosis Doppler LE done showed no sonographic evidence of deep venous thrombosis within the right lower extremity. MRI of RLE done Extensive soft tissue swelling and subcutaneous edema about the foot suggests cellulitis with loculated peripherally enhancing collection of the dorsal forefoot measuring 3.2 x 1.2 x 5.3 cm with associated small fluid filled tract extending to the skin surface as above suggesting draining abscess. No evidence of osteomyelitis or acute fracture. Ortho on board s/p multiple Incision and drainage and packing of abscess, right foot wound culture -MRSA ; surgical drainage culture + MRSA Continue to have swelling and purulent drainage ID on board will need 6 weeks of Abx on Zyvox now ( had allergic reaction to Daptomycin and vanco ) -tolerating well s/p rt foot I&D on saturday08/25/17 continued to have infection /non healing wound , after multiple I&D , while on broad spectrum abx pt is against to have toe /TM amputation Ortho ordered for MRI of foot to assess for osteo TYPE 2 DM insulin SSI and Lantus ordered HB A1c 11.2 ( poorly controlled ) 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 on Lantus subq DRUG REACTION/GENERALIZED RASH : resolved IV Vancomycin D/melina on Zyvox -tolerating well changed to PO can be discharged on Oral Zyvox will need total 6 weeks of therapy pt is not on any SSRI Tramadol D/melina for possible drug interaction pt at present does not have any complain of pain will recommend different pain meds on discharge PICC line will be discontinued prior to discharge HTN BP stable HX OF CVA : hx of occipital CVA uses walker occasionally at home statin resumed as pt is off Daptomycin fall precaution HX OF PRIOR LEFT LOWER EXT DVT S/P IVC FILTER PLACEMENT was on Xarelto ,which was discontinued after acute CVA had retrievable IVC filter placed , was removed after 7-8 months of anticoagulation lower ext Doppler negative for DVT DVT PROPHYLAXIS Lovenox subq DISPOSITION has prolong hospital stay due to non healing rt foot wound pt wants to return home after discharge from hospital Medicine follow up with Dr viramontes Ortho follow up with Dr Plummer ID follow up with Dr Peñaloza pt will need follow up with Wound clinic on discharge for continued wound care Consultants: ID Ortho Vital Signs: Date Time Temp Pulse Resp B/P (MAP) Pulse Ox O2 Delivery O2 Flow Rate FiO2 08/26/17 16:15 94 Room Air 08/26/17 15:25 36.7 63 20 137/68 (91) 94 Room Air 08/26/17 08:30 98 Room Air 08/26/17 07:34 36.8 69 18 158/77 (104) 96 08/25/17 23:15 Room Air 08/25/17 22:56 36.7 66 16 131/74 (93) 94 Room Air 08/25/17 21:01 36.6 66 16 151/80 (103) 97 Room Air Lab Results: Results Past 24 Hours Test 08/26/17 07:22 08/26/17 07:34 08/26/17 11:45 08/26/17 16:43 Range/Units White Blood Count 9.35 4.8-10.8 K/uL Red Blood Count 2.97 4.2-5.4 M/uL Hemoglobin 8.0 12.0-16.0 g/dL Hematocrit 25.9 37-47 % Mean Corpuscular Volume 87.2 80-100 fL Mean Corpuscular Hemoglobin 26.9 25-34 pg Mean Corpuscular Hemoglobin Concent 30.9 32-36 g/dl RDW Standard Deviation 43.0 36.4-46.3 fL RDW Coefficient of Variation 13.5 11.5-14.5 % Platelet Count 371 130-400 K/uL Mean Platelet Volume 9.0 7.4-10.4 fL Sodium Level 141 136-145 mmol/L Potassium Level 4.2 3.5-5.1 mmol/L Chloride Level 108 98-107 mmol/L Carbon Dioxide Level 27 21-32 mmol/L Anion Gap 6.0 3-11 mmol/L Blood Urea Nitrogen 12 7-18 mg/dl Creatinine 1.15 0.60-1.20 mg/dl Est Creatinine Clear Calc Drug Dose 56.5 ml/min Estimated GFR () 59.5 Estimated GFR (Non- 51.3 BUN/Creatinine Ratio 10.1 10-20 Random Glucose 63 70-99 mg/dl Calcium Level 7.8 8.5-10.1 mg/dl Bedside Glucose 77 92 93 70-90 mg/dl Test 08/26/17 20:07 Range/Units Bedside Glucose 160 70-90 mg/dl
[2017-08-26] MEDS: INSULIN GLARGINE SOLOSTAR 100 UNITS/ML 3 ML PEN SC SCH (20:50)
[2017-08-26] MEDS ORDERED: GADAVIST IV PRN (23:00)
[2017-08-27 00:07] VITALS: BP 171/85; PULSE 64; TEMP 36.7; O2SAT 97
[2017-08-27] MEDS: POTASSIUM CHLORIDE INJ 10 MEQ in SODIUM CHLORIDE 0.9% 1000ML 1,000 ML IV SCH ×3 (03:24→23:13)
--- NOTE | 2017-08-27 07:00 | DIAGNOSTIC IMAGING REPORT ---
MRI OF THE RIGHT FOREFOOT WITHOUT AND WITH CONTRAST CLINICAL HISTORY: Infection. Sepsis. Evaluate for osteomyelitis. COMPARISON STUDY: 08/04/2017, conventional radiographic study dated 08/02/2017 FINDINGS: Imaging was performed in the sagittal coronal and axial planes, before and after the administration of 9 cc of intravenous Gadavist. The examination is somewhat compromised from a technical standpoint due to motion artifact. There is a subtle soft tissue ulceration located between the first and second toes. This is contiguous with a fluid collection along the plantar aspect of the great toe, consistent with an abscess. This measures 14 x 7 x 32 mm. There is a second fluid collection along the dorsal aspect of the distal second and third metatarsals measuring 18 x 5 x 24 mm. This is contiguous with a dorsal skin defect. Additional abscess is suspected. There is diffuse edema within the soft tissues of the forefoot. There is T2 edema involving the middle and distal phalanges of the second toe consistent with an osteitis. There is no T1 marrow replacement to indicate an osteomyelitis. There is also T2 edema involving the second metatarsal head and proximal phalanx of the second toe consistent with an osteitis. Again there is no T1 edema to indicate osteomyelitis. IMPRESSION: 1. Moderately limited study from a technical standpoint secondary to motion artifact 2. Extensive soft tissue swelling and edema involving the forefoot consistent with a cellulitis 3. Soft tissue abscesses with communication to the skin along the plantar aspect of the great toe, and dorsal aspect of the second and third metatarsals 4. T2 marrow edema involving the proximal distal phalanges of the great toe, and second metatarsal head and proximal phalanx of the second toe. The findings are consistent with a reactive osteitis. There is no definitive T1 marrow edema to indicate an osteomyelitis. Electronically signed by: Ryan Wilkes M.D. 08/27/2017 6:59 AM Dictated Date/Time: 08/27/2017 6:44 AM
[2017-08-27 07:34] VITALS: BP 172/82; PULSE 58; TEMP 36.7; O2SAT 96
[2017-08-27] MEDS: FAMOTIDINE 20 MG TAB PO SCH ×2 (07:41→21:02)
[2017-08-27] MEDS: LACTOBACILLUS ACIDOPHILUS (FLORANEX) TAB PO SCH ×3 (07:41→16:24)
[2017-08-27] MEDS: LINEZOLID 600 MG TAB PO SCH ×2 (07:41→21:01)
[2017-08-27 08:30] LABS: HEMATOCRIT 26.6 % (37-47); MEAN CELL VOLUME 87.5 fL (80-100); MEAN CORPUSCULAR HEMOGLOBIN 27.3 pg (25-34); MEAN CORPUSCULAR HGB CONC 31.2 g/dl (32-36); MEAN PLATELET VOLUME 8.8 fL (7.4-10.4); PLATELET COUNT 353 K/uL (130-400); RED BLOOD COUNT 3.04 M/uL (4.2-5.4); WHITE BLOOD COUNT 6.55 K/uL (4.8-10.8)
[2017-08-27] MEDS: INSULIN ASPART 100 UNITS/ML 3 ML PEN SC SCH ×4 (08:43→21:10)
--- NOTE | 2017-08-27 08:54 | Orthopedic Progress Note ---
Orthopedic Progress Note Date of Service Aug 27, 2017. Subjective Reports: feeling well, Denies: complaints Objective Dressing removed. Open area that was on the dorsum of the forefoot is now closed. 8" of packing removed from between the 1st and 2nd toes. Area between 1st and second toe has been debrided and is open. No purulent drainage noted with packing removal. Dusky erythema around the great toe but seems less tender to her. Area of dusky erythema noted on the plantar surface of the foot near the 2nd MP joint that is tender on palpation. Small amount of serous drainage expressed out of dorsal wound closure. Redressed. Date Time Temp Pulse Resp B/P (MAP) Pulse Ox O2 Delivery O2 Flow Rate FiO2 08/27/17 07:34 36.7 58 18 172/82 (112) 96 Room Air 08/27/17 00:07 36.7 64 20 171/85 (113) 97 Room Air 08/27/17 00:05 Room Air 08/26/17 16:15 94 Room Air 08/26/17 15:25 36.7 63 20 137/68 (91) 94 Room Air Laboratory Results 24 Hours: Test 08/27/17 08:00 Hematocrit 26.6 % Hemoglobin 8.3 g/dL Additional Notes: MRI IMPRESSION: 1. Moderately limited study from a technical standpoint secondary to motion artifact 2. Extensive soft tissue swelling and edema involving the forefoot consistent with a cellulitis 3. Soft tissue abscesses with communication to the skin along the plantar aspect of the great toe, and dorsal aspect of the second and third metatarsals 4. T2 marrow edema involving the proximal distal phalanges of the great toe, and second metatarsal head and proximal phalanx of the second toe. The findings are consistent with a reactive osteitis. There is no definitive T1 marrow edema to indicate an osteomyelitis. Assessment & Plan Assessment: s/p repeated I&D of right foot Plan: Dr Pro to review latest MRI; Results noted above. ? new abscess vs collections s/p recent surgery; Osteitis rather than osteomyelitis noted. Discussed with pt to be npo today until I speak with Dr Pro. Discussed briefly with Victoria Newton RN; Dr. Gates consulted for his input. [id number] ADDENDUM: I SPOKE WITH DR PRO THIS AFTERNOON. HE REVIEWED THE LATEST MRI SCAN AND DISCUSSED DR OLVERA INPUT. NO FURTHER SURGERY AT THIS TIME. HE WOULD LIKE WOUND CARE TO ATTEMPT A WOUND VAC. I LET VICTORIA NEWTON KNOW OF HIS DECISION AND SHE WILL INFORM DR GATES IN THE AM. (1) Cellulitis of right foot
[2017-08-27 08:56] LABS: BUN/CREATININE RATIO 9.7 (10-20); CREATININE 1.19 mg/dl (0.60-1.20); POTASSIUM 4.5 mmol/L (3.5-5.1)
[2017-08-27 11:13] VITALS: BP 171/99
--- NOTE | 2017-08-27 13:50 | Wound Consultation: Inpatient ---
Wound Consultation Date of Consultation: Aug 27, 2017. Attending Physician: Michelle Haddad M.D. Reason for Consultation: Nonhealing postsurgical wound right foot History of Present Illness Patient states she's been an inpatient [facility] in August 02. Patient states that she developed redness swelling and pain in the right foot 2 days prior to her admission. Patient states she's had multiple surgeries during her admission for incision and drainage of abscesses to the right foot and right great toe. Patient states she is still having discomfort especially with ambulation. Patient currently denies any fever chills or night sweats. Patient denies abdominal pain chest pain shortness of breath. Patient denies any nausea or vomiting. Patient states that her diabetes has been well under control. Patient states she was a non-insulin- dependent diabetic prior to hospitalization. Patient is currently on oral antibiotic therapy due to a reaction to the intravenous treatment. Patient denies any other systemic complaints at this time. Family History Depression Social History Smoking Status: Former Smoker Marital Status: Housing Status: lives with family Occupation Status: employed Allergies Coded Allergies: Daptomycin (Verified Allergy, Intermediate, DIFFUSE RASH, 08/20/17) POSSIBLE DRUG RXN Sulfa Antibiotics (Verified Allergy, Unknown, ., 08/02/17) Vancomycin (Verified Allergy, Unknown, Diffuse maculopapular rash, itching , 08/22/17) [id number] Per Dr. Haddad, occurred a few days into vanc therapy but did not appear to be red nayla syndrome Home Medications Scheduled Atorvastatin (Lipitor), 1 TAB PO DAILY Daptomycin (Daptomycin), 500 MG IV DAILY Doxycycline Hyclate (Vibramycin), 1 CAP PO BID Empagliflozin (Jardiance), 1 TABS PO DAILY Hydrochlorothiazide (Hctz), 25 MG PO DAILY Metformin Hcl (Glucophage), 850 MG PO BID Scheduled PRN Tramadol (Ultram), 25 MG PO Q6 PRN for Pain Inpatient Medications Current Inpatient Medications Medications (Trade) Dose Ordered Sig/Donald Route Start Time Stop Time Status Last Admin Dose Admin Acetaminophen (Tylenol Tab) 650 mg Q4H PRN PO 08/02/17 20:30 09/01/17 20:29 08/24/17 22:15 650 MG Insulin Aspart (novoLOG ASPART) SLIDING SCALE If C... ACHS SC 08/02/17 22:45 09/01/17 22:44 08/26/17 20:49 1 UNITS Glucose (Glucose 40% Gel) 15-30 GRAMS 15 GRAMS... UD PRN PO 08/02/17 20:30 09/01/17 20:29 Glucose (Glucose Chew Tab) 4-8 Tablets 4 Tabl... UD PRN PO 08/02/17 20:30 09/01/17 20:29 Dextrose (Dextrose 50% 50ML Syringe) 25-50ML OF 50% DW IV FOR... UD PRN IV 08/02/17 20:30 09/01/17 20:29 08/09/17 16:35 25 ML Glucagon (Glucagon Inj) 1 mg UD PRN SQ 08/02/17 20:30 09/01/17 20:29 Lorazepam (Ativan Tab) 0.25 mg HS PRN PO 08/02/17 20:30 09/01/17 20:29 Aspirin (Ecotrin Tab) 81 mg QAM PO 08/03/17 08:00 09/02/17 08:59 Future Hold 08/04/17 07:49 81 MG Lorazepam (Ativan Tab) 0.5 mg Q12 PRN PO 08/04/17 12:30 09/03/17 12:29 Heparin Sodium (Porcine) (Heparin 10 Unit/ ml 5 ml Flush) 5 ml PRN PRN FLUSH 08/07/17 09:45 09/06/17 09:44 08/25/17 08:07 5 ML Lactobacillus Acidophilus (Floranex Tab) 4 tab TIDM PO 08/07/17 17:00 09/06/17 16:59 08/27/17 07:41 4 TAB Diphenhydramine HCl (Benadryl Cap) 50 mg Q6H PO 08/15/17 22:00 09/14/17 15:59 08/27/17 13:13 50 MG Hydrocortisone (Hydrocortisone 1% Crm) 1 appln BID PRN EXT 08/18/17 12:45 09/17/17 12:44 08/24/17 21:18 1 APPLN Insulin Glargine (Lantus Solostar Pen) 10 units HS SC 08/20/17 21:00 09/19/17 20:59 08/26/17 20:50 10 UNITS Diphenhydramine HCl (Benadryl Extra Strength Cream) 1 appln Q4 PRN EXT 08/21/17 19:00 09/20/17 18:59 08/26/17 08:29 1 APPLN Famotidine (Pepcid Tab) 20 mg BID PO 08/23/17 20:00 09/22/17 19:59 08/27/17 07:41 20 MG Linezolid (Zyvox Tab) 600 mg BID PO 08/23/17 18:00 09/01/17 15:59 08/27/17 07:41 600 MG Oxycodone/ Acetaminophen (Percocet 5-325mg Tab) 1 tab Q4H PRN PO 08/25/17 06:30 09/08/17 06:29 08/26/17 23:36 1 TAB Potassium Chloride 10 meq/ Sodium Chloride 1,005 ml @ 100 mls/hr Q10H3M IV 08/25/17 17:54 09/24/17 17:53 08/27/17 13:05 100 MLS/HR Gadobutrol (Gadavist) 9 mmol UD PRN IV 08/26/17 23:00 08/30/17 22:59 Review of Systems 10 systems were reviewed entirely and positive eyes are noted in the chief complaint history of present illness. Physical Exam Date Time Temp Pulse Resp B/P (MAP) Pulse Ox O2 Delivery O2 Flow Rate FiO2 08/27/17 11:13 171/99 (123) 08/27/17 08:00 Room Air 08/27/17 07:34 36.7 58 18 172/82 (112) 96 Room Air 08/27/17 00:07 36.7 64 20 171/85 (113) 97 Room Air 08/27/17 00:05 Room Air 08/26/17 16:15 94 Room Air 08/26/17 15:25 36.7 63 20 137/68 (91) 94 Room Air General: The patient is lying in a hospital bed in no distress. Alert, cooperative and appropriate to all questions. HEENT: Pupils equal and reactive to light. Sclera clear, EOM intact. Neck: Supple, No JVD noted Chest: CTA in all [place]. No deformity Heart: RRR without murmurs, S3, S4, thrills, rubs or heaves Extremities: There is no postsurgical wound noted on the dorsal aspect of the right foot extending interdigitally between the first and second digits measuring 5 x 0.5 x 1.5 cm. There is surrounding maceration noted. There is also periwound erythema extending onto the plantar surface of the foot and the first digit. No active drainage or odor was noted. There is tenderness to palpation throughout no noticeable fluctuance present. There are sutures present extending proximally from the wound 5 cm. Range of motion appears intact. Distal neurovascular bundles intact. Neurological: Alert and oriented x3. No focal deficits. Skin: No rashes, papules, vesicles, excoriations Laboratory Results Last 24 Hours Test 08/26/17 16:43 08/26/17 20:07 08/27/17 07:53 08/27/17 08:00 Bedside Glucose 93 mg/dl 160 mg/dl 93 mg/dl White Blood Count 6.55 K/uL Red Blood Count 3.04 M/uL Hemoglobin 8.3 g/dL Hematocrit 26.6 % Mean Corpuscular Volume 87.5 fL Mean Corpuscular Hemoglobin 27.3 pg Mean Corpuscular Hemoglobin Concent 31.2 g/dl RDW Standard Deviation 43.7 fL RDW Coefficient of Variation 13.7 % Platelet Count 353 K/uL Mean Platelet Volume 8.8 fL Sodium Level 140 mmol/L Potassium Level 4.5 mmol/L Chloride Level 109 mmol/L Carbon Dioxide Level 25 mmol/L Anion Gap 7.0 mmol/L Blood Urea Nitrogen 12 mg/dl Creatinine 1.19 mg/dl Est Creatinine Clear Calc Drug Dose 54.6 ml/min Estimated GFR () 57.1 Estimated GFR (Non- 49.2 BUN/Creatinine Ratio 9.7 Random Glucose 86 mg/dl Calcium Level 8.0 mg/dl Test 08/27/17 11:44 Bedside Glucose 110 mg/dl Assessment & Plan Assessment: Nonhealing postsurgical wound to the right foot with secondary cellulitis Plan: At this time no debridement is indicated. The case was discussed in its entirety with Shorty TOPETE for Dr. Pro. If the patient is returning to surgery today for further debridement, it is my recommendation that the wound be kept open postsurgical and the ability then to apply and irrigating wound VAC came be made. If there is additional primary closure, consideration will be made at that time to determine whether VAC therapy is amenable. Presently the wound site will be managed with Aquacel Ag and gauze dressing to minimize the maceration present. Patient will continue to be monitored during her hospitalization and can be followed and evaluated on an outpatient basis upon discharge.
[2017-08-27 15:24] VITALS: BP_SYST 146; BP_SYST 170; BP_DIAS 76; BP_DIAS 84; PULSE 65; TEMP 36.6; O2SAT 97
--- NOTE | 2017-08-27 18:28 | Progress Note ---
Subjective Date of Service: Aug 27, 2017. Subjective Pt evaluation today including: conversation w/ patient, physical exam, lab review, review of studies, review of inpatient medication list Saw/examined the patient in room 411 No problems/issues to note; denies pain at the R foot Denies any other symptoms; eager to eat; frustrated about being in the hospital Problem List Medical Problems: (1) Abnormal brain CT Status: Acute (2) Cellulitis of right foot Status: Acute (3) Dizziness Status: Acute (4) Failure of outpatient treatment Status: Acute (5) Vomiting Status: Acute Review of Systems Constitutional: No fever, No chills, No weakness Respiratory: No shortness of breath Cardiac: No chest pain Abdomen: No nausea, No vomiting, No diarrhea Musculoskeletal: + problem reported (R foot, no pain currently) Female : No dysuria, No urinary frequency Heme: No abnormal bleeding/bruising Medications Current Inpatient Medications Medications (Trade) Dose Ordered Sig/Donald Route Start Time Stop Time Status Last Admin Dose Admin Acetaminophen (Tylenol Tab) 650 mg Q4H PRN PO 08/02/17 20:30 09/01/17 20:29 08/24/17 22:15 650 MG Insulin Aspart (novoLOG ASPART) SLIDING SCALE If C... ACHS SC 08/02/17 22:45 09/01/17 22:44 08/26/17 20:49 1 UNITS Glucose (Glucose 40% Gel) 15-30 GRAMS 15 GRAMS... UD PRN PO 08/02/17 20:30 09/01/17 20:29 Glucose (Glucose Chew Tab) 4-8 Tablets 4 Tabl... UD PRN PO 08/02/17 20:30 09/01/17 20:29 Dextrose (Dextrose 50% 50ML Syringe) 25-50ML OF 50% DW IV FOR... UD PRN IV 08/02/17 20:30 09/01/17 20:29 08/09/17 16:35 25 ML Glucagon (Glucagon Inj) 1 mg UD PRN SQ 08/02/17 20:30 09/01/17 20:29 Lorazepam (Ativan Tab) 0.25 mg HS PRN PO 08/02/17 20:30 09/01/17 20:29 Aspirin (Ecotrin Tab) 81 mg QAM PO 08/03/17 08:00 09/02/17 08:59 Future Hold 08/04/17 07:49 81 MG Lorazepam (Ativan Tab) 0.5 mg Q12 PRN PO 08/04/17 12:30 09/03/17 12:29 Heparin Sodium (Porcine) (Heparin 10 Unit/ ml 5 ml Flush) 5 ml PRN PRN FLUSH 08/07/17 09:45 09/06/17 09:44 08/25/17 08:07 5 ML Lactobacillus Acidophilus (Floranex Tab) 4 tab TIDM PO 08/07/17 17:00 09/06/17 16:59 08/27/17 07:41 4 TAB Diphenhydramine HCl (Benadryl Cap) 50 mg Q6H PO 08/15/17 22:00 09/14/17 15:59 08/27/17 13:13 50 MG Hydrocortisone (Hydrocortisone 1% Crm) 1 appln BID PRN EXT 08/18/17 12:45 09/17/17 12:44 08/24/17 21:18 1 APPLN Insulin Glargine (Lantus Solostar Pen) 10 units HS SC 08/20/17 21:00 09/19/17 20:59 08/26/17 20:50 10 UNITS Diphenhydramine HCl (Benadryl Extra Strength Cream) 1 appln Q4 PRN EXT 08/21/17 19:00 09/20/17 18:59 08/26/17 08:29 1 APPLN Famotidine (Pepcid Tab) 20 mg BID PO 08/23/17 20:00 09/22/17 19:59 08/27/17 07:41 20 MG Linezolid (Zyvox Tab) 600 mg BID PO 08/23/17 18:00 09/01/17 15:59 08/27/17 07:41 600 MG Oxycodone/ Acetaminophen (Percocet 5-325mg Tab) 1 tab Q4H PRN PO 08/25/17 06:30 09/08/17 06:29 08/26/17 23:36 1 TAB Potassium Chloride 10 meq/ Sodium Chloride 1,005 ml @ 100 mls/hr Q10H3M IV 08/25/17 17:54 09/24/17 17:53 08/27/17 13:05 100 MLS/HR Gadobutrol (Gadavist) 9 mmol UD PRN IV 08/26/17 23:00 08/30/17 22:59 Objective Vital Signs Date Time Temp Pulse Resp B/P (MAP) Pulse Ox O2 Delivery O2 Flow Rate FiO2 08/27/17 16:00 Room Air 08/27/17 15:24 36.6 65 18 170/84 (112) 97 Room Air 146/76 (99) 08/27/17 11:13 171/99 (123) 08/27/17 08:00 Room Air 08/27/17 07:34 36.7 58 18 172/82 (112) 96 Room Air 08/27/17 00:07 36.7 64 20 171/85 (113) 97 Room Air 08/27/17 00:05 Room Air Physical Exam General Appearance: no apparent distress Respiratory/Chest: lungs clear, normal breath sounds, no respiratory distress, no accessory muscle use Cardiovascular: regular rate, rhythm, no edema, no murmur Extremities: normal inspection, no pedal edema, + pertinent finding (R foot bandaged/wrapped) Laboratory Results Last 24 Hours Test 08/26/17 20:07 08/27/17 07:53 08/27/17 08:00 08/27/17 11:44 Bedside Glucose 160 mg/dl 93 mg/dl 110 mg/dl White Blood Count 6.55 K/uL Red Blood Count 3.04 M/uL Hemoglobin 8.3 g/dL Hematocrit 26.6 % Mean Corpuscular Volume 87.5 fL Mean Corpuscular Hemoglobin 27.3 pg Mean Corpuscular Hemoglobin Concent 31.2 g/dl RDW Standard Deviation 43.7 fL RDW Coefficient of Variation 13.7 % Platelet Count 353 K/uL Mean Platelet Volume 8.8 fL Sodium Level 140 mmol/L Potassium Level 4.5 mmol/L Chloride Level 109 mmol/L Carbon Dioxide Level 25 mmol/L Anion Gap 7.0 mmol/L Blood Urea Nitrogen 12 mg/dl Creatinine 1.19 mg/dl Est Creatinine Clear Calc Drug Dose 54.6 ml/min Estimated GFR () 57.1 Estimated GFR (Non- 49.2 BUN/Creatinine Ratio 9.7 Random Glucose 86 mg/dl Calcium Level 8.0 mg/dl Test 08/27/17 16:05 Bedside Glucose 100 mg/dl Assessment and Plan SEPSIS DUE TO DIABETIC FOOT INFECTION ON RT SIDE 08/27 appreciate ortho and wound care input at this point, no further surgery as per ortho wound care - possible wound vac continue PO Zyvox for around 6 weeks total presented with fever, chills, leukocytosis Doppler LE done showed no sonographic evidence of deep venous thrombosis within the right lower extremity. MRI of RLE done Extensive soft tissue swelling and subcutaneous edema about the foot suggests cellulitis with loculated peripherally enhancing collection of the dorsal forefoot measuring 3.2 x 1.2 x 5.3 cm with associated small fluid filled tract extending to the skin surface as above suggesting draining abscess. No evidence of osteomyelitis or acute fracture. Ortho on board s/p multiple Incision and drainage and packing of abscess, right foot wound culture -MRSA ; surgical drainage culture + MRSA Continue to have swelling and purulent drainage ID on board will need 6 weeks of Abx on Zyvox now ( had allergic reaction to Daptomycin and vanco ) -tolerating well s/p rt foot I&D on saturday08/25/17 continued to have infection /non healing wound , after multiple I&D , while on broad spectrum abx pt is against to have toe /TM amputation Ortho ordered for MRI of foot to assess for osteo TYPE 2 DM insulin SSI and Lantus ordered HB A1c 11.2 ( poorly controlled ) software educator consulted oral med on hold on Lantus subq DRUG REACTION/GENERALIZED RASH : resolved IV Vancomycin D/melina on Zyvox -tolerating well changed to PO can be discharged on Oral Zyvox will need total 6 weeks of therapy pt is not on any SSRI Tramadol D/melina for possible drug interaction pt at present does not have any complain of pain will recommend different pain meds on discharge PICC line will be discontinued prior to discharge HTN BP stable HX OF CVA : hx of occipital CVA uses walker occasionally at home statin resumed as pt is off Daptomycin fall precaution HX OF PRIOR LEFT LOWER EXT DVT S/P IVC FILTER PLACEMENT was on Xarelto ,which was discontinued after acute CVA had retrievable IVC filter placed , was removed after 7-8 months of anticoagulation lower ext Doppler negative for DVT DVT PROPHYLAXIS Lovenox subq DISPOSITION has prolong hospital stay due to non healing rt foot wound pt wants to return home after discharge from hospital Medicine follow up with Dr viramontes Ortho follow up with Dr Roeshot ID follow up with Dr Peñaloza pt will need follow up with Wound clinic on discharge for continued wound care
[2017-08-27] MEDS: INSULIN GLARGINE SOLOSTAR 100 UNITS/ML 3 ML PEN SC SCH (21:11)
[2017-08-27] MEDS: OXYCODONE/ACETAMINOPHEN 5-325 TAB PO PRN (21:12)
[2017-08-28 07:35] VITALS: BP 148/82; PULSE 64; TEMP 36.5; O2SAT 97
[2017-08-28 08:45] VITALS: O2SAT 97
[2017-08-28] MEDS: LACTOBACILLUS ACIDOPHILUS (FLORANEX) TAB PO SCH ×3 (08:51→16:08)
[2017-08-28] MEDS: FAMOTIDINE 20 MG TAB PO SCH ×2 (08:52→21:30)
[2017-08-28] MEDS: LINEZOLID 600 MG TAB PO SCH ×2 (08:52→21:31)
[2017-08-28 08:57] LABS: HEMATOCRIT 28.3 % (37-47); MEAN CELL VOLUME 86.5 fL (80-100); MEAN CORPUSCULAR HEMOGLOBIN 27.2 pg (25-34); MEAN CORPUSCULAR HGB CONC 31.4 g/dl (32-36); MEAN PLATELET VOLUME 8.5 fL (7.4-10.4); PLATELET COUNT 323 K/uL (130-400); RED BLOOD COUNT 3.27 M/uL (4.2-5.4); WHITE BLOOD COUNT 8.31 K/uL (4.8-10.8)
[2017-08-28] MEDS: INSULIN ASPART 100 UNITS/ML 3 ML PEN SC SCH ×4 (08:58→21:00)
[2017-08-28] MEDS: POTASSIUM CHLORIDE INJ 10 MEQ in SODIUM CHLORIDE 0.9% 1000ML 1,000 ML IV SCH ×2 (09:23→20:02)
[2017-08-28 09:29] LABS: BUN/CREATININE RATIO 8.8 (10-20); CALCIUM 7.9 mg/dl (8.5-10.1); CREATININE 1.22 mg/dl (0.60-1.20)
--- NOTE | 2017-08-28 12:35 | Progress Note ---
Subjective Date of Service: Aug 28, 2017. Subjective Pt evaluation today including: conversation w/ patient, physical exam, lab review, review of studies, review of inpatient medication list Saw/examined the patient in room 411 No problems currently; using a walker for ambulation No pain at the R foot No other issues to note Problem List Medical Problems: (1) Abnormal brain CT Status: Acute (2) Cellulitis of right foot Status: Acute (3) Dizziness Status: Acute (4) Failure of outpatient treatment Status: Acute (5) Vomiting Status: Acute Review of Systems Constitutional: No fever, No chills Respiratory: No cough, No sputum, No shortness of breath Abdomen: No pain, No nausea, No vomiting, No diarrhea Musculoskeletal: + joint pain Medications Current Inpatient Medications Medications (Trade) Dose Ordered Sig/Donald Route Start Time Stop Time Status Last Admin Dose Admin Acetaminophen (Tylenol Tab) 650 mg Q4H PRN PO 08/02/17 20:30 09/01/17 20:29 08/24/17 22:15 650 MG Insulin Aspart (novoLOG ASPART) SLIDING SCALE If C... ACHS SC 08/02/17 22:45 09/01/17 22:44 08/28/17 08:58 3 UNITS Glucose (Glucose 40% Gel) 15-30 GRAMS 15 GRAMS... UD PRN PO 08/02/17 20:30 09/01/17 20:29 Glucose (Glucose Chew Tab) 4-8 Tablets 4 Tabl... UD PRN PO 08/02/17 20:30 09/01/17 20:29 Dextrose (Dextrose 50% 50ML Syringe) 25-50ML OF 50% DW IV FOR... UD PRN IV 08/02/17 20:30 09/01/17 20:29 08/09/17 16:35 25 ML Glucagon (Glucagon Inj) 1 mg UD PRN SQ 08/02/17 20:30 09/01/17 20:29 Lorazepam (Ativan Tab) 0.25 mg HS PRN PO 08/02/17 20:30 09/01/17 20:29 Aspirin (Ecotrin Tab) 81 mg QAM PO 08/03/17 08:00 09/02/17 08:59 Future Hold 08/04/17 07:49 81 MG Lorazepam (Ativan Tab) 0.5 mg Q12 PRN PO 08/04/17 12:30 09/03/17 12:29 Heparin Sodium (Porcine) (Heparin 10 Unit/ ml 5 ml Flush) 5 ml PRN PRN FLUSH 08/07/17 09:45 09/06/17 09:44 08/25/17 08:07 5 ML Lactobacillus Acidophilus (Floranex Tab) 4 tab TIDM PO 08/07/17 17:00 09/06/17 16:59 08/28/17 08:51 4 TAB Diphenhydramine HCl (Benadryl Cap) 50 mg Q6H PO 08/15/17 22:00 09/14/17 15:59 08/28/17 08:52 50 MG Hydrocortisone (Hydrocortisone 1% Crm) 1 appln BID PRN EXT 08/18/17 12:45 09/17/17 12:44 08/24/17 21:18 1 APPLN Insulin Glargine (Lantus Solostar Pen) 10 units HS SC 08/20/17 21:00 09/19/17 20:59 08/27/17 21:11 10 UNITS Diphenhydramine HCl (Benadryl Extra Strength Cream) 1 appln Q4 PRN EXT 08/21/17 19:00 09/20/17 18:59 08/26/17 08:29 1 APPLN Famotidine (Pepcid Tab) 20 mg BID PO 08/23/17 20:00 09/22/17 19:59 08/28/17 08:52 20 MG Linezolid (Zyvox Tab) 600 mg BID PO 08/23/17 18:00 09/01/17 15:59 08/28/17 08:52 600 MG Oxycodone/ Acetaminophen (Percocet 5-325mg Tab) 1 tab Q4H PRN PO 08/25/17 06:30 09/08/17 06:29 08/27/17 21:12 1 TAB Potassium Chloride 10 meq/ Sodium Chloride 1,005 ml @ 100 mls/hr Q10H3M IV 08/25/17 17:54 09/24/17 17:53 08/28/17 09:23 100 MLS/HR Gadobutrol (Gadavist) 9 mmol UD PRN IV 08/26/17 23:00 08/30/17 22:59 Objective Vital Signs Date Time Temp Pulse Resp B/P (MAP) Pulse Ox O2 Delivery O2 Flow Rate FiO2 08/28/17 08:45 97 Room Air 08/28/17 07:52 Room Air 08/28/17 07:35 36.5 64 13 148/82 (104) 97 Room Air 08/28/17 00:00 Room Air 08/27/17 20:00 Room Air 08/27/17 16:00 Room Air 08/27/17 15:24 36.6 65 18 170/84 (112) 97 Room Air 146/76 (99) Physical Exam General Appearance: no apparent distress Respiratory/Chest: no respiratory distress, no accessory muscle use Cardiovascular: regular rate, rhythm Extremities: + pertinent finding (R foot bandaged/dressed) Neurologic/Psychiatric: no motor/sensory deficits, alert, normal mood/affect Laboratory Results Last 24 Hours Test 08/27/17 16:05 08/27/17 20:25 08/28/17 08:31 08/28/17 08:38 Bedside Glucose 100 mg/dl 165 mg/dl 77 mg/dl White Blood Count 8.31 K/uL Red Blood Count 3.27 M/uL Hemoglobin 8.9 g/dL Hematocrit 28.3 % Mean Corpuscular Volume 86.5 fL Mean Corpuscular Hemoglobin 27.2 pg Mean Corpuscular Hemoglobin Concent 31.4 g/dl RDW Standard Deviation 43.1 fL RDW Coefficient of Variation 13.7 % Platelet Count 323 K/uL Mean Platelet Volume 8.5 fL Sodium Level 142 mmol/L Potassium Level 4.0 mmol/L Chloride Level 109 mmol/L Carbon Dioxide Level 26 mmol/L Anion Gap 7.0 mmol/L Blood Urea Nitrogen 11 mg/dl Creatinine 1.22 mg/dl Est Creatinine Clear Calc Drug Dose 53.3 ml/min Estimated GFR () 55.4 Estimated GFR (Non- 47.8 BUN/Creatinine Ratio 8.8 Random Glucose 78 mg/dl Calcium Level 7.9 mg/dl Test 08/28/17 11:42 Bedside Glucose 95 mg/dl Assessment and Plan SEPSIS DUE TO DIABETIC FOOT INFECTION ON RT SIDE 08/28 continue PO Zyvox no surgical intervention as per ortho wound vac - will await wound care input d/c home with home health once plan is in motion for wound vac 08/27 appreciate ortho and wound care input at this point, no further surgery as per ortho wound care - possible wound vac continue PO Zyvox for around 6 weeks total presented with fever, chills, leukocytosis Doppler LE done showed no sonographic evidence of deep venous thrombosis within the right lower extremity. MRI of RLE done Extensive soft tissue swelling and subcutaneous edema about the foot suggests cellulitis with loculated peripherally enhancing collection of the dorsal forefoot measuring 3.2 x 1.2 x 5.3 cm with associated small fluid filled tract extending to the skin surface as above suggesting draining abscess. No evidence of osteomyelitis or acute fracture. Ortho on board s/p multiple Incision and drainage and packing of abscess, right foot wound culture -MRSA ; surgical drainage culture + MRSA Continue to have swelling and purulent drainage ID on board will need 6 weeks of Abx on Zyvox now ( had allergic reaction to Daptomycin and vanco ) -tolerating well s/p rt foot I&D on saturday08/25/17 continued to have infection /non healing wound , after multiple I&D , while on broad spectrum abx pt is against to have toe /TM amputation Ortho ordered for MRI of foot to assess for osteo TYPE 2 DM insulin SSI and Lantus ordered HB A1c 11.2 ( poorly controlled ) coding educator consulted oral med on hold on Lantus subq DRUG REACTION/GENERALIZED RASH : resolved IV Vancomycin D/melina on Zyvox -tolerating well changed to PO can be discharged on Oral Zyvox will need total 6 weeks of therapy pt is not on any SSRI Tramadol D/melina for possible drug interaction pt at present does not have any complain of pain will recommend different pain meds on discharge PICC line will be discontinued prior to discharge HTN BP stable HX OF CVA : hx of occipital CVA uses walker occasionally at home statin resumed as pt is off Daptomycin fall precaution HX OF PRIOR LEFT LOWER EXT DVT S/P IVC FILTER PLACEMENT was on Xarelto ,which was discontinued after acute CVA had retrievable IVC filter placed , was removed after 7-8 months of anticoagulation lower ext Doppler negative for DVT DVT PROPHYLAXIS Lovenox subq DISPOSITION has prolong hospital stay due to non healing rt foot wound pt wants to return home after discharge from hospital Medicine follow up with Dr viramontes Ortho follow up with Dr Plummer ID follow up with Dr Peñaloza pt will need follow up with Wound clinic on discharge for continued wound care
[2017-08-28] MEDS: OXYCODONE/ACETAMINOPHEN 5-325 TAB PO PRN ×2 (13:35→21:32)
--- NOTE | 2017-08-28 13:50 | Wound Progress Note: Inpatient ---
Wound Progress Note Date of Service Aug 28, 2017. Subjective Pt evaluation today including: conversation w/ patient, physical exam, chart review Patient denies any significant pain in the right foot. Patient denies any fever chills or night sweats. Patient denies any other systemic complaints at this time. Patient would like to be discharged home soon patient feels that she is able to care for herself along with her . Patient has been using a walker. Objective Vital Signs Date Time Temp Pulse Resp B/P (MAP) Pulse Ox O2 Delivery O2 Flow Rate FiO2 08/28/17 08:45 97 Room Air 08/28/17 07:52 Room Air 08/28/17 07:35 36.5 64 13 148/82 (104) 97 Room Air 08/28/17 00:00 Room Air 08/27/17 20:00 Room Air 08/27/17 16:00 Room Air 08/27/17 15:24 36.6 65 18 170/84 (112) 97 Room Air 146/76 (99) Physical Exam Notes: Patients vital signs were reviewed and found to be unremarkable patient is afebrile the maceration that was present around the wound surface today shows significant improvement. There is no significant drainage noted. The erythema on the plantar surface of the foot seems to be resolving. There is less tenderness to palpation this area no fluctuance noted. No [place] sl[place] noted. Laboratory Results Last 24 Hours Test 08/27/17 16:05 08/27/17 20:25 08/28/17 08:31 08/28/17 08:38 Bedside Glucose 100 mg/dl 165 mg/dl 77 mg/dl White Blood Count 8.31 K/uL Red Blood Count 3.27 M/uL Hemoglobin 8.9 g/dL Hematocrit 28.3 % Mean Corpuscular Volume 86.5 fL Mean Corpuscular Hemoglobin 27.2 pg Mean Corpuscular Hemoglobin Concent 31.4 g/dl RDW Standard Deviation 43.1 fL RDW Coefficient of Variation 13.7 % Platelet Count 323 K/uL Mean Platelet Volume 8.5 fL Sodium Level 142 mmol/L Potassium Level 4.0 mmol/L Chloride Level 109 mmol/L Carbon Dioxide Level 26 mmol/L Anion Gap 7.0 mmol/L Blood Urea Nitrogen 11 mg/dl Creatinine 1.22 mg/dl Est Creatinine Clear Calc Drug Dose 53.3 ml/min Estimated GFR () 55.4 Estimated GFR (Non- 47.8 BUN/Creatinine Ratio 8.8 Random Glucose 78 mg/dl Calcium Level 7.9 mg/dl Test 08/28/17 11:42 Bedside Glucose 95 mg/dl Assessment and Plan Assessment: Nonhealing postsurgical wound to the right foot with secondary cellulitis Plan: Wound VAC therapy will be initiated today. The wound will be managed with black foam 125 mm of negative pressure wound VAC change Saturday. Patient's wound VAC will be changed on Saturday and he had no difficulty the patient can be discharged at that time. Patient states she is tolerating her oral antibiotic therapy without difficulty. An orthotic consult was made with Jame catherine for ongoing offloading issues. Patient will be followed in the outpatient clinic next week.
[2017-08-28 15:04] VITALS: BP 142/83; PULSE 64; TEMP 36.7; O2SAT 97
[2017-08-28 16:00] VITALS: O2SAT 97
--- NOTE | 2017-08-28 17:06 | Orthopedic Progress Note ---
Orthopedic Progress Note Date of Service Aug 28, 2017. Subjective Reports: feeling well, complaints Additional Notes: Wound Vac placed today on right foot by Wound care team. Objective calves soft nontender, N/V intact, A&O x3 Wound vac on along with high tide walking boot. Date Time Temp Pulse Resp B/P (MAP) Pulse Ox O2 Delivery O2 Flow Rate FiO2 08/28/17 16:00 97 Room Air 08/28/17 15:04 36.7 64 14 142/83 (102) 97 Room Air 08/28/17 08:45 97 Room Air 08/28/17 07:52 Room Air 08/28/17 07:35 36.5 64 13 148/82 (104) 97 Room Air 08/28/17 00:00 Room Air 08/27/17 20:00 Room Air Laboratory Results 24 Hours: Test 08/28/17 08:38 Hematocrit 28.3 % Hemoglobin 8.9 g/dL Assessment & Plan Assessment: s/p repeated I&D of right foot Plan: Planning for wound vac change this Saturday and probable dc to home (1) Cellulitis of right foot
[2017-08-28] MEDS: BOOST GLUCOSE CONTROL PO SCH (17:50)
[2017-08-28] MEDS: INSULIN GLARGINE SOLOSTAR 100 UNITS/ML 3 ML PEN SC SCH (21:34)
[2017-08-29 04:00] VITALS: BP 151/80; PULSE 73; TEMP 36.4; O2SAT 95
[2017-08-29] MEDS: POTASSIUM CHLORIDE INJ 10 MEQ in SODIUM CHLORIDE 0.9% 1000ML 1,000 ML IV SCH ×3 (04:09→23:18)
[2017-08-29 08:00] VITALS: O2SAT 95
[2017-08-29 08:19] LABS: HEMATOCRIT 25.3 % (37-47); MEAN CELL VOLUME 87.2 fL (80-100); MEAN CORPUSCULAR HEMOGLOBIN 27.2 pg (25-34); MEAN CORPUSCULAR HGB CONC 31.2 g/dl (32-36); MEAN PLATELET VOLUME 8.5 fL (7.4-10.4); PLATELET COUNT 279 K/uL (130-400); WHITE BLOOD COUNT 6.05 K/uL (4.8-10.8)
[2017-08-29 08:37] VITALS: BP 155/85; PULSE 68; TEMP 36.7; O2SAT 97
[2017-08-29 08:48] LABS: BUN/CREATININE RATIO 12.7 (10-20); CALCIUM 7.6 mg/dl (8.5-10.1); CREATININE 1.19 mg/dl (0.60-1.20); POTASSIUM 4.1 mmol/L (3.5-5.1)
--- NOTE | 2017-08-29 09:03 | Orthopedic Progress Note ---
Orthopedic Progress Note Date of Service Aug 29, 2017. Subjective Reports: feeling well, Denies: chest pain, SOB, nausea / vomiting, light headedness, calf pain Objective calves soft nontender, N/V intact, capillary refill less than 2 sec., dressing C /D/I (wound vac in place. minimal edema. mild erythema big toe. mildly tender at the base of the toes, plantar aspect.) Date Time Temp Pulse Resp B/P (MAP) Pulse Ox O2 Delivery O2 Flow Rate FiO2 08/29/17 08:37 36.7 68 16 155/85 (108) 97 Room Air 08/29/17 08:00 95 Room Air 08/29/17 04:00 36.4 73 16 151/80 (103) 95 Room Air 08/29/17 00:00 Room Air 08/28/17 16:00 97 Room Air 08/28/17 15:04 36.7 64 14 142/83 (102) 97 Room Air Laboratory Results 24 Hours: Test 08/29/17 07:54 Hematocrit 25.3 % Hemoglobin 7.9 g/dL Assessment & Plan Assessment: s/p repeated I&D of right foot Plan: Planning for wound vac change tomorrow. Pending wound appearance will either consider another repeat i&D vs DC to home. Continue PO Zyvox. (1) Cellulitis of right foot
[2017-08-29 09:39] VITALS: O2SAT 97
[2017-08-29] MEDS: BOOST GLUCOSE CONTROL PO SCH ×2 (09:56→17:35)
[2017-08-29] MEDS: INSULIN ASPART 100 UNITS/ML 3 ML PEN SC SCH ×4 (09:56→20:54)
[2017-08-29] MEDS: FAMOTIDINE 20 MG TAB PO SCH ×2 (09:58→20:55)
[2017-08-29] MEDS: LACTOBACILLUS ACIDOPHILUS (FLORANEX) TAB PO SCH ×3 (09:58→17:35)
[2017-08-29] MEDS: LINEZOLID 600 MG TAB PO SCH ×2 (09:59→20:56)
--- NOTE | 2017-08-29 10:45 | Progress Note ---
Subjective Date of Service: Aug 29, 2017. Subjective Pt evaluation today including: conversation w/ patient, physical exam, lab review, review of studies, review of inpatient medication list Saw/examined the patient in room 411 No problems/issues to note; eager to go home Wound vac was placed on the R foot Problem List Medical Problems: (1) Abnormal brain CT Status: Acute (2) Cellulitis of right foot Status: Acute (3) Dizziness Status: Acute (4) Failure of outpatient treatment Status: Acute (5) Vomiting Status: Acute Review of Systems Constitutional: No fever, No chills Respiratory: No shortness of breath Cardiac: No chest pain Abdomen: No pain, No nausea, No vomiting, No diarrhea Musculoskeletal: No joint pain Medications Current Inpatient Medications Medications (Trade) Dose Ordered Sig/Donald Route Start Time Stop Time Status Last Admin Dose Admin Acetaminophen (Tylenol Tab) 650 mg Q4H PRN PO 08/02/17 20:30 09/01/17 20:29 08/24/17 22:15 650 MG Insulin Aspart (novoLOG ASPART) SLIDING SCALE If C... ACHS SC 08/02/17 22:45 09/01/17 22:44 08/28/17 17:53 9 UNITS Glucose (Glucose 40% Gel) 15-30 GRAMS 15 GRAMS... UD PRN PO 08/02/17 20:30 09/01/17 20:29 Glucose (Glucose Chew Tab) 4-8 Tablets 4 Tabl... UD PRN PO 08/02/17 20:30 09/01/17 20:29 Dextrose (Dextrose 50% 50ML Syringe) 25-50ML OF 50% DW IV FOR... UD PRN IV 08/02/17 20:30 09/01/17 20:29 08/09/17 16:35 25 ML Glucagon (Glucagon Inj) 1 mg UD PRN SQ 08/02/17 20:30 09/01/17 20:29 Lorazepam (Ativan Tab) 0.25 mg HS PRN PO 08/02/17 20:30 09/01/17 20:29 Aspirin (Ecotrin Tab) 81 mg QAM PO 08/03/17 08:00 09/02/17 08:59 Future Hold 08/04/17 07:49 81 MG Lorazepam (Ativan Tab) 0.5 mg Q12 PRN PO 08/04/17 12:30 09/03/17 12:29 Heparin Sodium (Porcine) (Heparin 10 Unit/ ml 5 ml Flush) 5 ml PRN PRN FLUSH 08/07/17 09:45 09/06/17 09:44 08/25/17 08:07 5 ML Lactobacillus Acidophilus (Floranex Tab) 4 tab TIDM PO 08/07/17 17:00 09/06/17 16:59 08/29/17 09:58 4 TAB Diphenhydramine HCl (Benadryl Cap) 50 mg Q6H PO 08/15/17 22:00 09/14/17 15:59 08/29/17 10:00 50 MG Hydrocortisone (Hydrocortisone 1% Crm) 1 appln BID PRN EXT 08/18/17 12:45 09/17/17 12:44 08/24/17 21:18 1 APPLN Insulin Glargine (Lantus Solostar Pen) 10 units HS SC 08/20/17 21:00 09/19/17 20:59 08/28/17 21:34 10 UNITS Diphenhydramine HCl (Benadryl Extra Strength Cream) 1 appln Q4 PRN EXT 08/21/17 19:00 09/20/17 18:59 08/26/17 08:29 1 APPLN Famotidine (Pepcid Tab) 20 mg BID PO 08/23/17 20:00 09/22/17 19:59 08/29/17 09:58 20 MG Linezolid (Zyvox Tab) 600 mg BID PO 08/23/17 18:00 09/01/17 15:59 08/29/17 09:59 600 MG Oxycodone/ Acetaminophen (Percocet 5-325mg Tab) 1 tab Q4H PRN PO 08/25/17 06:30 09/08/17 06:29 08/28/17 21:32 1 TAB Potassium Chloride 10 meq/ Sodium Chloride 1,005 ml @ 100 mls/hr Q10H3M IV 08/25/17 17:54 09/24/17 17:53 08/29/17 04:09 100 MLS/HR Gadobutrol (Gadavist) 9 mmol UD PRN IV 08/26/17 23:00 08/30/17 22:59 Enteral Nutritional Formula (Boost Glucose Control) 1 can BIDM PO 08/28/17 17:00 09/27/17 16:59 08/28/17 17:50 1 CAN Objective Vital Signs Date Time Temp Pulse Resp B/P (MAP) Pulse Ox O2 Delivery O2 Flow Rate FiO2 08/29/17 09:39 97 Room Air 08/29/17 08:37 36.7 68 16 155/85 (108) 97 Room Air 08/29/17 08:00 95 Room Air 08/29/17 04:00 36.4 73 16 151/80 (103) 95 Room Air 08/29/17 00:00 Room Air 08/28/17 16:00 97 Room Air 08/28/17 15:04 36.7 64 14 142/83 (102) 97 Room Air Physical Exam General Appearance: no apparent distress Extremities: normal inspection, no pedal edema, + pertinent finding (R foot wound vac in place on the dorsal aspect) Neurologic/Psychiatric: no motor/sensory deficits, alert, normal mood/affect Laboratory Results Last 24 Hours Test 08/28/17 11:42 08/28/17 16:19 08/28/17 20:44 08/29/17 07:29 Bedside Glucose 95 mg/dl 94 mg/dl 100 mg/dl 83 mg/dl Test 08/29/17 07:54 White Blood Count 6.05 K/uL Red Blood Count 2.90 M/uL Hemoglobin 7.9 g/dL Hematocrit 25.3 % Mean Corpuscular Volume 87.2 fL Mean Corpuscular Hemoglobin 27.2 pg Mean Corpuscular Hemoglobin Concent 31.2 g/dl RDW Standard Deviation 44.5 fL RDW Coefficient of Variation 13.8 % Platelet Count 279 K/uL Mean Platelet Volume 8.5 fL Sodium Level 141 mmol/L Potassium Level 4.1 mmol/L Chloride Level 110 mmol/L Carbon Dioxide Level 24 mmol/L Anion Gap 8.0 mmol/L Blood Urea Nitrogen 15 mg/dl Creatinine 1.19 mg/dl Est Creatinine Clear Calc Drug Dose 54.6 ml/min Estimated GFR () 57.1 Estimated GFR (Non- 49.2 BUN/Creatinine Ratio 12.7 Random Glucose 74 mg/dl Calcium Level 7.6 mg/dl Assessment and Plan SEPSIS DUE TO DIABETIC FOOT INFECTION ON RT SIDE 08/[address] plan to change it on Saturday, 08/30 possible d/c depending on wound care continue Zyvox drop in H/H - recheck at 1PM 08/28 continue PO Zyvox no surgical intervention as per ortho wound vac - will await wound care input d/c home with home health once plan is in motion for wound vac 08/27 appreciate ortho and wound care input at this point, no further surgery as per ortho wound care - possible wound vac continue PO Zyvox for around 6 weeks total presented with fever, chills, leukocytosis Doppler LE done showed no sonographic evidence of deep venous thrombosis within the right lower extremity. MRI of RLE done Extensive soft tissue swelling and subcutaneous edema about the foot suggests cellulitis with loculated peripherally enhancing collection of the dorsal forefoot measuring 3.2 x 1.2 x 5.3 cm with associated small fluid filled tract extending to the skin surface as above suggesting draining abscess. No evidence of osteomyelitis or acute fracture. Ortho on board s/p multiple Incision and drainage and packing of abscess, right foot wound culture -MRSA ; surgical drainage culture + MRSA Continue to have swelling and purulent drainage ID on board will need 6 weeks of Abx on Zyvox now ( had allergic reaction to Daptomycin and vanco ) -tolerating well s/p rt foot I&D on saturday08/25/17 continued to have infection /non healing wound , after multiple I&D , while on broad spectrum abx pt is against to have toe /TM amputation Ortho ordered for MRI of foot to assess for osteo TYPE 2 DM insulin SSI and Lantus ordered HB A1c 11.2 ( poorly controlled ) museum educator consulted oral med on hold on Lantus subq DRUG REACTION/GENERALIZED RASH : resolved IV Vancomycin D/melina on Zyvox -tolerating well changed to PO can be discharged on Oral Zyvox will need total 6 weeks of therapy pt is not on any SSRI Tramadol D/melina for possible drug interaction pt at present does not have any complain of pain will recommend different pain meds on discharge PICC line will be discontinued prior to discharge HTN BP stable HX OF CVA : hx of occipital CVA uses walker occasionally at home statin resumed as pt is off Daptomycin fall precaution HX OF PRIOR LEFT LOWER EXT DVT S/P IVC FILTER PLACEMENT was on Xarelto ,which was discontinued after acute CVA had retrievable IVC filter placed , was removed after 7-8 months of anticoagulation lower ext Doppler negative for DVT DVT PROPHYLAXIS Lovenox subq DISPOSITION has prolong hospital stay due to non healing rt foot wound pt wants to return home after discharge from hospital Medicine follow up with Dr viramontes Ortho follow up with Dr Plummer ID follow up with Dr Peñaloza pt will need follow up with Wound clinic on discharge for continued wound care
[2017-08-29 11:46] VITALS: BP_SYST 127; BP_SYST 158; BP_DIAS 79; BP_DIAS 89; PULSE 62; PULSE 68; TEMP 36.4; TEMP 36.7; O2SAT 92; O2SAT 99
[2017-08-29 13:12] LABS: HEMATOCRIT 26.9 % (37-47)
[2017-08-29 14:47] VITALS: BP 157/76; PULSE 68; TEMP 36.7; O2SAT 98
[2017-08-29] MEDS: INSULIN GLARGINE SOLOSTAR 100 UNITS/ML 3 ML PEN SC SCH (20:53)
[2017-08-29] MEDS: OXYCODONE/ACETAMINOPHEN 5-325 TAB PO PRN (20:54)
[2017-08-30 07:35] VITALS: BP 161/85; PULSE 73; TEMP 36.6; O2SAT 96
[2017-08-30 07:41] LABS: HEMATOCRIT 25.1 % (37-47); MEAN CELL VOLUME 86.9 fL (80-100); MEAN CORPUSCULAR HEMOGLOBIN 27.7 pg (25-34); MEAN CORPUSCULAR HGB CONC 31.9 g/dl (32-36); MEAN PLATELET VOLUME 8.1 fL (7.4-10.4); PLATELET COUNT 230 K/uL (130-400); RED BLOOD COUNT 2.89 M/uL (4.2-5.4)
[2017-08-30] MEDS: POTASSIUM CHLORIDE INJ 10 MEQ in SODIUM CHLORIDE 0.9% 1000ML 1,000 ML IV SCH (07:57)
[2017-08-30] MEDS: LINEZOLID 600 MG TAB PO SCH (07:59)
[2017-08-30] MEDS: FAMOTIDINE 20 MG TAB PO SCH (07:59)
[2017-08-30] MEDS: LACTOBACILLUS ACIDOPHILUS (FLORANEX) TAB PO SCH ×2 (07:59→12:09)
[2017-08-30] MEDS: BOOST GLUCOSE CONTROL PO SCH (08:00)
[2017-08-30 08:11] LABS: CALCIUM 7.8 mg/dl (8.5-10.1); CREATININE 1.07 mg/dl (0.60-1.20); POTASSIUM 4.2 mmol/L (3.5-5.1)
[2017-08-30] MEDS: INSULIN ASPART 100 UNITS/ML 3 ML PEN SC SCH ×2 (08:25→12:48)
[2017-08-30] MEDS: OXYCODONE/ACETAMINOPHEN 5-325 TAB PO PRN (10:01)
--- NOTE | 2017-08-30 12:10 | Orthopedic Progress Note ---
Orthopedic Progress Note Date of Service Aug 30, 2017. Subjective Reports: feeling well, pain controlled w PO medications, Denies: complaints, chest pain, SOB, nausea / vomiting, light headedness, calf pain Additional Notes: Overall, feeling better. Ready to go home. State the wound vac was changed earlier this AM. Objective calves soft nontender, N/V intact, capillary refill less than 2 sec., A&O x3, toes mobile Right foot: hemovac in place and functioning at the dorsal foot and 1st interspace. The dorsal foot appears to have minimal to no erythema. The great toe and plantar aspect of the 2nd metatarsal head have mild erythema and swelling. No active drainage. The erythema appears to have improved. The swelling seems stable. There is less tenderness at the plantar 2nd metatarsal head/MTP joint today with no complaints of pain with palpation. Date Time Temp Pulse Resp B/P (MAP) Pulse Ox O2 Delivery O2 Flow Rate FiO2 08/30/17 08:10 Room Air 08/30/17 07:35 36.6 73 18 161/85 (110) 96 Room Air 08/29/17 23:15 Room Air 08/29/17 16:00 Room Air 08/29/17 14:47 36.7 68 18 157/76 (103) 98 Room Air Laboratory Results 24 Hours: Test 08/29/17 12:52 08/30/17 07:31 Hematocrit 26.9 % 25.1 % Hemoglobin 8.3 g/dL 8.0 g/dL Assessment & Plan Assessment: s/p repeated I&D of right foot Plan: Wound vac changed this AM. Overall, the foot has improved. No apparent need for repeat surgical tx at this time. Orthopedically stable. If medicine feels patient is stable, d/c is ok. F/U with Dr. Pro's clinic in ~2 weeks from discharge. Continue PO Zyvox. (1) Cellulitis of right foot
--- NOTE | 2017-08-30 12:11 | Consultant Recommendations ---
Certified Industrial Hygienist Recommendations Date of Service Aug 30, 2017. Certified Industrial Hygienist Recommendations ACTIVITY RECOMMENDATIONS: Limitations: Heel weight bearing only if able to tolerate. SPECIAL CARE INSTRUCTIONS: * Some drainage onto the dressing is normal and is no cause for alarm. * Some swelling is natural especially after walking. * When resting, keep your foot elevated above the level of your heart. * Call [facility] if you notice: -Increased drainage -Fever over 101 degrees F -Severe constant pain BANDAGE: * F/U with wound clinic and wound care for wound vac as recommended. * Leave bandage/cast in place unless otherwise directed. * Keep bandage/cast dry at all times. FOLLOW UP VISIT WITH DR. ARANDA If appointment is not already scheduled: Please call [facility] after you get home today to schedule a follow-up appointment for [address] Aranda at .
--- NOTE | 2017-08-30 14:25 | Progress Note ---
Subjective Date of Service: Aug 30, 2017. Subjective Pt evaluation today including: conversation w/ patient, physical exam, lab review, review of studies, review of inpatient medication list Saw/examined the patient in room 411 Doing well, no problems/issues to note; Wound vac was changed this morning, no pain Walked around with the knee walker around the hallway and did well. Problem List Medical Problems: (1) Abnormal brain CT Status: Acute (2) Cellulitis of right foot Status: Acute (3) Dizziness Status: Acute (4) Failure of outpatient treatment Status: Acute (5) Vomiting Status: Acute Review of Systems Constitutional: No fever, No chills Respiratory: No cough, No sputum, No shortness of breath Cardiac: No chest pain Abdomen: No pain, No nausea, No vomiting, No diarrhea Musculoskeletal: No joint pain Medications Current Inpatient Medications Medications (Trade) Dose Ordered Sig/Donald Route Start Time Stop Time Status Last Admin Dose Admin Acetaminophen (Tylenol Tab) 650 mg Q4H PRN PO 08/02/17 20:30 09/01/17 20:29 08/24/17 22:15 650 MG Insulin Aspart (novoLOG ASPART) SLIDING SCALE If C... ACHS SC 08/02/17 22:45 09/01/17 22:44 08/30/17 12:48 7 UNITS Glucose (Glucose 40% Gel) 15-30 GRAMS 15 GRAMS... UD PRN PO 08/02/17 20:30 09/01/17 20:29 Glucose (Glucose Chew Tab) 4-8 Tablets 4 Tabl... UD PRN PO 08/02/17 20:30 09/01/17 20:29 Dextrose (Dextrose 50% 50ML Syringe) 25-50ML OF 50% DW IV FOR... UD PRN IV 08/02/17 20:30 09/01/17 20:29 08/09/17 16:35 25 ML Glucagon (Glucagon Inj) 1 mg UD PRN SQ 08/02/17 20:30 09/01/17 20:29 Lorazepam (Ativan Tab) 0.25 mg HS PRN PO 08/02/17 20:30 09/01/17 20:29 Aspirin (Ecotrin Tab) 81 mg QAM PO 08/03/17 08:00 09/02/17 08:59 Future Hold 08/04/17 07:49 81 MG Lorazepam (Ativan Tab) 0.5 mg Q12 PRN PO 08/04/17 12:30 09/03/17 12:29 Heparin Sodium (Porcine) (Heparin 10 Unit/ ml 5 ml Flush) 5 ml PRN PRN FLUSH 08/07/17 09:45 09/06/17 09:44 08/25/17 08:07 5 ML Lactobacillus Acidophilus (Floranex Tab) 4 tab TIDM PO 08/07/17 17:00 09/06/17 16:59 08/30/17 12:09 4 TAB Diphenhydramine HCl (Benadryl Cap) 50 mg Q6H PO 08/15/17 22:00 09/14/17 15:59 08/30/17 10:00 50 MG Hydrocortisone (Hydrocortisone 1% Crm) 1 appln BID PRN EXT 08/18/17 12:45 09/17/17 12:44 08/24/17 21:18 1 APPLN Insulin Glargine (Lantus Solostar Pen) 10 units HS SC 08/20/17 21:00 09/19/17 20:59 08/29/17 20:53 10 UNITS Diphenhydramine HCl (Benadryl Extra Strength Cream) 1 appln Q4 PRN EXT 08/21/17 19:00 09/20/17 18:59 08/26/17 08:29 1 APPLN Famotidine (Pepcid Tab) 20 mg BID PO 08/23/17 20:00 09/22/17 19:59 08/30/17 07:59 20 MG Linezolid (Zyvox Tab) 600 mg BID PO 08/23/17 18:00 09/01/17 15:59 08/30/17 07:59 600 MG Oxycodone/ Acetaminophen (Percocet 5-325mg Tab) 1 tab Q4H PRN PO 08/25/17 06:30 09/08/17 06:29 08/30/17 10:01 1 TAB Potassium Chloride 10 meq/ Sodium Chloride 1,005 ml @ 100 mls/hr Q10H3M IV 08/25/17 17:54 09/24/17 17:53 08/30/17 07:57 100 MLS/HR Gadobutrol (Gadavist) 9 mmol UD PRN IV 08/26/17 23:00 08/30/17 22:59 Enteral Nutritional Formula (Boost Glucose Control) 1 can BIDM PO 08/28/17 17:00 09/27/17 16:59 08/30/17 08:00 1 CAN Objective Vital Signs Date Time Temp Pulse Resp B/P (MAP) Pulse Ox O2 Delivery O2 Flow Rate FiO2 08/30/17 08:10 Room Air 08/30/17 07:35 36.6 73 18 161/85 (110) 96 Room Air 08/29/17 23:15 Room Air 08/29/17 16:00 Room Air 08/29/17 14:47 36.7 68 18 157/76 (103) 98 Room Air Physical Exam General Appearance: no apparent distress Respiratory/Chest: chest non-tender, lungs clear, normal breath sounds, no respiratory distress, no accessory muscle use Cardiovascular: regular rate, rhythm, no edema, no murmur Extremities: + pertinent finding (wound vac in place; rolling knee walker at bedside) Neurologic/Psychiatric: no motor/sensory deficits, alert, normal mood/affect Laboratory Results Last 24 Hours Test 08/29/17 16:19 08/29/17 20:21 08/30/17 07:31 08/30/17 07:33 Bedside Glucose 153 mg/dl 103 mg/dl 85 mg/dl White Blood Count 5.70 K/uL Red Blood Count 2.89 M/uL Hemoglobin 8.0 g/dL Hematocrit 25.1 % Mean Corpuscular Volume 86.9 fL Mean Corpuscular Hemoglobin 27.7 pg Mean Corpuscular Hemoglobin Concent 31.9 g/dl RDW Standard Deviation 44.1 fL RDW Coefficient of Variation 13.8 % Platelet Count 230 K/uL Mean Platelet Volume 8.1 fL Sodium Level 141 mmol/L Potassium Level 4.2 mmol/L Chloride Level 109 mmol/L Carbon Dioxide Level 26 mmol/L Anion Gap 5.0 mmol/L Blood Urea Nitrogen 15 mg/dl Creatinine 1.07 mg/dl Est Creatinine Clear Calc Drug Dose 60.7 ml/min Estimated GFR () 64.9 Estimated GFR (Non- 56.0 BUN/Creatinine Ratio 14.0 Random Glucose 83 mg/dl Calcium Level 7.8 mg/dl Test 08/30/17 11:55 Bedside Glucose 114 mg/dl Assessment and Plan SEPSIS DUE TO DIABETIC FOOT INFECTION ON RT SIDE 08/30 will d/c home with home health today will d/c with Zyvox, increased dose of metformin, Jardiance, probiotic 08/[address] plan to change it on Saturday, 08/30 possible d/c depending on wound care continue Zyvox drop in H/H - recheck at 1PM 08/28 continue PO Zyvox no surgical intervention as per ortho wound vac - will await wound care input d/c home with home health once plan is in motion for wound vac 08/27 appreciate ortho and wound care input at this point, no further surgery as per ortho wound care - possible wound vac continue PO Zyvox for around 6 weeks total presented with fever, chills, leukocytosis Doppler LE done showed no sonographic evidence of deep venous thrombosis within the right lower extremity. MRI of RLE done Extensive soft tissue swelling and subcutaneous edema about the foot suggests cellulitis with loculated peripherally enhancing collection of the dorsal forefoot measuring 3.2 x 1.2 x 5.3 cm with associated small fluid filled tract extending to the skin surface as above suggesting draining abscess. No evidence of osteomyelitis or acute fracture. Ortho on board s/p multiple Incision and drainage and packing of abscess, right foot wound culture -MRSA ; surgical drainage culture + MRSA Continue to have swelling and purulent drainage ID on board will need 6 weeks of Abx on Zyvox now ( had allergic reaction to Daptomycin and vanco ) -tolerating well s/p rt foot I&D on saturday08/25/17 continued to have infection /non healing wound , after multiple I&D , while on broad spectrum abx pt is against to have toe /TM amputation Ortho ordered for MRI of foot to assess for osteo TYPE 2 DM insulin SSI and Lantus ordered HB A1c 11.2 ( poorly controlled ) adaptive physical educator consulted oral med on hold on Lantus subq DRUG REACTION/GENERALIZED RASH : resolved IV Vancomycin D/melina on Zyvox -tolerating well changed to PO can be discharged on Oral Zyvox will need total 6 weeks of therapy pt is not on any SSRI Tramadol D/melina for possible drug interaction pt at present does not have any complain of pain will recommend different pain meds on discharge PICC line will be discontinued prior to discharge HTN BP stable HX OF CVA : hx of occipital CVA uses walker occasionally at home statin resumed as pt is off Daptomycin fall precaution HX OF PRIOR LEFT LOWER EXT DVT S/P IVC FILTER PLACEMENT was on Xarelto ,which was discontinued after acute CVA had retrievable IVC filter placed , was removed after 7-8 months of anticoagulation lower ext Doppler negative for DVT DVT PROPHYLAXIS Lovenox subq DISPOSITION has prolong hospital stay due to non healing rt foot wound pt wants to return home after discharge from hospital Medicine follow up with Dr viramontes Ortho follow up with Dr Plummer ID follow up with Dr Peñaloza pt will need follow up with Wound clinic on discharge for continued wound care
[2017-08-30] MEDS ORDERED: LSN10 PO (14:31)
[2017-08-30] MEDS ORDERED: LINE1TAB2 PO (14:31)
[2017-08-30] MEDS ORDERED: LCTX PO (14:31)
[2017-08-30] MEDS ORDERED: ASPEC81 PO (14:31)
[2017-08-30] MEDS ORDERED: METF500T5 PO (14:31)
--- NOTE | 2017-08-30 14:41 | Discharge Instructions ---
Discharge Instructions Date of Service Aug 30, 2017. Admission Reason for Admission: Sepsis Discharge Discharge Diagnosis / Problem: Sepsis secondary to Diabetic Foot Infection, Uncontrolled Diabetes Discharge Goals Goal(s): Decrease discomfort, Improve function, Diagnostic testing, Therapeutic intervention Activity Recommendations Activity Limitations: per Instructions/Follow-up section . Instructions / Follow-Up Instructions / Follow-Up Please follow-up with Dr. Mukherjee (covering for Dr. Awad) on September 04 at 10:45AM * You will be discharged with the wound vac in place - you will be discharged with home health who will manage the wound vac * You will be discharged with Zyvox (antibiotic) for another 5 weeks * Your dose of metformin is increased to 1000mg twice a day and Jardiance has been started - your diabetes is very uncontrolled - you will need to get your Ha1c rechecked in 2-3 months * Stop taking Hydrochlorothiazide and start Lisinopril for blood pressure ACTIVITY RECOMMENDATIONS: Limitations: Heel weight bearing only if able to tolerate. SPECIAL CARE INSTRUCTIONS: * Some drainage onto the dressing is normal and is no cause for alarm. * Some swelling is natural especially after walking. * When resting, keep your foot elevated above the level of your heart. * Call [facility] if you notice: -Increased drainage -Fever over 101 degrees F -Severe constant pain BANDAGE: * F/U with wound clinic and wound care for wound vac as recommended. * Leave bandage/cast in place unless otherwise directed. * Keep bandage/cast dry at all times. FOLLOW UP VISIT WITH DR. PRO If appointment is not already scheduled: Please call [facility] after you get home today to schedule a follow-up appointment for [address] Pro at . Current Hospital Diet Patient's current hospital diet: Diabetes Type 2 Diet Discharge Diet Recommended Diet: Diabetes Type 2 Diet Procedures Procedures Performed: Irrigation and Debridement Right Foot Pending Studies Studies pending at discharge: no Laboratory Results Hemoglobin A1c Test 08/02/17 17:50 Range/Units Estimated Average Glucose 275 mg/dl Hemoglobin A1c 11.2 H 4.5-5.6 % Medical Emergencies . Who to Call and When: Medical Emergencies: If at any time you feel your situation is an emergency, please call 911 immediately. . Non-Emergent Contact Non-Emergency issues call your: Primary Care Provider, Surgeon, Specialist ( Wound care) . . "Provider Documentation" section prepared by Mike No. . Oracle Manager Recommendations Oracle Manager Recommendations: ACTIVITY RECOMMENDATIONS: Limitations: Heel weight bearing only if able to tolerate. SPECIAL CARE INSTRUCTIONS: * Some drainage onto the dressing is normal and is no cause for alarm. * Some swelling is natural especially after walking. * When resting, keep your foot elevated above the level of your heart. * Call [facility] if you notice: -Increased drainage -Fever over 101 degrees F -Severe constant pain BANDAGE: * F/U with wound clinic and wound care for wound vac as recommended. * Leave bandage/cast in place unless otherwise directed. * Keep bandage/cast dry at all times. FOLLOW UP VISIT WITH DR. PRO If appointment is not already scheduled: Please call [facility] after you get home today to schedule a follow-up appointment for [address] Pro at . VTE Core Measure Inpt VTE Proph given/why not?: Unfractionated heparin SQ
--- NOTE | 2017-08-30 14:44 | Discharge Summary ---
Discharge Summary Date of Service Aug 30, 2017. Discharge Summary Admission Date: Aug 02, 2017 at 19:38 Discharge Date: Aug 30, 2017 Discharge Disposition: Home with services Principal Diagnosis: Diabetic Foot Ulcer/Wound s/p I&D multiple times Uncontrolled DM2 Hx. of DVT s/p IVC filter Procedures: I&Dx3 Consultations: ID Ortho Medication Reconciliation New Medications: Empagliflozin (Jardiance) 10 Mg Tab 1 TABS PO DAILY for 30 Days, #30 TABS 2 Refills Lisinopril (Zestril) 10 Mg Tab 10 MG PO DAILY for 30 Days, #30 TABS Aspirin (Aspirin EC Low Dose) 81 Mg Ectab 81 MG PO QAM for 30 Days, #30 TABS Lactobacillus Acidophilus (Floranex) 1 Tab Tab 4 TAB PO TIDM for 30 Days, #90 TAB Linezolid (Linezolid) 600 Mg Tab 600 MG PO BID for 35 Days, #70 TAB Changed Medications: Metformin Hcl Er (Glucophage Er) 500 Mg Tab 2 TAB PO BID for 90 Days, #360 TAB 3 Refills (Changed from: Metformin Hcl ( Glucophage) 850 Mg Tab 850 Mg PO BID) Tramadol (Ultram) 50 Mg Tab 25 MG PO Q6 PRN for Pain, #20 TAB (Changed from: Q4H) Continued Medications: Atorvastatin (Lipitor) 40 Mg Tab 1 TAB PO DAILY, TAB Discontinued Medications: Doxycycline Hyclate (Vibramycin) 100 Mg Cap 1 CAP PO BID for 10 Days, #20 Hydrochlorothiazide (Hctz) 25 Mg Tab 25 MG PO DAILY, TAB Admission Information HPI (per Admitting provider): DATE OF ADMISSION: 08/02/2017 PRIMARY CARE DOCTOR: Dr. Viramontes. CHIEF COMPLAINT: Right foot swelling worsening. HISTORY OF PRESENT ILLNESS: History obtained from patient and records. Medical history significant for hypertension, diabetes type 2, on oral meds, history of embolic CVA, DVT sp anticoagulation status post IVC filter placement/removal , past tobacco abuse. Recent confinement 01/2016 for cerebellar infarct. Transferred to [facility] for further evaluation. Few nights ago, the patient noted chills, felt cold. She noted swelling on the left big toe spreading to the other toes, progressive foot swelling fever and chills morning after. She was seen at an urgent care center on 07/31/2017, noted to be febrile at 38.9. Px given IM Ceftriaxone at the facility and prescribed doxycycline for R foot infection. Fever and chills improved. R foot swelling worsening on followup visit at urgent care center yesterday. Patient given additional IM ceftriaxone. This morning the patient noted a blister on left great toe, which she burst yielding serosanguineous fluid. Upon return for recheck at facility, progressive right right foot swelling noted with some pain. Patient is compliant with medications over the last few days. She was told to go to the Emergency Room. At the Emergency Room, the patient received IV vancomycin for R foot infection. Patient upset that contemplated right shoulder surgery for next week canceled because of issues. MEDICAL HISTORY: As above. SURGICAL HISTORY: She has had cholecystectomy, tubal ligation, IVC filter placement and removal. HOME MEDICATIONS: Include atorvastatin, tramadol, metformin, HCTZ, aspirin. ALLERGIES: TO SULFA, BACTRIM. FAMILY HISTORY: Diabetes. PERSONAL AND SOCIAL HISTORY: Past tobacco use. No chronic intake of alcoholic beverages. [employer] graduate school employee. REVIEW OF SYSTEMS: As per HPI, all other ROS negative. PHYSICAL EXAMINATION: VITAL SIGNS: Blood pressure noted to be 140/80, later 130/65; pulse rate 101, later 82; RR 17; temperature 38.9; sats 100 on room air. GENERAL: Noted to be comfortable, obese, in no respiratory distress. Looks younger for stated age. SKIN: Normal color, warm. HEENT: [place] palpebral conjunctivae, dry mucosa. NECK: Short, midline trachea, nontender. CHEST: Clear to auscultation. No chest wall tenderness. CV: Regular rate and rhythm. Lower extremity pulses palpable. ABDOMEN: Soft, no distention EXTREMITIES: Swelling in the right foot, tender (left great toe markedly swollen with crusty wound) NEUROLOGIC: No gross focality, coherent. LABORATORY DATA: Hemoglobin was noted to be 13.4, hematocrit 39, white cell count 18.8, platelets noted to be 218. Sodium 133, potassium 3.1, chloride 108, CO2 of 24, BUN 25, creatinine 1, glucose 340. Foot x-ray, soft tissue swelling on the left forefoot, subacute to chronic nondisplaced fracture, fifth digit R Lower extremity ultrasound, no DVT of lower extremity. Hemoglobin A1c from 05/2017 was 9.7. ASSESSMENT AND PLAN: 1. Sepsis secondary to diabetic foot infection, right failed outpatient treatment. 2. Diabetes mellitus type 2, on oral medications suboptimal control as of recent outpatient hemoglobin A1c. 3. Hypertension, stable. 4. History of cerebrovascular accident. 5. hx DVT sp anticoagulation status post IVC filter placement/removal 6. Past tobacco abuse. 7. Hypokalemia secondary to diuretic therapy GMF CS. Vancomycin and Zosyn for now. Offload right lower extremity. Podiatry consult. Diabetic foot infection right May need ID consult pending CS results availability Replace potassium. Hold home diuretics for now. Check magnesium. Basal insulin ISS BG goal 140-180. Carb count indicated for suboptimal blood sugar control. Recheck hemoglobin A1c. May need diabetic education. DVT prophylaxis, Lovenox subcu. Full code. Hospital Course SEPSIS DUE TO DIABETIC FOOT INFECTION ON RT SIDE 08/30 will d/c home with home health today will d/c with Zyvox, increased dose of metformin, Jardiance, probiotic 08/[address] plan to change it on Saturday, 08/30 possible d/c depending on wound care continue Zyvox drop in H/H - recheck at 1PM 08/28 continue PO Zyvox no surgical intervention as per ortho wound vac - will await wound care input d/c home with home health once plan is in motion for wound vac 08/27 appreciate ortho and wound care input at this point, no further surgery as per ortho wound care - possible wound vac continue PO Zyvox for around 6 weeks total presented with fever, chills, leukocytosis Doppler LE done showed no sonographic evidence of deep venous thrombosis within the right lower extremity. MRI of RLE done Extensive soft tissue swelling and subcutaneous edema about the foot suggests cellulitis with loculated peripherally enhancing collection of the dorsal forefoot measuring 3.2 x 1.2 x 5.3 cm with associated small fluid filled tract extending to the skin surface as above suggesting draining abscess. No evidence of osteomyelitis or acute fracture. Ortho on board s/p multiple Incision and drainage and packing of abscess, right foot wound culture -MRSA ; surgical drainage culture + MRSA Continue to have swelling and purulent drainage ID on board will need 6 weeks of Abx on Zyvox now ( had allergic reaction to Daptomycin and vanco ) -tolerating well s/p rt foot I&D on saturday08/25/17 continued to have infection /non healing wound , after multiple I&D , while on broad spectrum abx pt is against to have toe /TM amputation Ortho ordered for MRI of foot to assess for osteo TYPE 2 DM insulin SSI and Lantus ordered HB A1c 11.2 ( poorly controlled ) clinical systems educator consulted oral med on hold on Lantus subq DRUG REACTION/GENERALIZED RASH : resolved IV Vancomycin D/melina on Zyvox -tolerating well changed to PO can be discharged on Oral Zyvox will need total 6 weeks of therapy pt is not on any SSRI Tramadol D/melina for possible drug interaction pt at present does not have any complain of pain will recommend different pain meds on discharge PICC line will be discontinued prior to discharge HTN BP stable HX OF CVA : hx of occipital CVA uses walker occasionally at home statin resumed as pt is off Daptomycin fall precaution HX OF PRIOR LEFT LOWER EXT DVT S/P IVC FILTER PLACEMENT was on Xarelto ,which was discontinued after acute CVA had retrievable IVC filter placed , was removed after 7-8 months of anticoagulation lower ext Doppler negative for DVT DVT PROPHYLAXIS Lovenox subq DISPOSITION has prolong hospital stay due to non healing rt foot wound pt wants to return home after discharge from hospital Medicine follow up with Dr viramontes Ortho follow up with Dr Plummer ID follow up with Dr Peñaloza pt will need follow up with Wound clinic on discharge for continued wound care Total time spent on discharge = 60 minutes This includes examination of the patient, discharge planning, medication reconciliation, and communication with other providers. Discharge Instructions Please follow-up with Dr. Mukherjee (covering for Dr. Viramontes) on September 04 at 10:45AM * You will be discharged with the wound vac in place - you will be discharged with home health who will manage the wound vac * You will be discharged with Zyvox (antibiotic) for another 5 weeks * Your dose of metformin is increased to 1000mg twice a day and Jardiance has been started - your diabetes is very uncontrolled - you will need to get your Ha1c rechecked in 2-3 months * Stop taking Hydrochlorothiazide and start Lisinopril for blood pressure ACTIVITY RECOMMENDATIONS: Limitations: Heel weight bearing only if able to tolerate. SPECIAL CARE INSTRUCTIONS: * Some drainage onto the dressing is normal and is no cause for alarm. * Some swelling is natural especially after walking. * When resting, keep your foot elevated above the level of your heart. * Call [facility] if you notice: -Increased drainage -Fever over 101 degrees F -Severe constant pain BANDAGE: * F/U with wound clinic and wound care for wound vac as recommended. * Leave bandage/cast in place unless otherwise directed. * Keep bandage/cast dry at all times. FOLLOW UP VISIT WITH DR. PRO If appointment is not already scheduled: Please call [facility] [place] after you get home today to schedule a follow-up appointment for [address] Pro at .
[2017-08-30 15:28] VITALS: BP 161/85; PULSE 73; TEMP 36.6; O2SAT 96
[2017-09-02] MEDS ORDERED: DOXY100C76 PO (13:04)
[2017-09-30] MEDS ORDERED: DOXY100C76 PO (14:52)
== END 2017-08-30 16:20 | disposition home health service (06) | DRG 854 ==
LOC: C.EDB 16:39 → C.4E 19:38 → ENRESERV 20:19
PROVIDERS: ADMIT Internal Medicine; ATTEND Family Medicine
PROC: 0J9Q0ZZ Drainage of Right Foot Subcutaneous Tissue and Fascia, Open Approach (ICD-10-PCS; principal; 2017-08-05 13:00)
PROC: 05HC33Z Insertion of Infusion Device into Left Basilic Vein, Percutaneous Approach (ICD-10-PCS; 2017-08-06)
PROC: 0JBQ0ZZ Excision of Right Foot Subcutaneous Tissue and Fascia, Open Approach (ICD-10-PCS; 2017-08-10)
PROC: 0J8Q3ZZ Division of Right Foot Subcutaneous Tissue and Fascia, Percutaneous Approach (ICD-10-PCS; 2017-08-10)
PROC: 0LBV0ZZ Excision of Right Foot Tendon, Open Approach (ICD-10-PCS; 2017-08-12)
PROC: 0LBV0ZZ Excision of Right Foot Tendon, Open Approach (ICD-10-PCS; 2017-08-17)
PROC: 0J9Q3ZZ Drainage of Right Foot Subcutaneous Tissue and Fascia, Percutaneous Approach (ICD-10-PCS; 2017-08-17)
PROC: 0JBQ3ZZ Excision of Right Foot Subcutaneous Tissue and Fascia, Percutaneous Approach (ICD-10-PCS; 2017-08-25)
DX: A41.9 Sepsis, unspecified organism (principal); L02.611 Cutaneous abscess of right foot; I96 Gangrene, not elsewhere classified; L97.908 Non-pressure chronic ulcer of unspecified part of unspecified lower leg with other specified severity; I10 Essential (primary) hypertension; E87.6 Hypokalemia; R21 Rash and other nonspecific skin eruption; M67.971 Unspecified disorder of synovium and tendon, right ankle and foot; L50.0 Allergic urticaria; T36.8X5A Adverse effect of other systemic antibiotics, initial encounter; E11.621 Type 2 diabetes mellitus with foot ulcer; Z87.891 Personal history of nicotine dependence; Z86.73 Personal history of transient ischemic attack (TIA), and cerebral infarction without residual deficits; Z79.82 Long term (current) use of aspirin; Z79.01 Long term (current) use of anticoagulants; Z83.3 Family history of diabetes mellitus; Z86.718 Personal history of other venous thrombosis and embolism; Z79.84 Long term (current) use of oral hypoglycemic drugs; Z81.8 Family history of other mental and behavioral disorders; T50.2X5A Adverse effect of carbonic-anhydrase inhibitors, benzothiadiazides and other diuretics, initial encounter; B95.62 Methicillin resistant Staphylococcus aureus infection as the cause of diseases classified elsewhere

== ENCOUNTER 2019-07-31 05:19 | Inpatient (IN) ==
--- OUTSIDE RECORDS SUMMARY | 2019-07-31 05:23 | External Medical Summary | Continuity of Care Document ---
:1955 Author Name Carina Negrete, Provider Address Unavailable Unavailable , Care Team Providers Name Role Phone Unavailable Unavailable Unavailable Gissell Peñaloza DO Unavailable [email or web address] MARIAM GARCIA Unavailable Unavailable Unavailable Unavailable Unavailable Assessments Assessed Problems:Encounter for preventive health examination Problems Active medical history not documented Allergies and Adverse Reactions Allergy history not documented Medications Doxycycline Hyclate 100 MG Oral Tablet; TAKE 1 TABLET TWICE DAILY. DO Gissell Peñaloza Start: 30-Sep-2017 Quantity: 60 Refills: 3 Procedures Procedures not documented Immunizations Immunizations not documented Interventions Medication ChangesDoxycycline Hyclate 100 MG Oral Tablet - Start Plan of Treatment Planned Observations Planned Goals not documented Results No Known Results Results not documented
[2019-07-31] MEDS ORDERED: ONDANSETRON INJ 2 MG/ML 2 ML VIAL ONE (05:55)
[2019-07-31] MEDS ORDERED: fentaNYL 50 MCG/HR TDSY TD ONE (05:56)
[2019-07-31] MEDS ORDERED: fentaNYL citrate 100 MCG/2 ML VIAL ONE ×2 (05:57→06:02)
[2019-07-31] MEDS ORDERED: NITROGLYCERIN SL 0.4 MG/TAB TAB ONE (05:57)
[2019-07-31] MEDS ORDERED: NITROGLYCERIN 60 SPRAYS/4.9 GM SPRAY ONE (05:57)
[2019-07-31] MEDS ORDERED: NiCARDipine HCL INJ 2.5 MG/ML 10 ML AMP ONE (06:01)
[2019-07-31] MEDS ORDERED: HEPARIN (PORCINE) 1000 UNIT/ML 10 ML (CATH LAB USE ONLY) ONE (06:01)
[2019-07-31] MEDS ORDERED: NITROGLYCERIN/D5W 100MCG/ML 20ML SYR ONE (06:02)
[2019-07-31] MEDS ORDERED: MIDAZOLAM HCL 1 MG/ML 2ML VIAL ONE ×2 (06:02→06:23)
[2019-07-31] MEDS ORDERED: ATROPINE SULFATE 0.1 MG/ML 10ML SYR IV ONE (06:10)
[2019-07-31] MEDS ORDERED: fentaNYL citrate 100 MCG/2 ML VIAL IV STA (06:20)
[2019-07-31] MEDS ORDERED: NITROGLYCERIN SL 0.4 MG/TAB TAB SL STA (06:20)
[2019-07-31] MEDS ORDERED: ONDANSETRON INJ 2 MG/ML 2 ML VIAL IV STA (06:20)
[2019-07-31 06:43] LABS: Albumin Globulin Ratio 1.1 (0.9-2); Albumin Level 3.7 gm/dl (3.4-5.0); BUN Creatinine Ratio 15.8 (10-20); Bilirubin,Total 0.7 mg/dl (0.2-1); Creatinine Clr Calc Pharmacy 46.9 ml/min; Est GFR (African American) 53.5; Est GFR (Non-African American) 46.2; Globulin 3.4 gm/dl (2.5-4.0); Total Protein 7.1 gm/dl (6.4-8.2); Troponin I 0.277 ng/ml (0-0.045)
--- NOTE | 2019-07-31 06:45 | XRay Report ---
XR chest 1V portable CLINICAL HISTORY: 64 years-old Female presenting with Chest Pain. TECHNIQUE: Portable upright AP view of the chest was obtained. COMPARISON: 08/20/2017. FINDINGS: Cardiomediastinal silhouette normal. No focal opacity. No large effusion or pneumothorax. Osseous str uctures normal. Cholecystectomy clips noted. IMPRESSION: 1. No acute cardiopulmonary disease. Electronically signed by: Kade Ann M.D. 07/31/2019 6:44 AM
--- NOTE | 2019-07-31 06:47 | XRay Report ---
XR wrist LT min 3V routine CLINICAL HISTORY: 64 years-old Female presenting with fall, left wrist pain. TECHNIQUE: Frontal, bilateral oblique, and lateral views of the left wrist were obtained. COMPARISON: None. FINDINGS: A peripheral IV catheter projects over the wrist along the dorsum. No acute fracture or malalignment. Advanced degenerative changes of the first carpometacarpal articulation with joint space loss, subch ondral sclerosis, subchondral cystic change, and osteophytosis. No radiographic soft tissue abnormali ty. IMPRESSION: 1. No acute osseous injury. 2. 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 Electronically signed by: Kade Ann M.D. 07/31/2019 6:45 AM
[2019-07-31] MEDS ORDERED: TICAGRELOR 90 MG TAB PO ONE (06:55)
[2019-07-31] MEDS ORDERED: ICU PROTOCOL FOR HYPERGLYCEMIA PRN (06:59)
[2019-07-31] MEDS ORDERED: ONDANSETRON INJ 2 MG/ML 2 ML VIAL IV PRN (07:02)
--- NOTE | 2019-07-31 07:12 | Cardiology Consultation ---
Date of Consultation July 31, 2019 Assessment & Plan (1) ST elevation MS (STEMI): Presentation consistent with inferior STEMI and recommend proceeding with emergent cardiac catheterization and likely primary PCI. No apparent contraindications to procedure. Discussed risks, benefits, alternatives of procedure with patient and family and they are willing to proceed. Further recommendations pending findings of coronary angiography. History of Present Illness Attending Physician: Mark Anthony Groves MD History of Present Illness 64-year-old woman here with acute chest pain and ECG concerning for acute MS. Patient seen emergently in the ED after heart alert activated upon arrival. No prior cardiac history. Cardiac risk factors include type 2 diabetes, dyslipidemia, hypertension and morbid obesity. Other medical issues include prior CVA setting of DVT and what sounds to be a PFO. Chest pain began approximately a half an hour prior to arrival when was awoken from sleep feeling hot all over. States then she passed out and woke up with severe chest pain. Describes 10 out of 10 pain with associated with vomiting. Denies similar symptoms in the past. Given nitroglycerin, aspirin, fentanyl on arrival. Hemodynamically stable. EKG showed sinus bradycardia with inferior ST elevations. Allergies Allergy/AdvReac Type Severity Reaction Status Date / Time daptomycin Allergy Intermediate DIFFUSE Verified 07/31/19 05:44 RASH vancomycin Allergy Intermediate Diffuse Verified 07/31/19 05:44 maculopapular rash, itching Sulfa (Sulfonamide Allergy Unknown Unknown Verified 07/31/19 05:44 Antibiotics) Home Medications Home Medications Medication Instructions Recorded Confirmed Type Lactobacillus acidoph-L.bulgar 1 tab PO DAILY 07/31/19 07/31/19 History [Floranex] aspirin [Aspir-81] 81 mg PO DAILY 07/31/19 07/31/19 History atorvastatin 40 mg PO HS 07/31/19 07/31/19 History empagliflozin [Jardiance] 10 mg PO DAILY 07/31/19 07/31/19 History hydrochlorothiazide 25 mg PO DAILY 07/31/19 07/31/19 History metformin 1,000 mg PO BID 07/31/19 07/31/19 History potassium 198 mg PO DAILY 07/31/19 07/31/19 History tramadol 50 - 100 mg PO Q6H PRN 07/31/19 07/31/19 History Patient History Medical History Depression (Chronic) Diabetes mellitus (Chronic) Dyslipidemia (Chronic) HTN (hypertension) (Chronic) DVT (deep venous thrombosis) (Chronic) Diabetic foot infection Drug eruption Fever Sepsis Surgical History S/P tubal ligation (Chronic) S/P cholecystectomy (Chronic) Family History Other No significant family history Social History Current Living Situation: Family Feels Safe at Home: Yes Smoking Status: Never smoker Review of Systems Review of Systems: Not obtained in the setting of emergent situation Physical Exam Physical Exam: General: Uncomfortable, no acute distress HEENT: Sclerae anicteric Lungs: Clear to auscultation bilaterally, no rhonchi or wheezes Cardiac: Distant heart sounds regular, bradycardic, no murmur Abdomen: Soft, nontender Extremities: Warm, well perfused, no edema. 2+ radial pulses Skin: No rashes or lesions. Neuro: Nonfocal Psych: Alert orient x3, normal affect and mood Results & Data Vital Signs (Past 12 Hours) Vital Signs Temp Pulse Resp BP Pulse Ox 07/31/19 06:01 61 11 L 176/84 H 07/31/19 06:00 65 12 07/31/19 05:57 49 L 13 132/63 07/31/19 05:50 49 L 13 07/31/19 05:46 59 L 18 137/104 H 07/31/19 05:40 79 25 H 07/31/19 05:39 63 21 07/31/19 05:36 97 07/31/19 05:33 58 L 24 139/72 100 07/31/19 05:24 98.4 F 55 L 18 140/71 100 PG Care Time/CCT Total # of Minutes Spent Total Time Spent with Patient: Total time spent is greater than 50% in coordination of care (as documented) at patient's floor/unit and/or counseling patient: (1) ST elevation MS (STEMI) Involved coronary artery: unspecified coronary artery Qualified Code(s): I21.3 - ST elevation (STEMI) myocardial infarction of unspecified site
--- NOTE | 2019-07-31 07:13 | Pre Anesthesia Assessment ---
Date of Service July 31, 2019 Pre Sedation Assessment Vital Signs Temp Pulse Resp BP Pulse Ox 07/31/19 06:01 61 11 L 176/84 H 07/31/19 06:00 65 12 07/31/19 05:57 49 L 13 132/63 07/31/19 05:50 49 L 13 07/31/19 05:46 59 L 18 137/104 H 07/31/19 05:40 79 25 H 07/31/19 05:39 63 21 07/31/19 05:36 97 07/31/19 05:33 58 L 24 139/72 100 07/31/19 05:24 98.4 F 55 L 18 140/71 100 Cardiovascular RRR, no murmur, no edema Respiratory normal respiratory effort, lungs clear to auscultation Pre-Sedation Airway Assessment Smoking Status: Never smoker Hx Sleep Apnea: No Hx Difficult Intubation: No Short, Thick Neck: No Thyromental Distance: > or= 3.5 Finger Breadths Oral Cavity: + WNL Mallampati Class: III Procedure Planning Contraindications for Sedation: none Current Medications Reviewed: Yes Notes The planned sedation has been discussed with the patient. Informed Consent was obtained. I have identified the patient, determined the appropriateness of sedation and have assessed the patient immediately prior to the procedure. All medicine(s) and interventions are by my order.
--- NOTE | 2019-07-31 07:14 | Post Anesthesia Assessment ---
Date of Service July 31, 2019 Post Sedation Assessment Vital Signs Temp Pulse Resp BP Pulse Ox 07/31/19 06:01 61 11 L 176/84 H 07/31/19 06:00 65 12 07/31/19 05:57 49 L 13 132/63 07/31/19 05:50 49 L 13 07/31/19 05:46 59 L 18 137/104 H 07/31/19 05:40 79 25 H 07/31/19 05:39 63 21 07/31/19 05:36 97 07/31/19 05:33 58 L 24 139/72 100 07/31/19 05:24 98.4 F 55 L 18 140/71 100 Recovery Score Activity: Moves 4 extremities Respiration: Deep Breath/Cough Circulation: +/-20% PreAnes Value Consciousness: Fully Awake Oxygen Saturation: O2 needed for >90% Discharge Sedation Level of Care: Fast Track Phase II Post Sedation Plan On clinical assessment, the patient appears to have tolerated the sedation without complications. Patient is recovering as anticipated. Patient will continue to be monitored by nursing and may be discharged when sedation discharge criteria are met per below protocol. Upon Completions of procedure and additional 15 minutes continue every 5 minute vital signs and the P.A.R. score; then discharge to a Phase I or Fast Track to Phase II per the following guidelines: * Discharge Patient to appropriate Phase II area if PAR is 8 or greater or return to pre- procedure baseline. The post - procedure orders will be as directed. * If PAR score is less than 8 or not return to pre-procedure baseline then patient will follow Phase I monitoring till PAR is reached for Phase II. The Phase I may be done in procedure room or may call to secure a Phase I area. * If naloxone or flumazenil are used for reversal, hold in Phase I for continued monitoring from when last reversal dose was given for a minimum of 60 minutes or longer pending the nurse and/or physician discretion of patient condition before discharge to Phase II. Please call the Sedation Physician to re-evaluate and complete post-note for discharge to Phase II area. Do NOT discharge from procedure sedation or Phase 1 until post- sedation evaluation note is complete by procedure /sedation MD Sedation Discharge Instructions to be given to the patient at discharge to home.
--- NOTE | 2019-07-31 07:16 | Cardiac Catheterization ---
[facility] Data: Drafting Layout Man Cardiac Status Clinical evaluation leading to the procedure CAD Presenation: STEMI Anginal Classification: CCS IV Heart Failure: No Cardiogenic Shock within 24 Hours: No Cardiac Arrest within 24 Hours: No Imaging Studies Past 6 Months: No Stress Studies Past 6 Months: No Diagnostic Physicians Name: Mark Anthony Groves MD Status: Emergency Closure Device Percutaneous Entry Location: Radial Closure Device: Radial Band Recommendations: PCI without planned CABG PCI Indication: Immediate PCI for STEMI First Noted: First EKG Lesion Segment Name: Mid RCA Culprit Artery: Yes Stenosis Prior to Rx (%): 100 Chronic Total Occlusion: No IVUS: No FFR: No Pre-Procedure MARIE Flow: 0 Previously Treated Lesion: No Lesion Complexity: Non-High/Non-C Lesion Length (mm): 18 Thrombus Present: Yes Bifurcation Lesion: No Guidewire Across Lesion: Stenosis Post-Procedure (%): 0 Post-Procedure MARIE Flow: 3 Devices(s) Deployed: Yes Yes Intraprocedure Events Significant Disection: No Perforation: No Cardiac Cath Procedure Full Procedure Date July 31, 2019 Pre-Procedure Diagnosis Pre-Procedure Diagnosis: STEMI AUC Score AUC Score: 9 Post-Procedure Diagnosis Post-Procedure Diagnosis: Severe CAD Procedure(s) Performed Procedure(s) Performed: Coronary Angiography, Left Heart Cath and Drug Eluting Stent Clutch Operator Mark Anthony Groves MD Developer Programmer Analyst(s) Drew Estimated Blood Loss Estimated Blood Loss: 15 Medication(s) Medication(s): Fentanyl, Heparin, Lidocaine 1%, Nicardipine and Versed Medication(s): Ticagrelor Summary of Findings Indication: STEMI/Heart Alert Access: 6 Fr right radial artery, 6 Fr right common femoral artery Catheters: Diagnostic JL4, JR4 guide Findings: LM -moderate caliber vessel, luminal irregularities LAD -moderate caliber vessel, 20 to 30% diffuse mid segment disease, distal luminal irregularities as tapers prior to apex. Moderate caliber diagonal without significant disease. Circumflex -small caliber vessel, 20 to 30% ostial. Small OM1 without disease. Ramusmoderate caliber without significant disease. RCA -large caliber vessel, dominant, 20% proximal, 100% acute earlymid occlusion. LVEDP -9 -- PCI -- Antithrombotic therapy: Heparin, ticagrelor Procedure: Access initially obtained via right radial artery. Radial artery small vessel with spasm and unable to navigate catheter out of arm. Converted to femoral approach. RCA cannulated with JR4 guide BMW wire passed across lesion into distal vessel Mid RCA lesion predilated with 2.5 compliant balloon Dilated lesion stented with 4.0 x 26 mm [place] drug-eluting stent Stent post-dilated with 4.5 noncompliant balloon IC vasodilators administered for spasm Post procedure MARIE 3 flow, stent well expanded with minimal residual stenosis and no apparent cardiac complications. Arterial Closure: TR band Summary: 1. Inferior STEMI/100% acute mid RCA occlusion 2. Mild non-culprit coronary artery disease -20 to 30% mid LAD 3. Normal intracardiac filling pressure 4. Successful PCI of mid RCA with single drug-eluting stent (4.0 x 26 mm Ede; postdilated with 4.5 NC). Recommendations: Admit to ICU for continued monitoring Loaded with ticagrelor 180 mg in cath lab radiological technologist Continue dual-antiplatelet therapy for at least 1 year. Trend troponins until peak, Check Echo Uptitrate beta-randal/JONATHAN as BP/HR allows High-dose statin Consult cardiac Rehab Hemodynamics Rest Ao:: 129/44/77 Final Ao: 118/55/85 LV: 117/9 Recommendations Recommendations: PCI without planned CABG Specimens Specimens: None Radiation Exposure (mGy) 1047 Contrast (mls) 120 Fluids (cc crystalloids) Fluids (cc crystalloids): 60 Drains Drains: None Anesthesia Moderate Procedural Complication(s) None Disposition ICU I attest to the content of the Intraoperative Record and any orders documented therein. Any exceptions are noted below.
--- NOTE | 2019-07-31 07:21 | Critical Care Consultation ---
Date of Consultation July 31, 2019 Assessment & Plan (1) Myocardial Infarction: Reason Critically Ill: Status Post emergent invasive catheterization for STEMI Cardiovascular: First DC, risk factors of T2DM, HTN, HLD, Occipital CVA Successful PCI with YONIS to RCA x1 Will continue DAPT with ASA and brillinta Continue high intensity statin Starting metoprolol, titrate as tolerated by blood pressure JONATHAN if tolerated, normally normotensive patient No evidence of arrhythmia Respiratory: No shortness of breath, no o2 requirement Will continue to monitor Renal: Slight elevation in creatinine from baseline Likely secondary from dehyrdration will recheck in morning Electrolytes WNL ID" No concern for ID process at this time Dispo: March step down to Tele F/E/N: Regular diet DVT PPx: SCD's COde Status: Full (2) History of cardiac cath: (3) History of heart artery stent: (4) Syncope: (5) ST elevation DC (STEMI): (6) DVT prophylaxis: (7) MARCO (acute kidney injury): Supervising Physician Co-Signing Physician Notes Dr. Arnold was resident physician during care of patient. I separately evaluated patient for lemus portions of the history and the exam. I was present during the critical portion of medical decision making, and I discussed the case with the resident. I generally agree with the findings and plan. RCA lesion stented, anticipate routine post cardiac cath care. Echo pending. Dual antiplatelet therapy. History of Present Illness Reason for Consultation: Status Post Cath for acute STEMI Requesting Physician: Mark Anthony Groves MD Attending Physician: Mark Anthony Groves MD History of Present Illness Ms. Arlette Beebe was awoken from sleep with sweating and chest pain. She woke up sat up and was in a large amount of pain and her sheets were drenched. She sat up to the edge of the bed, felt nausea and pain and then passed out and fell to the ground. WHen she awoke her chest pain was suffocating and she decided to go to the ER. She was found to have an inferior DC on ECG and sent to pit laborer with Dr. Dao Groves. We met her status post one stent placed in the RCA. She is currently symptom free. She denies chest pain, shortness of breath, palpitations, sycope or presyncope. She is in her usual state of health and is desiring to go home. Allergies Allergy/AdvReac Type Severity Reaction Status Date / Time daptomycin Allergy Intermediate DIFFUSE Verified 07/31/19 05:44 RASH vancomycin Allergy Intermediate Diffuse Verified 07/31/19 05:44 maculopapular rash, itching Sulfa (Sulfonamide Allergy Unknown Unknown Verified 07/31/19 05:44 Antibiotics) Home Medications Home Medications Medication Instructions Recorded Confirmed Type Lactobacillus acidoph-L.bulgar 1 tab PO DAILY 07/31/19 07/31/19 History [Floranex] aspirin [Aspir-81] 81 mg PO DAILY 07/31/19 07/31/19 History atorvastatin 40 mg PO HS 07/31/19 07/31/19 History empagliflozin [Jardiance] 10 mg PO DAILY 07/31/19 07/31/19 History hydrochlorothiazide 25 mg PO DAILY 07/31/19 07/31/19 History metformin 1,000 mg PO BID 07/31/19 07/31/19 History potassium 198 mg PO DAILY 07/31/19 07/31/19 History tramadol 50 - 100 mg PO Q6H PRN 07/31/19 07/31/19 History Patient History Medical History Myocardial Infarction (Acute) Depression (Chronic) Diabetes mellitus (Chronic) Dyslipidemia (Chronic) HTN (hypertension) (Chronic) DVT (deep venous thrombosis) (Chronic) hx of DVT 2015, provoked s/p fall had IVCF for 7-8 months and then removed Diabetic foot infection (Chronic) hx MRSA to R foot ulcer s/p I and D x 3, IV antibiotics Surgical History History of heart artery stent 07/31/19 PCI with successful YONIS to MID RCA by Dr. Groves History of cardiac cath S/P tubal ligation (Chronic) S/P cholecystectomy (Chronic) Family History Father Heart disease Rheumatic heart disease Brother Myocardial infarction, Onset Age: 52 Coronary heart disease Social History Preferred Language: Wolof Communication Ability: Effective Desktop Support Consultant Required: No Beliefs That Will Affect Care: None Current Living Situation: Spouse Other Information That Helps Us Care for You: No Feels Safe at Home: Yes Safety Concerns: Feels Safe At This Time Smoking Status: Former smoker Smoking End Date: quit 13 years ago ; Second Hand Exposure: No ; Hx Alcohol Use: Yes Alcohol type: wine Alcohol Intake Frequency: Rarely Hx Substance Use: No Review of Systems Review of Systems: All systems reviewed & are unremarkable except as noted in HPI & below Physical Exam Physical Exam: Constitutional" Well appearing 64 year old woman appearing stated age, no distress apparent Eyes: PERRLA, Anicteric sclerae, no sign of xanthelasma Neck: Supple no masses Respiratory: No respiratory distress, chest expansion symmetrical, lung sounds vesicular bilaterally in all lung hawley Cardiovascular: RRR, no murmurs, rubs, skips or gallops GI: Abdomen soft/non tender, no masses SKin: Arterial access attempted radially and femorally, two bandages present Results & Data Vital Signs (Past 12 Hours) Vital Signs Temp Pulse Resp BP Pulse Ox 07/31/19 06:01 61 11 L 176/84 H 07/31/19 06:00 65 12 07/31/19 05:57 49 L 13 132/63 07/31/19 05:50 49 L 13 07/31/19 05:46 59 L 18 137/104 H 07/31/19 05:40 79 25 H 07/31/19 05:39 63 21 07/31/19 05:36 97 07/31/19 05:33 58 L 24 139/72 100 07/31/19 05:24 36.9 C 55 L 18 140/71 100 PG Care Time/CCT Total # of Minutes Spent Total Time Spent with Patient: Total time spent is greater than 50% in coordination of care (as documented) at patient's floor/unit and/or counseling patient: Resident Activity Tracking Resident Involvement: Resident Care Provided Care Provided: Adult Hospital Medicine (1) Syncope Syncope type: unspecified Qualified Code(s): R55 - Syncope and collapse (2) ST elevation DC (STEMI) Involved coronary artery: unspecified coronary artery Qualified Code(s): I21.3 - ST elevation (STEMI) myocardial infarction of unspecified site
[2019-07-31] MEDS ORDERED: SODIUM CHLORIDE 0.9% 1000ML 1,000 ML IV SCH (08:00)
[2019-07-31] MEDS: METOPROLOL TARTRATE 25 MG TAB PO SCH ×2 (08:06→21:08)
[2019-07-31] MEDS: ASPIRIN 81 MG ECTAB PO SCH (08:06)
[2019-07-31] MEDS: ATORVASTATIN 40 MG TAB PO SCH (08:06)
--- NOTE | 2019-07-31 08:16 | Emergency Department Note ---
Entered by Magdi Alexandre acting as a scribe for History of Present Illness General Chief complaint: Syncope Stated complaint: PASSED OUT,CHEST PAIN Time Seen by Provider: 07/31/19 06:03 Source: patient History of Present Illness Onset (ago): hour(s) (a half hour) Location: chest Pain Consistency: + constant Maximum Pain Intensity: 10 Associated symptoms: + other (Positive for feeling warm, an episode of syncope, nausea, vomiting, SOB, and mild abdominal pain. ) The patient is a 64 year old female who presents to the emergency department with complaints of constant chest pain beginning a half hour ago. The patient states that she got up to go to the bathroom a half hour ago. She notes that she then became really warm and had an episode of syncope. She notes that she hurt her left wrist when she lost consciousness. She reports that she became nauseous and had two episodes of vomiting. The patient states that she was SOB earlier. She also complains of mild abdominal pain. She notes that she took 1 aspirin. She reports that she has a history of a stroke a year and a half ago. She states that she also has a history of a DVT and diabetes. She notes that she does not have a history of heart attacks. Home Medications Home Medications Medication Instructions Recorded Confirmed Type Lactobacillus acidoph-L.bulgar 1 tab PO DAILY 07/31/19 07/31/19 History [Floranex] aspirin [Aspir-81] 81 mg PO DAILY 07/31/19 07/31/19 History atorvastatin 40 mg PO HS 07/31/19 07/31/19 History empagliflozin [Jardiance] 10 mg PO DAILY 07/31/19 07/31/19 History hydrochlorothiazide 25 mg PO DAILY 07/31/19 07/31/19 History metformin 1,000 mg PO BID 07/31/19 07/31/19 History potassium 198 mg PO DAILY 07/31/19 07/31/19 History tramadol 50 - 100 mg PO Q6H PRN 07/31/19 07/31/19 History Allergies Allergy/AdvReac Type Severity Reaction Status Date / Time daptomycin Allergy Intermediate DIFFUSE Verified 07/31/19 05:44 RASH vancomycin Allergy Intermediate Diffuse Verified 07/31/19 05:44 maculopapular rash, itching Sulfa (Sulfonamide Allergy Unknown Unknown Verified 07/31/19 05:44 Antibiotics) Past Med/Surg History Medical History Depression (Chronic) Diabetes mellitus (Chronic) Dyslipidemia (Chronic) HTN (hypertension) (Chronic) DVT (deep venous thrombosis) (Chronic) Diabetic foot infection Drug eruption Fever Sepsis Myocardial Infarction Surgical History S/P tubal ligation (Chronic) S/P cholecystectomy (Chronic) History of cardiac cath History of heart artery stent Family History Other No significant family history Social History Preferred Language: [place] Communication Ability: Effective Design Inserter Required: No Beliefs That Will Affect Care: None Current Living Situation: Spouse Other Information That Helps Us Care for You: No Feels Safe at Home: Yes Safety Concerns: Feels Safe At This Time Smoking Status: Former smoker Smoking End Date: quit 13 years ago ; Second Hand Exposure: No ; Hx Alcohol Use: Yes Alcohol type: wine Hx Substance Use: No Review of Systems See HPI for pertinent positives & negatives. and A total of 10 systems reviewed and were otherwise negative Physical Exam Vital Signs Vital Signs - 24 hr 07/31/19 05:24 07/31/19 05:33 07/31/19 05:36 Temperature 36.9 C Temperature Source Oral Sepsis Recent Fever Within 48 Hours No Sepsis Action Taken by Nursing No Action Required Pulse Rate 55 L 58 L Pulse Rate from SpO2 Sensor 57 L Respiratory Rate 18 24 Respiratory Effort / Characteristics Non-Labored Spontaneous Respiratory Depth Normal Blood Pressure 140/71 139/72 Blood Pressure Mean 94 94 Pulse Oximetry 100 100 97 Oxygen Delivery Method Room Air Room Air 07/31/19 05:39 07/31/19 05:40 07/31/19 05:46 Temperature Temperature Source Sepsis Recent Fever Within 48 Hours Sepsis Action Taken by Nursing Pulse Rate 63 79 59 L Pulse Rate from SpO2 Sensor Respiratory Rate 21 25 H 18 Respiratory Effort / Characteristics Respiratory Depth Blood Pressure 137/104 H Blood Pressure Mean 115 Pulse Oximetry Oxygen Delivery Method 07/31/19 05:50 07/31/19 05:57 07/31/19 06:00 Temperature Temperature Source Sepsis Recent Fever Within 48 Hours Sepsis Action Taken by Nursing Pulse Rate 49 L 49 L 65 Pulse Rate from SpO2 Sensor Respiratory Rate 13 13 12 Respiratory Effort / Characteristics Respiratory Depth Blood Pressure 132/63 Blood Pressure Mean 86 Pulse Oximetry Oxygen Delivery Method 07/31/19 06:01 Temperature Temperature Source Sepsis Recent Fever Within 48 Hours Sepsis Action Taken by Nursing Pulse Rate 61 Pulse Rate from SpO2 Sensor Respiratory Rate 11 L Respiratory Effort / Characteristics Respiratory Depth Blood Pressure 176/84 H Blood Pressure Mean 114 Pulse Oximetry Oxygen Delivery Method HEENT: Head - normocephalic and atraumatic Pupils are equal, round, and reactive to light. Extraocular eye muscles are intact, and sclera are anicteric. Nose - moist nasal mucosa without discharge. Mouth - moist buccal mucosa. Oropharynx is nonerythematous and there is no tonsillar exudate or edema noted. Neck: Supple; no JVD, nuchal rigidity, cervical lymphadenopathy, or auscultated bruits. Heart: Regular rate and rhythm. There is a normal S1 and S2 with no murmurs, clicks, or gallops appreciated. Lungs: Clear to auscultation bilaterally with no wheezes, rales, or rhonchi. Abdomen: Soft, completely nontender, nondistended, with good bowel sounds. There are no palpable pulsatile masses or hepatosplenomegaly. There is no guarding, rigidity, or rebound noted. Extremities: No evidence of cyanosis, clubbing, or edema. There are easily palpable peripheral pulses. Pain to palpation over left wrist. Skin: warm with good turgor and no rashes, pale and diaphoretic. Course 0535: The patient was evaluated in room B2. A complete history and physical examination were performed. Nursing notes and previous electronic medical records were reviewed. The patient was a very difficult IV stick. I stuck the patient's right groin for a blood draw. Nursing staff eventually were able to establish 3 small IV locks in her arms. A portable chest x-ray was performed. 0600: Ondansetron HCl 4mg IV, Fentanyl Citrate 50 mcg of IV 0601: Nitroglycerin 0.4mg sublingual 0609: Upon reevaluation, the patient is stable. I kept the patient's abreast of the situation. I discussed the findings and the treatment plan with the patient. She expresses agreement and understanding. I spoke with MANNY Wynne. He will take the patient to the label designer. Consultations Consultation #1: I reviewed the patient's case with MANNY Wynne. He will evaluate the patient for further management. He will take the patient to the label designer. Time: 06:09 Administered Medications Sodium Chloride (Nss 1000ml) 1,000 mls @ 100 mls/hr IV .Q10H AGNES Stop: 07/31/19 17:59 Last Admin: 07/31/19 07:46 Dose: 100 mls/hr Documented by: [id number] Discontinued Medications Atropine Sulfate (Atropine Sulfate) Confirm Administered Dose 1 mg IV .STK-MED ONE Stop: 07/31/19 06:11 Last Admin: 07/31/19 07:49 Dose: Not Given Documented by: [id number] Fentanyl (Duragesic) Confirm Administered Dose 50 mcg TD .STK-MED ONE Stop: 07/31/19 05:57 Last Admin: 07/31/19 06:00 Dose: Not Given Documented by: [id number] Fentanyl Citrate (Fentanyl Citrate) Confirm Administered Dose 100 mcg .ROUTE .STK-MED ONE Stop: 07/31/19 05:58 Last Increment: 07/31/19 06:00 Dose: 50 mcg Documented by: [id number] Fentanyl Citrate (Fentanyl Citrate) Confirm Administered Dose 100 mcg .ROUTE .STK-MED ONE Stop: 07/31/19 06:03 Last Admin: 07/31/19 07:47 Dose: Not Given Documented by: [id number] Fentanyl Citrate (Fentanyl Citrate) 50 mcg IV NOW STA Stop: 07/31/19 06:21 Last Admin: 07/31/19 07:49 Dose: Not Given Documented by: [id number] Heparin Sodium (Porcine) (Heparin Iv Bolus (Brokerage Branch Manager Use Only)) Confirm Administered Dose 10,000 units .ROUTE .STK-MED ONE Stop: 07/31/19 06:02 Last Admin: 07/31/19 07:47 Dose: Not Given Documented by: [id number] Heparin Sodium/Sodium Chloride (Heparin/Nss 1000 Unit/500ml Flush Bag) Confirm Administered Dose 3,000 units IV .STK-MED ONE Stop: 07/31/19 06:03 Last Admin: 07/31/19 07:48 Dose: Not Given Documented by: [id number] Midazolam HCl (Versed) Confirm Administered Dose 2 mg .ROUTE .STK-MED ONE Stop: 07/31/19 06:03 Last Admin: 07/31/19 07:48 Dose: Not Given Documented by: [id number] Midazolam HCl (Versed) Confirm Administered Dose 2 mg .ROUTE .STK-MED ONE Stop: 07/31/19 06:24 Last Admin: 07/31/19 07:50 Dose: Not Given Documented by: [id number] Nicardipine HCl (Cardene) Confirm Administered Dose 25 mg .ROUTE .STK-MED ONE Stop: 07/31/19 06:02 Last Admin: 07/31/19 07:47 Dose: Not Given Documented by: [id number] Nitroglycerin (Nitrolingual) Confirm Administered Dose 60 sprays .ROUTE .STK-MED ONE Stop: 07/31/19 05:58 Last Admin: 07/31/19 06:01 Dose: Not Given Documented by: [id number] Nitroglycerin (Nitrostat) Confirm Administered Dose 0.4 mg .ROUTE .STK-MED ONE Stop: 07/31/19 05:58 Last Admin: 07/31/19 06:01 Dose: 0.4 mg Documented by: [id number] Nitroglycerin (Nitrostat) 0.4 mg SL NOW STA Stop: 07/31/19 06:21 Last Admin: 07/31/19 07:49 Dose: Not Given Documented by: [id number] Nitroglycerin/Dextrose (Nitroglycerin/D5w 100 Mcg/Ml 20ml Syringe) Confirm Administered Dose 2,000 mcg .ROUTE .STK-MED ONE Stop: 07/31/19 06:03 Last Admin: 07/31/19 07:48 Dose: Not Given Documented by: [id number] Ondansetron HCl (Zofran) Confirm Administered Dose 4 mg .ROUTE .STK-MED ONE Stop: 07/31/19 05:56 Last Admin: 07/31/19 06:00 Dose: 4 mg Documented by: [id number] Ondansetron HCl (Zofran) 4 mg IV NOW STA Stop: 07/31/19 06:21 Last Admin: 07/31/19 07:49 Dose: Not Given Documented by: [id number] Ticagrelor (Brilinta) Confirm Administered Dose 180 mg PO .STK-MED ONE Stop: 07/31/19 06:56 Last Admin: 07/31/19 07:50 Dose: Not Given Documented by: [id number] Medical Decision Making Differential Diagnosis Differential diagnoses include: aortic dissection, STEMI, cardiac dysrhythmia, and PE. Medical Records Attestation: I reviewed the patient's medical records. Home Medications Current Medication List: was personally reviewed by me Laboratory Data Attestation: I reviewed the patient's lab results. Result diagrams: 07/31/19 05:57 07/31/19 05:57 Lab Results 07/31/19 07/31/19 07/31/19 Range/Units 05:57 05:57 06:40 WBC Cancelled RBC Cancelled Hgb Cancelled Hct Cancelled MCV Cancelled MCH Cancelled MCHC Cancelled RDW Std Deviation Cancelled RDW Coeff of Anahy Cancelled Plt Count Cancelled MPV Cancelled Immature Gran % (Auto) Cancelled Neut % (Auto) Cancelled Lymph % (Auto) Cancelled Sebastian % (Auto) Cancelled Eos % (Auto) Cancelled Baso % (Auto) Cancelled Immature Gran # (Auto) Cancelled Neut # (Auto) Cancelled Lymph # (Auto) Cancelled Sebastian # (Auto) Cancelled Eos # (Auto) Cancelled Baso # (Auto) Cancelled Absolute Nucleated RBC Cancelled Nucleated RBC % (auto) Cancelled Neutrophils % (Manual) Cancelled Band Neutrophils % Cancelled Lymphocytes % (Manual) Cancelled Prolymphocyte % Cancelled Reactive Lymphs % (Man) Cancelled Monocytes % (Manual) Cancelled Eosinophils % (Manual) Cancelled Basophils % (Manual) Cancelled Metamyelocytes % (Man) Cancelled Myelocytes % (Man) Cancelled Promyelocytes % (Man) Cancelled Blast Cells % (Manual) Cancelled Plasma Cell % (Manual) Cancelled Other Cells % Cancelled Nucleated RBC % Cancelled Neutrophils # (Manual) Cancelled Band Neutrophils # Cancelled Total Absolute Neuts Cancelled Lymphocytes # (Manual) Cancelled Prolymphocyte # Cancelled Reactive Lymphs # Cancelled Total Abs Lymphocytes Cancelled Monocytes # (Manual) Cancelled Eosinophils # (Manual) Cancelled Basophils # (Manual) Cancelled Metamyelocytes # (Man) Cancelled Myelocytes # (Manual) Cancelled Promyelocytes # (Man) Cancelled Blast Cells # (Man) Cancelled Plasma Cell # (Manual) Cancelled Other Cells # Cancelled Nucleated RBCs # (Man) Cancelled Hypersegmented Neuts Cancelled Hyposegmented Neuts Cancelled Hypogranular Neuts Cancelled Large Granular Lymphs Cancelled # Lrg Granular Lymphs Cancelled Hairy Cells Cancelled Smudge Cells Cancelled Toxic Granulation Cancelled Toxic Vacuolation Cancelled Dohle Bodies Cancelled Gatito Rods Cancelled Platelet Estimate Cancelled Hypogranular Platelets Cancelled Clumped Platelets Cancelled Giant Platelets Cancelled Platelet Satelliting Cancelled RBC Morphology Cancelled Polychromasia Cancelled Hypochromasia Cancelled Poikilocytosis Cancelled Basophilic Stippling Cancelled Anisocytosis Cancelled Microcytosis Cancelled Macrocytosis Cancelled Spherocytes Cancelled Pappenheimer Bodies Cancelled Sickle Cells Cancelled Target Cells Cancelled Tear Drop Cells Cancelled Ovalocytes Cancelled Stomatocytes Cancelled [place] Bodies Cancelled Echinocytes Cancelled Acanthocytes (Spur) Cancelled Rouleaux Cancelled RBC Agglutinates Cancelled Schistocytes Cancelled RBC Morph Comment Cancelled Sezary Cell Cancelled Activ Coag Time Kaolin 230 H (94-140) SECONDS Sodium 140 (136-145) mmol/L Potassium 4.0 (3.5-5.1) mmol/L Chloride 104 (98-107) mmol/L Carbon Dioxide 23 (21-32) mmol/L Anion Gap 13.0 H (3-11) BUN 20 H (7-18) mg/dl Creatinine 1.24 H (0.6-1.2) mg/dl Est Cr Clr Drug Dosing 46.9 ml/min Est GFR ( Amer) 53.5 Est GFR (Non-Af Amer) 46.2 BUN/Creatinine Ratio 15.8 (10-20) Glucose 233 H (70-99) mg/dl Calcium 9.0 (8.5-10.1) mg/dl Total Bilirubin 0.7 (0.2-1) mg/dl AST 18 (15-37) U/L ALT 20 (12-78) U/L Alkaline Phosphatase 127 H (45-117) U/L Troponin I 0.277 H* (0-0.045) ng/ml Total Protein 7.1 (6.4-8.2) gm/dl Albumin 3.7 (3.4-5.0) gm/dl Globulin 3.4 (2.5-4.0) gm/dl Albumin/Globulin Ratio 1.1 (0.9-2) Lipase 158 (73-393) U/L Imaging Data Radiologist's Impression: Radiology results as stated below per my review and the radiologist's interpretation: XR wrist LT min 3V routine FINDINGS: A peripheral IV catheter projects over the wrist along the dorsum. No acute fracture or malalignment. Advanced degenerative changes of the first carpometacarpal articulation with joint space loss, subchondral sclerosis, subchondral cystic change, and osteophytosis. No radiographic soft tissue a bnormality. IMPRESSION: 1. No acute osseous injury. 2. 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 Electronically signed by: Kade Ann M.D. 07/31/2019 6:45 AM XR chest 1V portable FINDINGS: Cardiomediastinal silhouette normal. No focal opacity. No large effusion or pneumothorax. Osseous structures normal. Cholecystectomy clips noted. IMPRESSION: 1. No acute cardiopulmonary disease. Electronically signed by: Kade Ann M.D. 07/31/2019 6:44 AM ECG Data Attestation: I personally reviewed and interpreted this ECG as follows: Indication: chest pain Rate (beats per minute): 51 Rhythm: sinus bradycardia Findings: + 1st degree AV block and + ST elevation (in inferior lead) Comparison ECG Date: from (08/05/1017) Change: the following changes noted (Compared to prior, all findings are new.) Additional Comments: Acute STEMI, reciprocal changes in 1 and AVL. Blood Pressure Blood Pressure Findings: Elevated blood pressure Blood Pressure Disposition: further management by hospitalist [facility] Narrative The patient is a 64 year old female who presents to the emergency department with complaints of constant chest pain beginning a half hour ago. The patient had a syncopal event after developing the chest discomfort. She did land on the floor on her left wrist. X-ray of the left wrist was negative for fracture. Chest x-ray was unremarkable. The patient finally had IV access obtained. Her blood pressure remained stable but she was bradycardic. Her pain was slightly controlled with IV fentanyl and sublingual nitroglycerin. I discussed the case with Dr. Groves at the bedside and he will take the patient to the Brokerage Branch Manager. Impression & Plan ST elevation VT (STEMI), Syncope Critical Care Time Critical Care Time: Yes Total Critical Care Time: 40 I have personally spent 40 minutes of critical care time in the direct management of this patient. This includes bedside care, interpretation of diagnostic studies, and testing, discussion with consultants, patient, and family members, and other required patient management activities. This 40 minutes is in excess of all separately billable procedures. Discharge Plan Visit Data *Final* Discharge Date/Time: 07/31/19 06:31 Chief Complaint: Syncope Stated Complaint: PASSED OUT,CHEST PAIN ED Provider: Carlota Benson Discharge Problem: ST elevation VT (STEMI), Syncope Patient Disposition: Admitted As Inpatient Discharge Instructions Interventions: ED Discharge Assessment Last Done: 07/31/19 06:19 Discharge Problem: ST elevation VT (STEMI) Qualifiers: Involved coronary artery: unspecified coronary artery Qualified Code(s): I21.3 - ST elevation (STEMI) myocardial infarction of unspecified site Syncope Qualifiers: Syncope type: unspecified Qualified Code(s): R55 - Syncope and collapse The scribe's documentation has been prepared under my direction and personally reviewed by me in its entirety. I confirm that the note above accurately reflects all work, treatment, procedures, and medical decision making performed by me.
[2019-07-31] MEDS ORDERED: GLUCOSE 40% GEL 15 GM TUBE PO PRN (08:19)
[2019-07-31] MEDS ORDERED: CARBOHYDRATES FOR HYPOGLYCEMIA PO PRN (08:19)
[2019-07-31] MEDS ORDERED: GLUCAGON FOR INJ 1 MG VIAL SQ PRN (08:19)
[2019-07-31] MEDS ORDERED: GLUCOSE 10 TABS/TUBE PO PRN (08:19)
[2019-07-31] MEDS ORDERED: DEXTROSE 50% 50 ML SYRINGE IV PRN (08:19)
--- NOTE | 2019-07-31 08:30 | History & Physical Report ---
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 Pt admitted to ICU with inferior STEMI s/p successful PCI with YONIS to mid RCA by Dr. Groves continue dual antiplatelet therapy x 1 year with ASA and brilinta High intensity statin, atorvastatin 80mg at HS trend troponin until peak echocardiogram ordered Metoprolol initiated - will need to up titrate as allows initiate JONATHAN when appropriate cardiac rehab consulted A1C, Lipid panel in am CBC with next A1C (3) MARCO (acute kidney injury): baseline cr 0.8-1.0 today bun 20/cr 1.24 continue IVF per cardiology repeat bmp in am. avoid nephrotoxic agents (4) Diabetes mellitus: Last A1C 7.4 06/22/19 A1C in a.m. hold outpt metformin and jardiance Lantus/novolog per protocol ICU hyperglycemic protocol (5) HTN (hypertension): blood pressure stable in ICU on hctz as outpt, hold for now currently on metoprolol (6) Dyslipidemia: high intensity statin atorvastatin increased to 80mg lipid panel in a.m. 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 Awad upon discharge Patient was seen and examined in collaboration with Dr. Walls, please see addendum History of Present Illness Chief Complaint: Chest pain x 30 minutes prior to arrival Primary Care Provider: Winston Awad MD This is a 64 yr old F who has significant past medical history of T2DM, HTN, HLD, history of occipital CVA in 01/2016, history of provoked DVT s/p IVCF since removed who presents to [facility] ED secondary to substernal chest pain 30 minutes prior to arrival. Brother is at bedside. Patient was awoken this morning with severe, sharp, stabbing 10/10 substernal chest pain, nonradiating with associated nausea, emesis, diaphoresis. Pt had episode of syncope prior to arrival due to chest pain. After syncopal event fell on left wrist. No other injuries. When arrived to ED pt was noted to have ECG findings consistent with Inferior STEMI. Patient taken to laborer driver found to have 100% acute mid RCA occlusion and mild non culprit mid LAD. She had successful PCI with YONIS to mid RCA and transitioned to ICU for continued care. Currently states she feels much better than on arrival. Denies current chest pain, sob, palpitations, f/c/s, dizziness, lightheaded, cough, n/v/d, abdominal pain. Prio r to admission denies dysuria, hematuria, increased urg/freq with urination. She elicits today was her [facility] alliance party at [employer]. +FH of CAD with brother who had ID at age 52 and Father who had 3 valve replacements and rheumatic heart disease. She has hx of CVA in 2016 after a provoked dvt s/p fall. Elicits she had a hole in heart and they felt that's what caused her occipital cva. Also hx of MRSA to R diabetic foot ulcer in 2017. Allergies Allergy/AdvReac Type Severity Reaction Status Date / Time daptomycin Allergy Intermediate DIFFUSE Verified 07/31/19 05:44 RASH vancomycin Allergy Intermediate Diffuse Verified 07/31/19 05:44 maculopapular rash, itching Sulfa (Sulfonamide Allergy Unknown Unknown Verified 07/31/19 05:44 Antibiotics) Home Medications Home Medications Medication Instructions Recorded Confirmed Type Lactobacillus acidoph-L.bulgar 1 tab PO DAILY 07/31/19 07/31/19 History [Floranex] aspirin [Aspir-81] 81 mg PO DAILY 07/31/19 07/31/19 History atorvastatin 40 mg PO HS 07/31/19 07/31/19 History empagliflozin [Jardiance] 10 mg PO DAILY 07/31/19 07/31/19 History hydrochlorothiazide 25 mg PO DAILY 07/31/19 07/31/19 History metformin 1,000 mg PO BID 07/31/19 07/31/19 History potassium 198 mg PO DAILY 07/31/19 07/31/19 History tramadol 50 - 100 mg PO Q6H PRN 07/31/19 07/31/19 History Past Med/Surg History Medical History Myocardial Infarction (Acute) Depression (Chronic) Diabetes mellitus (Chronic) Dyslipidemia (Chronic) HTN (hypertension) (Chronic) DVT (deep venous thrombosis) (Chronic) hx of DVT 2016, provoked s/p fall had IVCF for 7-8 months and then removed Diabetic foot infection (Chronic) hx MRSA to R foot ulcer s/p I and D x 3, IV antibiotics Surgical History History of heart artery stent 07/31/19 PCI with successful YONIS to MID RCA by Dr. Groves History of cardiac cath S/P tubal ligation (Chronic) S/P cholecystectomy (Chronic) Family History Father Heart disease Rheumatic heart disease Brother Myocardial infarction, Onset Age: 52 Coronary heart disease Social History Preferred Language: [place] Communication Ability: Effective Religious Leader Required: No Beliefs That Will Affect Care: None Current Living Situation: Spouse Other Information That Helps Us Care for You: No Feels Safe at Home: Yes Safety Concerns: Feels Safe At This Time Smoking Status: Former smoker Smoking End Date: quit 13 years ago ; Second Hand Exposure: No ; Hx Alcohol Use: Yes Alcohol type: wine Alcohol Intake Frequency: Rarely Hx Substance Use: No Review of Systems Review of Systems: All systems reviewed & are unremarkable except as noted in HPI & below Physical Exam Physical Exam: Constitutional: WD/WN, vitals as above, F, lying flat in bed, NAD, pleasant, conversing easily Head: Normocephalic, Atraumatic Eyes: PERRL, conjunctivae normal, anicteric sclerae ENMT: external ear and nose normal, oropharynx normal Neck: trachea midline, no thyromegaly normal visual inspection Respiratory: normal respiratory effort, lungs clear to auscultation, no wheeze, rales, rhonchi. Normal insp/exp effort, no accessory muscle use Cardiovascular: RRR, no murmur, no edema Vessels: no JVD or carotid bruit Chest: normal inspection of chest Abdomen: normal bowel sounds, soft, nontender, no hepatosplenomegaly Musculoskeletal: no cyanosis or clubbing, extremities motor strength 5/5 Skin: no rashes, warm and dry normal turgor Neurologic: PERRL, EOMI, accommodation nl, no face palsy, no dysarthria CN's II-XI intact bilaterally and moves all extremities Psychiatric: A+Ox3, euthymic affect Lymphatic: no cervical or axillary lymphadenopathy : deferred Results & Data Vital Signs (Past 12 Hours) Vital Signs Temp Pulse Pulse Resp BP BP Pulse Ox 07/31/19 07:58 36.5 C 81 17 113/69 95 07/31/19 07:47 73 18 124/62 97 07/31/19 07:32 36.5 C 80 117/80 98 07/31/19 07:30 81 07/31/19 07:17 36.5 C 81 17 113/69 99 07/31/19 06:01 61 11 L 176/84 H 07/31/19 06:00 65 12 07/31/19 05:57 49 L 13 132/63 07/31/19 05:50 49 L 13 07/31/19 05:46 59 L 18 137/104 H 07/31/19 05:40 79 25 H 07/31/19 05:39 63 21 07/31/19 05:36 97 07/31/19 05:33 58 L 24 139/72 100 07/31/19 05:24 36.9 C 55 L 18 140/71 100 Laboratory Results Short CBC 07/31/19 Range/Units 05:57 WBC Cancelled Hgb Cancelled Hct Cancelled Plt Count Cancelled BMP 07/31/19 05:57 Sodium 140 Potassium 4.0 Chloride 104 Carbon Dioxide 23 BUN 20 H Creatinine 1.24 H Glucose 233 H Calcium 9.0 Cardiac Enzymes 07/31/19 Range/Units 05:57 Troponin I 0.277 H* (0-0.045) ng/ml Liver Function 07/31/19 Range/Units 05:57 Total Bilirubin 0.7 (0.2-1) mg/dl AST 18 (15-37) U/L ALT 20 (12-78) U/L Alkaline Phosphatase 127 H (45-117) U/L Albumin 3.7 (3.4-5.0) gm/dl Diagnostic Findings Wrist Xray: IMPRESSION: 1. No acute osseous injury. 2. 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 CXR: IMPRESSION: 1. No acute cardiopulmonary disease. Medications Administered Aspirin (Ecotrin Ectab) [facility] Stop: 08/30/19 08:59 Last Admin: 07/31/19 08:06 Dose: 81 mg Documented by: [id number] Atorvastatin Calcium (Lipitor) 80 mg PO QAM [facility] Stop: 08/30/19 08:59 Last Admin: 07/31/19 08:06 Dose: 80 mg Documented by: [id number] Sodium Chloride (Nss 1000ml) 1,000 mls @ 100 mls/hr IV .Q10H [facility] Stop: 07/31/19 17:59 Last Admin: 07/31/19 07:46 Dose: 100 mls/hr Documented by: [id number] Insulin Aspart (Novolog Flexpen) 0 units SC ACHS [facility] Stop: 08/30/19 08:29 Last Admin: 07/31/19 08:41 Dose: 1 units Documented by: [id number] Cosigned by: [id number] Insulin Glargine (Lantus Solostar Pen) 0 units SC BID [facility]; Protocol Stop: 08/30/19 08:59 Last Admin: 07/31/19 08:41 Dose: 5 units Documented by: [id number] Cosigned by: [id number] Metoprolol Tartrate (Lopressor) 12.5 mg PO BID [facility] Stop: 08/30/19 08:59 Last Admin: 07/31/19 08:06 Dose: 12.5 mg Documented by: [id number] Discontinued Medications Atropine Sulfate (Atropine Sulfate) Confirm Administered Dose 1 mg IV .STK-MED ONE Stop: 07/31/19 06:11 Last Admin: 07/31/19 07:49 Dose: Not Given Documented by: [id number] Fentanyl (Duragesic) Confirm Administered Dose 50 mcg TD .STK-MED ONE Stop: 07/31/19 05:57 Last Admin: 07/31/19 06:00 Dose: Not Given Documented by: [id number] Fentanyl Citrate (Fentanyl Citrate) Confirm Administered Dose 100 mcg .ROUTE .STK-MED ONE Stop: 07/31/19 05:58 Last Increment: 07/31/19 06:00 Dose: 50 mcg Documented by: [id number] Fentanyl Citrate (Fentanyl Citrate) Confirm Administered Dose 100 mcg .ROUTE .STK-MED ONE Stop: 07/31/19 06:03 Last Admin: 07/31/19 07:47 Dose: Not Given Documented by: [id number] Fentanyl Citrate (Fentanyl Citrate) 50 mcg IV NOW [facility] Stop: 07/31/19 06:21 Last Admin: 07/31/19 07:49 Dose: Not Given Documented by: [id number] Heparin Sodium (Porcine) (Heparin Iv Bolus (Loadmaster Use Only)) Confirm Administered Dose 10,000 units .ROUTE .STK-MED ONE Stop: 07/31/19 06:02 Last Admin: 07/31/19 07:47 Dose: Not Given Documented by: [id number] Heparin Sodium/Sodium Chloride (Heparin/Nss 1000 Unit/500ml Flush Bag) Confirm Administered Dose 3,000 units IV .ST-MED ONE Stop: 07/31/19 06:03 Last Admin: 07/31/19 07:48 Dose: Not Given Documented by: [id number] Midazolam HCl (Versed) Confirm Administered Dose 2 mg .ROUTE .ST-MED ONE Stop: 07/31/19 06:03 Last Admin: 07/31/19 07:48 Dose: Not Given Documented by: [id number] Midazolam HCl (Versed) Confirm Administered Dose 2 mg .ROUTE .ST-MED ONE Stop: 07/31/19 06:24 Last Admin: 07/31/19 07:50 Dose: Not Given Documented by: [id number] Nicardipine HCl (Cardene) Confirm Administered Dose 25 mg .ROUTE .[facility]-MED ONE Stop: 07/31/19 06:02 Last Admin: 07/31/19 07:47 Dose: Not Given Documented by: [id number] Nitroglycerin (Nitrolingual) Confirm Administered Dose 60 sprays .ROUTE .[facility] ONE Stop: 07/31/19 05:58 Last Admin: 07/31/19 06:01 Dose: Not Given Documented by: [id number] Nitroglycerin (Nitrostat) Confirm Administered Dose 0.4 mg .ROUTE .[facility] ONE Stop: 07/31/19 05:58 Last Admin: 07/31/19 06:01 Dose: 0.4 mg Documented by: [id number] Nitroglycerin (Nitrostat) 0.4 mg SL NOW STA Stop: 07/31/19 06:21 Last Admin: 07/31/19 07:49 Dose: Not Given Documented by: [id number] Nitroglycerin/Dextrose (Nitroglycerin/D5w 100 Mcg/Ml 20ml Syringe) Confirm Administered Dose 2,000 mcg .ROUTE .STK-MED ONE Stop: 07/31/19 06:03 Last Admin: 07/31/19 07:48 Dose: Not Given Documented by: [id number] Ondansetron HCl (Zofran) Confirm Administered Dose 4 mg .ROUTE .STK-MED ONE Stop: 07/31/19 05:56 Last Admin: 07/31/19 06:00 Dose: 4 mg Documented by: [id number] Ondansetron HCl (Zofran) 4 mg IV NOW STA Stop: 07/31/19 06:21 Last Admin: 07/31/19 07:49 Dose: Not Given Documented by: [id number] Ticagrelor (Brilinta) Confirm Administered Dose 180 mg PO .STK-MED ONE Stop: 07/31/19 06:56 Last Admin: 07/31/19 07:50 Dose: Not Given Documented by: [id number] ECG Rate (beats per minute): 51 Rhythm: sinus bradycardia Findings: + ST elevation and + acute ischemic change (Inferior ST Elevation) Code Status & VTE Plan Code Status Full Code VTE Prophylaxis Plan VTE Prophylaxis will be ordered: Yes Supervising Physician Co-Signing Physician Notes Pt was seen and examined. Agreed with Skylar SELF exam, assessment and plan. 64 yr old Female with past medical history of T2DM, HTN, HLD, history of occipital CVA in 01/2016, history of provoked DVT s/p IVCF since removed who presents to [facility] ED for substernal chest pain. Pt said that this morning she woke up with severe, sharp, stabbing 10/10 substernal chest pain, nonradiating with associated nausea, emesis, diaphoresis. She said that she had a syncopal episode while she woke up she found herself on the floor. When she came to the ED, EKG showed sinus bradycardia with inferior ST elevations. CXR showed no acute cardiopulmonary disease. Troponin on admission 0.277. She had a cardiac cath done that showed 100% occlusion of the RCA. S/P successful PCI with YONIS to mid RCA by Dr. Groves. Currently pt is resting in the ICU with no chest pain. ECHO showed severe hypokinesis of the inferoposterior wall and adjacent inferoseptum. EF 35-40%. Continue dual antiplatelet therapy with aspirin ticagrelor. Starting on statin 80mg and Metoprolol 12.5 mg. S yncopal episode mostly due to vasovagal. Denies any focal neuro deficit. Continue monitor in the ICU closely. MD Kavita (1) ST elevation ID (STEMI) Involved coronary artery: unspecified coronary artery Qualified Code(s): I21.3 - ST elevation (STEMI) myocardial infarction of unspecified site (2) Syncope Syncope type: unspecified Qualified Code(s): R55 - Syncope and collapse
[2019-07-31] MEDS: INSULIN GLARGINE SOLOSTAR 100 UNITS/ML 3 ML PEN SC SCH ×2 (08:41→21:08)
[2019-07-31] MEDS: INSULIN ASPART 100 UNITS/ML 3 ML PEN SC SCH ×4 (08:41→21:08)
[2019-07-31 13:12] LABS: Basophils # (auto) 0.01 K/uL (0-0.2); Basophils % (auto) 0.1 %; Eosinophils # (auto) 0.01 K/uL (0-0.5); Eosinophils % (auto) 0.1 %; Hemoglobin 14.2 g/dL (12.0-16.0); Immature Granulocytes # (auto) 0.02 K/uL (0.00-0.02); Immature Granulocytes % (auto) 0.2 %; Lymphocytes # (auto) 1.47 K/uL (1.2-3.4); Lymphocytes % (auto) 13.5 %; Mean Corpuscular Hemoglobin 29.6 pg (25-34); Mean Corpuscular Volume 87.7 fL (80-100); Mean Platelet Volume 10.7 fL (7.4-10.4); Monocytes # (auto) 0.48 K/uL (0.11-0.59); Monocytes % (auto) 4.4 %; Neutrophils # (auto) 8.92 K/uL (1.4-6.5); Neutrophils % (auto) 81.7 %; Platelet Count 230 K/uL (130-400); RDW Coefficient of Variation 12.9 % (11.5-14.5); RDW Standard Deviation 41.4 fL (36.4-46.3); Red Blood Count 4.79 M/uL (4.2-5.4); White Blood Count 10.91 K/uL (4.8-10.8)
[2019-07-31 13:14] LABS: Mean Corpuscular Hgb Conc 33.8 g/dL (32-36)
[2019-07-31] MEDS: TICAGRELOR 90 MG TAB PO SCH (21:08)
[2019-08-01 05:05] LABS: Basophils # (auto) 0.02 K/uL (0-0.2); Basophils % (auto) 0.2 %; Eosinophils # (auto) 0.07 K/uL (0-0.5); Eosinophils % (auto) 0.7 %; Hematocrit (blood only) 39.9 % (37-47); Hemoglobin 13.3 g/dL (12.0-16.0); Immature Granulocytes # (auto) 0.02 K/uL (0.00-0.02); Immature Granulocytes % (auto) 0.2 %; Lymphocytes # (auto) 3.22 K/uL (1.2-3.4); Lymphocytes % (auto) 32.5 %; Mean Corpuscular Hemoglobin 29.4 pg (25-34); Mean Corpuscular Hgb Conc 33.3 g/dL (32-36); Mean Corpuscular Volume 88.3 fL (80-100); Mean Platelet Volume 10.4 fL (7.4-10.4); Monocytes # (auto) 0.71 K/uL (0.11-0.59); Monocytes % (auto) 7.2 %; Neutrophils # (auto) 5.87 K/uL (1.4-6.5); Neutrophils % (auto) 59.2 %; Platelet Count 213 K/uL (130-400); RDW Standard Deviation 41.6 fL (36.4-46.3); Red Blood Count 4.52 M/uL (4.2-5.4); White Blood Count 9.91 K/uL (4.8-10.8)
[2019-08-01 05:30] LABS: BUN Creatinine Ratio 19.4 (10-20); Calcium 8.4 mg/dl (8.5-10.1); Creatinine Clr Calc Pharmacy 59.4 ml/min; Est GFR (African American) 71.2; Est GFR (Non-African American) 61.4; Magnesium 1.9 mg/dl (1.8-2.4); Potassium 3.9 mmol/L (3.5-5.1)
[2019-08-01 05:38] LABS: Phosphorus 3.7 mg/dl (2.5-4.9); Troponin I 8.19 ng/ml (0-0.045)
--- NOTE | 2019-08-01 06:19 | Critical Care Progress Note ---
Date of Service August 01, 2019 Assessment & Plan (1) Myocardial Infarction: Reason Critically Ill: Status Post emergent invasive catheterization for STEMI Cardiovascular: First [place], risk factors of T2DM, HTN, HLD, Occipital CVA Successful PCI with YONIS to RCA x1 Will continue DAPT with ASA and brillinta Continue high intensity statin Starting metoprolol, titrate as tolerated by blood pressure JONATHAN if tolerated, normally normotensive patient No evidence of arrhythmia Troponins have peaked Respiratory: No shortness of breath, no o2 requirement Will continue to monitor Renal: Slight elevation in creatinine from baseline on admission Resolved today Electrolytes WNL ID" No concern for ID process at this time Dispo: May step down to Tele or d/c home based on primary teams wishes F/E/N: Regular diet DVT PPx: SCD's COde Status: Full (2) History of cardiac cath: (3) History of heart artery stent: (4) Syncope: (5) ST elevation [place] (STEMI): (6) DVT prophylaxis: (7) MARCO (acute kidney injury): Supervising Physician Co-Signing Physician Notes Dr. Arnold was resident physician during care of patient. I was present during the critical portion of medical decision making, and I discussed the case with the resident. I generally agree with the findings and plan. Subjective Ms. Velez is feeling well today, no shortness of breath, no chest pain, no palpitations, no syncopal or presyncopal symptoms. She tells me she is in her usual state of health and wants to return home. Review of Systems Review of Systems: All systems reviewed & are unremarkable except as noted in HPI & below Physical Exam Physical Exam: Constitutional: Well appearing 64 year old woman appearing stated age, no distress apparent Eyes: PERRLA, Anicteric sclerae, no sign of xanthelasma Neck: Supple no masses Respiratory: No respiratory distress, chest expansion symmetrical, lung sounds vesicular bilaterally in all lung hawley Cardiovascular: RRR, no murmurs, rubs, skips or gallops GI: Abdomen soft/non tender, no masses Skin: Arterial access attempted radially and femorally, skin intact no bleeding Results & Data Vital Signs (Past 12 Hours) Vital Signs Temp Pulse Resp BP Pulse Ox 08/01/19 06:00 54 L 17 96/55 L 94 08/01/19 05:00 50 L 13 96/54 L 96 08/01/19 04:01 36.8 C 59 L 12 87/59 L 95 08/01/19 03:00 53 L 18 104/46 L 96 08/01/19 02:00 54 L 17 94/52 L 95 08/01/19 01:00 54 L 17 92/50 L 96 08/01/19 00:01 54 L 9 L 95 08/01/19 00:00 36.7 C 55 L 18 91/49 L 95 07/31/19 23:00 56 L 15 115/65 97 07/31/19 22:00 56 L 18 114/59 L 96 07/31/19 21:00 62 19 117/65 95 07/31/19 20:01 36.7 C 62 22 131/55 L 96 07/31/19 19:43 58 L 12 113/62 96 07/31/19 19:00 62 17 95 PG Care Time/CCT Total # of Minutes Spent Total Time Spent with Patient: Total time spent is greater than 50% in coordination of care (as documented) at patient's floor/unit and/or counseling patient: Resident Activity Tracking Resident Involvement: Resident Care Provided Care Provided: Adult Hospital Medicine (1) ST elevation [place] (STEMI) Involved coronary artery: unspecified coronary artery Qualified Code(s): I21. 3 - ST elevation (STEMI) myocardial infarction of unspecified site (2) Syncope Syncope type: unspecified Qualified Code(s): R55 - Syncope and collapse
[2019-08-01 07:16] LABS: Estimated Average Glucose 180 mg/dl; Hemoglobin A1C 7.9 % (4.5-5.6)
[2019-08-01] MEDS: INSULIN ASPART 100 UNITS/ML 3 ML PEN SC SCH ×4 (08:00→20:33)
[2019-08-01] MEDS: ASPIRIN 81 MG ECTAB PO SCH (08:26)
[2019-08-01] MEDS: TICAGRELOR 90 MG TAB PO SCH ×2 (08:26→20:32)
[2019-08-01] MEDS: ATORVASTATIN 40 MG TAB PO SCH (08:27)
[2019-08-01] MEDS: METOPROLOL TARTRATE 25 MG TAB PO SCH ×2 (08:27→20:32)
[2019-08-01] MEDS: INSULIN GLARGINE SOLOSTAR 100 UNITS/ML 3 ML PEN SC SCH ×2 (08:30→20:33)
--- NOTE | 2019-08-01 13:47 | Cardiology Progress Note ---
Date of Service August 01, 2019 Subjective She denies any chest pain chest pressure chest heaviness this morning. She has any palpitations lightheadedness or dizziness. She is been ambulating in the hallway without any symptoms. She denies any bleeding she does have bruising at her cath site. Results & Data Vital Signs (Past 12 Hours) Vital Signs Temp Pulse Resp BP Pulse Ox 08/01/19 12:10 36.7 C 72 20 103/58 L 96 08/01/19 11:00 62 20 112/40 L 97 08/01/19 10:00 53 L 13 103/62 96 08/01/19 09:00 57 L 22 112/61 96 08/01/19 08:01 60 17 96 08/01/19 08:00 37.0 C 63 21 97/51 L 95 08/01/19 07:01 54 L 19 93 08/01/19 07:00 61 11 L 96/61 L 98 08/01/19 06:00 54 L 17 96/55 L 94 08/01/19 05:00 50 L 13 96/54 L 96 08/01/19 04:01 36.8 C 59 L 12 87/59 L 95 08/01/19 03:00 53 L 18 104/46 L 96 08/01/19 02:00 54 L 17 94/52 L 95 She is awake alert and oriented x3. HEENT: 2+ carotid upstrokes no evidence of carotid bruits jugular venous pr essure appeared normal her hearing is normal Lungs: Clear to auscultation bilaterally no rales rhonchi or wheezing Heart regular rate and rhythm no appreciable murmurs rubs or gallops Abdomen soft nontender distended positive bowel sounds No clubbing cyanosis or edema she has ecchymosis over her right radial catheterization site Psychiatric she is tearful and wishes to go home today. Impressions: (1) Syncope: (2) inferior ST elevation [place] (STEMI) 3. Status post drug-eluting stent to the proximal to mid RCA 4. Moderate ischemic cardia myopathy based on her echocardiogram although her carotid impulse would suggest her LV function is starting to recover 5. Hyperlipidemia 6. Diabetes mellitus type 2 7. history of occipital CVA in 01/2016, history of provoked DVT The concern is that her syncopal episode likely represents a ventricular arrhythmia. Her significant other notes that she was down and unresponsive for a brief period of time. She is approximately 30 hours out from her cardiac catheterization. She initially was in ventricular bigeminy after the procedure. Currently she is not having any atrial or ventricular arrhythmias I discussed with her she will be on aspirin for life and Brilinta for a year if she needs to miss any doses of Brilinta for any reason she needs to let Dr. Groves know. She is on a small dose of Toprol and ideally if her blood pressure allows a s mall dose of JONATHAN inhibitor should be added as well. Given the fact her troponin is only 12 she likely has some degree of stunned myocardium which should recover with time. I would recommend and the ICU staff would recommend that she stay an additional 24 hours and be monitored overnight on a telemetry floor. She does not wish to stay in the hospital is contemplating signing out AGAINST MEDICAL ADVICE. Her LDL was 90 while taking 40 mg of Lipitor at home this was increased to 80 mg during this admission. If she is still not at goal given her diabetes I would consider switching her over to Crestor 40 mg daily
--- NOTE | 2019-08-01 15:47 | Hospitalist Progress Note ---
Date of Service August 01, 2019 Assessment & Plan (1) ST elevation [place] (STEMI): Present on admission with chest pain and syncopal even EKG on admission showed sinus bradycardia with inferior ST elevations. CXR showed no acute cardiopulmonary disease. Troponin on admission 0.277, then peak 12. Troponin this morning decreased to 8.19 S/P cardiac cath done that showed 100% occlusion of the RCA. S/P successful PCI with YONIS to mid RCA by Dr. Groves. ECHO showed severe hypokinesis of the inferoposterior wall and adjacent inferoseptum. EF 35-40%. Chol 169, LDL 90 and HDL 53 Continue dual antiplatelet therapy with aspirin ticagrelor for 1 year Continue statin 80mg and Metoprolol 12.5 mg. case discussed with cardiology and recommended to monitor in telemetry for tonight Clinically improves (2) MARCO (acute kidney injury): Creatinine 1.2 on admission, baseline cr 0.8-1.0 Creatinine 0.98 today Received IV fluid Avoid nephrotoxic agents Stable (3) Syncope: Possible related to ventricular arrhythmia vs vasovagal Denies any focal neuro deficit Will monitor in tele for another 24 hrs Stable (4) Diabetes mellitus: Most recent A1C 7.9 on 08/01/19 Continue to hold outpt metformin and jardiance Lantus/novolog per protocol Monitor BS (5) HTN (hypertension): BP was in the low side, HCTZ on hold due to increase creatinine on admission Continue metoprolol BP stable (6) Dyslipidemia: Chol 169, LDL 90 and HDL 53 Continue atorvastatin daily (7) DVT prophylaxis: Will heparin subq/Ambulates Disposition Transfer to telemetry Subjective Pt was seen and examined. Sitting in chair with no distress. Pt said that she feels fine she said that she has been walking in the hallway for about 30minues with no distress She would like to go home today Denies any chest pain, palpitation, dizziness and SOB Physical Exam Physical Exam: General- No acute distress Head- atraumatic Eyes- PERRL, EOMI, ENT- oropharynx clear Neck- supple, no JVD Lungs- clear to auscultation Heart- regular rhythm; no murmur Abdomen- normal bowel sounds, soft, nontender Extremities- no calf tenderness, No hematoma in right radial/wrist area Neuro- alert, oriented x 3; PERRL, EOMI; no facial palsy; no dysarthria Skin- warm & dry Results & Data Vital Signs (Past 12 Hours) Vital Signs Temp Pulse Resp BP Pulse Ox 08/01/19 13:00 68 24 108/57 L 95 08/01/19 12:10 36.7 C 72 20 103/58 L 96 08/01/19 11:00 62 20 112/40 L 97 08/01/19 10:00 53 L 13 103/62 96 08/01/19 09:00 57 L 22 112/61 96 08/01/19 08:01 60 17 96 08/01/19 08:00 37.0 C 63 21 97/51 L 95 08/01/19 07:01 54 L 19 93 08/01/19 07:00 61 11 L 96/61 L 98 08/01/19 06:00 54 L 17 96/55 L 94 08/01/19 05:00 50 L 13 96/54 L 96 08/01/19 04:01 36.8 C 59 L 12 87/59 L 95 (1) ST elevation [place] (STEMI) Involved coronary artery: unspecified coronary artery Qualified Code(s): I21.3 - ST elevation (STEMI) myocardial infarction of unspecified site (2) Syncope Syncope type: unspecified Qualified Code(s): R55 - Syncope and collapse
[2019-08-01] MEDS: HEPARIN SOD 5,000 UNIT/0.5 ML VIAL SQ SCH (20:32)
[2019-08-02 04:56] LABS: BUN Creatinine Ratio 22.9 (10-20); Calcium 8.5 mg/dl (8.5-10.1); Est GFR (African American) 77.8; Est GFR (Non-African American) 67.1; Potassium 3.9 mmol/L (3.5-5.1)
[2019-08-02] MEDS: INSULIN ASPART 100 UNITS/ML 3 ML PEN SC SCH ×2 (09:21→11:54)
[2019-08-02] MEDS: ATORVASTATIN 40 MG TAB PO SCH (09:22)
[2019-08-02] MEDS: METOPROLOL TARTRATE 25 MG TAB PO SCH (09:22)
[2019-08-02] MEDS: ASPIRIN 81 MG ECTAB PO SCH (09:23)
[2019-08-02] MEDS: TICAGRELOR 90 MG TAB PO SCH (09:23)
[2019-08-02] MEDS: INSULIN GLARGINE SOLOSTAR 100 UNITS/ML 3 ML PEN SC SCH (09:24)
[2019-08-02] MEDS: HEPARIN SOD 5,000 UNIT/0.5 ML VIAL SQ SCH (09:24)
--- NOTE | 2019-08-02 09:44 | Cardiology Progress Note ---
Date of Service August 02, 2019 Subjective She feels well she denies any chest pain chest pressure chest heaviness short ness of breath PND orthopnea. She has any lightheadedness or dizziness. She is been walking around the unit without any difficulty and feels well. She feels back to her baseline. She denies any angina. She denies any bleeding or bruising. Results & Data Vital Signs (Past 12 Hours) Vital Signs Temp Pulse Pulse Resp BP BP Pulse Ox 08/02/19 04:15 36.5 C 64 18 98/49 L 95 08/02/19 00:11 60 17 106/53 L 96 08/02/19 00:00 37.0 C 08/01/19 23:00 56 L 16 08/01/19 22:00 57 L 17 HEENT: 2+ carotid upstrokes no evidence of carotid bruits jugular venous pressure appeared normal her hearing is normal Lungs: Clear to auscultation bilaterally no rales rhonchi or wheezing Heart regular rate and rhythm no appreciable murmurs rubs or gallops Abdomen soft nontender distended positive bowel sounds No clubbing cyanosis or edema she has ecchymosis over her right radial nenita terization site Psychiatric she is tearful and wishes to go home today. Impressions: (1) Syncope: (2) inferior ST elevation UT (STEMI) 3. Status post drug-eluting stent to the proximal to mid RCA 4. Moderate ischemic cardia myopathy based on her echocardiogram although her carotid impulse would suggest her LV function is starting to recover 5. Hyperlipidemia 6. Diabetes mellitus type 2 7. history of occipital CVA in 01/2016, history of provoked DVT I discussed with her she will be on aspirin for life and Brilinta for a year if she needs to miss any doses of Brilinta for any reason she needs to let Dr. Groves know. She is on a small dose of Toprol and at this point there is no room for adding an JONATHAN inhibitor.. Given the fact her troponin is only 12 she likely has some degree of stunned myocardium which should recover with time. Her LDL was 90 while taking 40 mg of Lipitor at home this was increased to 80 mg during this admission. If she is still not at goal given her diabetes I would consider switching her over to Crestor 40 mg daily Per my standpoint she can be discharged home. She should follow-up with Dr. Groves in the next 2 weeks. I discussed with her post cath instructions with no heavy lifting more than 10 pounds for a week and she should not drive for 5 to 7 days. We did discuss cardiac rehab. At this point she has no interest in it. She was previously walking 30 minutes most days of the week. She can restart her diabetic regimen as an outpatient including Jardiance and metformin. She was given a coupon card for Sarah.
--- NOTE | 2019-08-02 12:24 | Hospitalist Progress Note ---
Date of Service August 02, 2019 Assessment & Plan (1) ST elevation NC (STEMI): Present on admission with chest pain and syncopal even EKG on admission showed sinus bradycardia with inferior ST elevations. CXR showed no acute cardiopulmonary disease. Troponin on admission 0.277, then peak 12. Troponin this morning decreased to 8.19 S/P cardiac cath done that showed 100% occlusion of the RCA. S/P successful PCI with YONIS to mid RCA by Dr. Groves. ECHO showed severe hypokinesis of the inferoposterior wall and adjacent inferoseptum. EF 35-40%. Chol 169, LDL 90 and HDL 53 Continue dual antiplatelet therapy with aspirin and ticagrelor for 1 year, then aspirin for life Continue statin 80mg and Metoprolol 12.5 mg. OK from cardiology standpoint to discharge home today Follow up with cardiology Dr. Groves in 2 weeks (2) MARCO (acute kidney injury): Creatinine 1.2 on admission, baseline cr 0.8-1.0 Creatinine 0.9 today Received IV fluid Avoid nephrotoxic agents Stable (3) Syncope: Possible related to ventricular arrhythmia vs vasovagal Denies any focal neuro deficit Will monitor in tele for another 24 hrs Stable (4) Diabetes mellitus: Most recent A1C 7.9 on 08/01/19 Will resume metformin and jardiance on discharge Lantus/novolog per protocol Monitor BS (5) HTN (hypertension): BP was in the low side, HCTZ on hold due to increase creatinine on admission Continue metoprolol Will continue to hold HCTZ due to low BP BP stable (6) Dyslipidemia: Chol 169, LDL 90 and HDL 53 Continue atorvastatin daily (7) DVT prophylaxis: Will heparin subq/Ambulates Disposition Discharge home today Subjective Pt was seen and examined Sitting in chair with no distress Pt said that she feels fine She said that she has been walking in the hallway for about 30minutes Denies any chest pain, palpitation, dizziness and SOB Physical Exam Physical Exam: General- No acute distress Head- atraumatic Eyes- PERRL, EOMI, ENT- oropharynx clear Neck- supple, no JVD Lungs- clear to auscultation Heart- regular rhythm; no murmur Abdomen- normal bowel sounds, soft, nontender Extremities- no calf tenderness, No hematoma in right radial/wrist area Neuro- alert, oriented x 3; PERRL, EOMI; no facial palsy; no dysarthria Skin- warm & dry Results & Data Vital Signs (Past 12 Hours) Vital Signs Temp Pulse Pulse Resp BP BP Pulse Ox 08/02/19 07:57 36.8 C 62 12 98/76 L 97 08/02/19 04:15 36.5 C 64 18 98/49 L 95 (1) ST elevation NC (STEMI) Involved coronary artery: unspecified coronary artery Qualified Code(s): I21.3 - ST elevation (STEMI) myocardial infarction of unspecified site (2) Syncope Syncope type: unspecified Qualified Code(s): R55 - Syncope and collapse
--- NOTE | 2019-08-02 18:30 | Discharge Summary ---
Date of Service August 02, 2019 Admission HPI Per Admitting Provider This is a 64 yr old F who has significant past medical history of T2DM, HTN, HLD, history of occipital CVA in 01/2016, history of provoked DVT s/p IVCF since removed who presents to [facility] ED secondary to substernal chest pain 30 minutes prior to arrival. Brother is at bedside. Patient was awoken this morning with severe, sharp, stabbing 10/10 substernal chest pain, nonradiating with associated nausea, emesis, diaphoresis. Pt had episode of syncope prior to arrival due to chest pain. After syncopal event fell on left wrist. No other injuries. When arrived to ED pt was noted to have ECG findings consistent with Inferior STEMI. Patient taken to quality assurance lab technician found to have 100% acute mid RCA occlusion and mild non culprit mid LAD. She had successful PCI with YONIS to mid RCA and transitioned to ICU for continued care. Currently states she feels much better than on arrival. Denies current chest pain, sob, palpitations, f/c/s, dizziness, lightheaded, cough, n/v/d, abdominal pain. Milla or to admission denies dysuria, hematuria, increased urg/freq with urination. 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 +FH of CAD with brother who had [place] at age 52 and Father who had 3 valve replacements and rheumatic heart disease. She has hx of CVA in 2015 after a provoked dvt s/p fall. Elicits she had a hole in heart and they felt that's what caused her occipital cva. Also hx of MRSA to R diabetic foot ulcer in 2017. Admission Exam Per Admitting Provider Constitutional: WD/WN, vitals as above, F, lying flat in bed, NAD, pleasant, conversing easily Head: Normocephalic, Atraumatic Eyes: PERRL, conjunctivae normal, anicteric sclerae ENMT: external ear and nose normal, oropharynx normal Neck: trachea midline, no thyromegaly normal visual inspection Respiratory: normal respiratory effort, lungs clear to auscultation, no wheeze, rales, rhonchi. Normal insp/exp effort, no accessory muscle use Cardiovascular: RRR, no murmur, no edema Vessels: no JVD or carotid bruit Chest: normal inspection of chest Abdomen: normal bowel sounds, soft, nontender, no hepatosplenomegaly Musculoskeletal: no cyanosis or clubbing, extremities motor strength 5/5 Skin: no rashes, warm and dry normal turgor Neurologic: PERRL, EOMI, accommodation nl, no face palsy, no dysarthria CN's II-XI intact bilaterally and moves all extremities Psychiatric: A+Ox3, euthymic affect Lymphatic: no cervical or axillary lymphadenopathy : deferred Principal Diagnosis ST elevation Myocardial infarction (STEMI): Acute kidney injury Syncope Diabetes Hypertension Dyslipidemia Discharge Exam General- No acute distress Head- atraumatic Eyes- PERRL, EOMI, ENT- oropharynx clear Neck- supple, no JVD Lungs- clear to auscultation Heart- regular rhythm; no murmur Abdomen- normal bowel sounds, soft, nontender Extremities- no calf tenderness, No hematoma in right radial/wrist area Neuro- alert, oriented x 3; PERRL, EOMI; no facial palsy; no dysarthria Skin- warm & dry Discharge Data Allergies Allergy/AdvReac Type Severity Reaction Status Date / Time daptomycin Allergy Intermediate DIFFUSE Verified 07/31/19 05:44 RASH vancomycin Allergy Intermediate Diffuse Verified 07/31/19 05:44 maculopapular rash, itching Sulfa (Sulfonamide Allergy Unknown Unknown Verified 07/31/19 05:44 Antibiotics) Consultations 07/31/19 06:30 ED Decision to Admit Stat 07/31/19 06:59 Consult Case Management - Discharge Planning Routine 07/31/19 07:01 Consult [employer] Set Up Operator Routine 07/31/19 07:06 Consult Cardiac Rehabilitation Routine Procedures Performed Operation Date: 07/31/19 06:00 Actual Procedures p Aspiration/PCI w/YONIS for Stemi - Tristan Groves MD s Cath, Left with Cors and Vent - Tristan Groves MD s Cineradiography w/Routine Exam - Tristan Groves MD Ordered Studies 07/31/19 06:02 CL Cath Imgs for PACS use only Stat XR wrist LT min 3V routine CLINICAL HISTORY: 64 years-old Female presenting with fall, left wrist pain. TECHNIQUE: Frontal, bilateral oblique, and lateral views of the left wrist were obtained. COMPARISON: None. FINDINGS: A peripheral IV catheter projects over the wrist along the dorsum. No acute fracture or malalignment. Advanced degenerative changes of the first carpometacarpal articulation with joint space loss, subchondral sclerosis, subchondral cystic change, and osteophytosis. No radiographic soft tissue abnormality. IMPRESSION: 1. No acute osseous injury. 2. 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 Electronically signed by: Kade Ann M.D. 07/31/2019 6:45 AM Dictated: 07/31/19643 Transcribed: 07/31/19643 XR chest 1V portable CLINICAL HISTORY: 64 years-old Female presenting with Chest Pain. TECHNIQUE: Portable upright AP view of the chest was obtained. COMPARISON: 08/20/2017. FINDINGS: Cardiomediastinal silhouette normal. No focal opacity. No large effusion or pneumothorax. Osseous structures normal. Cholecystectomy clips noted. IMPRESSION: 1. No acute cardiopulmonary disease. Electronically signed by: Kade Ann M.D. 07/31/2019 6:44 AM Dictated: 07/31/19643 Transcribed: 07/31/19643 Hospital Course (1) ST elevation [place] (STEMI): Present on admission with chest pain and syncopal even EKG on admission showed sinus bradycardia with inferior ST elevations. CXR showed no acute cardiopulmonary disease. Troponin on admission 0.277, then peak 12. Troponin this morning decreased to 8.19 S/P cardiac cath done that showed 100% occlusion of the RCA. S/P successful PCI with YONIS to mid RCA by Dr. Groves. ECHO showed severe hypokinesis of the inferoposterior wall and adjacent inferoseptum. EF 35-40%. Chol 169, LDL 90 and HDL 53 Continue dual antiplatelet therapy with aspirin and ticagrelor for 1 year, then aspirin for life Continue statin 80mg and Metoprolol 12.5 mg. OK from cardiology standpoint to discharge home today Follow up with cardiology Dr. Groves in 2 weeks (2) MARCO (acute kidney injury): Creatinine 1.2 on admission, baseline cr 0.8-1.0 Creatinine 0.9 today Received IV fluid Avoid nephrotoxic agents Stable (3) Syncope: Possible related to ventricular arrhythmia vs vasovagal Denies any focal neuro deficit Will monitor in tele for another 24 hrs Stable (4) Diabetes mellitus: Most recent A1C 7.9 on 08/01/19 Will resume metformin and jardiance on discharge Lantus/novolog per protocol Monitor BS (5) HTN (hypertension): BP was in the low side, HCTZ on hold due to increase creatinine on admission Continue metoprolol Will continue to hold HCTZ due to low BP BP stable (6) Dyslipidemia: Chol 169, LDL 90 and HDL 53 Continue atorvastatin daily (7) DVT prophylaxis: Will heparin subq/Ambulates Disposition Discharge home today Total Time Total Time Spent Total Time Spent (In Minutes): 35 minutes Total Time Includes: Examination of the Patient, Discharge Planning, Medication Reconciliation, Communication With Other Providers and Other Discharge Plan Discharge Items Patient Disposition: Home - Self-Care Reason For Visit: STEMI Discharge Diagnosis: ST elevation Myocardial infarction (STEMI): Acute kidney injury Syncope Diabetes Hypertension Dyslipidemia Activity: As commented below Non-emergency contact: Primary Care Provider and [employer] Call non-emergency contact if: you have any medication questions, your temperat ure is above 101, your wound has increased redness and your wound has increased drainage Follow-up/Referrals: Winston Awad MD [Primary Care Provider] - Diet: Carb Consistent or DM2 and Heart Healthy Addtl Attending Provider Instructions: Follow up with your primary care provider Dr. Awad within 1 week ( office will call you with the follow up appointment) Follow up with cardiology Dr. Groves in 2 weeks (Please call for the appointment) Continue dual antiplatelet therapy with aspirin and brilinta for 1 year, then aspirin for life Monitor for abnormal bleeding (blood in urine and stools) while on aspirin and brilinta due to risk of bleeding (Please notify your physician if you develop any bleeding) Continue monitor your blood pressure Fall precaution Cardiac rehab referral Keep the area for the cardiac cath clean and dry to avoid any infection Do not use creams, lotions or ointment on the wound site Do not take a bath, tub soak, go in a Jacuzzi, or swim in a pool or antonio for one week after the procedure. Do not participate in strenuous activities for 3-5 days after the procedure. Gradually increase your activities until you reach your normal activity level within two days after the procedure. Avoid heavy lifting (more than 10 pounds) and pushing or pulling heavy objects for the first 5 days after the procedure. No driving for 5 to 7 days. Pending Studies at Discharge: No Stand-Alone Forms: My [facility] [employer] Medications and DC Order Prescriptions: New Brilinta 90 mg Tablet 90 mg PO BID 30 Days Qty: 60 RF: 0 metoprolol tartrate 25 mg Tablet 12.5 mg PO BID 30 Days Qty: 30 RF: 0 atorvastatin 80 mg tablet 80 mg PO DAILY Qty: 30 RF: 0 Continued tramadol 50 mg Tablet 50 - 100 mg PO Q6H PRN (Reason: Pain) RF: 0 metformin 500 mg Tablet Extended Release 24hr 1,000 mg PO BID RF: 0 Lactobacillus acidoph-L.bulgar [Floranex] 1 million cell Tablet 1 tab PO DAILY RF: 0 Jardiance 10 mg Tablet 10 mg PO DAILY RF: 0 aspirin [Aspir-81] 81 mg Tablet,Delayed Release (Dr/Ec) 81 mg PO DAILY 30 Days Qty: 30 RF: 0 Discontinued atorvastatin 40 mg Tablet 40 mg PO HS RF: 0 potassium 99 mg Tablet 198 mg PO DAILY RF: 0 hydrochlorothiazide 25 mg Tablet 25 mg PO DAILY RF: 0 Discharge Orders: Discharge Order (Routine); Ordered 08/02/19 Ordered By: Tessy Cervantes/Other Patient Handouts: Diabetes Meal Planning, Foods Heart Healthy Admission Data Admit Date/Time: 07/31/19 07:00 Attending Provider: Tristan Groves Admit Provider: Tristan Groves Primary Care Provider: Winston Awad Other Providers: Ryan Arana ; Roosevelt Caal Other Interventions: Discharge Summary Assessment (RN) Last Done: 08/02/19 12:18 DC Date/Time DO NOT enter until pt leaves facility: 08/02/19 13:15
== END 2019-08-02 13:15 | disposition home or self-care (01) | DRG 247 ==
LOC: ED 05:19 → CC 06:31 → 1E 07:00